=== PATIENT | male | born 1950 | race Caucasian/White ===

== ENCOUNTER → 2021-05-23 09:58 | Outpatient (BNVA) | payer MEDICARE, SELFPAY | PROVIDERS: PCP Internal Medicine; Visit Provider Hospitalist | DX: J98.4 Other disorders of lung (principal); J18.9 Pneumonia, unspecified organism; R06.00 Dyspnea, unspecified; R91.1 Solitary pulmonary nodule; K21.00 Gastro-esophageal reflux disease with esophagitis, without bleeding | CPT/HCPCS: 99202 ==

== ENCOUNTER 2021-05-23 10:59 | Outpatient (REF) | payer MEDICARE, SELFPAY ==
[2021-05-23 11:33] LABS: MANUAL DIFF FLAG NO
[2021-05-23 11:52] LABS: Basophils Percent Auto 0.6 % (0-2); Eosinophils Absolute Auto 0.4 X10*3/uL (0.0-0.4); Hematocrit 31.9 % (42-52); Hemoglobin 10.6 g/dl (14.0-18.0); Imm Gran Abs Auto 0.02 X10*3/uL (0.00-0.03); Imm Gran Pct Auto 0.3 % (0.0-0.4); Lymphocytes Percent Auto 29.4 % (20-40); Mean Corpuscular HGB Conc 33.2 g/dl (31.0-36.0); Mean Corpuscular Volume 87.4 fL (80-98); Mean Platelet Volume 9.9 fL (9.4-12.4); Monocytes Absolute Auto 0.5 X10*3/uL (0.1-1.2); Neutrophils Absolute Auto 3.9 X10*3/uL (2.0-8.3); Neutrophils Percent Auto 56.7 % (45-73); Platelet Count 284 X10*3/uL (160-400); Red Blood Count 3.65 X10*6/uL (4.60-5.80); Red Cell Distribution Width 12.7 % (11.0-16.0); White Blood Count 6.9 X10*3/uL (4.8-10.8)
[2021-05-23 13:08] LABS: Erythrocyte Sedimentation Rate 36 MM/HR (0-15)
[2021-05-26 13:12] LABS: Anti Nuclear Antibody Screen NEGATIVE (NEGATIVE)
[2021-05-28 23:52] LABS: Asperg fumigatus Precip Abs NEGATIVE (NEGATIVE); Micropoly faeni Abs NEGATIVE (NEGATIVE); Pigeon serum Abs NEGATIVE (NEGATIVE); Saccharo pora viridis Abs NEGATIVE (NEGATIVE); Thermo candidus Abs NEGATIVE (NEGATIVE); Thermoa vulgaris #1 NEGATIVE (NEGATIVE)
== END 2021-05-23 11:00 | disposition home or self-care (01) ==
LOC: HO.LAB 10:59
PROVIDERS: Visit Provider Hospitalist
DX: J18.9 Pneumonia, unspecified organism (principal); R91.8 Other nonspecific abnormal finding of lung field
CPT/HCPCS: 36415; 82785; 85025; 85652; 86003; 86038; 86039; 86331; 86606; 86609; 99202

== ENCOUNTER → 2021-06-26 09:52 | Outpatient (BNVA) | payer MEDICARE, SELFPAY | PROVIDERS: PCP Internal Medicine; Visit Provider Hospitalist | DX: R06.00 Dyspnea, unspecified (principal); J98.4 Other disorders of lung; J18.9 Pneumonia, unspecified organism; R91.1 Solitary pulmonary nodule; K21.00 Gastro-esophageal reflux disease with esophagitis, without bleeding | CPT/HCPCS: 99212 ==

== ENCOUNTER → 2021-12-06 09:42 | Outpatient (BNVA) | payer MEDICARE, SELFPAY | PROVIDERS: PCP Internal Medicine; Visit Provider Hospitalist | DX: R06.00 Dyspnea, unspecified (principal); J98.4 Other disorders of lung; J47.9 Bronchiectasis, uncomplicated; R91.1 Solitary pulmonary nodule; K21.00 Gastro-esophageal reflux disease with esophagitis, without bleeding; I50.9 Heart failure, unspecified | CPT/HCPCS: 99212 ==

== ENCOUNTER 2024-03-05 10:56 | Outpatient (AMB) | payer MEDICARE, SELFPAY ==
[2024-03-05 11:00] VITALS: PULSE 90; O2SAT 93; BMI 28.4
--- NOTE | 2024-03-05 11:00 | MHC.OFFVIS ---
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 His shortness of breath has gotten significant to the point of significant dyspnea with minimal activity. Moderate severity. He has had a extensive pulmonary evaluation ready. Back in 2018 he did undergo pulmonary function studies demonstrating a mild restrictive ventilatory defect. That was followed by a CT scan of the chest which demonstrated some degree of was a pattern primarily in the upper central areas of his lungs to some degree this could be representing air trapping versus some degree of pneumonitis. 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 He did have a subcentimeter pulmonary nodule in the right hemithorax that has not been followed. Subsequent to that the patient did have repeat pulmonary function studies this year demonstrating again a mild restrictive pattern. No real progression when compared to his PFTs from 3 years back. In the meantime he has tried inhalers including Advair and albuterol. Although he did not see any significant improvement with these medications therefore he stop the. 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 He worked closely with asbestos and other organic and inorganic dust. The beginning of his career he did not use masks or respirator so does it was the norm. As far as exposures in his home he does have parakeets which she has had about 4 years. His is the main take care of the birds. He denies any mold in the house. Has never had any exposure to farm animals or farm work. During the office visit we did go for brief walking oximetry. The patient was able to maintain a pulse ox 95-96% with activity his heart rate between 90 and 100. The patient was visibly dyspneic. 06/26/2021 the patient is here for a pulmonary follow-up visit. The patient continues to have significant productive cough. The cough is uncomfortable. Moderate severity. He was started on the Trelegy inhaler and did not see any significant improvement. He does have a rescue inhaler that he uses as needed. In meantime he did undergo blood work he did have evidence of significant eosinophilia suggesting a component of allergic type of reaction. His allergy testing was otherwise negative. his hypersensitivity panel also was negative. He has major complaint is of productive cough in a nagging cough. . We talked about considering the use of prednisone to decrease some of the inflammation of the airways. But, the patient is reluctant due to his history of diabetes. Therefore, we can start her on azithromycin she which she bronchitis and also component of bronchiectasis that he had noticed on previous CT scan. 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 In addition to that the patient did have subcentimeter pulmonary nodules. In view of the patient's persistent symptoms will request a CT scan of the chest to further address the restrictive lung disease in the history of pneumonitis and interstitial lung disease. 12/06/2021 the patient is here for pulmonary follow-up visit. He is complaining of increasing dyspnea on exertion. Moderate severity even with typical activities of daily living. He did try the azithromycin 3 times a week treating the evidence of bronchitis and bronchiectasis but without any significant improvement. Recently he did undergo an echocardiogram demonstrating a decrease in his ejection fraction. His brain atretic peptide was significantly elevated. Patient also has worsening lower extremity edema. Explained to the patient that is likely multifactorial. He definitely has a component of volume overload status and likely some congestive heart failure. 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 Will go ahead and start him on some diuretics to see if we can improve his respiratory status. In the meantime he also has bronchiectasis. Will provide him with nebulized therapy in addition to followed by chest physical therapy in order to improve his in bronchopulmonary hygiene. Will follow-up in 6-8 weeks. 03/05/2024 the patient is here for a pulmonary follow-up visit. Recently he was hospitalized at [facility]. He developed worsening shortness of breath. He was admitted to the hospital. There he was found to have elevated cardiac enzymes suggesting demand ischemia. He was evaluated by Cardiology and placed on cardioprotective medications. During hospitalization he did have a CTA. They ruled out PE. Although he did have some areas of mosaic pattern suggesting airways disease. Could also be component of pneumonitis. Can not rule out congestive heart failure. The patient did develop worsening renal failure while in the hospital after the dye. He does have chronic disease. Although he did have the elevated cardiac enzymes felt to be secondary to his pulmonary issue and therefore opted on not pursuing a cardiac catheterization in view of his worsening renal function. The patient seems to be doing better now. We will maximize his respiratory therapy. Also request additional blood work to reassess the possibility of pneumonitis. On previous imaging studies the patient did have a component of bronchiectasis. will request a flutter valve for CPT in order for him to clear his mucus better. Will also optimize his respiratory therapy at this time. Will have him return in couple months and will assess his response to therapy. If he has any worsening symptoms he will call the office prior to that. [facility] Medical History (Updated 03/07/24 @ 18:33 by Federico Ortiz MD) COPD (chronic obstructive pulmonary disease) History of non-Hodgkin's lymphoma History of TIA (transient ischemic attack) Diabetes mellitus type 2, insulin dependent Hyperlipidemia Hypertension CAD (coronary artery disease) Pulmonary nodule GERD (gastroesophageal reflux disease) Chronic restrictive lung disease Dyspnea Pneumonitis Surgical History (Updated 12/06/21 @ 11:16 by Laurel Gaytan PA-C) History of cardiac cath History of shoulder surgery History of total left knee replacement History of lumbar surgery History of cervical spinal surgery History of appendectomy Social History (Updated 12/06/21 @ 11:19 by Laurel Gaytan PA-C) Patient Tobacco Use Status: Former Tobacco user Review of Systems Const Denies night sweats ENT Denies change in voice, Denies lip swelling, Denies mouth pain, Reports nasal congestion, Reports nasal discharge and Denies tongue swelling Card Denies chest pain, Denies palpitations and Reports dyspnea on exertion Resp Denies chest congestion, Reports cough and Reports dyspnea on exertion GI Denies abdominal pain Musc Denies no additional complaints Neuro Denies Neuro-related abnormal movements Psych Denies no additional complaints Endo Denies palpitations Robert/Lymph Denies easy bleeding and Denies lymphadenopathy Aller/Immun Denies lip swelling and Denies tongue swelling Physical Exam Vital Signs: Last Vital Signs Pulse 90 03/05/24 11:00 Pulse Ox 93 03/05/24 11:00 Oxygen Delivery Method Room Air 03/05/24 11:00 BMI result Body Mass Index 28.4 Const General: alert Neck Neck: Yes normal visual inspection, Yes full ROM and Yes no lymphadenopathy Chest Chest palpation & inspection: normal inspection of the chest Resp Effort & Inspection: normal respiratory effort Auscultation: diminished lung sounds Cardio Rate: regular rate Rhythm: regular rhythm Heart sounds: S1 normal heart sound present and S2 normal heart sound present GI Palpation (GI): Soft to palpation and nontender Auscultation: normal bowel sounds Skin General skin exam: rashes and/or lesions noted Assessment & Plan Assessment & Plan (1) Dyspnea: Code(s): R06.00 - Dyspnea, unspecified Category: Medical Qualifiers: Dyspnea type: dyspnea on exertion Qualified Code(s): R06.09 - Other forms of dyspnea (2) Chronic restrictive lung disease: Code(s): J98.4 - Other disorders of lung Category: Medical (3) GERD (gastroesophageal reflux disease): Code(s): K21.9 - Gastro-esophageal reflux disease without esophagitis Category: Medical Qualifiers: Esophagitis bleeding: without hemorrhage Esophagitis presence: with esophagitis Qualified Code(s): K21.00 - Gastro-esophageal reflux disease with esophagitis, without bleeding (4) Pulmonary nodule: Comment: 0.3 cm Code(s): R91.1 - Solitary pulmonary nodule Category: Medical (5) Bronchiectasis: Code(s): J47.9 - Bronchiectasis, uncomplicated Category: Medical Qualifiers: Bronchiectasis type: uncomplicated Qualified Code(s): J47.9 - Bronchiectasis, uncomplicated (6) COPD (chronic obstructive pulmonary disease): Code(s): J44.9 - Chronic obstructive pulmonary disease, unspecified Category: Medical Qualifiers: COPD type: chronic bronchitis Chronic bronchitis type: mixed simple and mucopurulent Qualified Code(s): J41.8 - Mixed simple and mucopurulent chronic bronchitis (7) Pneumonitis: Code(s): J18.9 - Pneumonia, unspecified organism Category: Medical Plan Recommendations: start Trelegy KARINE as needed Bloodwork Nebulizer therapy, Duoneb BID CPT with acapella valve Continue Reflux diet prevnar 20 [place] [facility] [place] [facility] [place] F/U 6-8 weeks Orders: Orders Erythrocyte Sedimentation Rate 03/05/24 J18.9 - Pneumonia, unspecified organism Pneumococcal 20 Immunization 03/05/24 Z23 - Encounter for immunization PFT pulmonary function test 03/05/24 J44.9 - Chronic obstructive pulmonary disease, unspecified Pulmonary Rehab 03/05/24 J44.9 - Chronic obstructive pulmonary disease, unspecified Complete Blood Count Auto Diff 03/05/24 J18.9 - Pneumonia, unspecified organism Immunoglobulin E 03/05/24 J18.9 - Pneumonia, unspecified organism Immunoglobulins,IgG IgA IgM 03/05/24 J18.9 - Pneumonia, unspecified organism Medications: New albuterol sulfate 90 mcg/actuation 2 inhalations inhalation Q6H PRN 18 grams 12RF shortness of breath or wheezing 30 days J44.9 - Chronic obstructive pulmonary disease, unspecified Refilled [id number]-jqcbguhsk-xibpxump 200-62.5-25 mcg (Trelegy Ellipta) 1 inh inhalation DAILY 60 ea 12RF 30 days ipratropium-albuterol 0.5 mg-3 mg(2.5 mg base)/3 mL 3 mL inhalation BID 180 mL 11RF 30 days J44.9 - Chronic obstructive pulmonary disease, unspecified Coding Level of Care Code Est Pt Level 4 (12723) Complex EM visit Add On G2211 Diagnoses Dyspnea on exertion R06.09 Dyspnea type: dyspnea on exertion Chronic restrictive lung disease J98.4 Gastroesophageal reflux disease with esophagitis without hemorrhage K21.00 Esophagitis bleeding: without hemorrhage Esophagitis presence: with esophagitis Pulmonary nodule R91.1 Bronchiectasis without complication J47.9 Bronchiectasis type: uncomplicated Mixed simple and mucopurulent chronic bronchitis J41.8 COPD type: chronic bronchitis Chronic bronchitis type: mixed simple and mucopurulent Pneumonitis J18.9 Time Spent (min) 30
== END 2024-03-05 11:41 | disposition home or self-care (01) ==
PROVIDERS: PCP Internal Medicine; Visit Provider Hospitalist
DX: Z23 Encounter for immunization (principal)
CPT/HCPCS: 99214; G2211

== ENCOUNTER → 2024-03-05 10:56 | Outpatient (BNVA) | payer MEDICARE, SELFPAY | PROVIDERS: PCP Internal Medicine; Visit Provider Hospitalist | DX: J41.8 Mixed simple and mucopurulent chronic bronchitis (principal); J98.4 Other disorders of lung; R06.09 Other forms of dyspnea; J47.9 Bronchiectasis, uncomplicated; J18.9 Pneumonia, unspecified organism; K21.00 Gastro-esophageal reflux disease with esophagitis, without bleeding; Z23 Encounter for immunization | CPT/HCPCS: 90471; 90677; 99212 ==

== ENCOUNTER 2024-06-09 11:13 | Outpatient (AMB) | payer MEDICARE, SELFPAY ==
[2024-06-09 11:15] VITALS: BP 142/80; PULSE 83; O2SAT 95
--- NOTE | 2024-06-09 11:15 | A.OFFVIS_ITS ---
Vital Signs 06/09/24 11:15 Weight 213 lb 13.574 oz BP 142/80 H Blood Pressure Location Rt brachial Position Sitting Pulse 83 Pulse Source Pulse Oximeter Pulse Oximetry (%) 95 Oxygen Delivery Method Room Air Intake Visit Reasons: COPD follow-up Intake Note: [facility] ER last night dx with Pnuemonia Allergies atorvastatin Allergy (Severe, Verified 06/09/24 11:20) Muscle Aches magnesium Allergy (Severe, Verified 06/09/24 11:20) Rash pravastatin Allergy (Severe, Verified 06/09/24 11:20) Muscle Aches Medication List - Last Reconciled 06/09/24 by Marsha Beach LPN albuterol sulfate 90 mcg/actuation 2 inhalations inhalation Q6H PRN 30 days aspirin 81 mg PO DAILY clopidogrel 75 mg PO DAILY dulaglutide (Trulicity) 0.75 mg subcut QWEEK sqxwyjwrxpt-wylcsdvyj-nqkpeqnx 200-62.5-25 mcg (Trelegy Ellipta) 1 inh inhalation DAILY 30 days glipizide ER 10 mg PO BID insulin glargine (Basaglar KwikPen U-100 Insulin) units subcut ipratropium-albuterol 0.5 mg-3 mg(2.5 mg base)/3 mL 3 mL inhalation BID 30 days isosorbide mononitrate ER 30 mg PO DAILY metformin 1,000 mg PO BID metoprolol succinate ER 50 mg PO BID sertraline 50 mg PO DAILY HPI Comments Details: The patient is a 73-year-old gentleman who has been complaining of progressive dyspnea for the last few years. His shortness of breath has gotten significant to the point of significant dyspnea with minimal activity. Moderate severity. He has had a extensive pulmonary evaluation ready. Back in 2019 he did undergo pulmonary function studies demonstrating a mild restrictive ventilatory defect. That was followed by a CT scan of the chest which demonstrated some degree of was a pattern primarily in the upper central areas of his lungs to some degree this could be representing air trapping versus some degree of pneumonitis. 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 He did have a subcentimeter pulmonary nodule in the right hemithorax that has not been followed. Subsequent to that the patient did have repeat pulmonary function studies this year demonstrating again a mild restrictive pattern. No real progression when compared to his PFTs from 3 years back. In the meantime he has tried inhalers including Advair and albuterol. Although he did not see any significant improvement with these medications therefore he stop the. 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 He worked closely with asbestos and other organic and inorganic dust. The beginning of his career he did not use masks or respirator so does it was the norm. As far as exposures in his home he does have parakeets which she has had about 4 years. His is the main take care of the birds. He denies any mold in the house. Has never had any exposure to farm animals or farm work. During the office visit we did go for brief walking oximetry. The patient was able to maintain a pulse ox 95- 96% with activity his heart rate between 90 and 100. The patient was visibly dyspneic. 06/26/2021 the patient is here for a pulmonary follow-up visit. The patient continues to have significant productive cough. The cough is uncomfortable. Moderate severity. He was started on the Trelegy inhaler and did not see any significant improvement. He does have a rescue inhaler that he uses as needed. In meantime he did undergo blood work he did have evidence of significant eosinophilia suggesting a component of allergic type of reaction. His allergy testing was otherwise negative. his hypersensitivity panel also was negative. He has major complaint is of productive cough in a nagging cough. . We talked about considering the use of prednisone to decrease some of the inflammation of the airways. But, the patient is reluctant due to his history of diabetes. Therefore, we can start her on azithromycin she which she bronchitis and also component of bronchiectasis that he had noticed on previous CT scan. 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 In addition to that the patient did have subcentimeter pulmonary nodules. In view of the patient's persistent symptoms will request a CT scan of the chest to further address the restrictive lung disease in the history of pneumonitis and interstitial lung disease. 12/06/2021 the patient is here for pulmonary follow-up visit. He is complaining of increasing dyspnea on exertion. Moderate severity even with typical activities of daily living. He did try the azithromycin 3 times a week treating the evidence of bronchitis and bronchiectasis but without any significant improvement. Recently he did undergo an echocardiogram demonstrating a decrease in his ejection fraction. His brain atretic peptide was significantly elevated. Patient also has worsening lower extremity edema. Explained to the patient that is likely multifactorial. He definitely has a component of volume overload status and likely some congestive heart failure. 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 Will go ahead and start him on some diuretics to see if we can improve his respiratory status. In the meantime he also has bronchiectasis. Will provide him with nebulized therapy in addition to followed by chest physical therapy in order to improve his in bronchopulmonary hygiene. Will follow-up in 6-8 weeks. 03/05/2024 the patient is here for a pulmonary follow-up visit. Recently he was hospitalized at [facility]. He developed worsening shortness of breath. He was admitted to the hospital. There he was found to have elevated cardiac enzymes suggesting demand ischemia. He was evaluated by Cardiology and placed on cardioprotective medications. During hospitalization he did have a CT A. They ruled out PE. Although he did have some areas of mosaic pattern suggesting airways disease. Could also be component of pneumonitis. Can not rule out congestive heart failure. The patient did develop worsening renal failure while in the hospital after the dye. He does have chronic disease. Although he did have the elevated cardiac enzymes felt to be secondary to his pulmonary issue and therefore opted on not pursuing a cardiac catheterization in view of his worsening renal function. The patient seems to be doing better now. We will maximize his respiratory therapy. Also request additional blood work to reassess the possibility of pneumonitis. On previous imaging studies the patient did have a component of bronchiectasis. will request a flutter valve for CPT in order for him to clear his mucus better. Will also optimize his respiratory therapy at this time. Will have him return in couple months and will assess his response to therapy. If he has any worsening symptoms he will call the office prior to that. 06/09/2024 the patient is here for hospital follow-up visit. Since we last spoke the patient was seen by his primary care doctor was having. He had blood work including elevated brain atretic peptide. He was recommended to go to the ER. He had done an x-ray on June 07 which was fairly clear. I did personally review the images. It was a PA without any evidence of any airspace disease. Subsequently he went to [facility]. He had a repeat chest x-ray. It was an AP film and at that point demonstrated a slight hazy opacity in the left basilar area. He did also have some crackles in that area. The patient was given a course of antibiotics to treat for pneumonia. Clinically the patient is feeling better. During the visit we did taken for a walking oximetry the patient did desaturate down to 88% with activity. He was visibly dyspneic. In part this is likely multifactorial with his heart failure his COPD. The patient will benefit from oxygen supplementation. He does have issues with his walking therefore portable oxygen concentrator will be more effective as it is easier to carry and better portability outside of the home. I will request a POC from the local [employer] company. The patient should also use the oxygen at nighttime. Can also try to do an overnight oximetry to see if he benefits from the oxygen nocturnally. In the meantime he will continue with his respiratory medicine. Also continue with diuresis as tolerated. Will start him on low-dose prednisone taper to help decrease the airway inflammation and hopefully allow him to recover faster. She needs to make sure to follow his sugars closely. At some point when he returns will do a follow-up chest x-ray to make sure that his left lower lobe opacities clear. [facility] Medical History (Updated 03/07/24 @ 18:33 by Federico Ortiz MD) COPD (chronic obstructive pulmonary disease) History of non-Hodgkin's lymphoma History of TIA (transient ischemic attack) Diabetes mellitus type 2, insulin dependent Hyperlipidemia Hypertension CAD (coronary artery disease) Pulmonary nodule GERD (gastroesophageal reflux disease) Chronic restrictive lung disease Dyspnea Pneumonitis Surgical History (Updated 12/06/21 @ 11:16 by Laurel Gaytan PA-C) History of cardiac cath History of shoulder surgery History of total left knee replacement History of lumbar surgery History of cervical spinal surgery History of appendectomy Social History (Updated 12/06/21 @ 11:19 by Laurel Gaytan PA-C) Patient Tobacco Use Status: Former Tobacco user Review of Systems Const Denies night sweats ENT Denies change in voice, Denies lip swelling, Denies mouth pain, Reports nasal congestion, Reports nasal discharge and Denies tongue swelling Card Denies chest pain, Denies palpitations and Reports dyspnea on exertion Resp Denies chest congestion, Reports cough and Reports dyspnea on exertion GI Denies abdominal pain Musc Denies no additional complaints Neuro Denies Neuro-related abnormal movements Psych Denies no additional complaints Endo Denies palpitations Robert/Lymph Denies easy bleeding and Denies lymphadenopathy Aller/Immun Denies lip swelling and Denies tongue swelling Physical Exam Vital Signs: Last Vital Signs Pulse 83 06/09/24 11:15 BP 142/80 H 06/09/24 11:15 Pulse Ox 95 06/09/24 11:15 Oxygen Delivery Method Room Air 06/09/24 11:15 Const General: alert Neck Neck: Yes normal visual inspection, Yes full ROM and Yes no lymphadenopathy Chest Chest palpation & inspection: normal inspection of the chest Resp Effort & Inspection: normal respiratory effort Auscultation: rales on the left and diminished lung sounds Cardio Rate: regular rate Rhythm: regular rhythm Heart sounds: S1 normal heart sound present and S2 normal heart sound present GI Palpation (GI): Soft to palpation and nontender Auscultation: normal bowel sounds Skin General skin exam: rashes and/or lesions noted Office Procedures 6 Minute Walk Time:: 20:29 SPO2 % at rest: 92 Pulse at rest: 78 SPO2 % during excercise: 88 Pulse during excercise: 90 Distance in yards walked: 200 Mary Score: 8 Supplemental Oxygen: pt desaturated 88% RA with activity, placed on POC, had to increase to 3L/pulse to maintain pox 92% with acitivity [id number] - 6 Minute Walk Assessment & Plan Assessment & Plan (1) Dyspnea: Code(s): R06.00 - Dyspnea, unspecified Category: Medical Qualifiers: Dyspnea type: dyspnea on exertion Qualified Code(s): R06.09 - Other forms of dyspnea (2) Chronic restrictive lung disease: Code(s): J98.4 - Other disorders of lung Category: Medical (3) GERD (gastroesophageal reflux disease): Code(s): K21.9 - Gastro-esophageal reflux disease without esophagitis Category: Medical Qualifiers: Esophagitis bleeding: without hemorrhage Esophagitis presence: with esophagitis Qualified Code(s): K21.00 - Gastro-esophageal reflux disease with esophagitis, without bleeding (4) Pulmonary nodule: Comment: 0.3 cm Code(s): R91.1 - Solitary pulmonary nodule Category: Medical (5) Bronchiectasis: Code(s): J47.9 - Bronchiectasis, uncomplicated Category: Medical Qualifiers: Bronchiectasis type: uncomplicated Qualified Code(s): J47.9 - Bronchiectasis, uncomplicated (6) COPD (chronic obstructive pulmonary disease): Code(s): J44.9 - Chronic obstructive pulmonary disease, unspecified Category: Medical Qualifiers: COPD type: chronic bronchitis Chronic bronchitis type: mixed simple and mucopurulent Qualified Code(s): J41.8 - Mixed simple and mucopurulent chronic bronchitis (7) Pneumonitis: Code(s): J18.9 - Pneumonia, unspecified organism Category: Medical (8) CHF (congestive heart failure): Code(s): I50.9 - Heart failure, unspecified Category: Medical Qualifiers: Heart failure chronicity: unspecified Plan Recommendations: continue Trelegy KARINE as needed Nebulizer therapy, Duoneb BID CPT with acapella valve Continue Reflux diet prevnar 20 PFTs at [facility] start Pulmonary rehab at [facility] diuresis as tolerated start POC 3L/pulse with activity and 2L/min while sleeping start prednisone taper complete abx F/U 2-3 months Coding Level of Care Code Est Pt Level 4 (56277) Complex EM visit Add On G2211 Diagnoses Dyspnea on exertion R06.09 Dyspnea type: dyspnea on exertion Chronic restrictive lung disease J98.4 Gastroesophageal reflux disease with esophagitis without hemorrhage K21.00 Esophagitis bleeding: without hemorrhage Esophagitis presence: with esophagitis Pulmonary nodule R91.1 Bronchiectasis without complication J47.9 Bronchiectasis type: uncomplicated Mixed simple and mucopurulent chronic bronchitis J41.8 COPD type: chronic bronchitis Chronic bronchitis type: mixed simple and mucopurulent Pneumonitis J18.9 CHF (congestive heart failure) I50.9 Heart failure chronicity: unspecified CPT Codes Coding ([id number]) Time Spent (min) 20
[2024-06-09 20:27] VITALS: PULSE 78; O2SAT 92
== END 2024-06-09 11:56 | disposition home or self-care (01) ==
LOC: HO.HPS 11:13
PROVIDERS: PCP Internal Medicine; Visit Provider Hospitalist
DX: R06.09 Other forms of dyspnea (principal); J98.4 Other disorders of lung; K21.00 Gastro-esophageal reflux disease with esophagitis, without bleeding; R91.1 Solitary pulmonary nodule; J47.9 Bronchiectasis, uncomplicated; J41.8 Mixed simple and mucopurulent chronic bronchitis; J18.9 Pneumonia, unspecified organism; I50.9 Heart failure, unspecified
CPT/HCPCS: 94618; 99214; G2211

== ENCOUNTER → 2024-06-09 11:13 | Outpatient (BNVA) | payer MEDICARE, SELFPAY | PROVIDERS: PCP Internal Medicine; Visit Provider Hospitalist | DX: J41.8 Mixed simple and mucopurulent chronic bronchitis (principal); J18.9 Pneumonia, unspecified organism; J98.4 Other disorders of lung; J47.9 Bronchiectasis, uncomplicated; R91.1 Solitary pulmonary nodule; I50.9 Heart failure, unspecified; R06.09 Other forms of dyspnea | CPT/HCPCS: 94618; 99212 ==

== ENCOUNTER 2024-09-27 13:23 | Outpatient (AMB) | payer MEDICARE, SELFPAY ==
[2024-09-27 13:28] VITALS: BP 102/58; PULSE 71; O2SAT 98; BMI 26.2
--- NOTE | 2024-09-27 13:28 | MHC.OFFVIS ---
Vital Signs 09/27/24 13:28 Height 6 ft 2 in Weight 203 lb 14.841 oz BMI 26.2 BP 102/58 L Blood Pressure Location Lt brachial Position Sitting Pulse 71 Pulse Source Pulse Oximeter Pulse Oximetry (%) 98 Oxygen Delivery Method Room Air Intake Visit Reasons: COPD follow-up Allergies atorvastatin Allergy (Severe, Verified 09/27/24 13:34) Muscle Aches magnesium Allergy (Severe, Verified 09/27/24 13:34) Rash pravastatin Allergy (Severe, Verified 09/27/24 13:34) Muscle Aches HPI Comments Details: The patient is a 74-year-old gentleman who has been complaining of progressive dyspnea for the last few years. His shortness of breath has gotten significant to the point of significant dyspnea with minimal activity. Moderate severity. He has had a extensive pulmonary evaluation ready. Back in 2018 he did undergo pulmonary function studies demonstrating a mild restrictive ventilatory defect. That was followed by a CT scan of the chest which demonstrated some degree of was a pattern primarily in the upper central areas of his lungs to some degree this could be representing air trapping versus some degree of pneumonitis. 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 He did have a subcentimeter pulmonary nodule in the right hemithorax that has not been followed. Subsequent to that the patient did have repeat pulmonary function studies this year demonstrating again a mild restrictive pattern. No real progression when compared to his PFTs from 3 years back. In the meantime he has tried inhalers including Advair and albuterol. Although he did not see any significant improvement with these medications therefore he stop the. 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 He worked closely with asbestos and other organic and inorganic dust. The beginning of his career he did not use masks or respirator so does it was the norm. As far as exposures in his home he does have parakeets which she has had about 4 years. His is the main take care of the birds. He denies any mold in the house. Has never had any exposure to farm animals or farm work. During the office visit we did go for brief walking oximetry. The patient was able to maintain a pulse ox 95-96% with activity his heart rate between 90 and 100. The patient was visibly dyspneic. 06/26/2021 the patient is here for a pulmonary follow-up visit. The patient continues to have significant productive cough. The cough is uncomfortable. Moderate severity. He was started on the Trelegy inhaler and did not see any significant improvement. He does have a rescue inhaler that he uses as needed. In meantime he did undergo blood work he did have evidence of significant eosinophilia suggesting a component of allergic type of reaction. His allergy testing was otherwise negative. his hypersensitivity panel also was negative. He has major complaint is of productive cough in a nagging cough. . We talked about considering the use of prednisone to decrease some of the inflammation of the airways. But, the patient is reluctant due to his history of diabetes. Therefore, we can start her on azithromycin she which she bronchitis and also component of bronchiectasis that he had noticed on previous CT scan. 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 In addition to that the patient did have subcentimeter pulmonary nodules. In view of the patient's persistent symptoms will request a CT scan of the chest to further address the restrictive lung disease in the history of pneumonitis and interstitial lung disease. 12/06/2021 the patient is here for pulmonary follow-up visit. He is complaining of increasing dyspnea on exertion. Moderate severity even with typical activities of daily living. He did try the azithromycin 3 times a week treating the evidence of bronchitis and bronchiectasis but without any significant improvement. Recently he did undergo an echocardiogram demonstrating a decrease in his ejection fraction. His brain atretic peptide was significantly elevated. Patient also has worsening lower extremity edema. Explained to the patient that is likely multifactorial. He definitely has a component of volume overload status and likely some congestive heart failure. 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 Will go ahead and start him on some diuretics to see if we can improve his respiratory status. In the meantime he also has bronchiectasis. Will provide him with nebulized therapy in addition to followed by chest physical therapy in order to improve his in bronchopulmonary hygiene. Will follow-up in 6-8 weeks. 03/05/2024 the patient is here for a pulmonary follow-up visit. Recently he was hospitalized at [facility]. He developed worsening shortness of breath. He was admitted to the hospital. There he was found to have elevated cardiac enzymes suggesting demand ischemia. He was evaluated by Cardiology and placed on cardioprotective medications. During hospitalization he did have a CTA. They ruled out PE. Although he did have some areas of mosaic pattern suggesting airways disease. Could also be component of pneumonitis. Can not rule out congestive heart failure. The patient did develop worsening renal failure while in the hospital after the dye. He does have chronic disease. Although he did have the elevated cardiac enzymes felt to be secondary to his pulmonary issue and therefore opted on not pursuing a cardiac catheterization in view of his worsening renal function. The patient seems to be doing better now. We will maximize his respiratory therapy. Also request additional blood work to reassess the possibility of pneumonitis. On previous imaging studies the patient did have a component of bronchiectasis. will request a flutter valve for CPT in order for him to clear his mucus better. Will also optimize his respiratory therapy at this time. Will have him return in couple months and will assess his response to therapy. If he has any worsening symptoms he will call the office prior to that. 06/09/2024 the patient is here for hospital follow-up visit. Since we last spoke the patient was seen by his primary care doctor was having. He had blood work including elevated brain atretic peptide. He was recommended to go to the ER. He had done an x-ray on June 07 which was fairly clear. I did personally review the images. It was a PA without any evidence of any airspace disease. Subsequently he went to [facility]. He had a repeat chest x-ray. It was an AP film and at that point demonstrated a slight hazy opacity in the left basilar area. He did also have some crackles in that area. The patient was given a course of antibiotics to treat for pneumonia. Clinically the patient is feeling better. During the visit we did taken for a walking oximetry the patient did desaturate down to 88% with activity. He was visibly dyspneic. In part this is likely multifactorial with his heart failure his COPD. The patient will benefit from oxygen supplementation. He does have issues with his walking therefore portable oxygen concentrator will be more effective as it is easier to carry and better portability outside of the home. I will request a POC from the local [employer] company. The patient should also use the oxygen at nighttime. Can also try to do an overnight oximetry to see if he benefits from the oxygen nocturnally. In the meantime he will continue with his respiratory medicine. Also continue with diuresis as tolerated. Will start him on low-dose prednisone taper to help decrease the airway inflammation and hopefully allow him to recover faster. She needs to make sure to follow his sugars closely. At some point when he returns will do a follow-up chest x-ray to make sure that his left lower lobe opacities clear. 09/27/2024 the patient is here for sick visit. Apparently he developed RSV worsening respiratory symptoms. He has been coughing more. Some chest congestion. Difficult to expectorate. Moderate severity. He had a chest x-ray back in 08/28/2023 which I personally reviewed demonstrating no airspace disease. 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 There was a question of diminished breath sounds and pleural effusion. He was sent over to Pulmonary. Currently he is still complaining of the cough. Also has other complaints such as weakness and low blood pressure specially when standing up. He has been concerned about that. He has been upset about the cough. On exam he does not have any wheezing which is reassuring. He already completed a course of steroids. He also completed a course of doxycycline. He does have some rhonchi in the bases. We did give him a treatment with levo albuterol which did help and he did cough up some secretions but we were able to get a sputum cup for culture. I did give him another cup that he can take with him for the culture. Will go ahead and start him on Augmentin since he finished doxycycline and he is going to work on deep breathing exercises. I did request an Acapella valve for him and he will use the nebulizer twice a day. He will go for chest x-ray today to see if there is any evidence of any airspace disease or effusions. [facility] Medical History (Updated 09/27/24 @ 17:43 by Federico Ortiz MD) COPD (chronic obstructive pulmonary disease) History of non-Hodgkin's lymphoma History of TIA (transient ischemic attack) Diabetes mellitus type 2, insulin dependent Hyperlipidemia Hypertension CAD (coronary artery disease) Pulmonary nodule GERD (gastroesophageal reflux disease) Chronic restrictive lung disease Dyspnea Pneumonitis Surgical History (Updated 12/06/21 @ 11:16 by Laurel Gaytan PA-C) History of cardiac cath History of shoulder surgery History of total left knee replacement History of lumbar surgery History of cervical spinal surgery History of appendectomy Social History Patient Tobacco Use Status: Former Tobacco user Review of Systems Const Denies night sweats ENT Denies change in voice, Denies lip swelling, Denies mouth pain, Reports nasal congestion, Reports nasal discharge and Denies tongue swelling Card Denies chest pain, Denies palpitations and Reports dyspnea on exertion Resp Reports chest congestion, Reports cough and Reports dyspnea on exertion GI Denies abdominal pain Musc Denies no additional complaints Neuro Denies Neuro-related abnormal movements Psych Denies no additional complaints Endo Denies palpitations Robert/Lymph Denies easy bleeding and Denies lymphadenopathy Aller/Immun Denies lip swelling and Denies tongue swelling Physical Exam Vital Signs: Last Vital Signs Pulse 71 09/27/24 13:28 BP 102/58 L 09/27/24 13:28 Pulse Ox 98 09/27/24 13:28 Oxygen Delivery Method Room Air 09/27/24 13:28 BMI result Body Mass Index 26.2 Const General: alert Neck Neck: Yes normal visual inspection, Yes full ROM and Yes no lymphadenopathy Chest Chest palpation & inspection: normal inspection of the chest Resp Effort & Inspection: normal respiratory effort Auscultation: rales on the left and diminished lung sounds Cardio Rate: regular rate Rhythm: regular rhythm Heart sounds: S1 normal heart sound present and S2 normal heart sound present GI Palpation (GI): Soft to palpation and nontender Auscultation: normal bowel sounds Skin General skin exam: rashes and/or lesions noted Assessment & Plan Assessment & Plan (1) Dyspnea: Code(s): R06.00 - Dyspnea, unspecified Category: Medical Qualifiers: Dyspnea type: dyspnea on exertion Qualified Code(s): R06.09 - Other forms of dyspnea (2) Chronic restrictive lung disease: Code(s): J98.4 - Other disorders of lung Category: Medical (3) GERD (gastroesophageal reflux disease): Code(s): K21.9 - Gastro-esophageal reflux disease without esophagitis Category: Medical Qualifiers: Esophagitis bleeding: without hemorrhage Esophagitis presence: with esophagitis Qualified Code(s): K21.00 - Gastro-esophageal reflux disease with esophagitis, without bleeding (4) Pulmonary nodule: Comment: 0.3 cm Code(s): R91.1 - Solitary pulmonary nodule Category: Medical (5) Bronchiectasis: Code(s): J47.9 - Bronchiectasis, uncomplicated Category: Medical Qualifiers: Bronchiectasis type: uncomplicated Qualified Code(s): J47.9 - Bronchiectasis, uncomplicated (6) COPD (chronic obstructive pulmonary disease): Code(s): J44.9 - Chronic obstructive pulmonary disease, unspecified Category: Medical Qualifiers: COPD type: chronic bronchitis Chronic bronchitis type: mixed simple and mucopurulent Qualified Code(s): J41.8 - Mixed simple and mucopurulent chronic bronchitis (7) Pneumonitis: Code(s): J18.9 - Pneumonia, unspecified organism Category: Medical (8) CHF (congestive heart failure): Code(s): I50.9 - Heart failure, unspecified Category: Medical Qualifiers: Heart failure chronicity: unspecified Heart failure type: unspecified Qualified Code(s): I50.9 - Heart failure, unspecified Plan start Aumentin sputum cx if no better CXR continue Trelegy KARINE as needed Nebulizer therapy, Duoneb BID CPT with acapella valve Continue Reflux diet diuresis as tolerated POC 3L/pulse with activity and 2L/min while sleeping F/U 2-3 months Orders: Orders XR chest 2V Today J41.8 - Mixed simple and mucopurulent chronic bronchitis Sputum Cult + Gram stain Today R91.1 - Solitary pulmonary nodule Medications: New amoxicillin-pot clavulanate 500-125 mg (Augmentin) 1 tab PO BID 10 days 20 tabs 0RF Coding Level of Care Code Est Pt Level 4 (54070) Complex EM visit Add On G2211 Diagnoses Dyspnea on exertion R06.09 Dyspnea type: dyspnea on exertion Chronic restrictive lung disease J98.4 Gastroesophageal reflux disease with esophagitis without hemorrhage K21.00 Esophagitis bleeding: without hemorrhage Esophagitis presence: with esophagitis Pulmonary nodule R91.1 Bronchiectasis without complication J47.9 Bronchiectasis type: uncomplicated Mixed simple and mucopurulent chronic bronchitis J41.8 COPD type: chronic bronchitis Chronic bronchitis type: mixed simple and mucopurulent Pneumonitis J18.9 Congestive heart failure, unspecified HF chronicity, unspecified heart failure type I50.9 Heart failure chronicity: unspecified Heart failure type: unspecified Time Spent (min) 17
--- OUTSIDE RECORDS SUMMARY | 2024-09-27 15:20 | XMS_ITS | Encounter Summary ---
Author Organization [facility] Address [address] [address] Phone Care Team Providers Care Od Grinder Operator Name Role Phone Vandana Parker MD Primary Care Provider [phone]- [phone] Encounter Details Date Type Department Care Team (Late st Contact Info) Description 09/20/2024 10:00 AM EST Office Visit [facility] [address] [address] Santiago Quinn MD [address] [address] Stage 3a chronic kidney disease (HCC) (Primary Dx); Renal disorder due to type 2 diabetes mellitus <Other diabetic kidney complication> (HCC); Peripheral arterial occlusive disease (HCC); Non-Hodgkin's lymphoma (clinical) (HCC); Hypomagnesemia; Hyperkalemia; Hypercalcemia; Essential hypertension; Diabetes mellitus, not otherwise specified (HCC); Congestive heart failure, not otherwise specified (HCC) Social History Tobacco Use Types Packs/Day Years Used Date Smoking Tobacco: Former Cigarettes Q uit: 2002 Alcohol Use Standard Drinks/Week Comments No 0 (1 standard drink = 0.6 oz pur e alcohol) Sex and Gender Information Value Date Recorded Sex Assigned at Not on file Legal Sex Male 4:48 PM EST Gender Identity Not on file Sexual Orientation Not on file documented as of this encounter Last Filed Vital Signs Vital Sign Reading Time Taken Comments Blood Pressure 92/48 09/20/2024 10:18 AM EST Pulse - - Temperature - - Respiratory Rate - - Oxygen Saturation - - Inhaled Oxygen Concentration - - Weight 92.4 kg (203 lb 12.8 oz) 025 10:18 AM EST Height 188 cm (6' 2 ) 09/20/2024 10:18 AM EST Body Mass Index 26.17 09/20/2024 10:18 AM EST documented in this encounter Progress Notes * Santiago Quinn MD - 09/20/2024 10:00 AM EST [facility] Office Visit Patient Name: Jose L Goins, Male Date of : 1950, 74 y.o. Date: 09/20/2024 History of Present Illness Jose L Goins is a 74 y.o. male who is here for follow up of multiple medical problems including CKD, SHONNA, and hyperkalemia. Interim history since the last encounter was reviewed. No acute complaints were voiced. Denied chest pain, flank pain, hematuria, hemoptysis or fevers. All other systems were reviewed and negative. Available lab results were reviewed and discussed. Medication list was reviewed and discussed. Any available out of office blood pressure readings were reviewed and discussed. CV and Renal risk was assessed and discussed. The following portions of the patient's chart were reviewed in this encounter and updated as appropriate: Tobacco Allergies Meds Problems Med Hx Surg Hx Fam Hx Past Medical History Past Medical History: Diagnosis Date Chronic kidney disease stage 3 Chronic obstructive pulmonary disease (HCC) Dyspnea on exertion Emphysema (HCC) Heart disease coronary artery disease Hyperlipidemia Hypertension -Since late Non-Hodgkin's lymphoma (clinical) (HCC) Peripheral neuropathy Peripheral vascular disease (HCC) Sleep apnea TIA Type 2 diabetes mellitus (HCC) mid Past Surgical History Past Surgical History: Procedure Laterality Date BACK SURGERY cervical disc & lumbar disc FEMUR SURGERY KNEE ARTHROPLASTY Left OTHER SURGICAL HISTORY Cardiac Cath 2016 SHOULDER SURGERY Rotator cuff Family History Family History Problem Relation Age of Onset Diabetes Mother Diabetes Father Heart disease Father Social History Social History Tobacco Use Smoking status: Former Current packs/day: 0.00 Types: Cigarettes Quit date: 2001 Years since quittin.1 Smokeless tobacco: Not on file Substance Use Topics Alcohol use: No Medication List Current Outpatient Medications Medication Sig Dispense Refill aspirin (ST DORA) 81 MG EC tablet Take 1 tablet by mouth 1 (one) time each day Basaglar KwikPen 100 UNIT/ML injection clopidogrel (PLAVIX) 75 MG tablet Take 1 tablet by mouth 1 (one) time each day glipiZIDE (GLUCOTROL) 10 MG tablet Take 1 tablet by mouth 2 (two) times a day metoprolol succinate XL (TOPROL-XL) 50 MG 24 hr tablet Take 1 tablet by mouth 2 (two) times a day Multiple Vitamin (multivitamin) capsule Take by mouth 1 (one) time each day sertraline (ZOLOFT) 50 MG tablet Comments: Patient Notes: TAKE 1 TABLET BY MOUTH EVERY DAY Duration: 30 metFORMIN (GLUCOPHAGE) 500 MG tablet Take 2 tablets by mouth 2 (two) times a day (Patient not taking: Reported on 09/20/2024) Sodium Zirconium Cyclosilicate (Lokelma) 10 g pack Take 1 packet by mouth 2 (two) times a week (Patient not taking: Reported on 09/20/2024) Trulicity 0.75 MG/0.5ML solution pen-injector INJECT 0.75 MG ONCE A WEEK SUBCUTANEOUSLY (Patient not taking: Reported on 09/20/2024) No current facility-administered medications for this visit. Allergy List Allergies Allergen Reactions Atorvastatin Muscle aches Magnesium Oxide Pravastatin Muscle aches Physical Exam BP (!) 92/48 (BP Location: Left upper arm, Patient Position: Sitting) Ht 6' 2 (1.88 m) Wt 203 lb 12.8 oz (92.4 kg) BMI 26.17 kg/m?? Last 3 office BP readings: BP Readings from Last 3 Encounters: 09/20/24 (!) 92/48 03/22/24 158/81 09/01/23 146/74 General: Well developed well nourished in no acute distress Neuro: alert interactive without delirium Eyes: anicteric ENT: moist membranes, no stridor Cardiovascular: regular rate and rhythm, no rub Pulmonary: no distress or tachypnea Abdomen: soft and nondistended Genitourinary: no suprapubic tenderness or bladder distension to palpation Musculoskeletal: No bony tenderness or deviation Dermatologic: No visible rash on exposed skin Hematologic: no petechiae or ecchymoses on exposed skin Extremities: edema is trace due to paod l> r Labs Chemistry Lab Units 08/24/24 1421 08/10/24 0624 08/04/24 0626 07/14/24 0423 07/13/24 1103 06/11/24 0957 08/25/23 1252 01/06/23 1005 CREATININE mg/dL 1.65* 1.77* 1.75* 1.83* 1.81* 2.01* 1.7* 1.5* BUN mg/dL 36* 29* 35* 33* 37* 43* 39* 37* POTASSIUM mmol/L 5.3* 4.6 4.1 4.4 5.3 5.7* 5.3* 5.5* SODIUM mmol/L 136 138 139 138 139 137 138 138 CO2 mmol/L 20 26 27 26 26 24 22 26 CHLORIDE mmol/L 100 105 105 105 107 107 105 100 ALBUMIN g/dL 4.1 2.6* 2.7* -- 3.8 -- 4.6 3.6 4.7 EGFRNAFR ML/MIN/1.73 M2 -- -- -- -- -- -- 43 49 EGFR mL/min/1.73 43* 40* 40* 38* 39* 34* -- -- WBC AUTO x10E3/uL 8.2 -- -- -- -- -- 6.8 8.8 HEMATOCRIT % 33.9* -- -- -- -- -- 34.3* 35.8* HEMOGLOBIN g/dL 10.9* -- -- -- -- -- 11.0* 11.3* PLATELETS AUTO x10E3/uL 352 -- -- -- -- -- 284 316 Bone Mineral Lab Units 08/24/24 1421 08/10/24 0624 08/04/24 0626 07/14/24 0423 07/13/24 1103 06/11/24 0957 08/25/23 1252 01/06/23 1005 CALCIUM mg/dL 9.4 8.7 8.3* 9.4 9.9 10.4 9.9 10.8* PHOSPHORUS mg/dL 3.6 -- -- -- -- -- 3.6 3.4 ALK PHOS IU/L 142* 111 139* -- 63 -- 91 -- PTH pg/mL 36 -- -- -- -- -- 21 14* VITAMIN D NG/ML -- -- -- -- -- -- 35.3 40.8 VIT D 25 HYDROXY ng/mL 36.7 -- -- -- -- -- -- -- Urine Lab Units 08/24/24 1421 PROT/CREAT RATIO UR mg/g creat 542* No lab exists for component: IRON SATURATION No lab exists for component: CYCLOSPORITR Assessment & Plan 1. Stage 3a chronic kidney disease (HCC) 2. Renal disorder due to type 2 diabetes mellitus <Other diabetic kidney complication> (HCC) 3. Peripheral arterial occlusive disease (HCC) 4. Non-Hodgkin's lymphoma (clinical) (HCC) 5. Hypomagnesemia 6. Hyperkalemia 7. Hypercalcemia 8. Essential hypertension 9. Diabetes mellitus, not otherwise specified (HCC) 10. Congestive heart failure, not otherwise specified (HCC) IMPRESSION: CKD STAGE 3B - with EGFR of about 50 mL per minute and baseline creatinine slowly creeping from 1.3-1.5 mg/dl since 2015. 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 - stable even off lokelma - but runs 5.0-5.4 meq/l CHRONIC HYPERCALCEMIA WITH SUPRESSED PTH AND NORMAL VIT D3 LEVELS WITHOUT EXOGENOUS SOURCE AND WITHMULTIPLE NEGATIVE TESTING RESULTS (NEGATIVE SPEP, NEGATIVE CT SCAN CHEST, NORMAL VIT D1,25 AND NORMAL PTHRP LEVELS, ETC) - LIKELY RESIDUAL TUBULAR DEFECTS FROM SHONNA IN 2016 ABOVE - REMAINS STABLE -I DOUBT SARCOIDOSIS GIVEN THE NORMAL VIT D 1,25 LEVELS BUT GIVEN THE LUNG ISSUES IS COULD BE POSSIBLE - SPIKED AGAIN DUE TO IMMOBILITY 07/2024 BUT NOW NORMAL CHRONIC HYPOMAGNESEMIA - HE IS INTOLERANT TO ORAL SUPPLEMENTS AFTER RETRY AGAIN IN 2023 - 2024 LEVELS IS LOW NORMAL HYPERTENSION. SERGIO HYPOTENSIVE WITH DROPPING OXEGEN LEVEL WITH EXERTION POST CABG DIABETES MELLITUS - LONG STANDING - WITH COMPLICATIONS SOLOMON NONADHERENCE? NO SHOWS FOR MULTIPLE YEARS. SHOWS UP LATE. NO MED LISTS. OFTEN MISSES MEDS, NO LABS ETC CAD - S/P STENT X 3 AND STEMI 2016 AND MILD DEPRESSED EF - ECHO 2023 - 45% PAOD CAROTID STENOSIS AWAITING CEA REMOTE NONHODGKINS LYMPHOMA S/P CHOP 2004 DISCUSSION/PLAN: -chronically we will follow with you to try to slow down his progressive ckd -lokelma 1-2 times per week was controlling K levels to normal when he adheres but it was held in hospital. He may need this resumed again depending on appetite, weight loss etc -he should avoid excessive calcium and K supplements and have modest restrictions in diet -He could have Paget's. We could look into bone turnover issues like telopeptides but he has no sxsand calcium is stable and normal recently and rib xrays and dexa are unremarkable. -dexa read as osteopenia but only femor was lowish and other sites he had normal t scores. This should be repeated in 2-3 years -I suppose occult sarcoidosis is possible but with normal vit d1,25 and no tricuspic regurg or LAD on ct, this seems unlikely -low k diet reviewed and handouts given -avoid nsaids -I would avoid RAAS antogonism given the hyperkelamia and recurrent SHONNA -he is refusing any sort of mag supplement for gi intolerance. I gave high mag food handouts and suggested he try mylanta or m-o-m a few times per week and his last mag level is normalizing in early 2023, 2024 -will check urine mag levels periodically, suspect he is mag wasting chronically from prior tubulardamage. -he seems to be droipping his BP and oxygen levels with standing - This may be autonomic dysfunction post CABG and years of dm. He has cardiology and pulmnonary and cardiac rehab scheduled the comingweeks. Consider tapering down metoprolol and perhaps adding midodrine or florinef. -so long as bp and hemodynamics are improving/stablem, then rtc 6 mos with renal labs Orders Placed This Encounter Comprehensive Metabolic Panel Uric Acid Magnesium Phosphorus PTH, Intact Vitamin D 25 Hydroxy CBC and Differential Protein, Total, Random Urine w/Creatinine (Protein/Creat Ratio) Return in about 6 months (around 03/20/2025) for OV with labs 1-2 weeks prior to visit. Santiago Quinn MD documented in this encounter Plan of Treatment Upcoming Encounters Date Type Department Care Team (Late st Contact Info) Description 03/21/2025 10:40 AM EDT Office Visit [facility] [address] [facility] [address] [place] [address] Santiago Quinn MD [address] [address] Scheduled Orders Name Type Priority Associated Diagnoses Orde r Schedule Comprehensive Metabolic Panel Lab Routine Stage 3a chronic kidney disease (HCC) Renal disorder due to type 2 diabetes mellitus <Other diabetic kidney complication> (HCC) Peripheral arterial occlusive disease (HCC) Non-Hodgkin's lymphoma (clinical) (HCC) Hypomagnesemia Hyperkalemia Hypercalcemia Essential hypertension Diabetes mellitus, not otherwise specified (HCC) Congestive heart failure, not otherwise specified (HCC) Expected: 03/20/2025, Expires: 10/18/2025 Uric Acid Lab Routine Stage 3a chronic kidney disease (HCC) Renal disorder due to type 2 diabetes mellitus <Other diabetic kidney complication> (HCC) Peripheral arterial occlusive disease (HCC) Non-Hodgkin's lymphoma (clinical) (HCC) Hypomagnesemia Hyperkalemia Hypercalcemia Essential hypertension Diabetes mellitus, not otherwise specified (HCC) Congestive heart failure, not otherwise specified (HCC) Expected: 03/20/2025, Expires: 10/18/2025 Magnesium Lab Routine Stage 3a chronic kidney disease (HCC) Renal disorder due to type 2 diabetes mellitus <Other diabetic kidney complication> (HCC) Peripheral arterial occlusive disease (HCC) Non-Hodgkin's lymphoma (clinical) (HCC) Hypomagnesemia Hyperkalemia Hypercalcemia Essential hypertension Diabetes mellitus, not otherwise specified (HCC) Congestive heart failure, not otherwise specified (HCC) Expected: 03/20/2025, Expires: 10/18/2025 Phosphorus Lab Routine Stage 3a chronic kidney disease (HCC) Renal disorder due to type 2 diabetes mellitus <Other diabetic kidney complication> (HCC) Peripheral arterial occlusive disease (HCC) Non-Hodgkin's lymphoma (clinical) (HCC) Hypomagnesemia Hyperkalemia Hypercalcemia Essential hypertension Diabetes mellitus, not otherwise specified (HCC) Congestive heart failure, not otherwise specified (HCC) Expected: 03/20/2025, Expires: 10/18/2025 PTH, Intact Lab Routine Stage 3a chronic kidney disease (HCC) Renal disorder due to type 2 diabetes mellitus <Other diabetic kidney complication> (HCC) Peripheral arterial occlusive disease (HCC) Non-Hodgkin's lymphoma (clinical) (HCC) Hypomagnesemia Hyperkalemia Hypercalcemia Essential hypertension Diabetes mellitus, not otherwise specified (HCC) Congestive heart failure, not otherwise specified (HCC) Expected: 03/20/2025, Expires: 10/18/2025 Vitamin D 25 Hydroxy Lab Routine Stage 3a chronic kidney disease (HCC) Renal disorder due to type 2 diabetes mellitus <Other diabetic kidney complication> (HCC) Peripheral arterial occlusive disease (HCC) Non-Hodgkin's lymphoma (clinical) (HCC) Hypomagnesemia Hyperkalemia Hypercalcemia Essential hypertension Diabetes mellitus, not otherwise specified (HCC) Congestive heart failure, not otherwise specified (HCC) Expected: 03/20/2025, Expires: 10/18/2025 CBC and Differential Lab Routine Stage 3a chronic kidney disease (HCC) Renal disorder due to type 2 diabetes mellitus <Other diabetic kidney complication> (HCC) Peripheral arterial occlusive disease (HCC) Non-Hodgkin's lymphoma (clinical) (HCC) Hypomagnesemia Hyperkalemia Hypercalcemia Essential hypertension Diabetes mellitus, not otherwise specified (HCC) Congestive heart failure, not otherwise specified (HCC) Expected: 03/20/2025, Expires: 10/18/2025 Protein, Total, Random Urine w/Creatinine (Protein/Creat Ratio) Lab Routine Stage 3a chronic kidney disease (HCC) Renal disorder due to type 2 diabetes mellitus <Other diabetic kidney complication> (HCC) Peripheral arterial occlusive disease (HCC) Non-Hodgkin's lymphoma (clinical) (HCC) Hypomagnesemia Hyperkalemia Hypercalcemia Essential hypertension Diabetes mellitus, not otherwise specified (HCC) Congestive heart failure, not otherwise specified (HCC) Expected: 03/20/2025, Expires: 10/18/2025 documented as of this encounter Visit Diagnoses Diagnosis Stage 3a chronic kidney disease (HCC)- Primary Renal disorder due to type 2 diabetes mellitus <Other diabetic kidney complication> (HCC) Peripheral arterial occlusive disease (HCC) Non-Hodgkin's lymphoma (clinical) (HCC) Hypomagnesemia Hyperkalemia Hypercalcemia Essential hypertension Diabetes mellitus, not otherwise specified (HCC) Congestive heart failure, not otherwise specified (HCC) documented in this encounter Care Teams Od Grinder Operator Relationship Specialty Start Date End Date Vandana Parker MD [address] [place], [place] PCP - General 08/14/20 documented as of this encounter
--- OUTSIDE RECORDS SUMMARY | 2024-09-27 15:20 | XMS_ITS | Clinical Summary ---
Author Organization [facility] Address [address] [address] Phone Care Team Providers Care Cost Estimator Name Role Phone Vandana Parker MD Primary Care Provider [phone] Allergies Active Allergy Reactions Criticality Noted Date Comments Atorvastatin 05/29/2022 Muscle aches Magnesium Oxide 05/29/2022 Pravastatin 05/29/2022 Muscle aches Medications Multiple Vitamin (multivitamin) capsule Take by mouth 1 (one) time each day Active aspirin (ST DORA) 81 MG EC tablet Take 1 tablet by mouth 1 (one) time each day Active clopidogrel (PLAVIX) 75 MG tablet Take 1 tablet by mouth 1 (one) time each day Active glipiZIDE (GLUCOTROL) 10 MG tablet Take 1 tablet by mouth 2 (two) times a day Active metFORMIN (GLUCOPHAGE) 500 MG tablet Take 2 tablets by mouth 2 (two) times a day Active metoprolol succinate XL (TOPROL-XL) 50 MG 24 hr tablet Take 1 tablet by mouth 2 (two) times a day Active sertraline (ZOLOFT) 50 MG tablet Comments: Patient Notes: TAKE 1 TABLET BY MOUTH EVERY DAY Duration: 30 Active Basaglar KwikPen 100 UNIT/ML injection 11/08/19 21 Active Trulicity 0.75 MG/0.5ML solution pen-injector INJECT 0.75 MG ONCE A WEEK SUBCUTANEOUSLY 10/29/19 21 Active Sodium Zirconium Cyclosilicate (Lokelma) 10 g pack Take 1 packet by mouth 2 (two) times a week Active Active Problems Problem Noted Date Diagnosed Date Hypercalcemia 03/22/2024 Congestive heart failure 08/29/2022 Memory impairment 08/29/2022 Non-Hodgkin's lymphoma (clinical) 08/29/2022 Carotid artery stenosis 08/29/2022 Sleep apnea 08/29/2022 Transient cerebral ischemia 08/29/2022 Stage 3a chronic kidney disease 05/29/2022 Coronary arteriosclerosis 09/19/2020 Diabetes mellitus, not otherwise specified 09/19 Essential hypertension 09/19/2020 Hyperkalemia 09/19/2020 Hypomagnesemia 09/19/2020 Renal disorder due to type 2 diabetes mellitus 0 09/19/2020 Peripheral arterial occlusive disease 01/03/2015 Resolved Problems Problem Noted Date Diagnosed Date Resolved Date Disorder of peripheral nervous system 08/29/2022 09/01/2022 Dyspnea on exertion 08/29/2022 09/01/19 23 Uncontrolled type 2 diabetes mellitus 08/29/2022 09/01/2022 Overview (05/04/2024): Replacing diagnoses that were inactivated after the 05/04/24 Regulatory Import Carotid artery stenosis <Unspecified side> 05/29/2022 09/01/2022 Bilateral stenosis of carotid arteries 09/19/2020 05/29/2022 Overview (09/19/2020): 60% right cervical ICA stenosis, 50% left cervical ICA stenosis Chronic kidney disease 09/19/202005/29 Hypercholesterolemia 09/19/2020 022 Occlusion and stenosis of ri ght vertebral artery 09/19/2020 05/29/2022 Overview (09/19/2020): 34% right vertebral artery origin stenosis Arthritis of right knee 08/28/201805/05 Injury of right knee 08/28/2018 022 Pain in bilateral legs 07/16/201605/29 History of total knee arthroplasty 12/29/2012 05/29/2022 Encounters Date Type Department Care Team Description 09/22/2024 Orders Only [facility] [address] [place] [address] Santiago Quinn MD Stage 3a chronic kidney disease (HCC); Renal disorder due to type 2 diabetes mellitus <Other diabetic kidney complication> (HCC); Peripheral arterial occlusive disease (HCC); Non-Hodgkin's lymphoma (clinical) (HCC); Hypomagnesemia; Hyperkalemia; Essential hypertension; Diabetes mellitus, not otherwise specified (HCC) 09/20/2024 10:00 AM EST Office Visit [facility] [address] [address] Santiago Quinn MD Stage 3a chronic kidney disease (HCC) (Primary Dx); Renal disorder due to type 2 diabetes mellitus <Other diabetic kidney complication> (HCC); Peripheral arterial occlusive disease (HCC); Non-Hodgkin's lymphoma (clinical) (HCC); Hypomagnesemia; Hyperkalemia; Hypercalcemia; Essential hypertension; Diabetes mellitus, not otherwise specified (HCC); Congestive heart failure, not otherwise specified (HCC) from Last 3 Months Immunizations Name Administration Dates Next Due Pneumococcal Conjugate 02/01/2019 Pneumococcal Conjugate 13-Valent 11/17/2017 Pneumococcal Polysaccharide 04/28/2019 Td, Unspecified 11/17/2017 Family History Medical History Relation Comments Diabetes Father Heart disease Father Diabetes Mother Relation Status Comments Father Unknown Mother Unknown Social History Tobacco Use Types Packs/Day Years Used Date Smoking Tobacco: Former Cigarettes Q uit: 2002 Tobacco Cessation:Counseling Given: Not Answered Alcohol Use Standard Drinks/Week Comments No 0 (1 standard drink = 0.6 oz pur e alcohol) Sex and Gender Information Value Date Recorded Sex Assigned at Not on file Legal Sex Male 4:48 PM EST Gender Identity Not on file Sexual Orientation Not on file Last Filed Vital Signs Vital Sign Reading Time Taken Comments Blood Pressure 92/48 09/20/2024 10:18 AM EST Pulse 74 03/22/2024 8:43 AM EDT Temperature - - Respiratory Rate - - Oxygen Saturation 92% 03/22/2024 8:43 AM EDT Inhaled Oxygen Concentration - - Weight 92.4 kg (203 lb 12.8 oz) 025 10:18 AM EST Height 188 cm (6' 2 ) 09/20/2024 10:18 AM EST Body Mass Index 26.17 09/20/2024 10:18 AM EST Plan of Treatment Upcoming Encounters Date Type Department Care Team (Late st Contact Info) Description 03/21/2025 10:40 AM EDT Office Visit [facility] [address] [phone] Santiago Quinn MD [address] [address] Health Maintenance Due Date Last Done Comments Colorectal Cancer Screening: Annual FOBT 1998 Colorectal Cancer Screening: Colonoscopy 1998 Colorectal Cancer Screening: Sigmoidoscopy 1998 Diabetes: Hemoglobin A1C 09/03/2020 12/25/2018 Diabetes: Ophthalmology Exam 09/03/2020 Diabetes: Pedal Pulse Checked 09/03/2020 Diabetes: Sensory Foot Exam 09/03/2020 Diabetes: Visual Foot Exam 09/03/2020 Influenza Vaccine (#1) 2024 Pneumococcal Vaccine: 65+ Years Completed 04/28/2019, 02/01/2019, 11/17/2017 Hepatitis B Vaccine Aged Out No longe r eligible based on patient's age to complete this topic Procedures Procedure Name Priority Date/Time Associated Diagnosis Comments PTH, INTACT Routine 08/24/2024 2:21 PM EST MAGNESIUM Routine 08/24/2024 2:21 PM EST PHOSPHATE ( PHOSPHORUS) Routine 08/24/2024 2:21 PM EST URIC ACID Routine 08/24/2024 2:21 PM EST VITAMIN D 25 HYDROXY Routine 08/24/2024 2:21 PM EST VITAMIN D 1,25 DIHYDROXY Routine 08/24/2024 2:21 PM EST MAGNESIUM, URINE Routine 08/24/2024 2:21 PM EST CALCIUM, URINE, RANDOM Routine 2:21 PM EST ANGIOTENSIN CONVERTING ENZYME Routine 08/24/2024 2:21 PM EST PROTEIN / CREATININE RATIO, URINE Routine 08/24/2024 2:21 PM EST COMPREHENSIVE METABOLIC PANEL Routine 08/24/2024 2:21 PM EST CBC AND DIFFERENTIAL Routine 08/24/2024 2:21 PM EST BLOOD PANEL (HC) Routine 12/25/2018 12:0 0 AM EDT from Last 3 Months or Most Recently Relevant to Health Maintenance Results * (ABNORMAL) Protein, Total, Random Urine w/Creatinine (Protein/Creat Ratio) (08/24/2024 2:21 PM EST) Creatinine, Ur 194.7 Not Estab. mg/dL [facility] Protein, Ur 105.6 Not Estab. mg/dL [facility] Urine Protein/Creati nine Ratio 542(H) 0 - 200 mg/g creat [facility] 08/24/2024 2:21 PM EST 08/24/2024 Santiago Quinn MD LAB URINE ORDERABLES Final Re sult Performing Organization Address City/[facility]/ZIP Co de Phone Number [facility] [address] [place] [address] * (ABNORMAL) Vitamin D 1,25 dihydroxy (08/24/2024 2:21 PM EST) Vitamin D, 1,25-Dihydroxy 23.0(L) 24.8 - 81.5 pg/mL [facility] 08/24/2024 2:21 PM EST 08/24/2024 Santiago Quinn MD LAB BLOOD ORDERABLES Final Re sult Performing Organization Address City/[facility]/ZIP Co de Phone Number [facility] [address] [place] [address] * Vitamin D 25 Hydroxy (08/24/2024 2:21 PM EST) Vitamin D, 25-OH, Total 36.7 30.0 - 100.0 ng/mL [facility] Comment: Vitamin D deficiency has been defined by the [place] of [employer] and an Endocrine Society practice guideline as a level of serum 25-OH vitamin D less than 20 ng/mL (1,2). The Endocrine Society went on to further define vitamin D insufficiency as a level between 21 and 29 ng/mL (2). 1. IOM ([place] of [employer]). 2010. Dietary reference ?? intakes for calcium and D. [place]: The ?? National [employer]. 2. Vicenta MF, Roney PANIAGUA, [place]pc[place] TSE, et al. ?? Evaluation, treatment, and prevention of vitamin D ?? deficiency: an Endocrine Society clinical practice ?? guideline. JCEM. 2010; 96(7):1911-30. 08/24/2024 2:21 PM EST 08/24/2024 us Santiago Quinn MD LAB BLOOD ORDERABLES Final Re sult [facility] [place] [address] [place] [address] * (ABNORMAL) CBC and Differential (08/24/2024 2:21 PM EST) Pathologist [facility] WBC 8.2 3.4 - 10.8 x10E3/uL [facility] RBC 3.72(L) 4.14 - 5.80 x10E6/uL [facility] Hemoglobin 10.9(L) 13.0 - 17.7 g/dL [facility] Hematocrit 33.9(L) 37.5 - 51.0 % [facility] MCV 91 79 - 97 fL [facility] MCH 29.3 26.6 - 33.0 pg [facility] MCHC 32.2 31.5 - 35.7 g/dL [facility] RDW 14.1 11.6 - 15.4 % [facility] Platelets 352 150 - 450 x10E3/uL [facility] Neutrophils Relative 76 Not Estab. % [facility] Lymphocytes Relative 13 Not Estab. % [facility] Monocytes 5 Not Estab. % [facility] Eosinophils Relative 5 Not Estab. % [facility] Basophils Relative 0 Not Estab. % [facility] Neutrophils Absolute 6.3 1.4 - 7.0 x10E3/uL [facility] Lymphocytes Absolute 1.0 0.7 - 3.1 x10E3/uL [facility] Monocytes Absolute 0.4 0.1 - 0.9 x10E3/uL [facility] Eosinophils Absolute 0.4 0.0 - 0.4 x10E3/uL [facility] Basophils Absolute 0.0 0.0 - 0.2 x10E3/uL [facility] Immature Granulocytes 1 Not Estab. % [facility] Immature Grans (Absolute) 0.0 0.0 - 0.1 x10E3/uL [facility] 08/24/2024 2:21 PM EST 08/24/2024 us Santiago Quinn MD LAB BLOOD ORDERABLES Final Re sult [facility] [address] [place] [address] * Angiotensin Converting Enzyme (08/24/2024 2:21 PM EST) Angiotensin Converting Enzyme 54 14 - 82 U/L [facility] 08/24/2024 2:21 PM EST 08/24/2024 Santiago Quinn MD LAB BLOOD ORDERABLES Final Re sult Performing Organization Address [facility]/ZIP Co de Phone Number [facility] [address] [place] [address] * Uric Acid (08/24/2024 2:21 PM EST) Uric Acid 4.7 3.8 - 8.4 mg/dL [facility] Comment:Therapeutic target f or gout patients: <6.0 08/24/2024 2:21 PM EST 08/24/2024 Santiago Quinn MD LAB BLOOD ORDERABLES Final Re sult Performing Organization Address [facility]/ZIP Co de Phone Number [facility] [address] [place] [address] * Phosphorus (08/24/2024 2:21 PM EST) Phosphorus 3.6 2.8 - 4.1 mg/dL [facility] 08/24/2024 2:21 PM EST 08/24/2024 Santiago Quinn MD LAB BLOOD ORDERABLES Final Re sult Performing Organization Address City/[facility]/ZIP Co de Phone Number [facility] [address] [place] [address] * PTH, Intact (08/24/2024 2:21 PM EST) PTH 36 15 - 65 pg/mL [facility] 08/24/2024 2:21 PM EST 08/24/2024 Santiago Quinn MD LAB BLOOD ORDERABLES Final Re sult [facility] [address] [place] [address] * Magnesium (08/24/2024 2:21 PM EST) Magnesium 1.6 1.6 - 2.3 mg/dL [facility] 08/24/2024 2:21 PM EST 08/24/2024 Santiago Quinn MD LAB BLOOD ORDERABLES Final Re sult Performing Organization Address [facility] Co de Phone Number [facility] [address] [place] [address] * (ABNORMAL) Comprehensive Metabolic Panel (08/24/2024 2:21 PM EST) Glucose 235(H) 70 - 99 mg/dL [facility] BUN 36(H) 8 - 27 mg/dL [facility] Creatinine 1.65(H) 0.76 - 1.27 mg/dL [facility] eGFR CKD-EPI CR 2020 43(L) >59 mL/min/1.7 3 [facility] BUN/Creatinine Ratio 22 10 - 24 [facility] Sodium 136 134 - 144 mmol/L [facility] Potassium 5.3(H) 3.5 - 5.2 mmol/L [facility] Chloride 100 96 - 106 mmol/L [facility] Bicarbonate (CO2) 20 20 - 29 mmol/L [facility] Calcium 9.4 8.6 - 10.2 mg/dL [facility] Total Protein 7.1 6.0 - 8.5 g/dL [facility] Albumin 4.1 3.8 - 4.8 g/dL [facility] Globulin 3.0 1.5 - 4.5 g/dL [facility] Total Bilirubin 0.3 0.0 - 1.2 mg/dL [facility] Alkaline Phosphatase 142(H) 44 - 121 IU/L [facility] AST (SGOT) 35 0 - 40 IU/L [facility] ALT (SGPT) 34 0 - 44 IU/L [facility] 08/24/2024 2:21 PM EST 08/24/2024 Santiago Quinn MD LAB BLOOD ORDERABLES Final Re sult [facility] [address] [place] [address] * (ABNORMAL) Blood Panel (12/25/2018 12:00 AM EDT) Carbon Dioxide (CO2) 28 22 - 30 mmol/L [facility] eGFR >60 >60 ml/min [facility] LDL,Direct 174(H) <130 mg/dl [facility] Sodium 138 137 - 145 mmol/L [facility] Potassium 5.5(H) 3.5 - 5.1 mmol/L [facility] Creatinine 1.4(H) 0.70 - 1.30 mg/dl [facility] Calcium 10.5(H) 8.4 - 10.2 mg/dl [facility] eGFR Non- 54(L) >60 ml/min [facility] BUN 36(H) 9 - 20 mg/dl [facility] Hemoglobin A1C 9.7(H) <5 % [facility] 12/25/2018 us [facility] [id number] LICITED RESULTS Final Result [facility] from Last 3 Months or Most Recently Relevant to Health Maintenance Insurance [facility] MEDICARE MEDICARE [facility] Care Teams Cost Estimator Relationship Specialty Start Date End Date Vandana Parker MD [address] [place], [place] PCP - General 08/14/20
--- OUTSIDE RECORDS SUMMARY | 2024-09-27 15:20 | XMS_ITS | Clinical Summary ---
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 Active aspirin 81 mg EC tablet Take 1 Tablet by mouth daily. Active glipiZIDE (GLUCOTROL) 10 mg tablet Take 1 Tablet by mouth 2 times daily (before meals). Active insulin glargine (LANTUS SoloStar) 100 unit/mL (3 mL) injection pen Inject 35 Units into the skin daily. Active isosorbide mononitrate (IMDUR) 30 mg 24 hr tablet Take 1 Tablet by mouth daily for 180 days. 02/24/2024 Active metFORMIN XR (GLUCOPHAGE-XR) 500 mg 24 hr tablet Take 2 Tablets by mouth 2 times daily. Active metoprolol succinate (TOPROL-XL) 50 mg 24 hr tablet Take 1 Tablet by mouth 2 times daily. Active nitroglycerin (NITROSTAT) 0.[address] 1 Tablet under the tongue every 5 minutes as needed for Chest pain. 05/07/2022 Active sertraline (ZOLOFT) 50 mg tablet Take 1 Tablet by mouth daily. Active Oxygen Therapy (O2) gas Inhale by mouth continuously . via nasal canula Use when walking a long way Active amLODIPine (NORVASC) 5 mg tablet Take 1 tablet (5 mg total) by mouth 1 (one) time each day. 07/14/2024 01/11/20 25 Active rosuvastatin (CRESTOR) 5 mg tablet Take 1 tablet (5 mg total) by mouth 1 (one) time each day. 07/14/2024 01/11/20 Active Active Problems Problem Noted Date Diagnosed Date Acute chest pain 07/14/2024 Chest pain 07/13/2024 Hyperkalemia 06/18/2024 Overview (06/18/2024): [facility] neph[facility] ordered Heart failure with mid-range ejection fraction ( HFmEF) 06/11/2024 Assessment & Plan (07/14/2024 6:16 PM EST): The patient's most recent echocardiogram was completed in January 2024 revealing and EF of 40 to 45%. Given his worsening shortness of breath with exertion as discussed above, I do have concerns for worsening LV function. Fortunately, he does appear relatively euvolemic on exam today but he will be seen in the emergency room for further evaluation of his chest pain at which time the possibility of worsening heart failure can be assessed further. Assessment & Plan (06/11/2024 3:48 PM EST): As above; the patient's most recent echocardiogram completed 01/30/2024 while inpatient [facility] revealed an EF of 40 to 45%. At the time I am writing this note, his labs ordered during this visit have resulted showing a continued elevation in his BNP as well as a creatinine of 2.01. As such, I have discussed this further with Dr. Wade and the patient will be started on torsemide 40 mg once daily x 3 days at the conclusion of these 3 days we will evaluate for symptom improvement and need for continued diuresis; we will likely update labs at this time as well. He is aware to call the office sooner for any questions or concerns. Will continue to follow him closely. I've asked the patient to call if they develop worsening symptoms of heart failure such as increased shortness of breath, new or worsening cough, increased swelling in the legs or ankles, or weight gain of more than 2 pounds in one day or 4 pounds in one week. Orders: Basic metabolic panel; Future B-type natriuretic peptide; Future torsemide (DEMADEX) 20 mg tablet; Take 2 tablets (40 mg total) by mouth 1 (one) time each day for 3 days. Take first thing in the morning. Abnormal ECG 02/24/2024 Assessment & Plan (07/14/2024 6:16 PM EST): As above. Old PA (myocardial infarction) 02/17/2024 Unstable angina 02/17/2024 Assessment & Plan (07/14/2024 6:16 PM EST): Orders: ECG 12 lead Other chest pain 05/07/2022 Assessment & Plan (06/11/2024 3:48 PM EST): The patient's description of his recent chest pains is somewhat atypical; he states that these have been ongoing and unchanged for many months now. As above, we will continue to readdress this at short interval follow-up and repeat ischemic workup as indicated. 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 Most recent cardiac catheterization was in 02/2019 revealing a patent LAD stent as well as left circumflex and RCA stents and unchanged severe stenosis of the distal PDA. The patient presents today with very concerning symptoms of unstable angina; he denies any chest pain with exertion recently but has reported mild chest pain with exertion in the recent past. He has had several escalating episodes of chest pain at rest with pain radiating to the left upper extremity over the last several weeks, the worst of which was last night which he rated at 10/10 and lasted approximately 30 minutes before he simply fell asleep. When he woke about 2 hours later, it had resolved. He also reports ongoing shortness of breath with exertion which may be attributable to his recent respiratory infection but I have concern that this may represent a new ischemic event resulting in a further reduction in his left ventricular function. He also has changes on his ECG with ST elevations in anteroseptal leads; while these ST elevations appear to be somewhat present in the past, they are definitely more pronounced on today's ECG. Though he is without chest pain at this time, he was encouraged to present to the emergency room for further evaluation given the above findings. He is agreeable to this; we discussed transfer via ambulance to [facility] versus assisting the patient to [facility] ER; I did not feel it was safe for him to be driving out of concern for recurrence of chest pain that may result in injury to himself or someone else. He was agreeable to presenting to [facility] ER for further evaluation; report was called to Denisa and the patient was transferred by Floresita AMBROCIO, via wheelchair. Assessment & Plan (06/11/2024 3:48 PM EST): As above. We will not make any changes to his current cardioprotective medical therapies; continue metoprolol, isosorbide, and DAPT with aspirin and clopidogrel. The patient has a history of statin intolerance and unfortunately has not been able to afford PCSK9 inhibitors. Will discuss trial of Leqvio at short interval follow-up visit. The patient was advised to seek emergent medical attention by calling 911 if they were to develop severe dyspnea, chest pain that did not resolve with rest or nitroglycerin, or if they were to faint. Carotid stenosis 05/06/2022 Assessment & Plan (06/11/2024 3:48 PM EST): The patient continues to follow with vascular surgery as recommended. Claudication of both lower extremities 2 Dyspnea on exertion 05/06/2022 Assessment & Plan (07/14/2024 6:16 PM EST): As above; the patient does have chronic dyspnea on exertion with history of significant coronary artery disease as well as mild reduction in his EF on most recent echocardiogram. He also had a recent respiratory infection which may be contributory. We will continue to reevaluate this after he has been seen in the emergency room. Orders: ECG 12 lead Assessment & Plan (06/11/2024 3:48 PM EST): The patient's dyspnea on exertion is likely multifactorial in origin related to recent pneumonia diagnosis as well as underlying pulmonary disease and heart failure. He will continue with recommendations as provided by his italian lecturer including continuation of antibiotic treatment, prednisone taper, and supplemental oxygen as needed with exertion. He will continue to follow-up with pulmonology as recommended. However, The patient does have a history of coronary artery disease as well as heart failure with a mildly reduced ejection fraction. Though he does appear euvolemic on exam today, he has had a progressively elevated BNP level with crackles noted in his left lower lobe as well as dyspnea on exertion. I do suspect that there is a heart failure component present and responsible for some of his symptoms and that he may benefit from diuresis. As such, we will update a metabolic panel today as well as a BNP; if it appears as though his renal function will tolerate it we will add a short course of diuretic to his regimen. We have discussed this at length today; would likely use torsemide 20 to 40 mg once daily for 3 days and I have requested that he call us at the completion of these 3 days to let us know how his symptoms are doing. We did discuss that this may aggravate his lightheadedness and they should take great precaution to prevent falls and change positions slowly, remaining adequately hydrated despite the addition of the diuretic. Patient and his son both verbalized understanding of this. Lastly, we must consider that dyspnea on exertion may be related to underlying coronary artery disease. We will continue to reevaluate this at short interval follow-up; I will plan to see him at in 2 to 4 weeks at which point we will readdress this with possible repeat ischemic workup should symptoms be persistent despite the above treatment plan. Orders: Basic metabolic panel; Future B-type natriuretic peptide; Future torsemide (DEMADEX) 20 mg tablet; Take 2 tablets (40 mg total) by mouth 1 (one) time each day for 3 days. Take first thing in the morning. Hypercholesterolemia 05/06/2022 Assessment & Plan (07/14/2024 6:16 PM EST): Continue statin; readdress after ER visit. Assessment & Plan (06/11/2024 3:48 PM EST): As above, the patient has been intolerant of statins and PCSK9 inhibitors have been cost prohibitive. Will discuss possible trial of Leqvio at short interval follow-up visit. Hypertension 05/06/2022 Assessment & Plan (07/14/2024 6:16 PM EST): Elevated in office today; as above, patient being sent to the ER for further evaluation of possible ischemic event. Assessment & Plan (06/11/2024 3:48 PM EST): Blood pressure is well-controlled on current medical therapy; continue isosorbide and metoprolol in addition to short course of torsemide. Orders: Basic metabolic panel; Future Encounters Date Type Department Care Team Description 08/10/2024 Lab Requisition [facility] [address] [place] [phone] Teja Bello MD Encounter for other general examination 08/04/2024 Lab Requisition [facility] [address] [place] [phone] Teja Bello MD Encounter for other general examination 07/16/2024 Telephone [facility] - [facility] [address] [facility] [address] [place] [phone] Kenyetta Shi NP Procedure 07/13/2024 10:50 AM EST - 07/14/2024 8:35 PM EST Hospital Encounter [facility] [address] [place] [phone] David Lee MD Bukalo, Nermina, MD Alam, Aroosa, MD Acute chest pain (Primary Dx); Elevated troponin; Chest pain, unspecified type; Chest pain due to myocardial ischemia, unspecified ischemic chest pain type Discharge Disposition: Short Term Hospital 07/13/2024 9:40 AM EST Office Visit [facility] - [address] [facility] [address] [place] [phone] Kenyetta Shi NP Atherosclerosis of [place] coronary artery of [place] heart with angina pectoris ([facility]) (Primary Dx); Unstable angina ([facility]); Dyspnea on exertion; Heart failure with mid-range ejection fraction (HFmEF) ([facility]); Secondary hypertension; Hypercholesterolemia; Abnormal ECG from Last 3 Months Surgical History Surgery Date Site/Laterality Comments SPINE SURGERY cervical and lumbar ROTATOR CUFF REPAIR Left KNEE SURGERY Left CORONARY STENT PLACEMENT mid LAD in 2016 and 2 proximal circumflex and mid RCA in 2015 Medical History Medical History Date Comments Hypertension CHF (congestive heart failure) ([facility]) COPD (chronic obstructive pu lmonary disease) ([facility]) CAD (coronary artery disease) s/ p stenting to mid LAD 2016, proximal circumflex and mid RCA, 2015 PAD (peripheral artery disease) ([facility]) DM (diabetes mellitus) ([facility]) Lymphoma in remission CKD (chronic kidney disease) stage 3, GFR 30-59 ml/min ([facility]) Family History Medical History Relation Name Comments Heart disease Father Relation Name Status Comments Father Social History Tobacco Use Types Packs/Day Years Used Date Smoking Tobacco: Former Cigarettes Smokeless Tobacco: Never Tobacco Cessation:Counseling Given: Not Answered Alcohol Use Standard Drinks/Week Comments Never 0 (1 standard drink = 0.6 oz pur e alcohol) Interpersonal Safety Answer Date Record ed Physical Abuse 07/14/2024 Verbal Abuse 07/14/2024 Sex and Gender Information Value Date Recorded Sex Assigned at Male 06/15/2024 1:45 PM EST Legal Sex Male 8:57 PM EST Gender Identity Male 06/15/2024 1:45 PM EST Sexual Orientation Not on file Obstetrics History Last Filed Vital Signs Vital Sign Reading Time Taken Comments Blood Pressure 160/86 07/14/2024 8:29 PM EST Pulse 71 07/14/2024 8:29 PM EST Temperature 36.2 ??C (97.2 ??F) 07/14/2024 8:29 PM ES T Respiratory Rate 18 07/14/2024 8:29 PM EST Oxygen Saturation 97% 07/14/2024 8:29 PM EST Inhaled Oxygen Concentration - - Weight 99.8 kg (220 lb) 07/13/2024 5:38 PM EST Height 188 cm (6' 2 ) 07/13/2024 5:38 PM EST Body Mass Index 28.25 07/13/2024 5:38 PM EST Plan of Treatment Upcoming Encounters Date Type Department Care Team (Late st Contact Info) Description 11/01/2024 12:40 PM EDT Office Visit [facility] - [address] [place] [phone] Kenyetta Shi, DMITRY [address] [place] [address] Health Maintenance Due Date Last Done Comments COVID-19 Vaccine (#1) 1954 Diabetes: Annual Foot Exam 1959 Diabetes: Annual Retina Eye Exam 1959 Zoster Vaccines (1 of 2) 1968 Abdominal Aortic Aneurysm (AAA) Screen 07/06/2022 Cholesterol Screening (Lipid Panel) 07/06/2022 Depression Screening 07/06/2022 Hepatitis C Screening 07/06/2022 Medicare Annual Wellness Visit 07/06/2022 Social Influencers of Health Screening 07/06/2022 Influenza Vaccine (#1) 2024 RSV Immunization Patients 60+ Years Old (1 - 1-dose 75+ series) 2024 Diabetes: Annual Urine Albumin-Creatinine Ratio (uACR) 08/25/2024 Diabetes: Blood Sugar Control Test (HGBA1C) 08/25/2024 Falls Risk Assessment 07/14/2025 07/14/2024 Diabetes: Annual GFR (Glomerular Filtration Rate) 08/10/2025 08/10/2024, 08/04/2024, 07/14/2024, Additional history exists Hypertension/CHF/CAD Annual BMP Blood Test 08/10/2025 08/10/2024, 08/04/2024, 07/14/2024, Additional history exists Colorectal Cancer Screening: FIT-DNA (Cologuard) 09/17/2026 09/17/2023, 09/17/2023 DTaP,Tdap,and Td Vaccines (2 - Td or Tdap) 11/18/2027 11/17/2017 Pneumococcal Vaccine: 50+ Years Completed 03/05/2024, 12/12/2022, 04/28/2019, Additional history exists HIB Vaccines Aged Out No longer eligi ble based on patient's age to complete this topic HPV Vaccines Aged Out No longer eligi ble based on patient's age to complete this topic Hepatitis A Vaccines Aged Out No long er eligible based on patient's age to complete this topic Hepatitis B Vaccines Aged Out No long er eligible based on patient's age to complete this topic IPV Vaccines Aged Out No longer eligi ble based on patient's age to complete this topic MMR Vaccines Aged Out No longer eligi ble based on patient's age to complete this topic Meningococcal ACWY Vaccine Aged Out N o longer eligible based on patient's age to complete this topic Meningococcal B Vacine Aged Out No lo nger eligible based on patient's age to complete this topic RSV Immunization Patients Under 20 months Aged Out No longer eligible based on patient's age to complete this topic Varicella Vaccines Aged Out No longer eligible based on patient's age to complete this topic Procedures Procedure Name Priority Date/Time Associated Diagnosis Comments COMPLETE BLOOD COUNT Routine 08/10/2024 6:24 AM EST Encounter for other general examination COMPREHENSIVE METABOLIC PANEL Routine 08/10/2024 6:24 AM EST Encounter for other general examination CBC WITH AUTO DIFFERENTIAL Routine 08/04/2024 6:26 AM EST Encounter for other general examination MAGNESIUM Routine 08/04/2024 6:26 AM EST Encounter for other general examination CBC AND DIFFERENTIAL Routine 08/04/2024 6:26 AM EST Encounter for other general examination COMPREHENSIVE METABOLIC PANEL Routine 08/04/2024 6:26 AM EST Encounter for other general examination POCT GLUCOSE BLOOD Routine 07/14/2024 8: 30 PM EST POCT GLUCOSE BLOOD Routine 07/14/2024 5: 09 PM EST POCT GLUCOSE BLOOD Routine 07/14/2024 11 :54 AM EST TRANSTHORACIC ECHOCARDIOGRAM (TTE) COMPLETE W/ CONTRAST Routine 07/14/2024 11:24 AM EST Chest pain, unspecified type POCT GLUCOSE BLOOD Routine 07/14/2024 8: 27 AM EST TROPONIN I HIGH SENSITIVITY Routine 07/14/2024 4:23 AM EST MAGNESIUM Routine 07/14/2024 4:23 AM EST COMPLETE BLOOD COUNT Routine 07/14/2024 4:23 AM EST BASIC METABOLIC PANEL Routine 07/14/2024 4:23 AM EST ECG OUTSIDE 07/14/2024 ECG ANNOTATED 07/14/2024 POCT GLUCOSE BLOOD Routine 07/13/2024 8: 08 PM EST POCT GLUCOSE BLOOD Routine 07/13/2024 5: 50 PM EST TROPONIN I HIGH SENSITIVITY Timed 07/13/2024 5:43 PM EST XR CHEST 2 VIEWS STAT 07/13/2024 5:33 PM EST POCT GLUCOSE BLOOD Routine 07/13/2024 3: 42 PM EST ECG 12-LEAD STAT 07/13/2024 3:18 PM EST ECG 12-LEAD STAT 07/13/2024 12:14 PM EST TROPONIN I HIGH SENSITIVITY STAT 07/13/2024 12:11 PM EST PROTHROMBIN TIME WITH INR STAT 07/13/2024 11:11 AM EST CBC WITH AUTO DIFFERENTIAL STAT 07/13/2024 11:03 AM EST B-TYPE NATRIURETIC PEPTIDE STAT 07/13/2024 11:03 AM EST MAGNESIUM STAT 07/13/2024 11:03 AM EST LIPASE STAT 07/13/2024 11:03 AM EST COMPREHENSIVE METABOLIC PANEL STAT 07/13/2024 11:03 AM EST CBC AND DIFFERENTIAL STAT 07/13/2024 11:03 AM EST TROPONIN I HIGH SENSITIVITY STAT 07/13/2024 11:03 AM EST ECG 12-LEAD STAT 07/13/2024 10:44 AM EST NC CRITICAL CARE 30-74 MINUTES Routine 07/13/2024 10:35 AM EST Elevated troponin Chest pain due to myocardial ischemia, unspecified ischemic chest pain type ECG 12-LEAD Routine 07/13/2024 9:57 AM EST Unstable angina (CMS/HCC) Dyspnea on exertion from Last 3 Months Results * (ABNORMAL) Complete blood count (08/10/2024 6:24 AM EST) Only the most recent of2 resultswithin the time period is included. WBC 8.9 4.8 - 10.8 K/mcL LAB HEMETOLOGY METHOD 08/10/2024 11:19 AM EST [facility] RBC 2.90(L) 4.50 - 5.50 M/mcL LAB HEMETOLOGY METHOD 08/10/2024 11:19 AM EST [facility] Hemoglobin 8.7(L) 13.5 - 17.5 g/dL LAB HEMETOLOGY METHOD 08/10/2024 11:19 AM EST [facility] Hematocrit 27.5(L) 42.0 - 54.0 % LAB HEMETOLOGY METHOD 08/10/2024 11:19 AM EST [facility] MCV 93.9 79.0 - 98.0 FL LAB HEMETOLOGY METHOD 08/10/2024 11:19 AM [facility] MCH 29.7 27.0 - 32.0 pcg LAB HEMETOLOGY METHOD 08/10/2024 11:19 AM EST [facility] MCHC 31.6(L) 32.0 - 37.0 g/dL LAB HEMETOLOGY METHOD 08/10/2024 11:19 AM [facility] RDW 14.6 11.0 - 15.0 % LAB HEMETOLOGY METHOD 08/10/2024 11:19 AM [facility] Platelets 550(H) 130 - 400 K/mcL LAB HEMETOLOGY METHOD 08/10/2024 11:19 AM EST [facility] MPV 9.3 7.0 - 11.0 FL LAB HEMETOLOGY METHOD 08/10/2024 11:19 AM EST [facility] NRBC 0.0 <1.0 % LAB HEMETOLOGY METHOD 08/10/2024 11:19 AM [facility] NRBC Absolute 0.00 <0.10 K/mcL LAB HEMETOLOGY METHOD 08/10/2024 11:19 AM [facility] Blood Venous blood specimen / Unknown Venipuncture / Unknown 08/10/2024 6:24 AM EST 08/10/2024 10:00 AM EST us Teja Bello MD LAB BLOOD ORDERABLES Final Res ult [facility] [address] [place] [address], * (ABNORMAL) Comprehensive metabolic panel (08/10/2024 6:24 AM EST) Only the most recent of3 resultswithin the time period is included. Sodium 138 133 - 145 mmol/L LAB CHEMISTRY METHOD 08/10/2024 12:14 PM [facility] Potassium 4.6 3.5 - 5.5 mmol/L LAB CHEMISTRY METHOD 08/10/2024 12:14 PM [facility] Chloride 105 96 - 110 mmol/L LAB CHEMISTRY METHOD 08/10/2024 12:14 PM [facility] CO2 26 21 - 32 mmol/L LAB CHEMISTRY METHOD 08/10/2024 12:14 PM [facility] Anion Gap 7 3 - 11 LAB CHEMISTRY METHOD 08/10/2024 12:14 PM [facility] Glucose 128(H) 70 - 100 mg/dL LAB CHEMISTRY METHOD 08/10/2024 12:14 PM [facility] BUN 29(H) 5 - 25 mg/dL LAB CHEMISTRY METHOD 08/10/2024 12:14 PM [facility] Creatinine 1.77(H) 0.70 - 1.30 mg/dL LAB CHEMISTRY METHOD 08/10/2024 12:14 PM [facility] eGFR 40(L) >=60 mL/min/1. 73m2 LAB CHEMISTRY METHOD 08/10/2024 12:14 PM [facility] Comment:Calculation based on the??Chronic Kidney Disease Epidemiology Collaboration (CKD-EPI) equation refit??without adjustment for race. BUN/Creatinine Ratio 16.4 LAB CHEMISTRY METHOD 08/10/2024 12:14 PM [facility] Calcium 8.7 8.5 - 10.5 mg/dL LAB CHEMISTRY METHOD 08/10/2024 12:14 PM [facility] AST (SGOT) 36 10 - 42 unit/L LAB CHEMISTRY METHOD 08/10/2024 12:14 PM [facility] ALT (SGPT) 59 10 - 60 unit/L LAB CHEMISTRY METHOD 08/10/2024 12:14 PM [facility] Alkaline Phosphatase 111 42 - 121 unit/L LAB CHEMISTRY METHOD 08/10/2024 12:14 PM [facility] Total Protein 5.9(L) 6.0 - 8.0 g/dL LAB CHEMISTRY METHOD 08/10/2024 12:14 PM [facility] Albumin 2.6(L) 3.2 - 5.0 g/dL LAB CHEMISTRY METHOD 08/10/2024 12:14 PM [facility] Total Bilirubin 0.3 0.0 - 1.4 mg/dL LAB CHEMISTRY METHOD 08/10/2024 12:14 PM [facility] Blood Venous blood specimen / Unknown Venipuncture / Unknown 08/10/2024 6:24 AM EST 08/10/2024 10:00 AM EST us Teja Bello MD LAB BLOOD ORDERABLES Final Res ult [facility] [address] [place] [address], * (ABNORMAL) CBC auto differential (08/04/2024 6:26 AM EST) Only the most recent of2 resultswithin the time period is included. WBC 11.8(H) 4.8 - 10.8 K/mcL LAB HEMETOLOGY METHOD 08/04/2024 9:56 AM [facility] RBC 3.00(L) 4.50 - 5.50 M/mcL LAB HEMETOLOGY METHOD 08/04/2024 9:56 AM [facility] Hemoglobin 8.7(L) 13.5 - 17.5 g/dL LAB HEMETOLOGY METHOD 08/04/2024 9:56 AM [facility] Hematocrit 28.9(L) 42.0 - 54.0 % LAB HEMETOLOGY METHOD 08/04/2024 9:56 AM [facility] MCV 97.6 79.0 - 98.0 FL LAB HEMETOLOGY METHOD 08/04/2024 9:56 AM [facility] MCH 29.4 27.0 - 32.0 pcg LAB HEMETOLOGY METHOD 08/04/2024 9:56 AM [facility] MCHC 30.1(L) 32.0 - 37.0 g/dL LAB HEMETOLOGY METHOD 08/04/2024 9:56 AM [facility] RDW 15.1(H) 11.0 - 15.0 % LAB HEMETOLOGY METHOD 08/04/2024 9:56 AM [facility] Platelets 489(H) 130 - 400 K/mcL LAB HEMETOLOGY METHOD 08/04/2024 9:56 AM [facility] MPV 9.8 7.0 - 11.0 FL LAB HEMETOLOGY METHOD 08/04/2024 9:56 AM [facility] NRBC 0.0 <1.0 % LAB HEMETOLOGY METHOD 08/04/2024 9:56 AM [facility] NRBC Absolute 0.00 <0.10 K/mcL LAB HEMETOLOGY METHOD 08/04/2024 9:56 AM [facility] Neutrophils Relative 76.0 % LAB HEMETOLOGY METHOD 08/04/2024 9:56 AM [facility] Lymphocytes Relative 12.8 % LAB HEMETOLOGY METHOD 08/04/2024 9:56 AM [facility] Monocytes Relative 5.6 % LAB HEMETOLOGY METHOD 08/04/2024 9:56 AM [facility] Eosinophils Relative 4.1 % LAB HEMETOLOGY METHOD 08/04/2024 9:56 AM [facility] Basophils Relative 0.3 % LAB HEMETOLOGY METHOD 08/04/2024 9:56 AM EST [facility] Immature Granulocytes Relative 1.2 % LAB HEMETOLOGY METHOD 08/04/2024 9:56 AM EST [facility] Neutrophils Absolute 9.00(H) 1.50 - 7.00 K/mcL LAB HEMETOLOGY METHOD 08/04/2024 9:56 AM [facility] Lymphocytes Absolute 1.51 1.00 - 5.00 K/mcL LAB HEMETOLOGY METHOD 08/04/2024 9:56 AM EST [facility] Monocytes Absolute 0.66 0.20 - 1.00 K/mcL LAB HEMETOLOGY METHOD 08/04/2024 9:56 AM [facility] Eosinophils Absolute 0.48 0.00 - 0.50 K/mcL LAB HEMETOLOGY METHOD 08/04/2024 9:56 AM [facility] Basophils Absolute 0.04 0.00 - 0.20 K/mcL LAB HEMETOLOGY METHOD 08/04/2024 9:56 AM [facility] Immature Granulocytes Absolute 0.14(H) 0.00 - 0.03 K/mcL LAB HEMETOLOGY METHOD 08/04/2024 9:56 AM [facility] Blood Venous blood specimen / Unknown Venipuncture / Unknown 08/04/2024 6:26 AM EST 08/04/2024 8:35 AM EST us Teja Bello MD LAB BLOOD ORDERABLES Final Res ult [facility] [address] [place] [address], * (ABNORMAL) Magnesium (08/04/2024 6:26 AM EST) Only the most recent of3 resultswithin the time period is included. Magnesium 1.8(L) 1.9 - 2.6 mg/dL LAB CHEMISTRY METHOD 08/04/2024 10:55 AM EST [facility] Blood Venous blood specimen / Unknown Venipuncture / Unknown 08/04/2024 6:26 AM EST 08/04/2024 8:35 AM EST us Teja Bello MD LAB BLOOD ORDERABLES Final Res ult Performing Organization Address [facility]/ZIP Co de Phone Number [facility] [address] [place] [address], [place] [phone] * (ABNORMAL) POCT Glucose, blood (07/14/2024 8:30 PM EST) Only the most recent of7 resultswithin the time period is included. [facility] Glucose POCT 153(H) 70 - 100 mg/dL 07/14/2024 8:30 PM EST [facility] Blood Capillary blood specimen / Unknown 07/14/2024 8:30 PM EST 07/14/2024 8:31 PM EST us Katherine Johnson MD LAB POINT OF CARE TE ST DOCKED DEVICE UNSOLICITED RESULTS Final Result Performing Organization Address [facility] de Phone Number [facility] [address] [place] [address], [place] [phone] * (ABNORMAL) TRANSTHORACIC ECHOCARDIOGRAM (TTE) COMPLETE W/ CONTRAST (07/14/2024 11:24 AM EST) [facility] LV EDV (A2C) 141 mL CV PACS LV EDV (A4C) 132 mL CV PACS LV Diastolic Volume (BP) 137 62 - 150 mL CV PACS LV ESV (A2C) 67 mL CV PACS LV ESV (A4C) 78 mL CV PACS LV Systolic Volume (BP) 74(A) 21 - 61 mL CV PACS IVSD 1.3(A) 0.6 - 1.0 cm CV PACS LVIDD 4.0(A) 4.2 - 5.8 cm CV PACS LVIDS 3.2 2.5 - 4.0 cm CV PACS LVOT Diameter 2.0 cm CV PACS LVOT Mean Marvel 0.6 m/s CV PACS LVOT Mean Grad 2 mmHg CV PACS LVOT Peak VTI 20.1 cm CV PACS LVOT Peak Marvel 0.9 m/s CV PACS LVOT Peak Gradient 3 mmHg CV PACS LVPWD 1.3(A) 0.6 - 1.0 cm CV PACS MV E' Tissue Velocity Lateral 8 cm/s CV PACS MV E' Tissue Velocity Septal 4 cm/s CV PACS Ejection Fraction (A2C) 53 % CV PACS Ejection Fraction (A4C) 40 % CV PACS Ejection Fraction (BP) 46 % CV PACS LVOT Area 3.1 cm2 CV PACS LVOT Stroke Volume 63 mL CV PACS Left Atrium Minor [place] 6.3 cm CV PACS Left Atrium Major [place] 7.0 cm CV PACS LA Area Sys (A2C) 22 cm2 CV PACS LA Area Sys (A4C) 24 cm2 CV PACS LA Volume (BP) 66 mL CV PACS RA Area 17.2 cm2 CV PACS RA 2D Volume 43 mL CV PACS AV Mean Gradient 4 mmHg CV PACS Ao VTI 28.5 cm CV PACS AV Peak Marvel 1.4 m/s CV PACS AV Peak Gradient 8 mmHg CV PACS AV Area Continuity Equation 2.2 cm2 CV PACS AV Area Peak Velocity 2.1 cm2 CV PACS Aortic Sinus Valsalva 3.7 cm CV PACS Ascending Aorta 3.0 cm CV PACS IVC Proximal 1.2 cm CV PACS MV Deceleration Gilliam 6.3 m/s2 CV PACS E Wave Deceleration Time 204 119 - 242 ms CV PACS MV PHT 60 ms CV PACS MV Peak A Marvel 1.36 m/s CV PACS MV Peak E Marvel 1.29 m/s CV PACS MV Area PHT 3.7 cm2 CV PACS PV Acceleration Time 85 ms CV PACS RV Diastolic Basal Dimension 3.3 2.5 - 4.1 cm CV PACS RV S' 11 cm/s CV PACS TAPSE 21 mm CV PACS LV ESV Index (A4C) 35 mL/m2 CV PACS LV EDV Index (A4C) 58 mL/m2 CV PACS E/E' Ratio Septal 32 CV PACS E/E' Ratio Averaged 24 CV PACS LVOT Stroke Index 28 mL/m2 CV PACS Relative Wall Thickness ratio 0.65 CV PACS LVOT:AV VTI Index 0.71 CV PACS FS 20 % CV PACS LV Mass 2D 187 g CV PACS Ascending Aorta Index 1.33 cm/m2 CV PACS LVOT flow 188 mL/s CV PACS RA 2D Volume Index 19 mL/m2 CV PACS CORWIN Index (VTI) 0.98 cm2/m2 CV PACS CORWIN Index (Pk Marvel) 0.93 cm2/m2 CV PACS LVIDD Index 1.77 cm/m2 CV PACS LVIDS Index 1.42 cm/m2 CV PACS AV Velocity Ratio 0.64 CV PACS E/A Ratio 0.9 CV PACS E/E' Ratio Lateral 16 CV PACS LV Systolic Volume Index (BP) 33 mL/m2 CV PACS LV Diastolic Volume Index (BP) 61 mL/m2 CV PACS LA Volume Index (BP) 29 mL/m2 CV PACS LV Mass Index 2D 83 g/m2 CV PACS LV EDV Index (A2C) 62 mL/m2 CV PACS LV ESV Index (A2C) 30 mL/m2 CV PACS BSA 2.28 m2 CV PACS Est. RA Pressure 3 mmHg CV PACS Anatomical Region Laterality Modality Ultrasound Narrative 07/14/2024 12:29 PM EST ?Left ventricle cavity size is normal. There is mild concentric hypertrophy. The quantitative EF by 2D Garcia biplane is mildly reduced at 46%. Abnormal septal bounce. E-A reversal consistent with mild diastolic relaxation abnormality. ?Right ventricle cavity appears normal. Systolic function is normal. ?Normal size of the left and right atrium. ?Trace mitral regurgitation. ??Trace aortic valve regurgitation. ?No previous echocardiogram available for comparison. Left Ventricle Left ventricle cavity size is normal. There is mild concentric hypertrophy. The quantitative EF by 2D Garcia biplane is mildly reduced at 46%. Abnormal septal bounce. E-A reversal consistent with mild diastolic relaxation abnormality. Right Ventricle Right ventricle cavity appears normal. Systolic function is normal. Left Atrium Left atrium cavity size is normal. Right Atrium Right atrium cavity is normal. IVC/SVC RA pressures is estimated to be 3 mmHg (IVC diameter <21 mm and decreases >50% during inspiration). Mitral Valve The leaflets are thickened. There is annular calcification. There is trace regurgitation. There is no evidence of mitral valve stenosis. Tricuspid Valve Tricuspid valve structure is normal. Tricuspid regurgitation is inadequate for estimation of right ventricular systolic pressure. Unable to assess tricuspid valve stenosis due to poor Doppler exam. Cannot assess RVSP. Aortic Valve The aortic valve is trileaflet. There is trace regurgitation. There is no evidence of aortic valve stenosis. Pulmonic Valve No significant pulmonic valve regurgitation. Ascending Aorta The aorta appears normal in size. Transverse aorta not well visualized. Pericardium There is no pericardial effusion. Study Details Overall the study quality was technically difficult. Definity contrast was given to enhance imaging. us Yeni BALLESTEROS CV ECHO PROCEDURES Final Result * (ABNORMAL) Troponin I high sensitivity (07/14/2024 4:23 AM EST) Only the most recent of4 resultswithin the time period is included. Pathologist [facility] High Sensitivity Troponin I 253(HH) <=79 ng/L LAB CHEMISTRY METHOD 07/14/2024 5:24 AM EST [facility] Blood Venous blood specimen / Unknown Venipuncture / Unknown 07/14/2024 4:23 AM EST 07/14/2024 4:42 AM EST Narrative [facility] - 07/14/2024 5:24 AM EST High levels of biotin in samples may falsely decrease hsTroponin values. ??Use caution when interpreting hsTroponin results in patients taking biotin who exhibit renal impairment (eGFR <60) or in patients taking more than 20 mg/day of biotin. us Lizet BALLESTEROS LAB BLOOD ORDERABLES Final Re sult [facility] [address] [place] [address], [place] [phone] * (ABNORMAL) Basic metabolic panel (07/14/2024 4:23 AM EST) [facility] Sodium 138 133 - 145 mmol/L LAB CHEMISTRY METHOD 07/14/2024 5:10 AM [facility] Potassium 4.4 3.5 - 5.5 mmol/L LAB CHEMISTRY METHOD 07/14/2024 5:10 AM [facility] Chloride 105 96 - 110 mmol/L LAB CHEMISTRY METHOD 07/14/2024 5:10 AM [facility] CO2 26 21 - 32 mmol/L LAB CHEMISTRY METHOD 07/14/2024 5:10 AM [facility] Anion Gap 7 3 - 11 LAB CHEMISTRY METHOD 07/14/2024 5:10 AM [facility] Glucose 212(H) 70 - 100 mg/dL LAB CHEMISTRY METHOD 07/14/2024 5:10 AM [facility] BUN 33(H) 5 - 25 mg/dL LAB CHEMISTRY METHOD 07/14/2024 5:10 AM [facility] Creatinine 1.83(H) 0.70 - 1.30 mg/dL LAB CHEMISTRY METHOD 07/14/2024 5:10 AM [facility] eGFR 38(L) >=60 mL/min/1. 73m2 LAB CHEMISTRY METHOD 07/14/2024 5:10 AM [facility] Comment:Calculation based on the??Chronic Kidney Disease Epidemiology Collaboration (CKD-EPI) equation refit??without adjustment for race. BUN/Creatinine Ratio 18.0 LAB CHEMISTRY METHOD 07/14/2024 5:10 AM [facility] Calcium 9.4 8.5 - 10.5 mg/dL LAB CHEMISTRY METHOD 07/14/2024 5:10 AM [facility] Blood Venous blood specimen / Unknown Venipuncture / Unknown 07/14/2024 4:23 AM EST 07/14/2024 4:46 AM EST us Yeni BALLESTEROS LAB BLOOD ORDERABLES Final Resul t [facility] [address] [place] [address], * ECG-Outside (07/14/2024) us Provider Onbase MD ECG ORDERABLES Final Result * ECG-Annotated (07/14/2024) us Provider Onbase MD ECG ORDERABLES Final Result * XR Chest 2 Views (07/13/2024 5:33 PM EST) Anatomical Region Laterality Modality Body Radiographic Tonie ging 07/14/2024 8:21 AM EST Impressions 07/14/2024 8:21 AM EST FINDINGS/IMPRESSION: Low lung volumes. ??No pneumonia or pulmonary edema. ??No pleural effusion or pneumothorax. ??Cardiac silhouette is normal in size. ??Degenerative changes seen throughout the bones. ??Left rotator cuff repair bone anchors are present at the humeral head. -------- FINAL REPORT -------- Dictated By: AGUSTO ROUSE Dictated Date: 07/14/2024 08:21 ET Assigned Physician: AGUSTO ROUSE Reviewed and Electronically Signed By: AGUSTO ROUSE Signed Date: 07/14/2024 08:21 ET Workstation ID: [id number] Transcribed By: Self Edit Transcribed Date: 07/14/2024 08:21 ET Narrative 07/14/2024 8:21 AM EST XR CHEST 2 VIEWS INDICATION: ??Chest pain TECHNIQUE: XR CHEST 2 VIEWS COMPARISON: 02/28/2016 Procedure Note Agusto Rouse MD - 07/14/2024 XR CHEST 2 VIEWS INDICATION: Chest pain TECHNIQUE: XR CHEST 2 VIEWS COMPARISON: 02/28/2016 IMPRESSION: FINDINGS/IMPRESSION: Low lung volumes. No pneumonia or pulmonary edema.No pleural effusion or pneumothorax. Cardiac silhouette is normal insize. Degenerative changes seen throughout the bones. Left rotator cuffrepair bone anchors are present at the humeral head. -------- FINAL REPORT -------- Dictated By: AGUSTO ROUSE Dictated Date: 07/14/2024 08:21 ET Assigned Physician: AGUSTO ROUSE Reviewed and Electronically Signed By: AGUSTO ROUSE Signed Date: 07/14/2024 08:21 ET Workstation ID: [id number] Transcribed By: Self Edit Transcribed Date: 07/14/2024 08:21 ET Yeni BALLESTEROS IMG XR PROCEDURES Final Result * ECG 12 lead (07/13/2024 3:18 PM EST) Only the most recent of4 resultswithin the time period is included. Ventricular Rate ECG 69 BPM GEMUSE Atrial Rate 69 BPM GEMUSE P-R Interval 232 ms GEMUSE QRS Duration 104 ms GEMUSE Q-T Interval 394 ms GEMUSE QTc 422 ms GEMUSE P Wave [place] 23 degrees GEMUSE R [place] -31 degrees GEMUSE T [place] 4 degrees GEMUSE ECG Interpretation Sinus rhythm with 1st degree A-V block Left axis deviation Inferior infarct (cited on or before 01-MAR-2005) Anteroseptal infarct (cited on or before 29-FEB-2016) Abnormal ECG When compared with ECG of 13-JUL-2024 12:14, (unconfirmed) No significant change was found Confirmed by Celine COLLINS JAMES ([id number]) on 07/13/2024 8:14:08 PM GEMUSE 07/13/2024 3:18 PM EST 07/13/2024 8:14 PM EST Yeni BALLESTEROS ECG ORDERABLES Final Result GEMUSE * (ABNORMAL) Prothrombin time with INR (07/13/2024 11:11 AM EST) Protime 10.5(L) 10.6 - 13.9 sec LAB COAGULATION METHOD 07/13/2024 11:33 AM EST [facility] INR 0.8 LAB COAGULATION METHOD 07/13/2024 11:33 AM EST [facility] Blood Venous blood specimen / Unknown Venipuncture / Unknown 07/13/2024 11:11 AM EST 07/13/2024 11:14 AM EST us David Lee MD LAB BLOOD ORDERABLES Brissa l Result Performing Organization Address [facility] Co de Phone Number [facility] [address] [place] [address], [place] [phone] * (ABNORMAL) B-type natriuretic peptide (07/13/2024 11:03 AM EST) BNP 594(H) <=100 pcg/mL LAB CHEMISTRY METHOD 07/13/2024 11:56 AM EST [facility] Blood Venous blood specimen / Unknown Venipuncture / Unknown 07/13/2024 11:03 AM EST 07/13/2024 11:14 AM EST David Lee MD LAB BLOOD ORDERABLES Brissa l Result Performing Organization Address [facility] Co de Phone Number [facility] [address] [place] [address], [place] [phone] * Lipase (07/13/2024 11:03 AM EST) [facility] Lipase 64 13 - 75 unit/L LAB CHEMISTRY METHOD 07/13/2024 11:40 AM EST [facility] Blood Venous blood specimen / Unknown Venipuncture / Unknown 07/13/2024 11:03 AM EST 07/13/2024 11:14 AM EST us David Lee MD LAB BLOOD ORDERABLES Brissa l Result Performing Organization Address [facility]/ZIP Co de Phone Number [facility] [address] [place] [address], [place] [phone] * NC CRITICAL CARE 30-74 MINUTES (07/13/2024 10:35 AM EST) Narrative David Lee MD - 07/13/2024 10:35 AM EST David Lee MD ? 07/15/2024 ??8:00 AM Critical Care Performed by: David Lee MD Authorized by: David Lee MD ?? Critical care provider statement: ??Critical care time (minutes): ??45 ??Critical care time was exclusive of: ??Separately billable procedures and treating other patients ??Critical care was necessary to treat or prevent imminent or life-threatening deterioration of the following conditions: ??Acute mi and cardiac failure ??Critical care was time spent personally by me on the following activities: ??Development of treatment plan with patient or surrogate, discussions with consultants, examination of patient, interpretation of cardiac output measurements and ordering and review of laboratory studies ??I assumed direction of critical care for this patient from another provider in my specialty: no ?Care discussed with: admitting provider ?? us David Lee MD IN CLINIC/BEDSIDE ORDERAB LES Final Result from Last 3 Months Insurance [facility]ICARE [facility] Advance Directives * Full Code - Default (Latest Code Status on File) Date Activated Date Inactivated Comments 07/13/2024 3:44 PM 07/14/2024 11:12 PM This is o rder is used when code status has not been discussed with the patient, or code status is otherwise unknown/unconfirmed To update the patient's code status, place a code status order. Do not modify or discontinue any currently active code status orders. Healthcare Agents on File Name Relationship Healthcare Agent Relationshi p Communication Heath Goins Son Health Care Agent Nellie Goins Spouse First Alternate Health Care Agent [email or web address] Care Teams Garden Implement Mechanic Relationship Specialty Start Date End Date Vandana Parker MD [address] [place] [id number] PCP - General Internal Medicine 08/05/17
--- OUTSIDE RECORDS SUMMARY | 2024-09-27 15:20 | XMS_ITS | Encounter Summary ---
Author Organization [facility] Address [address] [place] [address] Phone Care Team Providers Care Manager Scheduling Name Role Phone Vandana Parker MD Primary Care Provider [phone] Encounter Details Date Type Department Care Team (Late st Contact Info) Description 09/22/2024 Orders Only [facility] [address] [facility] [address] [place] [address] Santiago Quinn MD [phone] [address] Stage 3a chronic kidney disease (HCC); Renal disorder due to type 2 diabetes mellitus <Other diabetic kidney complication> (HCC); Peripheral arterial occlusive disease (HCC); Non-Hodgkin's lymphoma (clinical) (HCC); Hypomagnesemia; Hyperkalemia; Essential hypertension; Diabetes mellitus, not otherwise specified (HCC) Social History Tobacco [...] on file documented as of this encounter Plan of Treatment Upcoming Encounters Date Type Department Care Team (Late st Contact Info) Description 03/21/2025 10:40 AM EDT Office Visit [facility] [address] [facility] [address] [place] [address] Santiago Quinn MD [address] [facility] [address] [place] [address] Pending Results Name Type Priority Associated Diagnoses Date /Time Calcium, urine, random Lab Routine 2:21 PM EST Magnesium, urine Lab Routine 08/24/19 2:21 PM EST documented as of this encounter Procedures Procedure Name Priority Date/Time Associated Diagnosis Comments PROTEIN / CREATININE RATIO, URINE Routine 08/24/2024 2:21 PM EST MAGNESIUM, URINE Routine 08/24/2024 2:21 PM EST CALCIUM, URINE, RANDOM Routine 2:21 PM EST VITAMIN D 1,25 DIHYDROXY Routine 08/24/2024 2:21 PM EST VITAMIN D 25 HYDROXY Routine 08/24/2024 2:21 PM EST CBC AND DIFFERENTIAL Routine 08/24/2024 2:21 PM EST ANGIOTENSIN CONVERTING ENZYME Routine 08/24/2024 2:21 PM EST URIC ACID Routine 08/24/2024 2:21 PM EST PHOSPHATE ( PHOSPHORUS) Routine 08/24/2024 2:21 PM EST PTH, INTACT Routine 08/24/2024 2:21 PM EST MAGNESIUM Routine 08/24/2024 2:21 PM EST COMPREHENSIVE METABOLIC PANEL Routine 08/24/2024 2:21 PM EST documented in this encounter Results * PTH, Intact (08/24/2024 2:21 PM EST) PTH 36 15 - 65 pg/mL Kerri Chadwick 08/24/2024 2:21 PM EST 08/24/2024 us Santiago Quinn MD LAB BLOOD ORDERABLES Final Re sult [facility] [address] [place] [address] * Magnesium (08/24/2024 2:21 PM EST) Magnesium 1.6 1.6 - 2.3 mg/dL [facility] 08/24/2024 2:21 PM EST 08/24/2024 Santiago Quinn MD LAB BLOOD ORDERABLES Final Re sult [facility] [address] [place] [address] * Phosphorus (08/24/2024 2:21 PM EST) Phosphorus 3.6 2.8 - 4.1 mg/dL [facility] 08/24/2024 2:21 PM EST 08/24/2024 Santiago Quinn MD LAB BLOOD ORDERABLES Final Re sult Performing Organization Address [facility]/ZIP Co de Phone Number [facility] [address] [place] [address] * Uric Acid (08/24/2024 2:21 PM EST) Uric Acid 4.7 3.8 - 8.4 mg/dL [facility] Comment:Therapeutic target f or gout patients: <6.0 08/24/2024 2:21 PM EST 08/24/2024 us Santiago Quinn MD LAB BLOOD ORDERABLES Final Re sult [facility] [address] [place] [address] * Vitamin D 25 Hydroxy (08/24/2024 2:21 PM EST) Vitamin D, 25-OH, Total 36.7 30.0 - 100.0 ng/mL [facility] Comment: Vitamin D deficiency has been defined by the [employer]rells of Medicine and an Endocrine Society practice guideline as a level of serum 25-OH vitamin D less than 20 ng/mL (1,2). The Endocrine Society went on to further define vitamin D insufficiency as a level between 21 and 29 ng/mL (2). 1. IOM ([employer] of Medicine). 2010. Dietary reference ?? intakes for calcium and D. [place]: The ?? National [employer]. 2. Vicenta MF, Roney PANIAGUA, Concepción TSE, et al. ?? Evaluation, treatment, and prevention of vitamin D ?? deficiency: an Endocrine Society clinical practice ?? guideline. JCEM. 2010; 96(7):1911-30. 08/24/2024 2:21 PM EST 08/24/2024 Santiago Quinn MD LAB BLOOD ORDERABLES Final Re sult [facility] [address] [place] [address] * (ABNORMAL) Vitamin D 1,25 dihydroxy (08/24/2024 2:21 PM EST) Vitamin D, 1,25-Dihydroxy 23.0(L) 24.8 - 81.5 pg/mL [facility] 08/24/2024 2:21 PM EST 08/24/2024 Santiago Quinn MD LAB BLOOD ORDERABLES Final Re sult [facility] [address] [place] [address] * Angiotensin Converting Enzyme (08/24/2024 2:21 PM EST) Angiotensin Converting Enzyme 54 14 - 82 U/L [facility] 08/24/2024 2:21 PM EST 08/24/2024 Santiago Quinn MD LAB BLOOD ORDERABLES Final Re sult [facility] [address] [place] [address] * (ABNORMAL) Protein, Total, Random Urine w/Creatinine (Protein/Creat Ratio) (08/24/2024 2:21 PM EST) Pathologist [facility] Creatinine, Ur 194.7 Not Estab. mg/dL [facility] Protein, Ur 105.6 Not Estab. mg/dL [facility] Urine Protein/Creati nine Ratio 542(H) 0 - 200 mg/g creat [facility] 08/24/2024 2:21 PM EST 08/24/2024 Santiago Quinn MD LAB URINE ORDERABLES Final Re sult [facility] [address] [place] [address] * (ABNORMAL) Comprehensive Metabolic Panel (08/24/2024 2:21 PM EST) Pathologist [facility] Glucose 235(H) 70 - 99 mg/dL [facility] BUN 36(H) 8 - 27 mg/dL [facility] Creatinine 1.65(H) 0.76 - 1.27 mg/dL [facility] eGFR CKD-EPI CR 2020 43(L) >59 mL/min/1.7 3 [facility] BUN/Creatinine Ratio 22 10 - 24 [facility] Sodium 136 134 - 144 mmol/L [facility] Potassium 5.3(H) 3.5 - 5.2 mmol/L [facility] Chloride 100 96 - 106 mmol/L [facility] Bicarbonate (CO2) 20 20 - 29 mmol/L [facility] Calcium 9.4 8.6 - 10.2 mg/dL [facility] Total Protein 7.1 6.0 - 8.5 g/dL [facility] Albumin 4.1 3.8 - 4.8 g/dL [facility] Globulin 3.0 1.5 - 4.5 g/dL [facility] Total Bilirubin 0.3 0.0 - 1.2 mg/dL [facility] Alkaline Phosphatase 142(H) 44 - 121 IU/L [facility] AST (SGOT) 35 0 - 40 IU/L [facility] ALT (SGPT) 34 0 - 44 IU/L [facility] 08/24/2024 2:21 PM EST 08/24/2024 us Santiago Quinn MD LAB BLOOD ORDERABLES Final Re sult [facility] [address] [place] [address] * (ABNORMAL) CBC and Differential (08/24/2024 2:21 PM EST) WBC 8.2 3.4 - 10.8 x10E3/uL [facility] RBC 3.72(L) 4.14 - 5.80 x10E6/uL [facility] Hemoglobin 10.9(L) 13.0 - 17.7 g/dL [facility] Hematocrit 33.9(L) 37.5 - 51.0 % [facility] MCV 91 79 - 97 fL [facility] MCH 29.3 26.6 - 33.0 pg [facility] MCHC 32.2 31.5 - 35.7 g/dL [facility] RDW 14.1 11.6 - 15.4 % [facility] Platelets 352 150 - 450 x10E3/uL [facility] Neutrophils Relative 76 Not Estab. % [facility] Lymphocytes Relative 13 Not Estab. % [facility] Monocytes 5 Not Estab. % [facility] Eosinophils Relative 5 Not Estab. % [facility] Basophils Relative 0 Not Estab. % [facility] Neutrophils Absolute 6.3 1.4 - 7.0 x10E3/uL [facility] Lymphocytes Absolute 1.0 0.7 - 3.1 x10E3/uL [facility] Monocytes Absolute 0.4 0.1 - 0.9 x10E3/uL [facility] Eosinophils Absolute 0.4 0.0 - 0.4 x10E3/uL [facility] Basophils Absolute 0.0 0.0 - 0.2 x10E3/uL [facility] Immature Granulocytes 1 Not Estab. % [facility] Immature Grans (Absolute) 0.0 0.0 - 0.1 x10E3/uL [facility] 08/24/2024 2:21 PM EST 08/24/2024 us Santiago Quinn MD LAB BLOOD ORDERABLES Final Re sult [facility] [address] [place] [address] documented in this encounter Visit Diagnoses Diagnosis Stage 3a chronic kidney disease (HCC) Renal disorder due to type 2 diabetes mellitus <Other diabetic kidney complication> (HCC) Peripheral arterial occlusive disease (HCC) Non-Hodgkin's lymphoma (clinical) (HCC) Hypomagnesemia Hyperkalemia Essential hypertension Diabetes mellitus, not otherwise specified (HCC) documented in this encounter Care Teams Manager Scheduling Relationship Specialty Start Date End Date Vandana Parker MD [address] [place], [place] PCP - General 08/14/20 documented as of this encounter
--- OUTSIDE RECORDS SUMMARY | 2024-09-27 15:20 | XMS_ITS | Clinical Summary ---
Author Organization [address] Address [address] [place] [phone] Phone Care Team Providers Care Inspector Filters Name Role Phone Vandana Parker MD Primary Care Provider +1- [phone] Allergies Active Allergy Reactions Criticality Noted Date Comments Atorvastatin Other (See Comments) Medium 05/06/2022 Muscle aches Magnesium Unknown Medium 05/21/2017 Magnesium Oxide Vomiting 05/06/2022 vomitting/diarrhea Pravastatin Other (See Comments) Medium 05/06/2022 Muscle aches Fmmgrlb-Ulk-Yrb Reductase Inhibitors Other (See Comments) Medium 04/26/2019 myalgias Medications aspirin 81 MG chewable tablet Take 1 tablet (81 mg total) by mouth. 3 Active clopidogrel (PLAVIX) 75 mg tablet TAKE 1 TABLET BY MOUTH DAILY 5 Active ONETOUCH ULTRA BLUE TEST STRIP test strips USE TO TEST BLOOD SUGAR TWICE A DAY 3 9 Active metFORMIN (GLUCOPHAGE) 1000 MG tablet Take 1 tablet (1,000 mg total) by mouth. 3 Active metoprolol succinate (TOPROL-XL) 50 MG XL 24 hr extended release tablet TAKE 1 TABLET BY MOUTH TWICE A DAY 7 Active fluticasone propion-salmete rol (ADVAIR DISKUS) 250-50 mcg/dose blister powder for inhalation Sig not provided 5 Active glipiZIDE (GLUCOTROL XL) 10 MG XL 24 hr extended release tablet TAKE 1 TABLET BY MOUTH TWICE A DAY 7 Active ONETOUCH DELICA PLUS LANCET 33 gauge Misc USE TO TEST BLOOD SUGAR TWICE A DAY 3 9 Active BD ULTRA-FINE MILLA PEN NEEDLE 32 gauge x 5/32 TO INJECT INUSLIN 4 TIMES DAILY 3 9 Active sertraline (ZOLOFT) 50 MG tablet TAKE 1 TABLET BY MOUTH EVERY DAY 3 9 Active insulin glargine (LANTUS/BASAGLA R) 100 unit/mL (3 mL) pen Basaglar KwikPen U-100 Insulin 100 unit/mL (3 mL) subcutaneous Active isosorbide mononitrate (IMDUR) 30 mg 24 hr extended release tablet isosorbide mononitrate ER 30 mg tablet,extended release 24 hr Active dulaglutide (TRULICITY) 0.75 mg/0.5 mL Pen Injector Trulicity 0.75 mg/0.5 mL subcutaneous pen injector Active Active Problems Problem Noted Date Diagnosed Date Arthritis of knee, right 08/28/2018 Right knee injury 08/28/2018 Pain in both lower extremities 07/16/2016 Carotid artery disease 01/03/2015 History of total knee replacement 12/29/2012 Carotid stenosis, asymptomatic, bilateral Overview (04/29/2019): 60% right cervical ICA stenosis, 50% left cervical ICA stenosis Vertebral artery stenosis, asymptomatic, right Overview (04/29/2019): 34% right vertebral artery origin stenosis Family History Medical History Relation Name Comments Coronary Artery Disease Other Relation Name Status Comments Other Social History Tobacco Use Types Packs/Day Years Used Date Smoking Tobacco: Former Smokeless Tobacco: Former Tobacco Cessation:Counseling Given: Not Answered Comments:21 years ago Alcohol Use Standard Drinks/Week Comments Not Currently 0 (1 standard drink = 0.6 oz pur e alcohol) Sex and Gender Information Value Date Recorded Sex Assigned at Not on file Legal Sex Male 9:20 AM EDT Gender Identity Not on file Sexual Orientation Not on file Last Filed Vital Signs Vital Sign Reading Time Taken Comments Blood Pressure 138/72 04/26/2019 11:00 AM EDT Pulse - - Temperature - - Respiratory Rate - - Oxygen Saturation - - Inhaled Oxygen Concentration - - Weight 101.2 kg (223 lb) 07/17/2020 9:54 AM EST Height 188 cm (6' 2 ) 07/17/2020 9:54 AM EST Body Mass Index 28.63 07/17/2020 9:54 AM EST Plan of Treatment Health Maintenance Due Date Last Done Comments HIV screening 1962 Hepatitis C screening 1967 Lipid disorder screening 1989 Colon cancer screening, Colonoscopy 1994 Diabetes screening 1994 Shingles vaccine (Shingrix) (1 of 2 - Shingrix (RZV) 2 Dose Standard Series) 1999 Aortic Aneurysm screening 2014 Influenza vaccine 03/04/2024 Covid-19 vaccine series ( season) 2024 RSV Discussion (1 - 1-dose 7 5+ series) 2024 Tetanus adult (Td q 10,TDAP once) 11/18/2027 11/17/2017 Pneumococcal Vaccine (50+ years) Completed 12/12/2022, 04/28/2019, 11/17/2017 Meningococcal Vaccine Aged Out No kylah binta eligible based on patient's age to complete this topic Insurance MEDICARE [facility] [employer]IC[employer] [facility] [employer] [facility] Care Teams Inspector Filters Relationship Specialty Start Date End Date Vandana Parker MD [address] [place] [phone] PCP - General Internal Medicine 03/29/19
--- OUTSIDE RECORDS SUMMARY | 2024-09-27 15:20 | XMS_ITS | Encounter Summary ---
Author Organization [facility] and [facility] Address [address] [place] [phone] Care Team Providers Care Lithograph Press Operator Tinware Name Role Phone Vandana Parker MD Primary Care Provider +1- [phone] Encounter Details Date Type Department Care Team (Late st Contact Info) Description 05/26/2020 Scanned Document [facility] [address] [address] Jimi Glynn MD [address] [place] [phone] Social History Tobacco Use Types Packs/Day Years Used Date Smoking Tobacco: Former Smokeless Tobacco: Former Comments:21 years ago Alcohol Use Standard Drinks/Week Comments Not Currently 0 (1 standard drink = 0.6 oz pur e alcohol) Sex and Gender Information Value Date Recorded Sex Assigned at Not on file Legal Sex Male 9:20 AM EDT Gender Identity Not on file Sexual Orientation Not on file documented as of this encounter Plan of Treatment Not on file documented as of this encounter Visit Diagnoses Not on filedocumented in this encounter Care Teams Lithograph Press Operator Tinware Relationship Specialty Start Date End Date Vandana Parker MD [address] [phone] PCP - General Internal Medicine 03/29/19 documented as of this encounter
--- OUTSIDE RECORDS SUMMARY | 2024-09-27 15:20 | XMS_ITS | Encounter Summary ---
Author Organization [facility] and [facility] Address [address] [place] [phone] Care Team Providers Care Salesperson Wigs Name Role Phone Vandana Parker MD Primary Care Provider +1- [phone] Reason for Referral * Imaging (Routine) - New Request Specialty Diagnoses / Procedures Referred By Jaycee t Referred To Contact Diagnostic Radiology Procedures US Duplex Carotid Bilateral Complete Jimi Glynn MD [address] [place] [phone] Phone: tel: fax: Referral ID Status Reason Start Date Expiration Date V isits Requested Visits Authorized [id number] New Request 05/06/2024 05/06/2025 1 1 Encounter Details Date Type Department Care Team (Late st Contact Info) Description 05/06/2024 Scanned Document [facility] [address] [place] [address] Jimi Glynn MD [address] [place] [phone] Social History Tobacco Use Types Packs/Day Years [...] on file documented as of this encounter Procedures Procedure Name Priority Date/Time Associated Diagnosis Comments US DUPLEX CAROTID BILATERAL COMPLETE Routine 05/06/2024 4:51 PM EDT documented in this encounter Results * US Duplex Carotid Bilateral Complete (05/06/2024 4:51 PM EDT) Anatomical Region Laterality Modality Vascular, Neck Ultrasound us Jimi Glynn MD IMG US ORDERABLES Final Res ult documented in this encounter Visit Diagnoses Not on filedocumented in this encounter Care Teams Salesperson Wigs Relationship Specialty Start Date End Date Vandana Parker MD [address] [phone] PCP - General Internal Medicine 03/29/19 documented as of this encounter
--- OUTSIDE RECORDS SUMMARY | 2024-09-27 15:20 | XMS_ITS | Clinical Summary ---
Author Organization [facility] Address [address] [place] [address] Care Team Providers Care Database Designer Name Role Phone Vandana Parker MD Primary Care Provider +1- [phone] Allergies Active Allergy Reactions Criticality Noted Date Comments Magnesium Unknown/Patient and Family Unable to Define Medium 05/21/2017 Medications Medication Sig Dispensed Refills Start Date End Date Status metFORMIN (GLUCOPHAGE) 1000 MG tablet Take 1,000 mg by mouth 2 (two) times a day with meals. Active insulin glargine (LANtus) 100 units/mL injection Inject 16 Units under the skin nightly. Active metoPROLOL TARTRATE (LOPRESSOR) 50 MG tablet Take 50 mg by mouth 2 (two) times a day. Active glipiZIDE (GLUCOTROL) 10 MG tablet Take 10 mg by mouth every morning before breakfast. Active pravastatin (PRAVACHOL) 80 MG tablet Take 80 mg by mouth nightly. Active clopidogrel (PLAVIX) 75 MG tablet Take 75 mg by mouth daily. Active aspirin enteric coated (ECOTRIN LOW STRENGTH) 81 MG EC tablet Take 81 mg by mouth daily. Active Social History Tobacco Use Types Packs/Day Years Used Date Smoking Tobacco: Never Assessed Sex and Gender Information Value Date Recorded Sex Assigned at Not on file Gender Identity Not on file Sexual Orientation Not on file Last Filed Vital Signs Vital Sign Reading Time Taken Comments Blood Pressure 160/84 05/21/2017 12:16 PM EDT Pulse 63 05/21/2017 12:16 PM EDT Temperature 36 ??C (96.8 ??F) 05/21/2017 7:56 AM EDT Respiratory Rate 18 05/21/2017 12:16 PM EDT Oxygen Saturation 96% 05/21/2017 12:16 PM EDT Inhaled Oxygen Concentration - - Weight - - Height - - Body Mass Index - - Plan of Treatment Health Maintenance Due Date Last Done Comments Hepatitis C Virus Screening 1949 DTaP/Tdap/Td Vaccines (1 - Tdap) 1968 Colonoscopy 1994 Pneumococcal Vaccines 50+ (1 of 1 - PCV) 1999 Zoster (Shingles) Vaccine (1 of 2) 1999 Influenza Vaccine 03/04/2024 COVID-19 Vaccine (1 - 2023-2 5 season) 2024 RSV Vaccine 60 years and old er and Patients (1 - 1-dose 75+ series) 2024 Hepatitis B Vaccines Aged Out No long er eligible based on patient's age to complete this topic Care Teams Database Designer Relationship Specialty Start Date End Date Vandana Parker MD [address] [place] [address] PCP - General Internal Medicine 05/21/17
--- OUTSIDE RECORDS SUMMARY | 2024-09-27 15:20 | XMS_ITS | Encounter Summary ---
Author Organization [facility] and [facility] Address [address] [place] [phone] Care Team Providers Care Counter Intelligence Technician Name Role Phone Vandana Parker MD Primary Care Provider +1- [phone] Reason for Visit * Reason Onset Date Comments Ultrasound 04/20/2024 Encounter Details Date Type Department Care Team ([facility] st Contact Info) Description 04/20/2024 Telephone [facility] [address] [place] [address] Jimi Glynn MD [address] [place] [phone] Ultrasound Social History Tobacco Use Types Packs/Day Years [...] on file documented as of this encounter Miscellaneous Notes * Telephone Encounter - Ashley Zhang - 04/20/2024 10:15 AM EDT Called [facility] and spoke to radiology scheduling. They stated that they have not received's CUS order as of yet. They asked if it can be re-faxed to [phone]. Please advise documented in this encounter Plan of Treatment Not on file documented as of this encounter Visit Diagnoses Not on filedocumented in this encounter Care Teams Counter Intelligence Technician Relationship Specialty Start Date End Date Vandana Parker MD [address] [phone] PCP - General Internal Medicine 03/29/19 documented as of this encounter
--- OUTSIDE RECORDS SUMMARY | 2024-09-27 15:20 | XMS_ITS | Encounter Summary ---
Author Organization [facility] and [facility] Address [address] [place] [phone] Care Team Providers Care Bilingual Customer Service Name Role Phone Vandana Parker MD Primary Care Provider +1- [phone] Encounter Details Date Type Department Care Team (Late st Contact Info) Description 05/26/2020 Scanned Document [facility] [address] [address] Jimi Glynn MD [address] [place] [phone] Social History Tobacco Use Types Packs/Day Years [...] on filedocumented in this encounter Care Teams Bilingual Customer Service Relationship Specialty Start Date End Date Vandana Parker MD [address] [phone] PCP - General Internal Medicine 03/29/19 documented as of this encounter
--- OUTSIDE RECORDS SUMMARY | 2024-09-27 15:20 | XMS_ITS ---
Author Name [facility] Organization Unknown History of Medication Use Medication Directions Dispensed Refills Start Date End Date Stat lidocaine (PF) 100 mg/5 mL (2 %) injection syringe Take 4 mL by injection route. 04/26/2024 active triamcinolone acetonide 40 mg/mL suspension for injection Take 40 mg by injection route. 04/26/2024 active
--- OUTSIDE RECORDS SUMMARY | 2024-09-27 15:20 | XMS_ITS | Encounter Summary ---
Author Organization [facility] and [facility] Address [address] [place] [phone] Care Team Providers Care Vessel Scrapper Name Role Phone Vandana Parker MD Primary Care Provider +1- [phone] Encounter Details Date Type Department Care Team (Late st Contact Info) Description 06/22/2019 Scanned Document [facility] [address] [place], [place] [id number] Jimi Glynn MD [address] [place] [phone] Social History Tobacco Use Types Packs/Day Years [...] on filedocumented in this encounter Care Teams Vessel Scrapper Relationship Specialty Start Date End Date Vandana Parker MD [address] [phone] PCP - General Internal Medicine 03/29/19 documented as of this encounter
--- OUTSIDE RECORDS SUMMARY | 2024-09-27 15:21 | XMS_ITS | Encounter Summary ---
Author Organization [facility] Address [address] [place] [address] Care Team Providers Care Sanitary Engineering Teacher Name Role Phone Vandana Parker MD Primary Care Provider +1- [phone] Encounter Details Date Type Department Care Team (Late st Contact Info) Description 08/04/2024 Lab Requisition [facility] - Main Lab [address] [facility] [place] [address] Teja Bello MD [address] [place] [phone] Encounter for other general examination Social History Tobacco Use Types Packs/Day Years Used Date Smoking Tobacco: Former Cigarettes Smokeless Tobacco: Never Alcohol Use Standard Drinks/Week Comments Never 0 (1 standard drink = 0.6 oz pur e alcohol) Interpersonal Safety Answer Date Record ed Physical Abuse 07/14/2024 Verbal Abuse 07/14/2024 Sex and Gender Information Value Date Recorded Sex Assigned at Male 06/15/2024 1:45 PM EST Legal Sex Male 8:57 PM EST Gender Identity Male 06/15/2024 1:45 PM EST Sexual Orientation Not on file documented as of this encounter Functional Status * Are you deaf or do you have serious difficulty hearing? Answer Date of Assessment Author No 07/13/2024 7:52 PM Jerome Mondragon RN * Are you blind or do you have serious difficulty seeing, even when wearing glasses? Answer Date of Assessment Author No 07/13/2024 7:52 PM Jerome Mondragon RN * Do you have serious difficulty walking or climbing stairs? Answer Date of Assessment Author Yes 07/13/2024 7:52 PM Jerome Mondragon RN * Do you have serious difficulty dressing or bathing? Answer Date of Assessment Author No 07/13/2024 7:52 PM Jerome Mondragon RN * Because of a physical, mental, or emotional condition, do you have serious difficulty doing errandsalone such as visiting the doctor? Answer Date of Assessment Author No 07/13/2024 7:52 PM Jerome Mondragon RN documented as of this encounter Mental Status * Because of a physical, mental, or emotional condition, do you have serious difficulty concentrating, remembering, or making decisions? (5 years old or older) Answer Entry Date Author No 07/13/2024 7:52 PM Jerome Mondragon RN documented in this encounter Plan of Treatment Upcoming Encounters Date Type Department Care Team (Late st Contact Info) Description 11/01/2024 12:40 PM EDT Office Visit [facility] [address] [facility] [address] [place] [address] Kenyetta Shi, STATION SUPERINTENDENT [address] [facility] [address] [place] [address] documented as of this encounter Procedures Procedure Name Priority Date/Time Associated Diagnosis Comments CBC WITH AUTO DIFFERENTIAL Routine 08/04/2024 6:26 AM EST Encounter for other general examination CBC AND DIFFERENTIAL Routine 08/04/2024 6:26 AM EST Encounter for other general examination MAGNESIUM Routine 08/04/2024 6:26 AM EST Encounter for other general examination COMPREHENSIVE METABOLIC PANEL Routine 08/04/2024 6:26 AM EST Encounter for other general examination documented in this encounter Results * (ABNORMAL) CBC auto differential (08/04/2024 6:26 AM EST) WBC 11.8(H) 4.8 - 10.8 K/mcL LAB HEMETOLOGY METHOD 08/04/2024 9:56 AM [facility] RBC 3.00(L) 4.50 - 5.50 M/mcL LAB HEMETOLOGY METHOD 08/04/2024 9:56 AM [facility] Hemoglobin 8.7(L) 13.5 - 17.5 g/dL LAB HEMETOLOGY METHOD 08/04/2024 9:56 AM [facility] Hematocrit 28.9(L) 42.0 - 54.0 % LAB HEMETOLOGY METHOD 08/04/2024 9:56 AM [facility] MCV 97.6 79.0 - 98.0 FL LAB HEMETOLOGY METHOD 08/04/2024 9:56 AM [facility] MCH 29.4 27.0 - 32.0 pcg LAB HEMETOLOGY METHOD 08/04/2024 9:56 AM [facility] MCHC 30.1(L) 32.0 - 37.0 g/dL LAB HEMETOLOGY METHOD 08/04/2024 9:56 AM [facility] RDW 15.1(H) 11.0 - 15.0 % LAB HEMETOLOGY METHOD 08/04/2024 9:56 AM [facility] Platelets 489(H) 130 - 400 K/mcL LAB HEMETOLOGY METHOD 08/04/2024 9:56 AM [facility] MPV 9.8 7.0 - 11.0 FL LAB HEMETOLOGY METHOD 08/04/2024 9:56 AM [facility] NRBC 0.0 <1.0 % LAB HEMETOLOGY METHOD 08/04/2024 9:56 AM [facility] NRBC Absolute 0.00 <0.10 K/mcL LAB HEMETOLOGY METHOD 08/04/2024 9:56 AM [facility] Neutrophils Relative 76.0 % LAB HEMETOLOGY METHOD 08/04/2024 9:56 AM [facility] Lymphocytes Relative 12.8 % LAB HEMETOLOGY METHOD 08/04/2024 9:56 AM [facility] Monocytes Relative 5.6 % LAB HEMETOLOGY METHOD 08/04/2024 9:56 AM [facility] Eosinophils Relative 4.1 % LAB HEMETOLOGY METHOD 08/04/2024 9:56 AM [facility] Basophils Relative 0.3 % LAB HEMETOLOGY METHOD 08/04/2024 9:56 AM [facility] Immature Granulocytes Relative 1.2 % LAB HEMETOLOGY METHOD 08/04/2024 9:56 AM [facility] Neutrophils Absolute 9.00(H) 1.50 - 7.00 K/mcL LAB HEMETOLOGY METHOD 08/04/2024 9:56 AM [facility] Lymphocytes Absolute 1.51 1.00 - 5.00 K/mcL LAB HEMETOLOGY METHOD 08/04/2024 9:56 AM [facility] Monocytes Absolute 0.66 0.20 - 1.00 K/mcL LAB HEMETOLOGY METHOD 08/04/2024 9:56 AM [facility] Eosinophils Absolute 0.48 0.00 - 0.50 K/mcL LAB HEMETOLOGY METHOD 08/04/2024 9:56 AM [facility] Basophils Absolute 0.04 0.00 - 0.20 K/mcL LAB HEMETOLOGY METHOD 08/04/2024 9:56 AM [facility] Immature Granulocytes Absolute 0.14(H) 0.00 - 0.03 K/mcL LAB HEMETOLOGY METHOD 08/04/2024 9:56 AM EST [facility] Blood Venous blood specimen / Unknown Venipuncture / Unknown 08/04/2024 6:26 AM EST 08/04/2024 8:35 AM EST us Teja Bello MD LAB BLOOD ORDERABLES Final Res ult Performing Organization Address [facility]/ZIP Co de Phone Number [facility] [address] [place] [address], [place] [phone] * (ABNORMAL) Magnesium (08/04/2024 6:26 AM EST) Pathologist [facility] Magnesium 1.8(L) 1.9 - 2.6 mg/dL LAB CHEMISTRY METHOD 08/04/2024 10:55 AM EST [facility] Blood Venous blood specimen / Unknown Venipuncture / Unknown 08/04/2024 6:26 AM EST 08/04/2024 8:35 AM EST us Teja Bello MD LAB BLOOD ORDERABLES Final Res ult Performing Organization Address [facility]/ZIP Co de Phone Number [facility] [address] [place] [address], [place] [phone] * (ABNORMAL) Comprehensive metabolic panel (08/04/2024 6:26 AM EST) Sodium 139 133 - 145 mmol/L LAB CHEMISTRY METHOD 08/04/2024 10:06 AM [facility] Potassium 4.1 3.5 - 5.5 mmol/L LAB CHEMISTRY METHOD 08/04/2024 10:06 AM [facility] Chloride 105 96 - 110 mmol/L LAB CHEMISTRY METHOD 08/04/2024 10:06 AM EST [facility] CO2 27 21 - 32 mmol/L LAB CHEMISTRY METHOD 08/04/2024 10:06 AM [facility] Anion Gap 7 3 - 11 LAB CHEMISTRY METHOD 08/04/2024 10:06 AM [facility] Glucose 225(H) 70 - 100 mg/dL LAB CHEMISTRY METHOD 08/04/2024 10:06 AM [facility] BUN 35(H) 5 - 25 mg/dL LAB CHEMISTRY METHOD 08/04/2024 10:06 AM [facility] Creatinine 1.75(H) 0.70 - 1.30 mg/dL LAB CHEMISTRY METHOD 08/04/2024 10:06 AM [facility] eGFR 40(L) >=60 mL/min/1. 73m2 LAB CHEMISTRY METHOD 08/04/2024 10:06 AM [facility] Comment:Calculation based on the??Chronic Kidney Disease Epidemiology Collaboration (CKD-EPI) equation refit??without adjustment for race. BUN/Creatinine Ratio 20.0 LAB CHEMISTRY METHOD 08/04/2024 10:06 AM [facility] Calcium 8.3(L) 8.5 - 10.5 mg/dL LAB CHEMISTRY METHOD 08/04/2024 10:06 AM [facility] AST (SGOT) 47(H) 10 - 42 unit/L LAB CHEMISTRY METHOD 08/04/2024 10:06 AM [facility] ALT (SGPT) 79(H) 10 - 60 unit/L LAB CHEMISTRY METHOD 08/04/2024 10:06 AM [facility] Alkaline Phosphatase 139(H) 42 - 121 unit/L LAB CHEMISTRY METHOD 08/04/2024 10:06 AM [facility] Comment:Results verified by repeat testing Total Protein 6.2 6.0 - 8.0 g/dL LAB CHEMISTRY METHOD 08/04/2024 10:06 AM [facility] Albumin 2.7(L) 3.2 - 5.0 g/dL LAB CHEMISTRY METHOD 08/04/2024 10:06 AM EST [facility] Total Bilirubin 0.5 0.0 - 1.4 mg/dL LAB CHEMISTRY METHOD 08/04/2024 10:06 AM EST [facility] Blood Venous blood specimen / Unknown Venipuncture / Unknown 08/04/2024 6:26 AM EST 08/04/2024 8:35 AM EST us Teja Bello MD LAB BLOOD ORDERABLES Final Res ult [facility] [address] [place] [address], [place] [phone] documented in this encounter Visit Diagnoses Diagnosis Encounter for other general examination documented in this encounter Care Teams Sanitary Engineering Teacher Relationship Specialty Start Date End Date Vandana Parker MD [address] [place] [address] PCP - General Internal Medicine 08/05/17 documented as of this encounter
--- OUTSIDE RECORDS SUMMARY | 2024-09-27 15:21 | XMS_ITS | Encounter Summary ---
Author Organization [facility] Address [address] [place] [address] Care Team Providers Care Rattling Machine Tender Name Role Phone Vandana Parker MD Primary Care Provider +1- [phone] Encounter Details Date Type Department Care Team (Late st Contact Info) Description 08/10/2024 Lab Requisition [facility] - Main Lab [address] [facility] [place] [address] Teja Bello MD [address] [place] [address] Encounter for other general examination Social History [...] Description 11/01/2024 12:40 PM EDT Office Visit [facility] [address] [facility] [address] [place] [address] Kenyetta Shi, DMITRY 300 [facility] [address] [place] [address] documented as of this encounter Procedures Procedure Name Priority Date/Time Associated Diagnosis Comments COMPLETE BLOOD COUNT Routine 08/10/2024 6:24 AM EST Encounter for other general examination COMPREHENSIVE METABOLIC PANEL Routine 08/10/2024 6:24 AM EST Encounter for other general examination documented in this encounter Results * (ABNORMAL) Complete blood count (08/10/2024 6:24 AM EST) [facility] WBC 8.9 4.8 - 10.8 K/mcL LAB HEMETOLOGY METHOD 08/10/2024 11:19 AM [facility] RBC 2.90(L) 4.50 - 5.50 M/mcL LAB HEMETOLOGY METHOD 08/10/2024 11:19 AM [facility] Hemoglobin 8.7(L) 13.5 - 17.5 g/dL LAB HEMETOLOGY METHOD 08/10/2024 11:19 AM [facility] Hematocrit 27.5(L) 42.0 - 54.0 % LAB HEMETOLOGY METHOD 08/10/2024 11:19 AM [facility] MCV 93.9 79.0 - 98.0 FL LAB HEMETOLOGY METHOD 08/10/2024 11:19 AM [facility] MCH 29.7 27.0 - 32.0 pcg LAB HEMETOLOGY METHOD 08/10/2024 11:19 AM [facility] MCHC 31.6(L) 32.0 - 37.0 g/dL LAB HEMETOLOGY METHOD 08/10/2024 11:19 AM [facility] RDW 14.6 11.0 - 15.0 % LAB HEMETOLOGY METHOD 08/10/2024 11:19 AM [facility] Platelets 550(H) 130 - 400 K/mcL LAB HEMETOLOGY METHOD 08/10/2024 11:19 AM [facility] MPV 9.3 7.0 - 11.0 FL LAB HEMETOLOGY METHOD 08/10/2024 11:19 AM [facility] NRBC 0.0 <1.0 % LAB HEMETOLOGY METHOD 08/10/2024 11:19 AM [facility] NRBC Absolute 0.00 <0.10 K/mcL LAB HEMETOLOGY METHOD 08/10/2024 11:19 AM [facility] Blood Venous blood specimen / Unknown Venipuncture / Unknown 08/10/2024 6:24 AM EST 08/10/2024 10:00 AM EST us Teja Bello MD LAB BLOOD ORDERABLES Final Res ult [facility] [address] [place] [address], [place] [phone] * (ABNORMAL) Comprehensive metabolic panel (08/10/2024 6:24 AM EST) Pathologist [facility] Sodium 138 133 - 145 mmol/L LAB CHEMISTRY METHOD 08/10/2024 12:14 PM [facility] Potassium 4.6 3.5 - 5.5 mmol/L LAB CHEMISTRY METHOD 08/10/2024 12:14 PM [facility] Chloride 105 96 - 110 mmol/L LAB CHEMISTRY METHOD 08/10/2024 12:14 PM [facility] CO2 26 21 - 32 mmol/L LAB CHEMISTRY METHOD 08/10/2024 12:14 PM [facility] Anion Gap 7 3 - 11 LAB CHEMISTRY METHOD 08/10/2024 12:14 PM [facility] Glucose 128(H) 70 - 100 mg/dL LAB CHEMISTRY METHOD 08/10/2024 12:14 PM [facility] BUN 29(H) 5 - 25 mg/dL LAB CHEMISTRY METHOD 08/10/2024 12:14 PM [facility] Creatinine 1.77(H) 0.70 - 1.30 mg/dL LAB CHEMISTRY METHOD 08/10/2024 12:14 PM [facility] eGFR 40(L) >=60 mL/min/1. 73m2 LAB CHEMISTRY METHOD 08/10/2024 12:14 PM [facility] Comment:Calculation based on the??Chronic Kidney Disease Epidemiology Collaboration (CKD-EPI) equation refit??without adjustment for race. BUN/Creatinine Ratio 16.4 LAB CHEMISTRY METHOD 08/10/2024 12:14 PM [facility] Calcium 8.7 8.5 - 10.5 mg/dL LAB CHEMISTRY METHOD 08/10/2024 12:14 PM [facility] AST (SGOT) 36 10 - 42 unit/L LAB CHEMISTRY METHOD 08/10/2024 12:14 PM [facility] ALT (SGPT) 59 10 - 60 unit/L LAB CHEMISTRY METHOD 08/10/2024 12:14 PM [facility] Alkaline Phosphatase 111 42 - 121 unit/L LAB CHEMISTRY METHOD 08/10/2024 12:14 PM [facility] Total Protein 5.9(L) 6.0 - 8.0 g/dL LAB CHEMISTRY METHOD 08/10/2024 12:14 PM [facility] Albumin 2.6(L) 3.2 - 5.0 g/dL LAB CHEMISTRY METHOD 08/10/2024 12:14 PM [facility] Total Bilirubin 0.3 0.0 - 1.4 mg/dL LAB CHEMISTRY METHOD 08/10/2024 12:14 PM [facility] Blood Venous blood specimen / Unknown Venipuncture / Unknown 08/10/2024 6:24 AM EST 08/10/2024 10:00 AM EST us Teja Bello MD LAB BLOOD ORDERABLES Final Res ult [facility] [address] [place] [address], [place] [phone] documented in this encounter Visit Diagnoses Diagnosis Encounter for other general examination documented in this encounter Care Teams Rattling Machine Tender Relationship Specialty Start Date End Date Vandana Parker MD [address] [place] [address] PCP - General Internal Medicine 08/05/17 documented as of this encounter
--- OUTSIDE RECORDS SUMMARY | 2024-09-27 15:21 | XMS_ITS | Data Portability ---
Author Organization [place] [facility] Address [address] [place] [address] Care Team Providers Care Weight Analyst Name Role Phone PETRA GILBERT Primary Care Provider Unavaila ble PETRA GILBERT Referring Provider Unavailable Assessment Encounter Date Assessment Date Assessment LastModified by Organization Details LastModified Time 04/26/2024 04/26/2024 Symptoms and exam are consistent with Right Knee Osteoarthritis. X-rays were reviewed together on the computer together. We reviewed the natural history of osteoarthritis. Diagrams and a model were used to demonstrate the areas of arthritic change. The patient understands that symptoms may progress over time requiring further intervention. We discussed in detail available treatment options. We discussed activity modification, especially avoiding impact type activities. Low or no impact activities such as walking, swimming, elliptical and biking were suggested. We discussed the need for an ongoing maintenance flexibility and strengthening program. This should involve the core musculature, the hip, as well as the quadriceps and hamstrings. Intermittent icing 20 minutes off in 3 to 4 times a day may be helpful for control of swelling. A course of Physical Therapy may be helpful with acute symptoms and progress to a targeted home exercise program. Eoky-rex-sgsrulj anti-inflammator y medications with appropriate GI precautions or Tylenol may be helpful in controlling intermittent symptoms of pain. An assistive device such as a cane may be helpful in unloading the joint. The role of bracing was discussed including off loading brace. Advantages, disadvantages, and limitations of braces were discussed. Advantages of weight loss and maintaining ideal weight was discussed. Injections options, including corticosteroids, gel (Hyaluronic Acid), and platelet rich plasma (PRP) injections were reviewed. After discussion, the patient was eager for an injection. Patient tolerated the injection well. Postinjection instructions given. Frequency of injection was reviewed. Patient will follow-up in 3 to 4 weeks if symptoms have not improved, sooner for any complications. All questions answered to their satisfaction. Avoid, he is not a good surgical candidate. If the injection does not offer relief, hyaluronic acid injection and bracing could be considered. Patient was seen and evaluated by Arnel Rico PA-C in indirect conjunction with Dr. Avina. The provider agrees with the history, physical examination, recommended tests/diagnostic imaging, and treatment plan. [email or web address] Not available 04/26/2024 15:27:56 Plan of Treatment Reminders Order Date Submit Date Provider Last Modified By Organization Details Last Modified Time Details Appointments None recorded. Lab None recorded. Referral None recorded. Procedures None recorded. Surgeries None recorded. Imaging XR, knee, 4 or more view [address] [place] [address] [facility], [address], [address], [place], [address], 4 20:00:45 Medication Orders lidocaine (PF) 100 mg/5 mL (2 %) injection syringe [id number], [address] [place], [address], 4 20:00:45 triamcinolo ne acetonide 40 mg/mL suspension for injection [address] [id number], [address] [place], [address], 4 20:00:45 Patient TargetsNo targets recorded. Patient Instructions Encounter Date Encounter Id Patient Instructions Last Modified By Organization Details Last Modified Time 04/26/2024 [id number] Radiographs: 4 views of {{the Left the Right* Both}} knee(s) were obtained in the {{[place]* [place]} } office on {{ 04/26/2024#}} including AP, Andersen, lateral (weightbearing), and sunrise. X-rays demonstrated {{normal mildly decreased*}} bony mineralization. Joint spaces {{well-maintained decrease medially decreased Laterally decrease d patellafemoral space decreased medial and lateral decreased medial and patellafemoral dec reased lateral and patellafemoral dec reased all compartments decre ased all compartments with auiy-ks-vfxp articulation#}} {{. subchondral sclerosis, tibial spiking and osteophytosis.*}} No evidence of acute injury or fracture. Findings: {{Normal Osteoarth ritis Mild Osteoarthritis Mod erate Osteoarthritis Sev ere Endstage Osteoarthritis*}} {{Right Knee* Left Knee Both Knees}}. X-ray interpretation by: Arnel Rico PA-C [email or web address] Not available 04/26/2024 15:26:46 Reason for Referral None Reported. Procedures Surgical History Date Name Laterality Status Provider Name and Address Organization Details Recorded Time 04/26/20 24 VIANNEY Knee Injection completed ARNEL RICO PA-C [address] [facility],[address], [place], [address], [place] [facility] 04/26/2024 15:25:50 [facility] 04/26/2024 13:59:[address] [facility] [place] [facility] 04/26/2024 13:59:37 [facility] 04/26/2024 13:59:52 discectomy of spine completed [facility] - [facility] 04/26/2024 14:00:13 Imaging Results None recorded. Procedure Notes None recorded. Medical Equipment None Reported. Allergies No known drug allergies Medications Name Sig Start Date Stop Date Status Note LastModified by Organization Details LastModified Time triamcinolone acetonide 40 mg/mL suspension for injection Take 40 mg by injection route. 2023 active Not Available Not Available Not Avai lable lidocaine (PF) 100 mg/5 mL (2 %) injection syringe Take 4 mL by injection route. 2023 active Not Available Not Available Not Avai lable Vitals Date Recorded Body weight Body mass index (BMI) Body height Provider Name and Address Organization Details Last Updated DateTime 04/26/2024 955189.91 g 28.4 kg/m2 187.[address] [place] [facility] 04/26/2024 13:57:22 Social History Question Answer Notes LastModified by Organizat ion Details LastModified Time Tobacco Smoking Status Former Smoker Renetta Miguel null, [place] - [facility] 04/26/2024 13:57:48 What Is Your Level Of Alcohol Consumption? None Information not available 04/26/2024 How Much Tobacco Do You Smoke? 1 PPD Information not available 04/26/2024 Do You Use Any Illicit Or Recreational Drugs? No Information not available 04/26/2024 Sex: Unknown Functional Status None recorded. Mental Status None recorded. Family History Nothing Reported. Medical History Condition Response COPD Y Vascular Disease Y Gastrointestinal Disease Y Cancer Y Stroke Y Kidney Disease Y Diabetes Y Hypertension Y Past Encounters Encounter ID Performer Location Encounter Start Date Encounter Closed Date Diagnosis/Indication Diagnosis SNOMED-CT Code Diagnosis ICD10 Code Diagnosis Note [id number] Cole Avina MD [facility] [address] [place] [address] 04/26/2024 13:00:53 04/26/2024 15:36:50 Pain of right knee region 6274016504 82881 M25.561 Osteoarthr itis of right knee joint 5697114071 90339 M17.11 Health Concerns Section Related Observation LastModified by Organization Detai ls LastModified Time None Recorded Concern Status LastModified by Organization Details LastModified Time None Recorded Advance Directives Directive None Recorded Payers Encounter Date Sequence Insurance Name Policy Number Policy Elizondo Covered Member ID Elizondo Member ID Guarantor Name 04/26/2024 1 [place]ICARE [place]: NGS Jose L Goins [id number] Jose L Goins 04/26/2024 2 [place] [id number] Jose L Goins [id number] Jose L Goins Notes Date Note Type Note Provider Name and Address Organization Details Recorded Time 04/26/2024 text/html Patient is a pleasant 73-year-old male who presents today with right knee pain. He has a past medical history significant for previous left knee replacement and revision. Unfortunate has had pain in his knee for many years. Unfortunate symptoms are getting worse. He has had no treatment for his knee in the past. Reports he has a complicated medical history and has been treated for non-Hodgkin's lymphoma and has cardiac and vascular issues. He is looking for options. His has been a patient of ours and has received injections with good relief. ARNEL RICO PA-C [address], [place], [address], [place] [facility] 04/26/2024 15:36:10
== END 2024-09-27 14:11 | disposition home or self-care (01) ==
PROVIDERS: PCP Internal Medicine; Visit Provider Hospitalist
DX: R06.09 Other forms of dyspnea (principal); J98.4 Other disorders of lung; K21.00 Gastro-esophageal reflux disease with esophagitis, without bleeding; R91.1 Solitary pulmonary nodule; J47.9 Bronchiectasis, uncomplicated; J41.8 Mixed simple and mucopurulent chronic bronchitis; J18.9 Pneumonia, unspecified organism; I50.9 Heart failure, unspecified
CPT/HCPCS: 99214; G2211

== ENCOUNTER 2024-09-27 13:23 | Outpatient (REF) | payer MEDICARE, SELFPAY ==
--- NOTE | ~2024-09-27 | XR_ITS ---
EXAMINATION: XR CHEST CLINICAL INFORMATION: J41.8 - Mixed simple and mucopurulent chronic bronchitis COMPARISON: None available. TECHNIQUE: 2 views of the chest were obtained. FINDINGS: The cardiac, hilar, and mediastinal contours are normal. Cardiac stents noted. Aortic mural calcifications. Prior sternotomy and probable CABG. Lungs demonstrate mild peribronchial thickening and mild interstitial prominence bilaterally. There is a more discrete airspace opacity in the lingular segment. There is no pneumothorax or pleural effusion. There is no focal osseous or soft tissue abnormality. XR/XR chest 2V IMPRESSION: 1. Airspace opacity lingular segment suspicious for pneumonia. 2. Mild peribronchial thickening and mild interstitial prominence bilaterally, in keeping with chronic bronchitis. 3. Cardiac stents and prior CABG. Electronically signed by: Stevie Terry MD 09/27/2024 03:10 PM [facility]
--- OUTSIDE RECORDS SUMMARY | 2024-09-27 16:30 | XMS_ITS | Encounter Summary ---
Author Organization [facility] Address [address] [address] Phone Care Team Providers Care Data Integrity Specialist Name Role Phone Vandana Parker MD Primary Care Provider +1- [phone] Encounter Details Date Type Department Care Team (Late st Contact Info) Description 09/20/2024 10:00 AM EST Office Visit [facility] [address] [address] Santiago Quinn MD [address] [address] Stage 3a chronic kidney disease [...] AM EST [facility] Office Visit Patient Name: Jose L Goins, [...] - around the time of an acute NH - renal function never recovered and he [...] Office Visit [facility] [address] [facility] [address] [place] [address] Santiago Quinn MD [address] [address] Scheduled Orders Name Type Priority [...] (HCC) documented in this encounter Care Teams Data Integrity Specialist Relationship Specialty Start Date End Date Vandana Parker MD [address] [place], [place] PCP - General 08/14/20 documented as of this encounter
--- OUTSIDE RECORDS SUMMARY | 2024-09-27 16:30 | XMS_ITS | Encounter Summary ---
Author Organization [facility] Address [address] [facility] [address] [place] [address] Phone Care Team Providers Care Jar Capper Name Role Phone Vandana Parker MD Primary Care Provider +1- [phone] Encounter Details Date Type Department Care Team (Late st Contact Info) Description 09/22/2024 Orders Only [facility] [address] [place] [address] Santiago Quinn MD [address] [address] Stage 3a chronic kidney disease [...] Visit [facility] [address] [facility] [address] [place] [address] Santiago Quinn MD [address] [facility] [address] [place] [address] Pending Results Name Type Priority [...] ORDERABLES Final Re sult [facility] [address] [place] [address] * Magnesium (08/24/2024 2:21 PM EST) Magnesium 1.6 1.6 - 2.3 mg/dL [facility] 08/24/2024 2:21 PM EST 08/24/2024 Santiago Quinn MD LAB BLOOD ORDERABLES Final Re sult [facility] [address] [place] [address] * Phosphorus (08/24/2024 2:21 PM EST) Phosphorus 3.6 2.8 - 4.1 mg/dL [facility] 08/24/2024 2:21 PM EST 08/24/2024 Santiago Quinn MD LAB BLOOD ORDERABLES Final Re sult Performing Organization Address [facility]/ZIP Co de Phone Number [facility] [address] [place] [address] * Uric Acid (08/24/2024 2:21 PM EST) Uric Acid 4.7 3.8 - 8.4 mg/dL [facility] Comment:Therapeutic target f or gout patients: <6.0 08/24/2024 2:21 PM EST 08/24/2024 us Santiago Quinn MD LAB BLOOD ORDERABLES Final Re sult [facility] [address] [place] [address] * Vitamin D 25 Hydroxy (08/24/2024 2:21 PM EST) Vitamin D, 25-OH, Total 36.7 30.0 - 100.0 ng/mL [facility] Comment: Vitamin D deficiency has been defined by the [place] of Medicine and an Endocrine Society practice guideline as a level of serum 25-OH vitamin D less than 20 ng/mL (1,2). The Endocrine Society went on to further define vitamin D insufficiency as a level between 21 and 29 ng/mL (2). 1. IOM ([place] of Medicine). 2010. Dietary reference ?? intakes for calcium and D. [place]: The ?? National Luminal Press. 2. Vicenta MF, Roney PANIAGUA, Concepción TSE, et al. ?? Evaluation, treatment, and prevention of vitamin D ?? deficiency: an Endocrine Society clinical practice ?? guideline. JCEM. 2010; 96(7):1911-30. 08/24/2024 2:21 PM EST 08/24/2024 Santiago Quinn MD LAB BLOOD ORDERABLES Final Re sult [facility] [address] [place] [address] * (ABNORMAL) Vitamin D 1,25 dihydroxy (08/24/2024 2:21 PM EST) Vitamin D, 1,25-Dihydroxy 23.0(L) 24.8 - 81.5 pg/mL [facility] 08/24/2024 2:21 PM EST 08/24/2024 Santiago Quinn MD LAB BLOOD ORDERABLES Final Re sult [facility] [address] [place] [address] * Angiotensin Converting Enzyme (08/24/2024 2:21 PM EST) Angiotensin Converting Enzyme 54 14 - 82 U/L [facility] 08/24/2024 2:21 PM EST 08/24/2024 Santiago Quinn MD LAB BLOOD ORDERABLES Final [facility]ult [facility] [address] [place] [address] * (ABNORMAL) Protein, Total, Random Urine w/Creatinine (Protein/Creat Ratio) (08/24/2024 2:21 PM EST) Pathologist [facility] Creatinine, Ur 194.7 Not Estab. mg/dL [facility] Protein, Ur 105.6 Not Estab. mg/dL [facility] Urine Protein/Creati nine Ratio 542(H) 0 - 200 mg/g creat [facility] 08/24/2024 2:21 PM EST 08/24/2024 Santiago Quinn MD LAB URINE ORDERABLES Final [facility] [address] [place] [address] * (ABNORMAL) Comprehensive Metabolic Panel (08/24/2024 2:21 PM EST) Pathologist [facility] Glucose 235(H) 70 - 99 mg/dL [facility] BUN 36(H) 8 - 27 mg/dL [facility] Creatinine 1.65(H) 0.76 - 1.27 mg/dL [facility] eGFR CKD-EPI CR 2020 43(L) >59 mL/min/1.7 3 [facility] BUN/Creatinine Ratio 22 10 - 24 [facility] Sodium 136 134 - 144 mmol/L [facility] Potassium 5.3(H) 3.5 - 5.2 mmol/L [facility] Chloride 100 96 - 106 mmol/L [facility] Bicarbonate (CO2) 20 20 - 29 mmol/L [facility] Calcium 9.4 8.6 - 10.2 mg/dL [facility] Total Protein 7.1 6.0 - 8.5 g/dL [facility] Albumin 4.1 3.8 - 4.8 g/dL [facility] Globulin 3.0 1.5 - 4.5 g/dL [facility] Total Bilirubin 0.3 0.0 - 1.2 mg/dL [facility] Alkaline Phosphatase 142(H) 44 - 121 IU/L [facility] AST (SGOT) 35 0 - 40 IU/L [facility] ALT (SGPT) 34 0 - 44 IU/L [facility] 08/24/2024 2:21 PM EST 08/24/2024 us Santiago Quinn MD LAB BLOOD ORDERABLES Final Re sult [facility] [address] [place] [address] * (ABNORMAL) CBC and Differential (08/24/2024 2:21 PM EST) WBC 8.2 3.4 - 10.8 x10E3/uL [facility] RBC 3.72(L) 4.14 - 5.80 x10E6/uL [facility] Hemoglobin 10.9(L) 13.0 - 17.7 g/dL [facility] Hematocrit 33.9(L) 37.5 - 51.0 % [facility] MCV 91 79 - 97 fL [facility] MCH 29.3 26.6 - 33.0 pg [facility] MCHC 32.2 31.5 - 35.7 g/dL [facility] RDW 14.1 11.6 - 15.4 % [facility] Platelets 352 150 - 450 x10E3/uL [facility] Neutrophils Relative 76 Not Estab. % [facility] Lymphocytes Relative 13 Not Estab. % [facility] Monocytes 5 Not Estab. % [facility] Eosinophils Relative 5 Not Estab. % [facility] Basophils Relative 0 Not Estab. % [facility] Neutrophils Absolute 6.3 1.4 - 7.0 x10E3/uL [facility] Lymphocytes Absolute 1.0 0.7 - 3.1 x10E3/uL [facility] Monocytes Absolute 0.4 0.1 - 0.9 x10E3/uL [facility] Eosinophils Absolute 0.4 0.0 - 0.4 x10E3/uL [facility] Basophils Absolute 0.0 0.0 - 0.2 x10E3/uL [facility] Immature Granulocytes 1 Not Estab. % [facility] Immature Grans (Absolute) 0.0 0.0 - 0.1 x10E3/uL [facility] 08/24/2024 2:21 PM EST 08/24/2024 us Santiago Quinn MD LAB BLOOD ORDERABLES Final Re sult [facility] [address] [place] [address] documented in this encounter Visit Diagnoses Diagnosis Stage 3a chronic kidney disease (HCC) Renal disorder due to type 2 diabetes mellitus <Other diabetic kidney complication> (HCC) Peripheral arterial occlusive disease (HCC) Non-Hodgkin's lymphoma (clinical) (HCC) Hypomagnesemia Hyperkalemia Essential hypertension Diabetes mellitus, not otherwise specified (HCC) documented in this encounter Care Teams Jar Capper Relationship Specialty Start Date End Date Vandana Parker MD [address] [place], [place] PCP - General 08/14/20 documented as of this encounter
--- OUTSIDE RECORDS SUMMARY | 2024-09-27 16:30 | XMS_ITS | Encounter Summary ---
Author Organization [facility] Address [address] [place] [address] Care Team Providers Care Bulk Filler Name Role Phone Vandana Parker MD Primary Care Provider +1- [phone] Encounter Details Date Type Department Care Team (Late st Contact Info) Description 05/26/2020 Scanned Document [facility] [address] [address] Jimi Glynn MD [address] [place] [phone] Social History Tobacco Use Types Packs/Day Years [...] on filedocumented in this encounter Care Teams Bulk Filler Relationship Specialty Start Date End Date Vandana Parker MD [address] [address] PCP - General Internal Medicine 03/29/19 documented as of this encounter
--- OUTSIDE RECORDS SUMMARY | 2024-09-27 16:30 | XMS_ITS | Encounter Summary ---
Author Organization [facility] Address [address] [place] [address] Care Team Providers Care Sales And Marketing Manager Name Role Phone Vandana Parker MD Primary Care Provider +1- [phone] Encounter Details Date Type Department Care Team (Late st Contact Info) Description 06/22/2019 Scanned Document [facility] [address] [place], [place] [id number] Jimi Glynn MD [address] [place] [phone] Social History Tobacco Use Types Packs/Day Years [...] on filedocumented in this encounter Care Teams Sales And Marketing Manager Relationship Specialty Start Date End Date Vandana Parker MD [address] [phone] PCP - General Internal Medicine 03/29/19 documented as of this encounter
--- OUTSIDE RECORDS SUMMARY | 2024-09-27 16:30 | XMS_ITS | Clinical Summary ---
Author Organization [address] [place] [address] [place] [phone] Phone Care Team Providers Care Resolution Rep Name Role Phone Vandana Parker MD Primary Care Provider +1- [phone] Allergies Active Allergy Reactions Criticality Noted Date Comments Atorvastatin High 05/06/2022 Muscle aches Magnesium Oxide 05/06/2022 Pravastatin High 05/06/2022 Muscle aches Gjjwlqq-Bew-Ldq Reductase Inhibitors 07/13/2024 Medications albuterol HFA (PROAIR [...] 06/18/2024 Overview (06/18/2024): [facility] Heart failure with mid-range ejection fraction [...] most recent echocardiogram completed 01/30/2024 while inpatient [facility] revealed an EF of 40 to [...] (07/14/2024 6:16 PM EST): As above. Old NH (myocardial infarction) 02/17/2024 Unstable angina 02/17/2024 Assessment [...] as indicated. 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 He was agreeable to presenting to [facility] ER for further evaluation; report was called [...] continue with recommendations as provided by his knife setter including continuation of antibiotic treatment, prednisone taper, [...] Department Care Team Description 08/10/2024 Lab Requisition [facility] Lab [address] [place] [phone] Teja Bello MD Encounter for other general examination 08/04/2024 Lab Requisition [facility] Lab [address] [place] [phone] Teja Bello MD Encounter for other general examination 07/16/2024 Telephone [facility] - [facility] [address] [facility] [address] [place] [phone] Kenyetta Shi NP Procedure 07/13/2024 10:50 AM EST - 07/14/2024 8:35 PM EST Hospital Encounter [facility] Intermediate Care Unit [address] [place] [phone] Davdi Lee MD Bukalo, Nermina, MD Alam, Aroosa, MD Acute chest pain (Primary Dx); Elevated troponin; Chest pain, unspecified type; Chest pain due to myocardial ischemia, unspecified ischemic chest pain type Discharge Disposition: Short Term Hospital 07/13/2024 9:40 AM EST Office Visit [facility] - [address] [facility] [address] [place] [address] Kenyetta Shi NP Atherosclerosis of [place] coronary artery of [place] heart with angina pectoris ([facility]/HCC) (Primary Dx); Unstable angina ([facility]/H[facility]); Dyspnea on exertion; Heart failure with mid-range ejection fraction (HFmEF) ([facility]); Secondary hypertension; Hypercholesterolemia; Abnormal ECG from Last 3 Months Surgical History Surgery Date Site/Laterality Comments SPINE SURGERY cervical and lumbar ROTATOR CUFF REPAIR Left KNEE SURGERY Left CORONARY STENT PLACEMENT mid LAD in 2016 and 2 proximal circumflex and mid RCA in 2015 Medical History Medical History Date Comments Hypertension CHF (congestive heart failure) ([facility]) COPD (chronic obstructive pu lmonary disease) ([facility]) CAD (coronary artery disease) s/ p stenting to mid LAD 2016, proximal circumflex and mid RCA, 2015 PAD (peripheral artery disease) ([facility]) DM (diabetes mellitus) ([facility]) Lymphoma in remission CKD (chronic kidney disease) stage 3, GFR 30-59 ml/min ([facility]) Family History Medical History Relation Name Comments [...] Description 11/01/2024 12:40 PM EDT Office Visit [facility] - [address] [place] [phone] Kenyetta Shi, DMITRY [address] [place] [address] Health Maintenance Due Date Last Done Comments [...] ECG 12-LEAD STAT 07/13/2024 10:44 AM EST [facility] 30-74 MINUTES Routine 07/13/2024 10:35 [...] LAB HEMETOLOGY METHOD 08/10/2024 11:19 AM EST [facility] RBC 2.90(L) 4.50 - 5.50 M/mcL LAB HEMETOLOGY METHOD 08/10/2024 11:19 AM EST [facility] LAB Hemoglobin 8.7(L) 13.5 - 17.5 g/dL LAB HEMETOLOGY METHOD 08/10/2024 11:19 AM EST [facility] LAB Hematocrit 27.5(L) 42.0 - 54.0 % LAB HEMETOLOGY METHOD 08/10/2024 11:19 AM EST [facility] LAB MCV 93.9 79.0 - 98.0 FL LAB HEMETOLOGY METHOD 08/10/2024 11:19 AM [facility] LAB MCH 29.7 27.0 - 32.0 pcg LAB HEMETOLOGY METHOD 08/10/2024 11:19 AM EST [facility] LAB MCHC 31.6(L) 32.0 - 37.0 g/dL LAB HEMETOLOGY METHOD 08/10/2024 11:19 AM [facility] LAB RDW 14.6 11.0 - 15.0 % LAB HEMETOLOGY METHOD 08/10/2024 11:19 AM [facility] LAB Platelets 550(H) 130 - 400 K/mcL LAB HEMETOLOGY METHOD 08/10/2024 11:19 AM EST [facility] LAB MPV 9.3 7.0 - 11.0 FL LAB HEMETOLOGY METHOD 08/10/2024 11:19 AM EST [facility] LAB NRBC 0.0 <1.0 % LAB HEMETOLOGY METHOD 08/10/2024 11:19 AM [facility] LAB NRBC Absolute 0.00 <0.10 K/mcL LAB HEMETOLOGY METHOD 08/10/2024 11:19 AM [facility] LAB Blood Venous blood specimen / Unknown Venipuncture / Unknown 08/10/2024 6:24 AM EST 08/10/2024 10:00 AM EST us Teja Bello MD LAB BLOOD ORDERABLES Final Res ult [facility] [address] [place] [address], * (ABNORMAL) Comprehensive metabolic panel (08/10/2024 6:24 [...] MD LAB BLOOD ORDERABLES Final Res ult [facility] [address] [place] [address], * (ABNORMAL) CBC auto differential (08/04/2024 6:26 AM EST) Only the most recent of2 resultswithin the time period is included. WBC 11.8(H) 4.8 - 10.8 K/mcL LAB HEMETOLOGY METHOD 08/04/2024 9:56 AM [facility] LAB RBC 3.00(L) 4.50 - 5.50 M/mcL LAB HEMETOLOGY METHOD 08/04/2024 9:56 AM [facility] LAB Hemoglobin 8.7(L) 13.5 - 17.5 g/dL LAB HEMETOLOGY METHOD 08/04/2024 9:56 AM [facility] LAB Hematocrit 28.9(L) 42.0 - 54.0 % LAB HEMETOLOGY METHOD 08/04/2024 9:56 AM [facility] LAB MCV 97.6 79.0 - 98.0 FL LAB HEMETOLOGY METHOD 08/04/2024 9:56 AM [facility] LAB MCH 29.4 27.0 - 32.0 pcg LAB HEMETOLOGY METHOD 08/04/2024 9:56 AM [facility] LAB MCHC 30.1(L) 32.0 - 37.0 g/dL LAB HEMETOLOGY METHOD 08/04/2024 9:56 AM [facility] LAB RDW 15.1(H) 11.0 - 15.0 % LAB HEMETOLOGY METHOD 08/04/2024 9:56 AM [facility] LAB Platelets 489(H) 130 - 400 K/mcL LAB HEMETOLOGY METHOD 08/04/2024 9:56 AM [facility] LAB MPV 9.8 7.0 - 11.0 FL LAB HEMETOLOGY METHOD 08/04/2024 9:56 AM [facility] LAB NRBC 0.0 <1.0 % LAB HEMETOLOGY METHOD 08/04/2024 9:56 AM [facility] LAB NRBC Absolute 0.00 <0.10 K/mcL LAB HEMETOLOGY METHOD 08/04/2024 9:56 AM [facility] LAB Neutrophils Relative 76.0 % LAB HEMETOLOGY METHOD 08/04/2024 9:56 AM [facility] Lymphocytes Relative 12.8 % LAB HEMETOLOGY METHOD 08/04/2024 9:56 AM [facility] Monocytes Relative 5.6 % LAB HEMETOLOGY METHOD 08/04/2024 9:56 AM [facility] Eosinophils Relative 4.1 % LAB HEMETOLOGY METHOD 08/04/2024 9:56 AM [facility] Basophils Relative 0.3 % LAB HEMETOLOGY METHOD 08/04/2024 9:56 AM EST [facility] Immature Granulocytes Relative 1.2 % LAB HEMETOLOGY METHOD 08/04/2024 9:56 AM EST [facility] Neutrophils Absolute 9.00(H) 1.50 - 7.00 K/mcL LAB HEMETOLOGY METHOD 08/04/2024 9:56 AM [facility] Lymphocytes Absolute 1.51 1.00 - 5.00 K/mcL LAB HEMETOLOGY METHOD 08/04/2024 9:56 AM EST [facility] Monocytes Absolute 0.66 0.20 - 1.00 K/mcL LAB HEMETOLOGY METHOD 08/04/2024 9:56 AM [facility] LAB Eosinophils Absolute 0.48 0.00 - 0.50 K/mcL LAB HEMETOLOGY METHOD 08/04/2024 9:56 AM [facility] Basophils Absolute 0.04 0.00 - 0.20 K/mcL LAB HEMETOLOGY METHOD 08/04/2024 9:56 AM [facility] LAB Immature Granulocytes Absolute 0.14(H) 0.00 - 0.03 K/mcL LAB HEMETOLOGY METHOD 08/04/2024 9:56 AM [facility] Blood Venous blood specimen / Unknown Venipuncture / Unknown 08/04/2024 6:26 AM EST 08/04/2024 8:35 AM EST us Teja Bello MD LAB BLOOD ORDERABLES Final Res ult [facility] [address] [place] [address], * (ABNORMAL) Magnesium (08/04/2024 6:26 AM EST) Only the most recent of3 resultswithin the time period is included. Magnesium 1.8(L) 1.9 - 2.6 mg/dL LAB CHEMISTRY METHOD 08/04/2024 10:55 AM EST [facility] Blood Venous blood specimen / Unknown Venipuncture / Unknown 08/04/2024 6:26 AM EST 08/04/2024 8:35 AM EST us Teja Bello MD LAB BLOOD ORDERABLES Final Res ult Performing Organization Address [facility]/ZIP Co de Phone Number [facility] [address] [place] [address], [place] [phone] * (ABNORMAL) POCT Glucose, blood (07/14/2024 8:30 PM EST) Only the most recent of7 resultswithin the time period is included. [facility] Glucose POCT 153(H) 70 - 100 mg/dL 07/14/2024 8:30 PM EST [facility] Blood Capillary blood specimen / Unknown 07/14/2024 8:30 PM EST 07/14/2024 8:31 PM EST us Katherine Johnson MD LAB POINT OF CARE TE ST DOCKED DEVICE UNSOLICITED RESULTS Final Result Performing Organization Address [facility] de Phone Number [facility] [address] [place] [address], [place] [phone] * (ABNORMAL) TRANSTHORACIC ECHOCARDIOGRAM (TTE) COMPLETE W/ CONTRAST (07/14/2024 11:24 AM EST) [facility] LV EDV (A2C) 141 mL CV PACS [...] 63 mL CV PACS Left Atrium Minor [place] 6.3 cm CV PACS Left Atrium Major [place] 7.0 cm CV PACS LA Area Sys [...] Proximal 1.2 cm CV PACS MV Deceleration [place] 6.3 m/s2 CV PACS E Wave Deceleration [...] resultswithin the time period is included. Pathologist [facility] High Sensitivity Troponin I 253(HH) <=79 ng/L LAB CHEMISTRY METHOD 07/14/2024 5:24 AM EST [facility] Blood Venous blood specimen / Unknown Venipuncture / Unknown 07/14/2024 4:23 AM EST 07/14/2024 4:42 AM EST Narrative [facility] - 07/14/2024 5:24 AM EST High levels of biotin in samples may falsely decrease hsTroponin values. ??Use caution when interpreting hsTroponin results in patients taking biotin who exhibit renal impairment (eGFR <60) or in patients taking more than 20 mg/day of biotin. us Lizet BALLESTEROS LAB BLOOD ORDERABLES Final Re sult [facility] [address] [place] [address], [place] [phone] * (ABNORMAL) Basic metabolic panel (07/14/2024 4:23 AM EST) [facility] Sodium 138 133 - 145 mmol/L LAB CHEMISTRY METHOD 07/14/2024 5:10 AM [facility] Potassium 4.4 3.5 - 5.5 mmol/L LAB CHEMISTRY METHOD 07/14/2024 5:10 AM [facility] Chloride 105 96 - 110 mmol/L LAB CHEMISTRY METHOD 07/14/2024 5:10 AM [facility] CO2 26 21 - 32 mmol/L LAB CHEMISTRY METHOD 07/14/2024 5:10 AM [facility] Anion Gap 7 3 - 11 LAB CHEMISTRY METHOD 07/14/2024 5:10 AM [facility] Glucose 212(H) 70 - 100 mg/dL LAB CHEMISTRY METHOD 07/14/2024 5:10 AM [facility] BUN 33(H) 5 - 25 mg/dL LAB CHEMISTRY METHOD 07/14/2024 5:10 AM [facility] Creatinine 1.83(H) 0.70 - 1.30 mg/dL LAB CHEMISTRY METHOD 07/14/2024 5:10 AM [facility] LAB eGFR 38(L) >=60 mL/min/1. 73m2 LAB CHEMISTRY METHOD 07/14/2024 5:10 AM [facility] Comment:Calculation based on the??Chronic Kidney Disease Epidemiology Collaboration (CKD-EPI) equation refit??without adjustment for race. BUN/Creatinine Ratio 18.0 LAB CHEMISTRY METHOD 07/14/2024 5:10 AM [facility] Calcium 9.4 8.5 - 10.5 mg/dL LAB CHEMISTRY METHOD 07/14/2024 5:10 AM [facility] Blood Venous blood specimen / Unknown Venipuncture / Unknown 07/14/2024 4:23 AM EST 07/14/2024 4:46 AM EST us Yeni BALLESTEROS LAB BLOOD ORDERABLES Final Resul t [facility] [address] [place] [address], * ECG-Outside (07/14/2024) us Provider Onbase MD [...] Signed Date: 07/14/2024 08:21 ET Workstation ID: [id number] Transcribed By: Self Edit Transcribed Date: 07/14/2024 [...] Signed Date: 07/14/2024 08:21 ET Workstation ID: [id number] Transcribed By: Self Edit Transcribed Date: 07/14/2024 [...] GEMUSE QTc 422 ms GEMUSE P Wave [place] 23 degrees GEMUSE R [place] -31 degrees GEMUSE T [place] 4 degrees GEMUSE ECG Interpretation Sinus rhythm [...] LAB COAGULATION METHOD 07/13/2024 11:33 AM EST [facility] INR 0.8 LAB COAGULATION METHOD 07/13/2024 11:33 AM EST [facility] Blood Venous blood specimen / Unknown Venipuncture / Unknown 07/13/2024 11:11 AM EST 07/13/2024 11:14 AM EST us David Lee MD LAB BLOOD ORDERABLES Brissa l Result Performing Organization Address [facility] Co de Phone Number [facility] [address] [place] [address], [place] [phone] * (ABNORMAL) B-type natriuretic peptide (07/13/2024 11:03 AM EST) BNP 594(H) <=100 pcg/mL LAB CHEMISTRY METHOD 07/13/2024 11:56 AM EST [facility] Blood Venous blood specimen / Unknown Venipuncture / Unknown 07/13/2024 11:03 AM EST 07/13/2024 11:14 AM EST David Lee MD LAB BLOOD ORDERABLES Brissa l Result Performing Organization Address [facility] Co de Phone Number [facility] [address] [place] [address], [place] [phone] * Lipase (07/13/2024 11:03 AM EST) [facility] Lipase 64 13 - 75 unit/L LAB CHEMISTRY METHOD 07/13/2024 11:40 AM EST [facility] Blood Venous blood specimen / Unknown Venipuncture / Unknown 07/13/2024 11:03 AM EST 07/13/2024 11:14 AM EST us David Lee MD LAB BLOOD ORDERABLES Brissa l Result Performing Organization Address [facility]/ZIP Co de Phone Number [facility] [address] [place] [address], [place] [phone] * [facility] 30-74 MINUTES (07/13/2024 10:35 AM [...] Result from Last 3 Months Insurance MEDICARE [facility] Advance Directives * Full Code - [...] Goins Spouse First Alternate Health Care Agent [email or web address] Care Teams Resolution Rep Relationship Specialty Start Date End Date Vandana Parker MD [address] [place] [id number] PCP - General Internal Medicine 08/05/17
--- OUTSIDE RECORDS SUMMARY | 2024-09-27 16:30 | XMS_ITS | Encounter Summary ---
Author Organization [facility] Address [address] [place] [phone] Care Team Providers Care Sequencing Machine Operator Name Role Phone Vandana Parker MD Primary Care Provider +1- [phone] Encounter Details Date Type Department Care Team (Late st Contact Info) Description 05/26/2020 Scanned Document [facility] [address] [address] Jimi Glynn MD [address] [place] [phone] Social History Tobacco Use Types Packs/Day Years [...] on filedocumented in this encounter Care Teams Sequencing Machine Operator Relationship Specialty Start Date End Date Vandana Parker MD [address] [phone] PCP - General Internal Medicine 03/29/19 documented as of this encounter
--- OUTSIDE RECORDS SUMMARY | 2024-09-27 16:30 | XMS_ITS | Clinical Summary ---
Author Organization [facility] Address [address] [address] Phone Care Team Providers Care Linotype Machinist Apprentice Name Role Phone Vandana Parker MD Primary Care Provider +1- [phone] Allergies Active Allergy Reactions Criticality Noted Date [...] Of [address] [place] [address] Santiago Quinn MD Stage 3a chronic kidney disease (HCC); Renal disorder due to type 2 diabetes mellitus <Other diabetic kidney complication> (HCC); Peripheral arterial occlusive disease (HCC); Non-Hodgkin's lymphoma (clinical) (HCC); Hypomagnesemia; Hyperkalemia; Essential hypertension; Diabetes mellitus, not otherwise specified (HCC) 09/20/2024 10:00 AM EST Office Visit [facility] [address] [address] Santiago Quinn MD Stage 3a chronic kidney [...] Office Visit [facility] [address] [phone] Santiago Quinn MD [address] [address] Health Maintenance Due Date Last [...] Creatinine, Ur 194.7 Not Estab. mg/dL [facility] Protein, Ur 105.6 Not Estab. mg/dL [facility] Urine Protein/Creati nine Ratio 542(H) 0 - 200 mg/g creat [facility] 08/24/2024 2:21 PM EST 08/24/2024 Santiago Quinn MD LAB URINE ORDERABLES Final Re sult Performing Organization Address City/[facility]/ZIP Co de Phone Number [facility] [address] [place] [address] * (ABNORMAL) Vitamin D 1,25 dihydroxy (08/24/2024 2:21 PM EST) Vitamin D, 1,25-Dihydroxy 23.0(L) 24.8 - 81.5 pg/mL [facility] 08/24/2024 2:21 PM EST 08/24/2024 Santiago Quinn MD LAB BLOOD ORDERABLES Final Re sult Performing Organization Address City/[facility]/ZIP Co de Phone Number [facility] [address] [place] [address] * Vitamin D 25 Hydroxy (08/24/2024 2:21 PM EST) Vitamin D, 25-OH, Total 36.7 30.0 - 100.0 ng/mL [facility] Comment: Vitamin D deficiency has been defined by the [place] of Medicine and an Endocrine Society practice guideline as a level of serum 25-OH vitamin D less than 20 ng/mL (1,2). The Endocrine Society went on to further define vitamin D insufficiency as a level between 21 and 29 ng/mL (2). 1. IOM ([place] of Medicine). 2010. Dietary reference ?? intakes for calcium and D. [place]: The ?? [employer]. 2. Vicenta MF, Roney PANIAGUA, Concepción TSE, et al. ?? Evaluation, treatment, and prevention of vitamin D ?? deficiency: an Endocrine Society clinical practice ?? guideline. JCEM. 2010; 96(7):1911-30. 08/24/2024 2:21 PM EST 08/24/2024 us Santiago Quinn MD LAB BLOOD ORDERABLES Final Re sult [facility] [address] [place] [address] * (ABNORMAL) CBC and Differential (08/24/2024 2:21 PM EST) Pathologist [facility] WBC 8.2 3.4 - 10.8 x10E3/uL [facility] RBC 3.72(L) 4.14 - 5.80 x10E6/uL [facility] Hemoglobin 10.9(L) 13.0 - 17.7 g/dL [facility] Hematocrit 33.9(L) 37.5 - 51.0 % [facility] MCV 91 79 - 97 fL [facility] MCH 29.3 26.6 - 33.0 pg [facility] MCHC 32.2 31.5 - 35.7 g/dL [facility] RDW 14.1 11.6 - 15.4 % [facility] Platelets 352 150 - 450 x10E3/uL [facility] Neutrophils Relative 76 Not Estab. % [facility] Lymphocytes Relative 13 Not Estab. % [facility] Monocytes 5 Not Estab. % [facility] Eosinophils Relative 5 Not Estab. % [facility] Basophils Relative 0 Not Estab. % [facility] Neutrophils Absolute 6.3 1.4 - 7.0 x10E3/uL [facility] Lymphocytes Absolute 1.0 0.7 - 3.1 x10E3/uL [facility] Monocytes Absolute 0.4 0.1 - 0.9 x10E3/uL [facility] Eosinophils Absolute 0.4 0.0 - 0.4 x10E3/uL [facility] Basophils Absolute 0.0 0.0 - 0.2 x10E3/uL [facility] Immature Granulocytes 1 Not Estab. % [facility] Immature Grans (Absolute) 0.0 0.0 - 0.1 x10E3/uL [facility] 08/24/2024 2:21 PM EST 08/24/2024 us Santaigo Quinn MD LAB BLOOD ORDERABLES Final Re sult [facility] [address] [place] [address] * Angiotensin Converting Enzyme (08/24/2024 2:21 PM EST) Angiotensin Converting Enzyme 54 14 - 82 U/L [facility] 08/24/2024 2:21 PM EST 08/24/2024 Santiago Quinn MD LAB BLOOD ORDERABLES Final Re sult Performing Organization Address [facility]/ZIP Co de Phone Number [facility] [address] [place] [address] * Uric Acid (08/24/2024 2:21 PM EST) Uric Acid 4.7 3.8 - 8.4 mg/dL [facility] Comment:Therapeutic target f or gout patients: <6.0 08/24/2024 2:21 PM EST 08/24/2024 Santiago Quinn MD LAB BLOOD ORDERABLES Final Re sult Performing Organization Address [facility]/ZIP Co de Phone Number [facility] [address] [place] [address] * Phosphorus (08/24/2024 2:21 PM EST) Phosphorus 3.6 2.8 - 4.1 mg/dL [facility] 08/24/2024 2:21 PM EST 08/24/2024 Santiago Quinn MD LAB BLOOD ORDERABLES Final Re sult Performing Organization Address City/[facility]/ZIP Co de Phone Number [facility] [address] [place] [address] * PTH, Intact (08/24/2024 2:21 PM EST) PTH 36 15 - 65 pg/mL [facility] 08/24/2024 2:21 PM EST 08/24/2024 Santiago Quinn MD LAB BLOOD ORDERABLES Final Re sult [facility] [address] [place] [address] * Magnesium (08/24/2024 2:21 PM EST) Magnesium 1.6 1.6 - 2.3 mg/dL [facility] 08/24/2024 2:21 PM EST 08/24/2024 Santiago Quinn MD LAB BLOOD ORDERABLES Final Re sult Performing Organization Address [facility] Co de Phone Number [facility] [address] [place] [address] * (ABNORMAL) Comprehensive Metabolic Panel (08/24/2024 2:21 PM EST) Glucose 235(H) 70 - 99 mg/dL [facility] BUN 36(H) 8 - 27 mg/dL [facility] Creatinine 1.65(H) 0.76 - 1.27 mg/dL [facility] eGFR CKD-EPI CR 2020 43(L) >59 mL/min/1.7 3 [facility] BUN/Creatinine Ratio 22 10 - 24 [facility] Sodium 136 134 - 144 mmol/L [facility] Potassium 5.3(H) 3.5 - 5.2 mmol/L [facility] Chloride 100 96 - 106 mmol/L [facility] Bicarbonate (CO2) 20 20 - 29 mmol/L [facility] Calcium 9.4 8.6 - 10.2 mg/dL [facility] Total Protein 7.1 6.0 - 8.5 g/dL [facility] Albumin 4.1 3.8 - 4.8 g/dL [facility] Globulin 3.0 1.5 - 4.5 g/dL [facility] Total Bilirubin 0.3 0.0 - 1.2 mg/dL [facility] Alkaline Phosphatase 142(H) 44 - 121 IU/L [facility] AST (SGOT) 35 0 - 40 IU/L [facility] ALT (SGPT) 34 0 - 44 IU/L [facility] 08/24/2024 2:21 PM EST 08/24/2024 Santiago Quinn MD LAB BLOOD ORDERABLES Final Re sult [facility] [address] [place] [address] * (ABNORMAL) Blood Panel (12/25/2018 12:00 AM [...] % RTAMA 12/25/2018 us [facility] Conversion LAB [id number] LICITED RESULTS Final Result RTAMA from Last 3 Months or Most Recently Relevant to Health Maintenance Insurance [facility] MEDICARE MEDICARE [facility] Care Teams Linotype Machinist Apprentice Relationship Specialty Start Date End Date Vandana Parker MD [address] [place], [place] PCP - General 08/14/20
--- OUTSIDE RECORDS SUMMARY | 2024-09-27 16:30 | XMS_ITS | Encounter Summary ---
Author Organization [facility] Address [address] [place] [phone] Care Team Providers Care Ballet Master/Mistress Name Role Phone Vandana Parker MD Primary Care Provider +1- [phone] Reason for Referral * Imaging (Routine) - New Request Specialty Diagnoses / Procedures Referred By Jaycee t Referred To Contact Diagnostic Radiology Procedures US Duplex Carotid Bilateral Complete Jimi Glynn MD [address] [place] [phone] Phone: tel: fax: Referral ID Status Reason Start Date Expiration Date V isits Requested Visits Authorized [id number] New Request 05/06/2024 05/06/2025 1 1 Encounter Details Date Type Department Care Team (Late st Contact Info) Description 05/06/2024 Scanned Document [facility] [address] [place] [address] Jimi Glynn MD [address] [place] [phone] Social History Tobacco Use Types Packs/Day Years [...] on filedocumented in this encounter Care Teams Ballet Master/Mistress Relationship Specialty Start Date End Date Vandana Parker MD [address] [phone] PCP - General Internal Medicine 03/29/19 documented as of this encounter
--- OUTSIDE RECORDS SUMMARY | 2024-09-27 16:31 | XMS_ITS | Clinical Summary ---
Author Organization [facility] Address [address] [place] [address] Care Team Providers Care Flat Breakdown Processor Name Role Phone Vandana Parker MD Primary Care Provider +1- [phone] Allergies Active Allergy Reactions Criticality Noted Date [...] age to complete this topic Care Teams Flat Breakdown Processor Relationship Specialty Start Date End Date Vandana Parker MD [address] [place] [address] PCP - General Internal Medicine 05/21/17
--- OUTSIDE RECORDS SUMMARY | 2024-09-27 16:31 | XMS_ITS | Encounter Summary ---
Author Organization [facility] Address [address] [place] [phone] Care Team Providers Care Wooden Barrel Mechanic Name Role Phone Vandana Parker MD Primary Care Provider +1- [phone] Reason for Visit * Reason Onset Date Comments Ultrasound 04/20/2024 Encounter Details Date Type Department Care Team ([facility] st Contact Info) Description 04/20/2024 Telephone [facility] [address] [place] [address] Jimi Glynn MD [address] [place] [phone] Ultrasound Social History Tobacco Use Types Packs/Day [...] Zhang - 04/20/2024 10:15 AM EDT Called [facility] and spoke to radiology scheduling. They stated that they have not received's CUS order as of yet. They asked if it can be re-faxed to [phone]. Please advise documented in this encounter Plan of Treatment Not on file documented as of this encounter Visit Diagnoses Not on filedocumented in this encounter Care Teams Wooden Barrel Mechanic Relationship Specialty Start Date End Date Vandana Parker MD [address] [phone] PCP - General Internal Medicine 03/29/19 documented as of this encounter
--- OUTSIDE RECORDS SUMMARY | 2024-09-27 16:31 | XMS_ITS | Encounter Summary ---
Author Organization [facility] Address [address] [place] [address] Care Team Providers Care Conveyor Worker Name Role Phone Vandana Parker MD Primary Care Provider +1- [phone] Encounter Details Date Type Department Care Team (Late st Contact Info) Description 08/10/2024 Lab Requisition [facility] Main Lab [address] [facility] [place] [address] Teja Bello MD [address] [place] [phone] Encounter for other general examination Social History [...] Description 11/01/2024 12:40 PM EDT Office Visit [facility] [address] [facility] [address] [place] [address] Kenyetta Shi, DMITRY 300 [facility] [address] [place] [address] documented as of this encounter Procedures Procedure Name Priority Date/Time Associated Diagnosis Comments COMPLETE BLOOD COUNT Routine 08/10/2024 6:24 AM EST Encounter for other general examination COMPREHENSIVE METABOLIC PANEL Routine 08/10/2024 6:24 AM EST Encounter for other general examination documented in this encounter Results * (ABNORMAL) Complete blood count (08/10/2024 6:24 AM EST) [facility] WBC 8.9 4.8 - 10.8 K/mcL LAB [...] MD LAB BLOOD ORDERABLES Final Res ult [facility] [address] [place] [address], [place] [phone] * (ABNORMAL) Comprehensive metabolic panel (08/10/2024 6:24 AM EST) Pathologist [facility] Sodium 138 133 - 145 mmol/L LAB [...] MD LAB BLOOD ORDERABLES Final Res ult [facility] [address] [place] [address], [place] [phone] documented in this encounter Visit Diagnoses Diagnosis Encounter for other general examination documented in this encounter Care Teams Conveyor Worker Relationship Specialty Start Date End Date Vandana Parker MD [address] [place] [address] PCP - General Internal Medicine 08/05/17 documented as of this encounter
--- OUTSIDE RECORDS SUMMARY | 2024-09-27 16:32 | XMS_ITS | Encounter Summary ---
Author Organization [facility] Address [address] [place] [address] Care Team Providers Care Test Skein Winder Name Role Phone Vandana Parker MD Primary Care Provider +1- [phone] Encounter Details Date Type Department Care Team (Late st Contact Info) Description 08/04/[address] [facility] Main Lab [address] [facility] [place] [address] Teja Bello MD [address] [place] [address] Encounter for other general examination Social History [...] Description 11/01/2024 12:40 PM EDT Office Visit [facility] [address] [facility] [address] [place] [address] Kenyetta Shi, CARDIOPULMONARY TECHNICIAN AND EEG TECH [address] [facility] [address] [place] [address] documented as of this encounter Procedures Procedure [...] 9:56 AM [facility] Immature Granulocytes Relative 1.2 % LAB HEMETOLOGY METHOD 08/04/2024 9:56 AM [facility] Neutrophils Absolute 9.00(H) 1.50 - 7.00 K/mcL LAB HEMETOLOGY METHOD 08/04/2024 9:56 AM [facility] Lymphocytes Absolute 1.51 1.00 - 5.00 K/mcL LAB HEMETOLOGY METHOD 08/04/2024 9:56 AM [facility] Monocytes Absolute 0.66 0.20 - [...] LAB HEMETOLOGY METHOD 08/04/2024 9:56 AM EST [facility] Blood Venous blood specimen / Unknown Venipuncture / Unknown 08/04/2024 6:26 AM EST 08/04/2024 8:35 AM EST us Teja Bello MD LAB BLOOD ORDERABLES Final Res ult Performing Organization Address [facility]/ZIP Co de Phone Number [facility] [address] [place] [address], [place] [phone] * (ABNORMAL) Magnesium (08/04/2024 6:26 AM EST) Pathologist [facility] Magnesium 1.8(L) 1.9 - 2.6 mg/dL LAB CHEMISTRY METHOD 08/04/2024 10:55 AM EST [facility] Blood Venous blood specimen / Unknown Venipuncture / Unknown 08/04/2024 6:26 AM EST 08/04/2024 8:35 AM EST us Teja Bello MD LAB BLOOD ORDERABLES Final Res ult Performing Organization Address [facility]/ZIP Co de Phone Number [facility] [address] [place] [address], [place] [phone] * (ABNORMAL) Comprehensive metabolic panel (08/04/2024 6:26 AM EST) Sodium 139 133 - 145 mmol/L LAB CHEMISTRY METHOD 08/04/2024 10:06 AM [facility] Potassium 4.1 3.5 - 5.5 mmol/L LAB CHEMISTRY METHOD 08/04/2024 10:06 AM [facility] Chloride 105 96 - 110 mmol/L LAB CHEMISTRY METHOD 08/04/2024 10:06 AM EST [facility] CO2 27 21 - 32 mmol/L LAB CHEMISTRY METHOD 08/04/2024 10:06 AM [facility] Anion Gap 7 3 - 11 LAB CHEMISTRY METHOD 08/04/2024 10:06 AM [facility] Glucose 225(H) 70 - 100 mg/dL LAB CHEMISTRY METHOD 08/04/2024 10:06 AM [facility] BUN 35(H) 5 - 25 mg/dL LAB CHEMISTRY METHOD 08/04/2024 10:06 AM [facility] Creatinine 1.75(H) 0.70 - 1.30 mg/dL LAB CHEMISTRY METHOD 08/04/2024 10:06 AM [facility] eGFR 40(L) >=60 mL/min/1. 73m2 LAB CHEMISTRY METHOD 08/04/2024 10:06 AM [facility] Comment:Calculation based on the??Chronic Kidney Disease Epidemiology Collaboration (CKD-EPI) equation refit??without adjustment for race. BUN/Creatinine Ratio 20.0 LAB CHEMISTRY METHOD 08/04/2024 10:06 AM [facility] Calcium 8.3(L) 8.5 - 10.5 mg/dL LAB CHEMISTRY METHOD 08/04/2024 10:06 AM [facility] AST (SGOT) 47(H) 10 - 42 unit/L LAB CHEMISTRY METHOD 08/04/2024 10:06 AM [facility] ALT (SGPT) 79(H) 10 - 60 unit/L LAB CHEMISTRY METHOD 08/04/2024 10:06 AM [facility] Alkaline Phosphatase 139(H) 42 - 121 unit/L LAB CHEMISTRY METHOD 08/04/2024 10:06 AM [facility] Comment:Results verified by repeat testing Total Protein 6.2 6.0 - 8.0 g/dL LAB CHEMISTRY METHOD 08/04/2024 10:06 AM [facility] Albumin 2.7(L) 3.2 - 5.0 g/dL LAB CHEMISTRY METHOD 08/04/2024 10:06 AM EST [facility] Total Bilirubin 0.5 0.0 - 1.4 mg/dL LAB CHEMISTRY METHOD 08/04/2024 10:06 AM EST [facility] Blood Venous blood specimen / Unknown Venipuncture / Unknown 08/04/2024 6:26 AM EST 08/04/2024 8:35 AM EST us Teja Bello MD LAB BLOOD ORDERABLES Final Res ult [facility] [address] [place] [address], [place] [phone] documented in this encounter Visit Diagnoses Diagnosis Encounter for other general examination documented in this encounter Care Teams Test Skein Winder Relationship Specialty Start Date End Date Vandana Parker MD [address] [place] [address] PCP - General Internal Medicine 08/05/17 documented as of this encounter
== END 2024-09-27 13:24 | disposition home or self-care (01) ==
LOC: HO.XRAY 13:23
PROVIDERS: PCP Internal Medicine; Visit Provider Hospitalist
DX: J41.8 Mixed simple and mucopurulent chronic bronchitis (principal); J18.9 Pneumonia, unspecified organism; J47.9 Bronchiectasis, uncomplicated; I50.9 Heart failure, unspecified; J98.4 Other disorders of lung; K21.00 Gastro-esophageal reflux disease with esophagitis, without bleeding; R91.1 Solitary pulmonary nodule; Z79.899 Other long term (current) drug therapy
CPT/HCPCS: 71046; 99212

== ENCOUNTER → 2024-09-27 14:22 | Outpatient (BNV) | payer MEDICARE, SELFPAY | PROVIDERS: PCP Internal Medicine; Visit Provider Radiology Diagnostic Radiology | DX: J41.8 Mixed simple and mucopurulent chronic bronchitis (principal) | CPT/HCPCS: 71046 ==

== ENCOUNTER 2025-01-03 10:51 | Outpatient (AMB) | payer MEDICARE, SELFPAY ==
[2025-01-03 10:56] VITALS: BP 114/50; PULSE 76; O2SAT 97; BMI 26.7
--- NOTE | 2025-01-03 10:56 | A.OFFVIS_ITS ---
Vital Signs 01/03/25 10:56 Height 6 ft 2 in Weight 208 lb 5.389 oz BMI 26.7 BP 114/50 L Blood Pressure Location Rt brachial Position Sitting Pulse 76 Pulse Source Pulse Oximeter Pulse Oximetry (%) 97 Oxygen Delivery Method Room Air Intake Visit Reasons: COPD follow-up Lending Activities Supervisor Required: No Accompanied by: Spouse Allergies atorvastatin Allergy (Severe, Verified 01/03/25 10:59) Muscle Aches magnesium Allergy (Severe, Verified 01/03/25 10:59) Rash pravastatin Allergy (Severe, Verified 01/03/25 10:59) Muscle Aches HPI Comments Details: The patient is a 74-year-old gentleman who has been complaining of progressive dyspnea for the last few years. His shortness of breath has gotten significant to the point of significant dyspnea with minimal activity. Moderate severity. He has had a extensive pulmonary evaluation ready. Back in 2018 he did undergo pulmonary function studies demonstrating a mild restrictive ventilatory defect. That was followed by a CT scan of the chest which demonstrated some degree of was a pattern primarily in the upper central areas of his lungs to some degree this could be representing air trapping versus some degree of pneumonitis. 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 He did have a subcentimeter pulmonary nodule in the right hemithorax that has not been followed. Subsequent to that the patient did have repeat pulmonary function studies this year demonstrating again a mild restrictive pattern. No real progression when compared to his PFTs from 3 years back. In the meantime he has tried inhalers including Advair and albuterol. Although he did not see any significant improvement with these medications therefore he stop the. 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 He worked closely with asbestos and other organic and inorganic dust. The beginning of his career he did not use masks or respirator so does it was the norm. As far as exposures in his home he does have parakeets which she has had about 4 years. His is the main take care of the birds. He denies any mold in the house. Has never had any exposure to farm animals or farm work. During the office visit we did go for brief walking oximetry. The patient was able to maintain a pulse ox 95- 96% with activity his heart rate between 90 and 100. The patient was visibly dyspneic. 06/26/2021 the patient is here for a pulmonary follow-up visit. The patient continues to have significant productive cough. The cough is uncomfortable. Moderate severity. He was started on the Trelegy inhaler and did not see any s ignificant improvement. He does have a rescue inhaler that he uses as needed. In meantime he did undergo blood work he did have evidence of significant eosinophilia suggesting a component of allergic type of reaction. His allergy testing was otherwise negative. his hypersensitivity panel also was negative. He has major complaint is of productive cough in a nagging cough. . We talked about considering the use of prednisone to decrease some of the inflammation of the airways. But, the patient is reluctant due to his history of diabetes. Therefore, we can start her on azithromycin she which she bronchitis and also component of bronchiectasis that he had noticed on previous CT scan. 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 In addition to that the patient did have subcentimeter pulmonary nodules. In view of the patient's persistent symptoms will request a CT scan of the chest to further address the restrictive lung disease in the history of pneumonitis and interstitial lung disease. 12/06/2021 the patient is here for pulmonary follow-up visit. He is complaining of increasing dyspnea on exertion. Moderate severity even with typical activities of daily living. He did try the azithromycin 3 times a week treating the evidence of bronchitis and bronchiectasis but without any significant improvement. Recently he did undergo an echocardiogram demonstrating a decrease in his ejection fraction. His brain atretic peptide was significantly elevated. Patient also has worsening lower extremity edema. Explained to the patient that is likely multifactorial. He definitely has a component of volume overload status and likely some congestive heart failure. 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 Will go ahead and start him on some diuretics to see if we can improve his respiratory status. In the meantime he also has bronchiectasis. Will provide him with nebulized therapy in addition to followed by chest physical therapy in order to improve his in bronchopulmonary hygiene. Will follow-up in 6-8 weeks. 03/05/2024 the patient is here for a pulmonary follow-up visit. Recently he was hospitalized at [facility]. He developed worsening shortness of breath. He was admitted to the hospital. There he was found to have elevated cardiac enzymes suggesting demand ischemia. He was evaluated by Cardiology and placed on cardioprotective medications. During hospitalization he did have a CTA. They ruled out PE. Although he did have some areas of mosaic pattern suggesting airways disease. Could also be component of pneumonitis. Can not rule out congestive heart failure. The patient did develop worsening renal failure while in the hospital after the dye. He does have chronic disease. Although he did have the elevated cardiac enzymes felt to be secondary to his pulmonary issue and therefore opted on not pursuing a cardiac catheterization in view of his worsening renal function. The patient seems to be doing better now. We will maximize his respiratory therapy. Also request additional blood work to reassess the possibility of pneumonitis. On previous imaging studies the patient did have a component of bronchiectasis. will request a flutter valve for CPT in order for him to clear his mucus better. Will also optimize his respiratory therapy at this time. Will have him return in couple months and will assess his response to therapy. If he has any worsening symptoms he will call the office prior to that. 06/09/2024 the patient is here for hospital follow-up visit. Since we last spoke the patient was seen by his primary care doctor was having. He had blood work including elevated brain atretic peptide. He was recommended to go to the ER. He had done an x-ray on June 07 which was fairly clear. I did personally review the images. It was a PA without any evidence of any airspace disease. Subsequently he went to [facility]. He had a repeat chest x-ray. It was an AP film and at that point demonstrated a slight hazy opacity in the left basilar area. He did also have some crackles in that area. The patient was given a course of antibiotics to treat for pneumonia. Clinically the patient is feeling better. During the visit we did taken for a walking oximetry the patient did desaturate down to 88% with activity. He was visibly dyspneic. In part this is likely multifactorial with his heart failure his COPD. The patient will benefit from oxygen supplementation. He does have issues with his walking therefore portable oxygen concentrator will be more effective as it is easier to carry and better portability outside of the home. I will request a POC from the local [employer] company. The patient should also use the oxygen at nighttime. Can also try to do an overnight oximetry to see if he benefits from the oxygen nocturnally. In the meantime he will continue with his respiratory medicine. Also continue with diuresis as tolerated. Will start him on low-dose prednisone taper to help decrease the airway inflammation and hopefully allow him to recover faster. She needs to make sure to follow his sugars closely. At some point when he returns will do a follow-up chest x-ray to make sure that his left lower lobe opacities clear. 09/27/2024 the patient is here for sick visit. Apparently he developed RSV worsening respiratory symptoms. He has been coughing more. Some chest congestion. Difficult to expectorate. Moderate severity. He had a chest x-ray back in 08/28/2023 which I personally reviewed demonstrating no airspace disease. He did follow-up with his communications professor. There was a question of diminished breath sounds and pleural effusion. He was sent over to Pulmonary. Currently he is still complaining of the cough. Also has other complaints such as weakness and low blood pressure specially when standing up. He has been concerned about that. He has been upset about the cough. On exam he does not have any wheezing which is reassuring. He already completed a course of steroids. He also completed a course of doxycycline. He does have some rhonchi in the bases. We did give him a treatment with levo albuterol which did help and he did cough up some secretions but we were able to get a sputum cup for culture. I did give him another cup that he can take with him for the culture. Will go ahead and start him on Augmentin since he finished doxycycline and he is going to work on deep breathing exercises. I did request an Acapella valve for him and he will use the nebulizer twice a day. He will go for chest x-ray today to see if there is any evidence of any airspace disease or effusions. 01/03/2025 the patient is here for a pulmonary follow-up visit. Overall he is feeling better. He is no longer using the oxygen. He does check his oxygen levels. He has not been able to use the Trelegy since he has not been covered. He does get shortness of breath with activity [id number] severity. And also has a cough at times. I do believe that he should be on a maintenance inhalers specially he is going to need surgery soon. Will go ahead and place him on Anoro in order to provide him with bronchodilation but minimize the risk of infection. The patient did have a CT scan of the chest which I personally reviewed with him. No evidence of any active disease. Although he does have some debris in the esophagus. On further questioning the patient has been having some difficulty swallowing. Therefore will request a barium swallow at this time. I did give him some ideas as far as swallowing techniques. [facility] Medical History (Updated 09/27/24 @ 17:43 by Federico Ortiz MD) COPD (chronic obstructive pulmonary disease) History of non-Hodgkin's lymphoma History of TIA (transient ischemic attack) Diabetes mellitus type 2, insulin dependent Hyperlipidemia Hypertension CAD (coronary artery disease) Pulmonary nodule GERD (gastroesophageal reflux disease) Chronic restrictive lung disease Dyspnea Pneumonitis Surgical History (Updated 12/06/21 @ 11:16 by Laurel Gaytan PA-C) History of cardiac cath History of shoulder surgery History of total left knee replacement History of lumbar surgery History of cervical spinal surgery History of appendectomy Social History Patient Tobacco Use Status: Former Tobacco user Review of Systems Const Denies night sweats ENT Denies change in voice, Denies lip swelling, Denies mouth pain, Reports nasal congestion, Reports nasal discharge and Denies tongue swelling Card Denies chest pain, Denies palpitations and Reports dyspnea on exertion Resp Reports chest congestion, Reports cough and Reports dyspnea on exertion GI Denies abdominal pain Musc Denies no additional complaints Neuro Denies Neuro-related abnormal movements Psych Denies no additional complaints Endo Denies palpitations Robert/Lymph Denies easy bleeding and Denies lymphadenopathy Aller/Immun Denies lip swelling and Denies tongue swelling Physical Exam Vital Signs: Last Vital Signs Pulse 76 01/03/25 10:56 BP 114/50 L 01/03/25 10:56 Pulse Ox 97 01/03/25 10:56 Oxygen Delivery Method Room Air 01/03/25 10:56 BMI result Body Mass Index 26.7 Const General: alert Neck Neck: Yes normal visual inspection, Yes full ROM and Yes no lymphadenopathy Chest Chest palpation & inspection: normal inspection of the chest Resp Effort & Inspection: normal respiratory effort Auscultation: diminished lung sounds Cardio Rate: regular rate Rhythm: regular rhythm Heart sounds: S1 normal heart sound present and S2 normal heart sound present GI Palpation (GI): Soft to palpation and nontender Auscultation: normal bowel sounds Skin General skin exam: rashes and/or lesions noted Assessment & Plan Assessment & Plan (1) Dyspnea: Code(s): R06.00 - Dyspnea, unspecified Category: Medical Qualifiers: Dyspnea type: dyspnea on exertion Qualified Code(s): R06.09 - Other forms of dyspnea (2) Chronic restrictive lung disease: Code(s): J98.4 - Other disorders of lung Category: Medical (3) GERD (gastroesophageal reflux disease): Code(s): K21.9 - Gastro-esophageal reflux disease without esophagitis Category: Medical Qualifiers: Esophagitis bleeding: without hemorrhage Esophagitis presence: with esophagitis Qualified Code(s): K21.00 - Gastro-esophageal reflux disease with esophagitis, without bleeding (4) Pulmonary nodule: Comment: 0.3 cm Code(s): R91.1 - Solitary pulmonary nodule Category: Medical (5) Bronchiectasis: Code(s): J47.9 - Bronchiectasis, uncomplicated Category: Medical Qualifiers: Bronchiectasis type: uncomplicated Qualified Code(s): J47.9 - Bronchiectasis, uncomplicated (6) COPD (chronic obstructive pulmonary disease): Code(s): J44.9 - Chronic obstructive pulmonary disease, unspecified Category: Medical Qualifiers: COPD type: chronic bronchitis Chronic bronchitis type: mixed simple and mucopurulent Qualified Code(s): J41.8 - Mixed simple and mucopurulent chronic bronchitis (7) Pneumonitis: Code(s): J18.9 - Pneumonia, unspecified organism Category: Medical (8) CHF (congestive heart failure): Code(s): I50.9 - Heart failure, unspecified Category: Medical Qualifiers: Heart failure chronicity: unspecified Heart failure type: unspecified Qualified Code(s): I50.9 - Heart failure, unspecified Plan start Anoro CXR stop Trelegy KARINE as needed Nebulizer therapy, Duoneb BID as needed CPT with acapella valve Continue Reflux diet diuresis as tolerated Barium swallow off POC for now. We will reassess after his surgery F/U 4-6 months Orders: Orders [place] barium swallow Today K21.9 - Gastro-esophageal reflux disease without esophagitis Medications: New umeclidinium-vilanterol 62.5-25 mcg/actuation (Anoro Ellipta) 1 inh inhalation DAILY 60 ea 11RF J44.89 - Other specified chronic obstructive pulmonary disease Coding Level of Care Code Est Pt Level 4 (03520) Complex EM visit Add On G2211 Diagnoses Dyspnea on exertion R06.09 Dyspnea type: dyspnea on exertion Chronic restrictive lung disease J98.4 Gastroesophageal reflux disease with esophagitis without hemorrhage K21.00 Esophagitis bleeding: without hemorrhage Esophagitis presence: with esophagitis Pulmonary nodule R91.1 Bronchiectasis without complication J47.9 Bronchiectasis type: uncomplicated Mixed simple and mucopurulent chronic bronchitis J41.8 COPD type: chronic bronchitis Chronic bronchitis type: mixed simple and mucopurulent Pneumonitis J18.9 Congestive heart failure, unspecified HF chronicity, unspecified heart failure type I50.9 Heart failure chronicity: unspecified Heart failure type: unspecified Time Spent (min) 17
--- OUTSIDE RECORDS SUMMARY | 2025-01-03 12:05 | XMS_ITS | Clinical Summary ---
Author Organization [facility] Address [address] [address] Phone Care Team Providers Care Quality Measurement Specialist Name Role Phone Vandana Parker MD Primary Care Provider [phone] Allergies Active Allergy Reactions Criticality Noted Date [...] History of total knee arthroplasty 12/29/2012 05/29/2022 Immunizations Immunization Administration Dates Next Due Pneumococcal Conjugate 02/01/2019 Pneumococcal Conjugate 13-Valent 11/17/2017 Pneumococcal Polysaccharide 04/28/2019 Td, Unspecified 11/17/2017 Family History Medical History Relation Comments Diabetes Father Heart disease Father Diabetes Mother Relation Status Comments Father Unknown Mother Unknown Social History Tobacco Use Types Packs/Day Years Used Date Smoking Tobacco: Former Cigarettes Q uit: 2001 Tobacco Cessation:Counseling Given: Not Answered Alcohol Use [...] Care Team (Late st Contact Info) Description 03/28/2025 10:40 AM EDT Office Visit [facility] [address] [id number] Santiago Quinn MD [address] [phone] Health Maintenance Due Date Last Done Comments Colorectal Cancer Screening: Annual FOBT 1998 Colorectal Cancer Screening: Colonoscopy 1998 Colorectal Cancer Screening: Sigmoidoscopy 1998 Diabetes: Hemoglobin A1C 09/03/2020 12/25/2018 Diabetes: Ophthalmology Exam 09/03/2020 Diabetes: Pedal Pulse Checked 09/03/2020 Diabetes: Sensory Foot Exam 09/03/2020 Diabetes: Visual Foot Exam 09/03/2020 Influenza Vaccine (Season Ended) 2025 Pneumococcal Vaccine: 50+ Years Completed 04/28/2019, 02/01/2019, 11/17/2017 Pneumococcal Vaccine: Peds ( 0 to 5 Years) and At-Risk Patients (6 to 49 Years) Discontinued 04/28/2019, 02/01/2019, 11/17/2017 Hepatitis B Vaccine Aged Out No longe r eligible based on patient's age to complete this topic Procedures Procedure Name Priority Date/Time Associated Diagnosis Comments BLOOD PANEL (HC) Routine 12/25/2018 12:0 0 AM EDT from Last 3 Months or Most Recently Relevant to Health Maintenance Results * (ABNORMAL) Blood Panel (12/25/2018 12:00 AM [...] % RTAMA 12/25/2018 us [facility] Conversion LAB [id number] LICITED RESULTS Final Result RTAMA from Last 3 Months or Most Recently Relevant to Health Maintenance Insurance [facility] Medicare Medicare [facility] Care Teams Quality Measurement Specialist Relationship Specialty Start Date End Date Vandana Parker MD [address] [place], [place] PCP - General 08/14/20
== END 2025-01-03 11:19 | disposition home or self-care (01) ==
LOC: HO.HPS 10:54
PROVIDERS: PCP Internal Medicine; Visit Provider Hospitalist
DX: R06.09 Other forms of dyspnea (principal); J98.4 Other disorders of lung; K21.00 Gastro-esophageal reflux disease with esophagitis, without bleeding; R91.1 Solitary pulmonary nodule; J47.9 Bronchiectasis, uncomplicated; J41.8 Mixed simple and mucopurulent chronic bronchitis; J18.9 Pneumonia, unspecified organism; I50.9 Heart failure, unspecified
CPT/HCPCS: 99214; G2211

== ENCOUNTER → 2025-01-03 10:51 | Outpatient (BNVA) | payer MEDICARE, SELFPAY | PROVIDERS: PCP Internal Medicine; Visit Provider Hospitalist | DX: J41.8 Mixed simple and mucopurulent chronic bronchitis (principal); J98.4 Other disorders of lung; J47.9 Bronchiectasis, uncomplicated; J18.9 Pneumonia, unspecified organism; R06.09 Other forms of dyspnea; K21.00 Gastro-esophageal reflux disease with esophagitis, without bleeding; R91.1 Solitary pulmonary nodule; I11.0 Hypertensive heart disease with heart failure; I50.9 Heart failure, unspecified | CPT/HCPCS: 99212 ==

== ENCOUNTER 2025-04-25 09:43 | Outpatient (REF) | payer MEDICARE, SELFPAY ==
--- OUTSIDE RECORDS SUMMARY | 2025-04-25 11:32 | XMS_ITS | Clinical Summary ---
Author Organization [facility] Address [address] [address] Phone Care Team Providers Care Manager Sterile Processing Name Role Phone Vandana Parker MD Primary Care Provider +1- [phone] Allergies Active Allergy Reactions Criticality Noted Date [...] 30 Active Basaglar KwikPen 100 UNIT/ML injection 021 Active metFORMIN (GLUCOPHAGE) 500 MG tablet Take 2 tablets by mouth 2 (two) times a day 2024 Discontinued Trulicity 0.75 MG/0.5ML solution pen-injector INJECT 0.75 MG ONCE A WEEK SUBCUTANEOUSLY 021 2024 Discontinued Sodium Zirconium Cyclosilicate (Lokelma) 10 g pack Take 1 packet by mouth 2 (two) times a week 2024 Discontinued Active Problems Problem Noted Date Diagnosed Date Chronic respiratory failure 03/27/2025 History of coronary artery bypass grafting 10/19 Atrial fibrillation 08/31/2024 Emphysema 08/31/2024 Hypercalcemia 03/22/2024 Congestive heart failure 08/29/2022 Memory [...] Encounters Date Type Department Care Team Description 03/28/2025 10:40 AM EDT Office Visit [facility] [address] [phone] Santiago Quinn MD Stage 3a chronic kidney disease (HCC) (Primary Dx); Peripheral arterial occlusive disease (HCC); Non-Hodgkin's lymphoma (clinical) (HCC); Hyperkalemia; Hypercalcemia; Essential hypertension; Diabetes mellitus, not otherwise specified (HCC); Congestive heart failure, not otherwise specified (HCC); Carotid artery stenosis <Unspecified side> 03/28/2025 Documentation Only [facility] [address] [phone] Santiago Quinn MD 03/20/2025 Orders Only [facility] [address] [phone] Santiago Quinn MD Stage 3a chronic kidney disease (HCC); Renal disorder due to type 2 diabetes mellitus <Other diabetic kidney complication> (HCC); Peripheral arterial occlusive disease (HCC); Non-Hodgkin's lymphoma (clinical) (HCC); Hypomagnesemia; Hyperkalemia; Hypercalcemia; Essential hypertension; Diabetes mellitus, not otherwise specified (HCC); Congestive heart failure, not otherwise specified (HCC) from Last 3 Months Immunizations Immunization Administration Dates Next Due Pneumococcal [...] Sign Reading Time Taken Comments Blood Pressure 130/70 03/28/2025 11:15 AM EDT Pulse 74 03/28/2025 11:15 AM EDT Temperature - - Respiratory Rate - - Oxygen Saturation 94% 03/28/2025 11:15 AM EDT Inhaled Oxygen Concentration - - Weight 96.2 kg (212 lb) 03/28/2025 11:15 AM EDT Height 188 cm (6' 2 ) 09/20/2024 10:18 AM EST Body Mass Index 27.22 09/20/2024 10:18 AM EST Plan of Treatment Upcoming Encounters Date Type Department Care Team (Late st Contact Info) Description 09/28/2025 10:20 AM EST Office Visit [facility] [address] [phone] Santiago Quinn MD [address] [facility] [address] [place] [phone] Health Maintenance Due Date Last Done Comments Colorectal Cancer Screening: Annual FOBT 1998 Colorectal Cancer Screening: Colonoscopy 1998 Colorectal Cancer Screening: Sigmoidoscopy 1998 Diabetes: Hemoglobin A1C 09/03/2020 12/25/2018 Diabetes: Ophthalmology Exam 09/03/2020 Diabetes: Pedal Pulse Checked 09/03/2020 Diabetes: Sensory Foot Exam 09/03/2020 Diabetes: Visual Foot Exam 09/03/2020 Influenza Vaccine (#1) 2025 Pneumococcal Vaccine: 50+ Years Completed 04/28/2019, 02/01/2019, 11/17/2017 Pneumococcal Vaccine: Peds ( 0 to 5 Years) and At-Risk Patients (6 to 49 Years) Discontinued 04/28/2019, 02/01/2019, 11/17/2017 Hepatitis B Vaccine Aged Out No longe r eligible based on patient's age to complete this topic Procedures Procedure Name Priority Date/Time Associated Diagnosis Comments PTH, INTACT Routine 03/14/2025 1:54 PM EDT MAGNESIUM Routine 03/14/2025 1:54 PM EDT PHOSPHATE ( PHOSPHORUS) Routine 03/14/2025 1:54 PM EDT URIC ACID Routine 03/14/2025 1:54 PM EDT VITAMIN D 25 HYDROXY Routine 03/14/2025 1:54 PM EDT PROTEIN / CREATININE RATIO, URINE Routine 03/14/2025 1:54 PM EDT COMPREHENSIVE METABOLIC PANEL Routine 03/14/2025 1:54 PM EDT CBC AND DIFFERENTIAL Routine 03/14/2025 1:54 PM EDT BLOOD PANEL (HC) Routine 12/25/2018 12:0 0 AM EDT from Last 3 Months or Most Recently Relevant to Health Maintenance Results * (ABNORMAL) Protein, Total, Random Urine w/Creatinine (Protein/Creat Ratio) (03/14/2025 1:54 PM EDT) Creatinine, Ur 148.9 Not Estab. mg/dL [facility] Protein, Ur 35.2 Not Estab. mg/dL [facility] Urine Protein/Creati nine Ratio 236(H) 0 - 200 mg/g creat [facility] 03/14/2025 1:54 PM EDT 03/14/2025 us Santiago Quinn MD LAB URINE ORDERABLES Final Re sult [facility] [address] [place] [address] * Vitamin D 25 Hydroxy (03/14/2025 1:54 PM EDT) Vitamin D, 25-OH, Total 31.1 30.0 - 100.0 ng/mL [facility] Comment: Vitamin D deficiency has been defined by the [place] of [employer] and an Endocrine Society practice guideline as a level of serum 25-OH vitamin D less than 20 ng/mL (1,2). The Endocrine Society went on to further define vitamin D insufficiency as a level between 21 and 29 ng/mL (2). 1. IOM ([place] [employer]). 2010. Dietary reference intakes for calcium and D. [place]: The National Academies Press. 2. Vicenta MF, Roney NC, Concepción TSE, et al. Evaluation, treatment, and prevention of vitamin D deficiency: an Endocrine Society clinical practice guideline. JCEM. 2010; 96(7):1911-30. 03/14/2025 1:54 PM EDT 03/14/2025 us Santiago Quinn MD LAB BLOOD ORDERABLES Final Re sult [facility] [address] [place] [address] * (ABNORMAL) CBC and Differential (03/14/2025 1:54 PM EDT) WBC 9.0 3.4 - 10.8 x10E3/uL [facility] RBC 3.58(L) 4.14 - 5.80 x10E6/uL [facility] Hemoglobin 11.0(L) 13.0 - 17.7 g/dL [facility] Hematocrit 34.0(L) 37.5 - 51.0 % [facility] MCV 95 79 - 97 fL [facility] MCH 30.7 26.6 - 33.0 pg [facility] MCHC 32.4 31.5 - 35.7 g/dL [facility] RDW 13.9 11.6 - 15.4 % [facility] Platelets 221 150 - 450 x10E3/uL [facility] Neutrophils Relative 67 Not Estab. % [facility] Lymphocytes Relative 23 Not Estab. % [facility] Monocytes 6 Not Estab. % [facility] Eosinophils Relative 3 Not Estab. % [facility] Basophils Relative 1 Not Estab. % [facility] Neutrophils Absolute 6.1 1.4 - 7.0 x10E3/uL [facility] Lymphocytes Absolute 2.1 0.7 - 3.1 x10E3/uL [facility] Monocytes Absolute 0.5 0.1 - 0.9 x10E3/uL [facility] Eosinophils Absolute 0.2 0.0 - 0.4 x10E3/uL [facility] Basophils Absolute 0.1 0.0 - 0.2 x10E3/uL [facility] Immature Granulocytes 0 Not Estab. % [facility] Immature Grans (Absolute) 0.0 0.0 - 0.1 x10E3/uL [facility] 03/14/2025 1:54 PM EDT 03/14/2025 Santiago Quinn MD LAB BLOOD ORDERABLES Final Re sult [facility] [address] [place] [address] * Uric Acid (03/14/2025 1:54 PM EDT) Uric Acid 4.5 3.8 - 8.4 mg/dL [facility] Comment:Therapeutic target f or gout patients: <6.0 03/14/2025 1:54 PM EDT 03/14/2025 Santiago Quinn MD LAB BLOOD ORDERABLES Final Re sult [facility] [address] [place] [address] * Phosphorus (03/14/2025 1:54 PM EDT) Phosphorus 3.3 2.8 - 4.1 mg/dL [facility] 03/14/2025 1:54 PM EDT 03/14/2025 us Santiago Quinn MD LAB BLOOD ORDERABLES Final Re sult Performing Organization Address City/[facility]/ZIP Co de Phone Number [facility] [address] [place] [address] * PTH, Intact (03/14/2025 1:54 PM EDT) Pathologist [facility] PTH 19 15 - 65 pg/mL [facility] 03/14/2025 1:54 PM EDT 03/14/2025 us Santiago Quinn MD LAB BLOOD ORDERABLES Final Re sult Performing Organization Address [facility]/ZIP Co de Phone Number [facility] [address] [place] [address] * (ABNORMAL) Magnesium (03/14/2025 1:54 PM EDT) Pathologist [facility] Magnesium 1.4(L) 1.6 - 2.3 mg/dL [facility] 03/14/2025 1:54 PM EDT 03/14/2025 us Santiago Quinn MD LAB BLOOD ORDERABLES Final Re sult Performing Organization Address [facility] Co de Phone Number [facility] [address] [place] [address] * (ABNORMAL) Comprehensive Metabolic Panel (03/14/2025 1:54 PM EDT) Pathologist [facility] Glucose 303(H) 70 - 99 mg/dL [facility] BUN 42(H) 8 - 27 mg/dL [facility] Creatinine 1.74(H) 0.76 - 1.27 mg/dL [facility] eGFR CKD-EPI CR 2020 40(L) >59 mL/min/1.7 3 [facility] BUN/Creatinine Ratio 24 10 - 24 [facility] Sodium 141 134 - 144 mmol/L [facility] Potassium 5.2 3.5 - 5.2 mmol/L [facility] Chloride 103 96 - 106 mmol/L [facility] Bicarbonate (CO2) 18(L) 20 - 29 mmol/L [facility] Calcium 9.5 8.6 - 10.2 mg/dL [facility] Total Protein 6.6 6.0 - 8.5 g/dL [facility] Albumin 4.1 3.8 - 4.8 g/dL [facility] Globulin 2.5 1.5 - 4.5 g/dL [facility] Total Bilirubin 0.3 0.0 - 1.2 mg/dL [facility] Alkaline Phosphatase 57 44 - 121 IU/L [facility] AST (SGOT) 32 0 - 40 IU/L [facility] ALT (SGPT) 28 0 - 44 IU/L [facility] 03/14/2025 1:54 PM EDT 03/14/2025 us Santiago Quinn MD LAB BLOOD ORDERABLES Final Re sult [facility] [address] [place] [address] * (ABNORMAL) Blood Panel (12/25/2018 12:00 AM [...] % RTAMA 12/25/2018 us [facility] [id number] LICITED RESULTS Final Result RTAMA from Last 3 Months or Most Recently Relevant to Health Maintenance Insurance [facility] Medicare Medicare [facility] Care Teams Manager Sterile Processing Relationship Specialty Start Date End Date Vandana Parker MD [facility] [place], [place] PCP - General 08/14/20
--- OUTSIDE RECORDS SUMMARY | 2025-04-25 11:33 | XMS_ITS | Encounter Summary ---
Author Organization [facility] Address [address] [place] [address] Care Team Providers Care Supervisor Type Bar And Segment Name Role Phone Vandana Parker MD Primary Care Provider +1- [phone] Encounter Details Date Type Department Care Team (Late st Contact Info) Description 08/10/2024 Lab Requisition [facility] - Main Lab [address] [place] [address] Teja Bello MD [address] [place] [address] Encounter for other general examination Social History [...] Care Team (Late st Contact Info) Description 10/14/2025 8:00 AM EDT Ancillary Procedure [facility] Cardiology [facility] [address] [facility] [address] [place] [address] documented as of this encounter Procedures Procedure Name Priority Date/Time Associated Diagnosis Comments COMPLETE BLOOD COUNT Routine 08/10/2024 6:24 AM EST Encounter for other general examination COMPREHENSIVE METABOLIC PANEL Routine 08/10/2024 6:24 AM EST Encounter for other general examination documented in this encounter Results * (ABNORMAL) Complete blood count (08/10/2024 6:24 AM EST) [facility] WBC 8.9 4.8 - 10.8 K/[facility] LAB HEMETOLOGY METHOD 08/10/2024 11:19 AM EST [facility] RBC 2.90(L) 4.50 - 5.50 [...] Res ult [facility] [address] [place] [address], [place] [phone] * (ABNORMAL) Comprehensive metabolic panel (08/10/2024 6:24 AM EST) Sodium 138 133 - 145 mmol/L LAB [...] PM [facility] Comment:Calculation based on the Chronic Kidney Disease Epidemiology Collaboration (CKD-EPI) equation refit without adjustment for race. BUN/Creatinine Ratio 16.4 LAB [...] Res ult [facility] [address] [place] [address], documented in this encounter Visit Diagnoses Diagnosis Encounter for other general examination documented in this encounter Care Teams Supervisor Type Bar And Segment Relationship Specialty Start Date End Date Vandana Parker MD [address] [place] [address] PCP - General Internal Medicine 08/05/17 documented as of this encounter
--- OUTSIDE RECORDS SUMMARY | 2025-04-25 11:33 | XMS_ITS | Encounter Summary ---
Author Organization [facility] Address [address] [place] [phone] Care Team Providers Care Renal Dialysis Technician Name Role Phone Vandana Parker MD Primary Care Provider +1- [phone] Encounter Details Date Type Department Care Team (Late st Contact Info) Description 05/26/2020 Scanned Document [facility] [address] [place] [address] [place] [address] Jimi Glynn MD [address] [place] [phone] Social History Tobacco Use Types Packs/Day Years [...] on filedocumented in this encounter Care Teams Renal Dialysis Technician Relationship Specialty Start Date End Date Vandana Parker MD [address] [phone] PCP - General Internal Medicine 03/29/19 documented as of this encounter
--- OUTSIDE RECORDS SUMMARY | 2025-04-25 11:33 | XMS_ITS ---
Author Name [facility] Organization Unknown History of Medication Use Medication Directions Dispensed Refills Start Date End Date Stat lidocaine (PF) 10 mg/mL (1 %) injection solution Take 4 mL by injection route. 02/25/2025 active Marcaine (PF) 0.5 % (5 mg/mL) injection solution Take 4 mL by injection route. 02/25/2025 active clopidogreL (PLAVIX) 75 mg tablet Take 1 tablet (75 mg total) by mouth 1 (one) time each day. 11/15/2024 active rosuvastatin (CRESTOR) 5 mg tablet Take 1 tablet (5 mg total) by mouth 1 (one) time each day. 07/14/2024 active lidocaine (PF) 100 mg/5 mL (2 %) injection syringe Take 4 mL by injection route. 04/26/2024 active triamcinolone acetonide 40 mg/mL suspension for injection Take 40 mg by injection route. 04/26/2024 active nitroglycerin (NITROSTAT) 0.[address] 1 Tablet under the tongue every 5 minutes as needed for Chest pain. 05/07/2022 active lidocaine (PF) 10 mg/mL (1 %) injection solution active triamcinolone acetonide 40 mg/mL suspension for injection active Marcaine (PF) 0.5 % (5 mg/mL) injection solution active Admelog SoloStar U-100 Insulin lispro 100 unit/mL subcutaneous pen INJECT 10 UNITS SUBCUTANEOUSLY 3 TIMES DAILY (MEALS) active albuterol sulfate HFA 90 mcg/actuation aerosol inhaler INHALE 2 PUFFS EVERY 6 HOURS NEEDED FOR WHEEZING active amiodarone 200 mg tablet TAKE 1 TABLET BY MOUTH TWICE A DAY active amoxicillin 875 mg-potassium clavulanate 125 mg tablet TAKE 1 TABLET BY MOUTH 2 TIMES A DAY,X7 DAYS,INSTR:TAKE WITH FOOD active azithromycin 250 mg tablet TAKE 2 TABLETS BY MOUTH TODAY, THEN TAKE 1 TABLET DAILY FOR 4 DAYS DIRECTED active Maverick Allen U-100 Insulin 100 unit/mL (3 mL) subcutaneous INJECT 35 UNITS INTO SKIN EVERY DAY active BD Ultra-Fine Short Pen Needle 31 gauge x /16 USE 3 TIMES DAILY. USE TO ADMINISTER INSULIN WITH ADMELOG PEN *E11.9* active benzonatate 200 mg capsule TAKE 1 CAPSULE BY MOUTH 3 TIMES A DAY, NEEDED FOR COUGH active carvedilol 6.25 mg tablet TAKE 1 TABLET BY MOUTH TWO TIMES A DAY active clopidogrel 75 mg tablet TAKE 1 TABLET BY MOUTH 1 TIME EACH DAY. active codeine 10 mg-guaifenesin 100 mg/5 mL oral liquid TAKE 5 ML BY MOUTH EVERY 6 HOURS NEEDED FOR COUGH *NOT COVERED* active doxycycline hyclate 100 mg capsule TAKE 1 CAPSULE BY MOUTH EVERY DAY FOR 7 DAYS active doxycycline monohydrate 100 mg tablet TAKE 1 TABLET BY MOUTH 2 TIMES A DAY,X7 DAYS, TAKE WITH FOOD active ferrous gluconate 324 mg (38 mg iron) tablet TAKE 1 TABLET BY MOUTH EVERY DAY active furosemide 20 mg tablet TAKE 1 TABLET BY MOUTH EVERY DAY active glipizide 10 mg tablet TAKE 1 TABLET BY MOUTH TWICE A DAY active ipratropium 0.5 mg-albuterol 3 mg (2.5 mg base)/3 mL nebulization soln INHALE 1 VIAL VIA NEBULIZER TWICE DAILY active isosorbide mononitrate ER 30 mg tablet,extended release 24 hr TAKE 1 TABLET BY MOUTH EVERY DAY active levothyroxine 50 mcg tablet 1 TABLET BY MOUTH DAILY,INSTR:GET REPEAT LABS IN 8 WEEKS active metformin 500 mg tablet TAKE 2 TABLETS BY MOUTH TWICE A DAY active metoprolol succinate ER 50 mg tablet,extended release 24 hr TAKE 1 TABLET BY MOUTH TWICE A DAY active metoprolol tartrate 25 mg tablet TAKE 1/2 TABLET BY MOUTH TWICE A DAY active prednisone 10 mg tablet TAKE 3 TABLETS BY MOUTH FOR 3 DAYS, 2 TABLETS FOR 3 DAYS, THEN 1 TABLET FOR 3 DAYS active rosuvastatin 10 mg tablet TAKE 1 TABLET BY MOUTH EVERYDAY AT BEDTIME active rosuvastatin 5 mg tablet TAKE 1 TABLET BY MOUTH EVERYDAY AT BEDTIME active sertraline 50 mg tablet TAKE 1 TABLET BY MOUTH EVERY DAY active torsemide 20 mg tablet TAKE 2 TABLETS BY MOUTH ONCE DAILY FOR 3 DAYS, TAKE FIRST THING IN THE MORNING active Wixela Inhub 100 mcg-50 mcg/dose powder for inhalation INHALE 1 PUFF TWO TIMES A DAY active albuterol HFA (PROAIR HFA ; PROVENTIL HFA ; VENTOLIN HFA) 90 mcg/actuation inhaler Inhale 2 Puffs into the lungs every 6 hours as needed. active aspirin 81 mg EC tablet Take 1 Tablet by mouth daily. active insulin glargine (LANTUS SoloStar) 100 unit/mL (3 mL) injection pen 45 units active metoprolol tartrate (LOPRESSOR) 25 mg tablet Take 1 tablet (25 mg total) by mouth 1 (one) time each day. active Oxygen Therapy (O2) gas Inhale by mouth continuously. via nasal canula Use when walking a long way active sertraline (ZOLOFT) 50 mg tablet Take 1 Tablet by mouth daily. active Allergies Allergen Reaction Severity Comment Documented Date Source Statu s [id number] REDUCTASE INHIBITORS 07/13/2024 [facility] acti ve PRAVASTATIN Muscle aches 05/06/2022 [facility] a ctive ATORVASTATIN Muscle aches [facility] MAGNESIUM OXIDE [facility] Problems Problem Status Onset Date Problem Type Date of Resolution Source Osteoarthritis of right knee joint active 6 ProblemAct [facility]ON[facility] T 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 active 6 ProblemAct [facility]ON[facility] T Osteoarthritis of right glenohumeral joint active 2025-02-02 4 ProblemAct [facility] T Arthritis of knee active 6 ProblemAct [facility] T Arthritis of right wrist active 2025-03 6 ProblemAct E[facility]_AON[facility] T Dizziness active 2024-10-02 8 ProblemAct [facility] N Hyperkalemia active 2024-06-04 5 ProblemAct [facility] N Unstable angina (CMS/HCC V24, CMS/HCC V28) active 2024-02-02 6 ProblemAct [facility] N Acute chest pain active 2024-07-04 1 ProblemAct [facility] N Claudication of both lower extremities (CMS/HCC V24) active 3 ProblemAct [facility] N Carotid stenosis active 3 ProblemAct [facility] N Unilateral primary osteoarthritis, right knee active EncounterDiagnosisAct CT_THS FRA N History of non-ST elevation myocardial infarction (NSTEMI) active 2024-02-02 6 ProblemAct [facility] N Paroxysmal atrial [place] [place], [facility] V28) active 2024-10-02 8 ProblemAct [facility] N Status post coronary artery bypass graft active 2024-10-02 8 ProblemAct [facility] N Other chest pain active 4 ProblemAct [facility] N Abnormal ECG active 2024-02-03 3 ProblemAct [facility] N 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 active 3 ProblemAct [facility] N Heart failure with mid-range ejection fraction (HFmEF) ([facility] [place]24, [facility] V28) active 8 ProblemAct [facility] N Hypercholesterolemia active 3 ProblemAct [facility] N Hypertension active 3 ProblemAct [facility] N Palpitations active 2024-10-02 8 ProblemAct [facility] N MOE (dyspnea on exertion) active 3 ProblemAct [facility] N Encounters Encounter Type Encounter Reason Primary Diagnosis Location Date Ambulatory [facility] 03/07/2025 Ambulatory [facility] 03/02/2025 Ambulatory [facility] 03/02/2025 Ambulatory [facility] 02/25/2025 Ambulatory [facility] 02/24/2025 Ambulatory [facility] 02/23/2025 Ambulatory [facility] 12/08/2024 Ambulatory [facility] 04/27/2024 Ambulatory [facility] 04/27/2024 Ambulatory [facility] 04/26/2024 Ambulatory [facility] 04/26/2024 Ambulatory [facility] 04/26/2024 Ambulatory [facility] 04/26/2024 Ambulatory [facility] 03/24/2023
--- OUTSIDE RECORDS SUMMARY | 2025-04-25 11:33 | XMS_ITS | Encounter Summary ---
Author Organization [facility] Address [address] [place] [phone] Care Team Providers Care Business Office Representative Name Role Phone Vandana Parker MD Primary Care Provider +1- [phone] Reason for Visit * Reason Onset Date Comments Ultrasound 04/20/2024 Encounter Details Date Type Department Care Team ([facility] st Contact Info) Description 04/20/2024 Telephone [facility] [address] [facility] [address] [facility] [place] [address] Jimi Glynn MD [address] [place] [address] Ultrasound Social History Tobacco Use Types Packs/Day [...] Zhang - 04/20/2024 10:15 AM EDT Called [facility] and spoke to radiology scheduling. They stated that they have not received's CUS order as of yet. They asked if it can be re-faxed to [phone]. Please advise documented in this encounter Plan of Treatment Not on file documented as of this encounter Visit Diagnoses Not on filedocumented in this encounter Care Teams Business Office Representative Relationship Specialty Start Date End Date Vandana Parker MD [address] [phone] PCP - General Internal Medicine 03/29/19 documented as of this encounter
--- OUTSIDE RECORDS SUMMARY | 2025-04-25 11:33 | XMS_ITS | Encounter Summary ---
Author Organization [facility] Address [address] [place] [phone] Care Team Providers Care Top Knitter Name Role Phone Vandana Parker MD Primary Care Provider +1- [phone] Reason for Referral * Imaging (Routine) - New Request Specialty Diagnoses / Procedures Referred By Contac t Referred To Contact Diagnostic Radiology Procedures US Duplex Carotid Bilateral Complete Jimi Glynn MD [address] [place] [address] [place] [address] Phone: tel: fax: Referral ID Status Reason Start Date Expiration Date V isits Requested Visits Authorized [id number] New Request 05/06/2024 05/06/2025 1 1 Encounter Details Date Type Department Care Team (Late st Contact Info) Description 05/06/2024 Scanned Document [facility] [address] [facility] [address] [facility] [place] [address] Jimi Glynn MD [address] [place] [address] Social History Tobacco Use Types Packs/Day Years [...] on filedocumented in this encounter Care Teams Top Knitter Relationship Specialty Start Date End Date Vandana Parker MD [address] [phone] PCP - General Internal Medicine 03/29/19 documented as of this encounter
--- OUTSIDE RECORDS SUMMARY | 2025-04-25 11:33 | XMS_ITS | Encounter Summary ---
Author Organization [facility] Address [address] [place] [address] Care Team Providers Care Teasel Setter Name Role Phone Vandana Parker MD Primary Care Provider +1- [phone] Encounter Details Date Type Department Care Team (Late st Contact Info) Description 08/04/2024 Lab Requisition [facility] - Main Lab [address] [place] [address] Teja Bello MD [address] [place] [phone] Encounter for other general examination Social History [...] Description 10/14/2025 8:00 AM EDT Ancillary Procedure [facility] [address] [facility] [address] [place] [address] documented as of this encounter Procedures Procedure [...] CBC auto differential (08/04/2024 6:26 AM EST) [facility] WBC 11.8(H) 4.8 - 10.8 K/mcL LAB HEMETOLOGY METHOD 08/04/2024 9:56 AM [facility] RBC 3.00(L) 4.50 - 5.50 M/mcL LAB HEMETOLOGY METHOD 08/04/2024 9:56 AM [facility] Hemoglobin 8.7(L) 13.5 - 17.5 g/dL LAB HEMETOLOGY METHOD 08/04/2024 9:56 AM [facility] Hematocrit 28.9(L) 42.0 - 54.0 % LAB HEMETOLOGY METHOD 08/04/2024 9:56 AM [facility] MCV 97.6 79.0 - 98.0 FL LAB HEMETOLOGY METHOD 08/04/2024 9:56 AM [facility] MCH 29.4 27.0 - 32.0 pcg LAB HEMETOLOGY METHOD 08/04/2024 9:56 AM [facility] MCHC 30.1(L) 32.0 - 37.0 g/dL LAB HEMETOLOGY METHOD 08/04/2024 9:56 AM [facility] RDW 15.1(H) 11.0 - 15.0 % LAB HEMETOLOGY METHOD 08/04/2024 9:56 AM [facility] Platelets 489(H) 130 - 400 K/mcL LAB HEMETOLOGY METHOD 08/04/2024 9:56 AM [facility] MPV 9.8 7.0 - 11.0 FL LAB HEMETOLOGY METHOD 08/04/2024 9:56 AM [facility] NRBC 0.0 <1.0 % LAB HEMETOLOGY METHOD 08/04/2024 9:56 AM [facility] NRBC Absolute 0.00 <0.10 K/mcL LAB HEMETOLOGY METHOD 08/04/2024 9:56 AM [facility] Neutrophils Relative 76.0 % LAB HEMETOLOGY METHOD 08/04/2024 9:56 AM [facility] Lymphocytes Relative 12.8 % LAB HEMETOLOGY METHOD 08/04/2024 9:56 AM [facility] Monocytes Relative 5.6 % LAB HEMETOLOGY METHOD 08/04/2024 9:56 AM [facility] Eosinophils Relative 4.1 % LAB HEMETOLOGY METHOD 08/04/2024 9:56 AM [facility] Basophils Relative 0.3 % LAB HEMETOLOGY METHOD 08/04/2024 9:56 AM [facility] Immature Granulocytes Relative 1.2 % LAB HEMETOLOGY METHOD 08/04/2024 9:56 AM [facility] Neutrophils Absolute 9.00(H) 1.50 - 7.00 K/mcL LAB HEMETOLOGY METHOD 08/04/2024 9:56 AM [facility] Lymphocytes Absolute 1.51 1.00 - 5.00 K/mcL LAB HEMETOLOGY METHOD 08/04/2024 9:56 AM [facility] Monocytes Absolute 0.66 0.20 - 1.00 K/mcL LAB HEMETOLOGY METHOD 08/04/2024 9:56 AM [facility] Eosinophils Absolute 0.48 0.00 - 0.50 K/mcL LAB HEMETOLOGY METHOD 08/04/2024 9:56 AM [facility] Basophils Absolute 0.04 0.00 - 0.20 K/mcL LAB HEMETOLOGY METHOD 08/04/2024 9:56 AM [facility] Immature Granulocytes Absolute 0.14(H) 0.00 - 0.03 K/mcL LAB HEMETOLOGY METHOD 08/04/2024 9:56 AM [facility] Blood Venous blood specimen / Unknown Venipuncture / Unknown 08/04/2024 6:26 AM EST 08/04/2024 8:35 AM EST Teja Bello MD LAB BLOOD ORDERABLES Final Res ult Performing Organization Address [facility]/ZIP Co de Phone Number [facility] [address] [place] [address], [place] [phone] * (ABNORMAL) Magnesium (08/04/2024 6:26 AM EST) Magnesium 1.8(L) 1.9 - 2.6 mg/dL LAB CHEMISTRY METHOD 08/04/2024 10:55 AM [facility] Blood Venous blood specimen / Unknown Venipuncture / Unknown 08/04/2024 6:26 AM EST 08/04/2024 8:35 AM EST Teja Bello MD LAB BLOOD ORDERABLES Final Res ult Performing Organization Address [facility]/ZIP Co de Phone Number [facility] [address] [place] [address], [place] [phone] * (ABNORMAL) Comprehensive metabolic panel (08/04/2024 6:26 AM EST) Sodium 139 133 - 145 mmol/L LAB CHEMISTRY METHOD 08/04/2024 10:06 AM [facility] Potassium 4.1 3.5 - 5.5 mmol/L LAB CHEMISTRY METHOD 08/04/2024 10:06 AM [facility] Chloride 105 96 - 110 mmol/L LAB CHEMISTRY METHOD 08/04/2024 10:06 AM [facility] CO2 27 21 - 32 mmol/L LAB CHEMISTRY METHOD 08/04/2024 10:06 AM [facility] Anion Gap 7 3 - 11 LAB CHEMISTRY METHOD 08/04/2024 10:06 AM [facility] Glucose 225(H) 70 - 100 mg/dL LAB CHEMISTRY METHOD 08/04/2024 10:06 AM [facility] BUN 35(H) 5 - 25 mg/dL LAB CHEMISTRY METHOD 08/04/2024 10:06 AM [facility] Creatinine 1.75(H) 0.70 - 1.30 mg/dL LAB CHEMISTRY METHOD 08/04/2024 10:06 AM [facility] eGFR 40(L) >=60 mL/min/1. 73m2 LAB CHEMISTRY METHOD 08/04/2024 10:06 AM [facility] Comment:Calculation based on the Chronic Kidney Disease Epidemiology Collaboration (CKD-EPI) equation refit without adjustment for race. BUN/Creatinine Ratio 20.0 LAB CHEMISTRY METHOD 08/04/2024 10:06 AM [facility] Calcium 8.3(L) 8.5 - 10.5 mg/dL LAB CHEMISTRY METHOD 08/04/2024 10:06 AM [facility] AST (SGOT) 47(H) 10 - 42 unit/L LAB CHEMISTRY METHOD 08/04/2024 10:06 AM [facility] ALT (SGPT) 79(H) 10 - 60 unit/L LAB CHEMISTRY METHOD 08/04/2024 10:06 AM [facility] Alkaline Phosphatase 139(H) 42 - 121 unit/L LAB CHEMISTRY METHOD 08/04/2024 10:06 AM [facility] Comment:Results verified by repeat testing Total Protein 6.2 6.0 - 8.0 g/dL LAB CHEMISTRY METHOD 08/04/2024 10:06 AM [facility] Albumin 2.7(L) 3.2 - 5.0 g/dL LAB CHEMISTRY METHOD 08/04/2024 10:06 AM [facility] Total Bilirubin 0.5 0.0 - 1.4 mg/dL LAB CHEMISTRY METHOD 08/04/2024 10:06 AM [facility] Blood Venous blood specimen / Unknown Venipuncture / Unknown 08/04/2024 6:26 AM EST 08/04/2024 8:35 AM EST us Teja Bello MD LAB BLOOD ORDERABLES Final Res ult [facility] [address] [place] [address], documented in this encounter Visit Diagnoses Diagnosis Encounter for other general examination documented in this encounter Care Teams Teasel Setter Relationship Specialty Start Date End Date Vandana Parker MD [address] [place] [address] PCP - General Internal Medicine 08/05/17 documented as of this encounter
--- OUTSIDE RECORDS SUMMARY | 2025-04-25 11:33 | XMS_ITS | Clinical Summary ---
Author Organization [facility] Address [address] [facility] [address] [place] [phone] Phone Care Team Providers Care Wage Analyst Name Role Phone Vandana Parker MD Primary Care Provider + Allergies Active Allergy Reactions Criticality Noted Date Comments Atorvastatin Other (See Comments) High 05/06/2022 Muscle aches Magnesium Unknown Medium 05/21/2017 Magnesium Oxide Vomiting 05/06/2022 vomitting/diarrhea Morphine Unknown 11/08/2014 Ufctsxs-Bwg-Gzi Reductase Inhibitors Other (See Comments) High 04/26/2019 Muscle aches myalgias Medications amLODIPine (NORVASC) 5 MG tablet Take 5 mg by mouth. 07/14/20 24 Active amoxicillin-clavu lanate (AUGMENTIN) 875-125 mg per tablet TAKE 1 TABLET BY MOUTH 2 TIMES A DAY,X7 DAYS,INSTR:TAKE WITH FOOD 08/24/19 25 Active aspirin 81 MG EC tablet Take 1 tablet by mouth daily. Active clopidogrel (PLAVIX) 75 mg tablet Take 75 mg by mouth daily. Active ferrous gluconate 324 mg (38 mg elemental) tablet Take 1 tablet by mouth every morning. 08/25/19 25 Active BASAGLAR KWIKPEN U-100 INSULIN 100 unit/mL (3 mL) InPn injection pen INJECT 40 UNITS SUBCUTANEOUSLY EVERY DAY AT BEDTIME. Active metoprolol tartrate (LOPRESSOR) 25 MG tablet Take 1 tablet by mouth 2 (two) times a day. 08/14/19 25 Active pravastatin (PRAVACHOL) 80 MG tablet Take 80 mg by mouth. Active rosuvastatin (CRESTOR) 5 MG tablet Take 5 mg by mouth. 07/14/20 24 Active sertraline (ZOLOFT) 50 MG tablet Take 1 tablet by mouth daily. Active sodium zirconium cyclosilicate (LOKELMA) 10 gram Take 1 packet by mouth. Active Social History Tobacco Use Types Packs/Day Years Used Date Smoking Tobacco: Never Assessed Education Answer Date Recorded Are you interested in more education? Not on denzel e 08/30/2024 Are you concerned about learning? Not on file 08/30/2024 No 08/30/2024 No 08/30/2024 Digital Access Answer Date Recorded No 08/30/2024 No 08/30/2024 Reliable internet access at home? Not on file 08/30/2024 Device with a working camera? Not on file Sex and Gender Information Value Date Recorded Sex Assigned at Not on file Legal Sex Male 2:55 PM EST Gender Identity Not on file Sexual Orientation Not on file Last Filed Vital Signs Vital Sign Reading Time Taken Comments Blood Pressure 113/68 08/30/2024 5:28 PM EST Pulse 79 08/30/2024 5:28 PM EST Temperature 36.8 C (98.3 F) 08/30/2024 5:28 PM EST Respiratory Rate 20 08/30/2024 5:28 PM EST Oxygen Saturation 98% 08/30/2024 5:2 8 PM EST without Oxygen Inhaled Oxygen Concentration - - Weight - - Height - - Body Mass Index - - Plan of Treatment Health Maintenance Due Date Last Done Comments Adult Td,Tdap Booster 1950 LIPID PANEL 1949 DEPRESSION SCREENING 1961 SMOKING Hx and SMOKELESS TOBACCO SCREENING 1962 HEPATITIS C SCREENING 1967 COLONOSCOPY 1994 FIT TEST 1994 FOBT 1994 SIGMOIDOSCOPY 1994 VIRTUAL COLONOSCOPY 1994 ZOSTER VACCINES (1 of 2) 1999 RSV VACCINE (1 - 1-dose 75+ series) 2024 INFLUENZA VACCINE (#1) 2025 COVID-19 VACCINE ( - 2023-2 5 season) 2025 COLOGUARD 09/17/2026 09/17/2023 COLORECTAL CANCER SCREENING 09/17/2026 PNEUMOCOCCAL VACCINES (50+ years) Completed 03/05/2024, 12/12/2022 HEPATITIS A VACCINES Aged Out No long er eligible based on patient's age to complete this topic HIB VACCINES Aged Out No longer eligi ble based on patient's age to complete this topic MENINGOCOCCAL VACCINES (ACWY) Aged Out No longer eligible based on patient's age to complete this topic MENINGOCOCCAL VACCINES (B) Aged Out N o longer eligible based on patient's age to complete this topic Medical Devices Not on file Insurance [employer] MEDEX SUPPLEMENT MEDICARE PART A & B [employer] MEDEX SUPPLEMENT MEDICARE PART A & B [employer] MEDEX SUPPLEMENT MEDICARE PART A & B MEDICARE PART A & B [employer] MEDEX SUPPLEMENT MEDICARE PART A & B [employer] MEDEX SUPPLEMENT MEDICARE PART A & B Care Teams Wage Analyst Relationship Specialty Start Date End Date Vandana Parker MD [address] [place] [address] PCP - General Internal Medicine 08/30/24 Additional Source Comments The information contained in this document represents components of the legal health record. It is not the complete legal health record.[facility]
--- OUTSIDE RECORDS SUMMARY | 2025-04-25 11:33 | XMS_ITS | Clinical Summary ---
Author Organization [facility] Address [address] [place] [address] Care Team Providers Care Printing Machine Mechanic Name Role Phone Vandana Parker MD Primary Care Provider +1- [phone] Allergies No known active allergies Medications Medication Sig Dispensed Refills Start Date End Date Status clopidogrel (PLAVIX) 75 MG tablet TAKE 1 TABLET BY MOUTH DAILY 3 06/11/2017 Active glipiZIDE (GLUCOTROL XL) ER 24 hr tablet 10 mg TAKE 1 TABLET BY MOUTH TWICE A DAY 3 05/31/2017 Active metFORMIN (GLUCOPHAGE) tablet 500 mg TAKE 2 TABLETS BY MOUTH TWICE A DAY 3 06/11/2017 Active metoprolol succinate (TOPROL-XL) 24 hr tablet 50 mg TAKE 1 TABLET BY MOUTH TWICE A DAY 2 06/23/2017 Active pravastatin (PRAVACHOL) tablet 80 mg TAKE 1 TABLET BY MOUTH EVERY DAY 3 06/11/2017 Active sertraline (ZOLOFT) 50 MG tablet Take 50 mg by mouth daily. 2 05/13/2017 Active aspirin EC 81 MG tablet Take 81 mg by mouth. 0 Active insulin glargine (LANTUS) injection 100 units/mL Inject 16 Units under the skin. 0 Active Active Problems Problem Noted Date Diagnosed Date Arthritis of knee, right 08/28/2018 Right knee injury 08/28/2018 Social History Tobacco Use Types Packs/Day Years Used Date Smoking Tobacco: Never Assessed Sex and Gender Information Value Date Recorded Sex Assigned at Not on file Gender Identity Not on file Sexual Orientation Not on file Last Filed Vital Signs Vital Sign Reading Time Taken Comments Blood Pressure - - Pulse - - Temperature - - Respiratory Rate - - Oxygen Saturation - - Inhaled Oxygen Concentration - - Weight 102.5 kg (226 lb) 10/07/2018 10:09 AM EST Height 188 cm (6' 2 ) 10/07/2018 10:09 AM EST Body Mass Index 29.02 10/07/2018 10:09 AM EST Plan of Treatment Health Maintenance Due Date Last Done Comments Hepatitis C Screening 1950 COVID-19 Vaccine (#1) 01[birth year]16/1950 Depression Screening 1961 Preventative Health Evaluation 1967 DTap / Tdap / Td (1 - Tdap) 1968 Colon Cancer Screening (Colonoscopy) 1994 Shingrix-Zoster Vaccine (1 of 2) 1999 Fall Risk Assessment 2014 Pneumococcal Vaccine (1 of 1 - PCV) 2014 RSV Adult > 60+ Yrs or Pregn ant (1 - 1-dose 75+ series) 2024 Influenza Vaccine (#1) 2025 Hepatitis B Vaccines Aged Out No long er eligible based on patient's age to complete this topic RSV Ped < 20 months Aged Out No longe r eligible based on patient's age to complete this topic Advance Directives For more information, please contact: [phone] Documents on File Type Date Recorded Patient [employer] Expl anation Advance Directive and Living Will 11/15/2016 9:42 AM Care Teams Printing Machine Mechanic Relationship Specialty Start Date End Date Vandana Parker MD [address] [place] [address] PCP - General Internal Medicine 08/05/17
--- OUTSIDE RECORDS SUMMARY | 2025-04-25 11:33 | XMS_ITS | Encounter Summary ---
Author Organization [facility] Address [address] [place] [phone] Care Team Providers Care Parachute Folder Name Role Phone Vandana Parker MD Primary Care Provider +1- [phone] Encounter Details Date Type Department Care Team (Late st Contact Info) Description 05/26/2020 Scanned Document [facility] [address] [place] [address] [place] [address] Jimi Glynn MD [address] [place] [place] [phone] Social History Tobacco Use Types Packs/Day Years [...] on filedocumented in this encounter Care Teams Parachute Folder Relationship Specialty Start Date End Date Vandana Parker MD [address] [address] PCP - General Internal Medicine 03/29/19 documented as of this encounter
--- OUTSIDE RECORDS SUMMARY | 2025-04-25 11:33 | XMS_ITS | Encounter Summary ---
Author Organization [facility] Address [address] [place] [phone] Care Team Providers Care Glass Smoother Name Role Phone Vandana Parker MD Primary Care Provider +1- [phone] Encounter Details Date Type Department Care Team (Late st Contact Info) Description 06/22/2019 Scanned Document [facility] [place] [address] [facility] [address] [place], [place] [id number] Jimi Glynn MD [address] [place] [phone] Social History Tobacco Use Types Packs/Day Years [...] on filedocumented in this encounter Care Teams Glass Smoother Relationship Specialty Start Date End Date Vandana Parker MD [address] [address] PCP - General Internal Medicine 03/29/19 documented as of this encounter
--- OUTSIDE RECORDS SUMMARY | 2025-04-25 11:33 | XMS_ITS | Clinical Summary ---
Author Organization [address] [place] [address] Address [address] [place] [address] Phone Care Team Providers Care Hob Mill Operator Name Role Phone Vandana Parker MD Primary Care Provider [phone] Allergies Active Allergy Reactions Criticality Noted Date Comments Atorvastatin High 05/06/2022 Muscle aches Magnesium Oxide 05/06/2022 Pravastatin High 05/06/2022 Muscle aches Armqydr-Zsc-Rri Reductase Inhibitors 07/13/2024 Medications albuterol HFA (PROAIR HFA ; PROVENTIL HFA ; VENTOLIN HFA) 90 mcg/actuation inhaler Inhale 2 Puffs into the lungs every 6 hours as needed. Active aspirin 81 mg EC tablet Take 1 Tablet by mouth daily. Active insulin glargine (LANTUS SoloStar) 100 unit/mL (3 mL) injection pen 45 units Active nitroglycerin (NITROSTAT) 0.[address] 1 Tablet under the tongue every 5 minutes as needed for Chest pain. Active sertraline (ZOLOFT) 50 mg tablet Take 1 Tablet by mouth daily. Active Oxygen Therapy (O2) gas Inhale by mouth continuously . via nasal canula Use when walking a long way Active metoprolol tartrate (LOPRESSOR) 25 mg tablet Take 0.5 tablets (12.5 mg total) by mouth 1 (one) time each day. Active clopidogreL (PLAVIX) 75 mg tabletIndication s:Coronary artery disease involving [place] coronary artery of [place] heart, unspecified whether angina present,History of non-ST elevation myocardial infarction (NSTEMI) Take 1 tablet (75 mg total) by mouth 1 (one) time each day. 90 tablet 2 5 Active ferrous gluconate (FERGON) 324 mg (38 mg iron) tablet Take 1 tablet (324 mg total) by mouth daily. 5 Active glipiZIDE (GLUCOTROL) 10 mg tablet Take 1 tablet (10 mg total) by mouth 2 (two) times a day. 5 Active insulin lispro (Admelog SoloStar U-100 Insulin) 100 unit/mL injection pen Inject under the skin 3 (three) times a day before meals. 4 Active levothyroxine (SYNTHROID, LEVOTHROID) 50 mcg tablet Take 1 tablet (50 mcg total) by mouth 1 (one) time each day before breakfast. Active rosuvastatin (CRESTOR) 10 mg tablet Take 1 tablet (10 mg total) by mouth 1 (one) time each day. 5 Active rosuvastatin (CRESTOR) 5 mg tablet Take 1 tablet (5 mg total) by mouth 1 (one) time each day. 90 each 2 5 04/15/20 25 Discontinu ed(Reorder ) Active Problems Problem Noted Date Diagnosed Date Status post coronary artery bypass graft 025 Assessment & Plan (10/19/2024 6:26 PM EDT): Orders: D-Dimer; Future XR Chest 2 Views; Future Paroxysmal atrial fibrillation ([facility]/HCC V24, CMS /HCC V28) 10/19/2024 Overview (04/17/2025): Postop CABG Not on anticoagulation Assessment & Plan (04/17/2025 12:52 PM EDT): Clinically, the patient has not had any recurrence of his atrial fibrillation. Continue symptomatic monitoring. Should he have recurrence, would institute full anticoagulation given his elevated [id number] score Assessment & Plan (10/19/2024 10:26 PM EDT): The patient did experience postoperative paroxysmal atrial fibrillation, having converted to normal sinus rhythm 48 hours prior to discharge; he was discharged on a short course of amiodarone which was completed on 08/26/2024. He was not discharged on anticoagulation. Given his recent palpitations, we will update 24-hour Holter as outlined above and continue to readdress this as indicated; based on the results, longer term ambulatory monitoring may be warranted. Orders: Cardiac holter monitor (<= 48 hours); Future Dizziness 10/19/2024 Assessment & Plan (04/17/2025 12:48 PM EDT): Is unclear the etiology of the patient's dizziness. Today, it is not described as postural. It can possibly be related to his carotid circulation. It also could be related to his widely fluctuating blood sugars. He has not had any falls as a result of his dizziness. He will continue to gather data and notify us of any changes in his condition. His Holter monitor from October for the same symptom was unrevealing. If this symptom persists, would recommend monitoring for longer duration Assessment & Plan (10/19/2024 10:26 PM EDT): There does appear to be an orthostatic component to his dizziness; blood pressure was rechecked upon standing and was noted to drop into the range of 90s over 50s. His metoprolol has already been switched from succinate to tartrate which should have less effect on his blood pressure and dosage has been decreased to current 12.5 mg twice daily. Could consider stopping beta-blockade altogether and potentially adding midodrine or fludrocortisone; however, I would like to discuss this further with the covering channel marketing manager as Dr. Wade is on vacation this week. As such, we will not make any changes at the present time but will continue to readdress this. Orders: Cardiac holter monitor (<= 48 hours); Future Basic metabolic panel; Future CBC and differential; Future Thyroid stimulating hormone with reflex free T4; Future Magnesium; Future D-Dimer; Future XR Chest 2 Views; Future Palpitations 10/19/2024 Assessment & Plan (10/19/2024 10:26 PM EDT): As above, update labs and 24-hour Holter; we will continue to readdress this as indicated by results. Orders: Cardiac holter monitor (<= 48 hours); Future Basic metabolic panel; Future CBC and differential; Future Thyroid stimulating hormone with reflex free T4; Future Magnesium; Future D-Dimer; Future Acute chest pain 07/14/2024 Chest pain 07/13/2024 Assessment & Plan (10/19/2024 10:26 PM EDT): The patient presents today with several concerning symptoms which have been ongoing since his CABG in 07/2024 including chest pain, shortness of breath with exertion, dizziness, and palpitations. He also reports having stopped his clopidogrel at the direction of cardiac surgery; however, according to his most recent cardiac surgery follow-up note, he was to continue DAPT with Plavix and daily aspirin for at least 1 year given his history of NSTEMI. I reached out to their office today to discuss this further; I spoke with Leslye who agrees that this appears to be the current recommendation but will discuss this further with the surgical team and notify our office once she has a firm answer. The differential for his symptoms is broad and may be multifactorial including failure of his grafts, possible pulmonary embolism, autonomic dysfunction as a result of his bypass surgery, ongoing significant hyperglycemia, and/or significant deconditioning. He has not had blood work completed since the end of August; we will update labs today looking for any significant anemia or electrolyte disturbances that may be contributory. We will check TSH to rule out thyroid dysregulation. Given shortness of breath and reported oxygen desaturations, we will check a chest xray for possible pleural effusions or clues to other possible underlying pulmonary issues; however, he appears euvolemic on exam today and lungs are quite clear with air movement noted to the bases. Chest x- ray completed on 08/24/2024 while he was having similar symptoms showed no acute abnormality. We will check D-dimer given concern for possible PE, but these symptoms have been ongoing for months now without change and given recent CABG, this may be elevated and cause undue concern. Given his palpitations and history of postoperative paroxysmal atrial fibrillation, he will complete a 24 hour Holter for further evaluation. We will continue to readdress this once these results are reviewed. In the interim, he was STRONGLY encouraged to seek urgent medical attention by calling 911 if he were to develop severe dyspnea or significant oxygen desaturations, chest pain that did not resolve with rest or nitroglycerin, or if he were to faint. He declined the need for this at the time of his visit; however, I did attempt to reach out to him after his visit was complete to reinforce the need for this but was unable to reach him. On an alternate phone number, I was able to discuss this with his who agrees to pursue this further with him should the symptoms recur. Hyperkalemia 06/18/2024 Overview (06/18/2024): Followed by nephrology and has [facility] ordered Heart failure with mid-range ejection fraction (HFmEF) (CMS/HCC V24, CMS/HCC V28) 06/11/2024 Overview (04/17/2025): - LVEF 40-45% range - Echocardiogram at the time of his DE 07/2024 showed normal LV size with mild concentric LVH, LVEF 46%, mild diastolic dysfunction, normal RV size and function, normal biatrial, trace MR and AI. Assessment & Plan (04/17/2025 12:51 PM EDT): The patient's LVEF has been in the moderately [place] range for a while. He currently appears euvolemic. 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 Update echocardiogram prior to his next visit. If his LVEF remains depressed, could discuss with the renal team consideration for ERIN/ARB/ARNI based on his potassium trends. Also could consider hydralazine and nitrates as afterload reduction. Though this likely would be complex given the patient's widely variable blood sugars, could discuss with endocrine and nephrology SGLT2 inhibitor. Await his echocardiogram Assessment & Plan (10/19/2024 10:26 PM EDT): His most recent echocardiogram completed on 07/14/2024 prior to his CABG x 3 showed a mildly reduced EF at 46% by biplane; previous echocardiogram from October 2021 showed an EF of 40 to 45%. Fortunately, despite his various symptoms the patient appears well compensated and euvolemic on exam today. I've asked the patient to call if they develop worsening symptoms of heart failure such as increased shortness of breath, new or worsening cough, increased swelling in the legs or ankles, or weight gain of more than 2 pounds in one day or 4 pounds in one week. Orders: XR Chest 2 Views; Future Assessment & Plan (07/14/2024 6:16 PM EST): [...] most recent echocardiogram completed 01/30/2024 while inpatient [facility] revealed an EF of 40 to 45%. [...] Plan (07/14/2024 6:16 PM EST): As above. History of non-ST elevation myocardial infarctio n (NSTEMI) 02/17/2024 Assessment & Plan (10/19/2024 10:26 PM EDT): Orders: clopidogreL (PLAVIX) 75 mg tablet; Take 300 mg (4 tablets) by mouth once as a loading dose, and take 1 tablet (75 mg) by mouth daily thereafter. Unstable angina (CMS/HCC V24, CMS/HCC V28) 02/16 Assessment & Plan (07/14/2024 6:16 PM EST): [...] follow-up and repeat ischemic workup as indicated. Coronary artery disease invo lving hyd[place] coronary artery of [place] heart without angina pectoris 05/06/2022 Overview (04/17/2025): - s/p CABG 07/2024 -Prior stenting including proximal circumflex and mid RCA in 2015, SATURNINO mid LAD 2016 and patent stents on 02/2019 -NSTEMI 07/2024, transferred to [facility] where cath showed significant multivessel CAD undergoing 3V CABG with Dr. Santamaria receiving (LAWLER to LAD, SVG to PLV, RA to OM -Brief postoperative atrial fibrillation, discharged on amiodarone prophylaxis, was not started on anticoagulation -Echocardiogram at the time of his DE showed normal LV size with mild concentric LVH, LVEF 46%, mild diastolic dysfunction, normal RV size and function, normal biatrial, trace MR and AI. Assessment & Plan (04/17/2025 12:43 PM EDT): The patient has now very sporadic the patient now has very sporadic and much improved atypical chest discomfort occurring only a couple times per month lasting anywhere from 10 seconds to 5 minutes and never occurring with exertion. Therefore, his chest discomfort is not likely related to coronary insufficiency especially so soon after his bypass. He will continue his aspirin and Plavix 1 year following his CABG on the recommendation of the cardiothoracic surgeons. He will continue his low-dose metoprolol and we will increase his statin as below. Assessment & Plan (10/19/2024 10:26 PM EDT): Now status post CABG x 3 in July 2024. Unfortunately, it appears as though the patient may have mistakenly stopped his Plavix 1 month ago. I reached out to the cardiac surgeon's office and it appears as though the recommendation is to continue DAPT with Plavix and aspirin for at least 1 year postprocedure. I did discuss this with the patient and his son and they are willing to restart Plavix we will reload with 300 mg by mouth once and 75 mg daily thereafter; new prescription has been sent to the pharmacy. He is aware to continue with aspirin in addition to restarting Plavix. He will continue with other cardioprotective medical therapies including current dose of beta-blockade as well as rosuvastatin without change. As discussed above, I will review his case with the covering channel marketing manager out of concern for possible graft failure and proceed accordingly. The patient was advised to seek emergent medical attention by calling 911 if they were to develop severe dyspnea, chest pain that did not resolve with rest or nitroglycerin, or if they were to faint. Orders: ECG 12 lead Lipid panel; Future clopidogreL (PLAVIX) 75 mg tablet; Take 300 mg (4 tablets) by mouth once as a loading dose, and take 1 tablet (75 mg) by mouth daily thereafter. Assessment & Plan (07/14/2024 6:16 PM EST): [...] this; we discussed transfer via ambulance to [facility] versus assisting the patient to [facility] ER; I did not feel it was safe for him to be driving out of concern for recurrence of chest pain that may result in injury to himself or someone else. He was agreeable to presenting to [facility] ER for further evaluation; report was [...] they were to faint. Carotid stenosis 05/06/2022 Overview (04/17/2025): - prior TIAs followed by [facility] vascular surgery, managed medically - He had a left carotid stent 01/2025 -Right ICA velocity in the 70% range Assessment & Plan (04/17/2025 12:45 PM EDT): The patient's carotid stenosis is closely followed by the vascular team at [facility]. Continue risk factor modification with DAPT and statin. Assessment & Plan (06/11/2024 3:48 PM EST): The patient continues to follow with vascular surgery as recommended. 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 Hypercholesterolemia 05/06/2022 Overview (04/17/2025): - Statin intolerance - PCSK9 inhibitors cost prohibitive Assessment & Plan (04/17/2025 12:54 PM EDT): Goal LDL should be at least less than 70 though ideally 55 or lower based on new evidence. His LDL is elevated. Historically, he has had some intolerance to statins and PCSK9 inhibitors have been cost prohibitive. However, he states that he is currently feeling well on his low-dose Crestor. He does not think that he has ever tried a higher dose of Crestor. He agrees to give 10 mg daily of Crestor to try and follow his symptoms. He will update a lipid profile in about 4 weeks time. He will call me sooner if he has any problems with the higher dose. If he does not tolerate higher dose statin, consideration could be given for Zetia Assessment & Plan (10/19/2024 10:26 PM EDT): No recent lipid panel on file; we will update this today. LDL goal for this patient was a history of coronary artery disease as well as diabetes is less than 55. We will continue to readdress this as indicated; in the interim continue rosuvastatin 5 mg daily. Orders: Lipid panel; Future Assessment & Plan (07/14/2024 6:16 PM EST): Continue statin; readdress after ER visit. Assessment & Plan (06/11/2024 3:48 PM EST): As above, the patient has been intolerant of statins and PCSK9 inhibitors have been cost prohibitive. Will discuss possible trial of Leqvio at short interval follow-up visit. Hypertension 05/06/2022 Assessment & Plan (04/17/2025 12:49 PM EDT): Patient's blood pressure is somewhat robust in office today, but reportedly has had orthostasis in the past. For now, continue metoprolol at current dose. He does not appear to be on an ERIN or an ARB, likely due to his hyperkalemia, and he is is followed closely by renal. If his blood pressure remains robust, could consider calcium channel fernanda unless his LVEF has dropped further. However, based on his pre-CABG and historical LVEF though, calcium channel fernanda would not be prohibited as only mildly reduced. Hydralazine could also be considered. Assessment & Plan (10/19/2024 10:26 PM EDT): As above, the patient is now experiencing issues with hypotension. We will continue with metoprolol alone but may need to consider discontinuing this and/or the addition of midodrine or fludrocortisone in the future. Will continue to readdress this. We will obtain metabolic panel as outlined above. Orders: Basic metabolic panel; Future Assessment & Plan (07/14/2024 6:16 PM EST): [...] Encounters Date Type Department Care Team Description 04/25/2025 Telephone [facility] Cardiology [facility] [address] [place] [address] Radu Wade MD 04/15/2025 10:40 AM EDT Office Visit [facility] Cardiology [facility] [address] [place] [id number] Nathalie Tian NP Hypercholesterolemia (Primary Dx); Coronary artery disease involving [place] coronary artery of [place] heart without angina pectoris; Heart failure with mid-range ejection fraction (HFmEF) ([facility] V24, [facility] V28); Primary hypertension; Bilateral carotid artery stenosis; Dizziness; Paroxysmal atrial fibrillation ([facility] V24, [facility] V28) 03/03/2025 Telephone [facility] [address] [place] [address] Radu Wade MD from Last 3 Months Surgical History Surgery Date Site/Laterality Comments SPINE SURGERY cervical and lumbar ROTATOR CUFF REPAIR Left KNEE SURGERY Left CORONARY STENT PLACEMENT mid LAD in 2017 and 2 proximal circumflex and mid RCA in 2015 Medical History Medical History Date Comments Hypertension CHF (congestive heart failur e) ([facility] V24, [facility] V28) COPD (chronic obstructive pu lmonary disease) ([facility] V24, [facility] V28) CAD (coronary artery disease) s/ p stenting to mid LAD 2017, proximal circumflex and mid RCA, 2015 PAD (peripheral artery disea se) ([facility] V24) DM (diabetes mellitus) ([facility] V24, [facility] V28) Lymphoma in remission ([facility] V28) CKD (chronic kidney disease) stage 3, GFR 30-59 ml/min ([facility] V24, [facility] V28) Family History Medical History Relation Name Comments [...] Sign Reading Time Taken Comments Blood Pressure 115/52 10/19/2024 3:30 PM EDT Pulse 79 04/15/2025 10:36 AM EDT Temperature 36.2 C (97.2 F) 07/14/2024 8:29 PM EST Respiratory Rate 18 07/14/2024 8:29 PM EST Oxygen Saturation 95% 04/15/2025 10:36 AM EDT Inhaled Oxygen Concentration - - Weight 96.6 kg (213 lb) 04/15/2025 10:36 AM EDT Height 188 cm (6' 2 ) 04/15/2025 10:36 AM EDT Body Mass Index 27.35 04/15/2025 10:36 AM EDT Plan of Treatment Upcoming Encounters Date Type Department Care Team (Late st Contact Info) Description 10/14/2025 8:00 AM EDT Ancillary Procedure [facility] [address] [facility] [address] [place] [address] Health Maintenance Due Date Last Done Comments COVID-19 Vaccine (#1) 1954 Diabetes: Annual Foot Exam 1959 Diabetes: Annual Retina Eye Exam 1959 Zoster Vaccines (1 of 2) 1968 Abdominal Aortic Aneurysm (AAA) Screen 07/06/2022 Hepatitis C Screening 07/06/2022 Medicare Annual Wellness Visit 07/06/2022 Social Influencers of Health Screening 07/06/2022 RSV Immunization Adult Patients (1 - 1-dose 75+ series) 2024 Depression Screening 08/04/2024 Diabetes: Annual Urine Albumin-Creatinine Ratio (uACR) 08/25/2024 Diabetes: Blood Sugar Control Test (HGBA1C) 08/25/2024 Influenza Vaccine (#1) 2025 Falls Risk Assessment 07/14/2025 07/14/2024 Diabetes: Annual GFR (Glomerular Filtration Rate) 03/14/2026 03/14/2025, 03/14/2025, 10/20/2024, Additional history exists Hypertension/CHF/CAD Annual BMP Blood Test 03/14/2026 03/14/2025, 03/14/2025, 10/20/2024, Additional history exists DTaP,Tdap,and Td Vaccines (2 - Td or Tdap) 11/18/2027 11/17/2017 Cholesterol Screening (Lipid Panel) 10/20/2029 10/20/2024 Colorectal Cancer Screening: Colonoscopy 11/03/2034 11/03/2024 Colorectal Cancer Screening: FIT-DNA (Cologuard) Discontinued 09/17/2023, 09/17/2023 Pneumococcal Vaccine: 50+ Years Completed 03/05/2024, 12/12/2022, [...] age to complete this topic Meningococcal B Vaccine Aged Out No l onger eligible based on patient's age to complete this topic RSV Immunization Patients Under 20 months Aged Out No longer eligible based on patient's age to complete this topic Varicella Vaccines Aged Out No longer eligible based on patient's age to complete this topic Procedures Procedure Name Priority Date/Time Associated Diagnosis Comments COLONOSCOPY Routine 11/03/2024 9:55 AM EDT BASIC METABOLIC PANEL Routine 10/20/2024 11:30 AM EDT Primary hypertension Palpitations Dizziness LIPID PANEL Routine 10/20/2024 11:30 AM EDT Coronary artery disease involving [place] coronary artery of [place] heart, unspecified whether angina present Hypercholesterolemia from Last 3 Months or Most Recently Relevant to Health Maintenance Results * COLONOSCOPY (11/03/2024 9:55 AM EDT) Anatomical Region Laterality Modality Endoscopy Historical Provider GI~PROCEDURE ORDERABLES F inal Result * (ABNORMAL) Lipid panel (10/20/2024 11:30 AM EDT) Cholesterol Total 197 100 - 199 mg/dL [facility] Triglycerides 173(H) 0 - 149 mg/dL [facility] HDL Cholesterol 68 >39 mg/dL [facility] VLDL Cholesterol Calculated 29 5 - 40 mg/dL [facility] 1 LDL Chol Calc (NIH) 100(H) 0 - 99 mg/dL [facility] 1 Blood Venous blood specimen / Unknown 10/20/2024 11:30 AM EDT 10/20/2024 Narrative [facility] 1 - 10/21/2024 4:06 AM EDT Performed at: 01 - [facility] [address] [id number] Straight Knife Machine Cutter: Amanda Maxwell MD, Phone: [phone] Kenyetta Shi NP LAB BLOOD ORDERABLES Final Result [facility] 1 from Last 3 Months or Most Recently Relevant to Health Maintenance Insurance MEDICARE [facility] Advance Directives * Full Code [...] Agents on File Name Relationship Healthcare Agent [facility] Communication Heath Bai Son Health Care Agent Nellie Bai Spouse First Alternate Health Care Agent [email or web address] Care Teams Hob Mill Operator Relationship Specialty Start Date End Date Vandana Parker MD [address] [place] [address] PCP - General Internal Medicine 08/05/17
--- OUTSIDE RECORDS SUMMARY | 2025-04-25 11:33 | XMS_ITS | Clinical Summary ---
Author Organization [facility] Address [address] [place] [address] Care Team Providers Care Senior Portfolio Analyst Name Role Phone Vandana Parker MD Primary Care Provider +1- [phone] Allergies Active Allergy Reactions Criticality Noted Date Comments Magnesium Unknown/Patient and Family Unable to Define Medium 05/21/2017 Medications metFORMIN (GLUCOPHAGE) 1000 MG tablet Take 1,000 [...] at Not on file Legal Sex Male 7:51 AM EDT Gender Identity Not on file Sexual Orientation Not on file Last Filed Vital Signs Vital Sign Reading Time Taken Comments Blood Pressure 160/84 05/21/2017 12:16 PM EDT Pulse 63 05/21/2017 12:16 PM EDT Temperature 36 C (96.8 F) 05/21/2017 7:56 AM EDT Respiratory Rate 18 05/21/2017 12:16 PM EDT Oxygen Saturation 96% 05/21/2017 12:16 PM EDT Inhaled Oxygen Concentration - - Weight - - Height - - Body Mass Index - - Plan of Treatment Health Maintenance Due Date Last Done Comments Advance Care Planning 1950 Hepatitis C Virus Screening 1950 DTaP/Tdap/Td Vaccines (1 - Tdap) 1968 Colonoscopy 1994 Pneumococcal Vaccines 50+ (1 of 1 - PCV) 1999 Zoster (Shingles) Vaccine (1 of 2) 1999 RSV Vaccine 60 years and old er and Patients (1 - 1-dose 75+ series) 2024 Influenza Vaccine 03/04/2025 COVID-19 Vaccine ( - 2023-2 5 season) 2025 Hepatitis B Vaccines Aged Out No long er eligible based on patient's age to complete this topic Insurance MEDICARE PART A & B [facility] Care Teams Senior Portfolio Analyst Relationship Specialty Start Date End Date Vandana Parker MD [address] [place] [address] PCP - General Internal Medicine 05/21/17
--- OUTSIDE RECORDS SUMMARY | 2025-04-25 11:33 | XMS_ITS | Encounter Summary ---
Author Organization [facility] Address [address] [place] [address] Care Team Providers Care Slasher Operator Name Role Phone Vandana Parker MD Primary Care Provider +1- [phone] Reason for Visit * Reason Onset Date Comments Medication Problem 04/25/2025 Encounter Details Date Type Department Care Team (Late st Contact Info) Description 04/25/2025 Telephone [facility] - [facility] [address] [facility] [address] [place] [address] Radu Wade MD [address] [place] [address] [place] [address] Social History Tobacco Use Types Packs/Day Years [...] Jerome Mondragon RN documented in this encounter Progress Notes * Alvaro Joshi - 04/25/2025 11:21 AM EDT Patients spouse chiara is calling stating patient went to get an xray and banged his arm on equipment, had a skin tear and bled a lot. Patients spouse states senior maintenance technician advised her to call cardiology and is wanting to know if clopidogrel 75mg can be reduced, as its making him bleed a lot. Please callspouse. documented in this encounter Plan of Treatment Upcoming Encounters Date Type Department Care Team (Late st Contact Info) Description 10/14/2025 8:00 AM EDT Ancillary Procedure [facility] - [address] [place] [address] documented as of this encounter Visit Diagnoses Not on filedocumented in this encounter Care Teams Slasher Operator Relationship Specialty Start Date End Date Vandana Parker MD [address] [place] [address] PCP - General Internal Medicine 08/05/17 documented as of this encounter
--- OUTSIDE RECORDS SUMMARY | 2025-04-25 11:33 | XMS_ITS | Clinical Summary ---
Author Organization [address] Address [address] [place] [id number] Phone Care Team Providers Care Submarine Cable Equipment Technician Name Role Phone Vandana Parker MD Primary Care Provider +1- [phone] Allergies Active Allergy Reactions Criticality Noted Date Comments Atorvastatin Other (See Comments) Medium 05/06/2022 Muscle aches Magnesium Unknown Medium 05/21/2017 Magnesium Oxide Vomiting 05/06/2022 vomitting/diarrhea Pravastatin Other (See Comments) Medium 05/06/2022 Muscle aches Chfwuxi-Aag-Mzq Reductase Inhibitors Other (See Comments) Medium 04/26/2019 [...] Standard Series) 1999 Aortic Aneurysm screening 2014 RSV Immunization (1 - 1-dose 75+ series) 2024 Influenza vaccine 03/04/2025 Covid-19 vaccine series ( - 2023- season) 2025 Tetanus adult (Td q 10,TDAP once) 11/18/2027 11/17/2017 Pneumococcal Vaccine (50+ years) Completed 12/12/2022, 04/28/2019, 11/17/2017 Meningococcal B Vaccine Aged Out No l onger eligible based on patient's age to complete this topic Meningococcal Vaccine Aged Out No kylah binta eligible based on patient's age to complete this topic Insurance MEDICARE [facility] MEDICARE [facility] MEDICARE [facility] Member Subscriber Plan / Payer (Ef fective 2014-Present) Name:Jose L Goins Relation to Subscriber:Self Name:Jose L Goins Payer ID:[id number] (NAIC) Type:Not on file Address: [address] [place] [id number] Care Teams Submarine Cable Equipment Technician Relationship Specialty Start Date End Date Vandana Parker MD [address] [address] PCP - General Internal Medicine 03/29/19
== END 2025-04-25 09:44 | disposition home or self-care (01) ==
LOC: HO.XRAY 09:43
PROVIDERS: PCP Internal Medicine; Visit Provider Hospitalist
DX: K21.9 Gastro-esophageal reflux disease without esophagitis (principal)
CPT/HCPCS: 74220

== ENCOUNTER → 2025-04-25 09:44 | Outpatient (BNV) | payer MEDICARE, SELFPAY | PROVIDERS: PCP Internal Medicine; Visit Provider Radiology Diagnostic Radiology | DX: K44.9 Diaphragmatic hernia without obstruction or gangrene (principal) | CPT/HCPCS: 74221 ==

== ENCOUNTER 2025-06-06 10:43 | Outpatient (AMB) | payer MEDICARE, SELFPAY ==
--- NOTE | 2025-06-06 09:29 | A.OFFPC_ITS ---
Vital Signs 06/06/25 10:45 Height 5 ft 11.75 in Weight 219 lb 2 oz BMI 29.9 BP 110/50 L Blood Pressure Location Lt brachial Position Sitting Respiration 16 Pulse 78 Pulse Source Pulse Oximeter Temp 97.1 F Temp Source Temporal Artery Scan Pulse Oximetry (%) 94 Oxygen Delivery Method Room Air Intake Visit Reasons: Routine, follow up HTN, DM, recent ER visit Structural Engineering Project Manager Required: No Accompanied by: Spouse Allergies atorvastatin Allergy (Severe, Verified 06/06/25 09:29) Muscle Aches magnesium Allergy (Severe, Verified 06/06/25 09:29) Rash pravastatin Allergy (Severe, Verified 06/06/25 09:29) Muscle Aches Medication List - Last Reconciled 06/06/25 by Vandana Parker MD acetaminophen (Tylenol) 650 mg PO .QHS PRN albuterol sulfate 90 mcg/actuation 2 inhalations inhalation Q6H PRN 30 days Anoro Ellipta 62.5-25 mcg/actuation (umeclidinium-vilanterol) 1 inh inhalation DAILY NS aspirin 81 mg PO DAILY blood sugar diagnostic ([employer] Ultra Test strips) As directed blood-glucose sensor (EnStorageStyle Honey 2 Plus Sensor device) As directed clopidogrel 75 mg PO DAILY flash glucose scanning reader (FreeStyle Honey 2 Evans) As directed glipizide ER 10 mg PO BID insulin glargine (Basaglar KwikPen U-100 Insulin) 24 units subcut QPM insulin lispro (Humalog KwikPen (U-100) Insulin) 1 sliding scale dose subcut USEASDIRECTD ipratropium-albuterol 0.5 mg-3 mg(2.5 mg base)/3 mL 3 mL inhalation BID 30 days lancets ([employer] UltraSoft 2 Lancet) As directed levothyroxine 50 mcg PO DAILY lovastatin 10 mg PO DAILY metoprolol tartrate 12.5 mg PO BID multivitamin 1 tab PO DAILY pen needle, diabetic (Ultra-Fine Pen Needle) As directed sertraline 50 mg PO DAILY Tobacco use date assessed: 06/06/25 Fall risk assessment: 2 + Falls in past year Last assessed Fall Risk: 06/06/25 Dental Screening Dental Screen Date: 06/06/25 Did you have a dental visit in the last 12 months?: Yes Did you have a dental problem in the last 6 months where you did not have access to dental care?: No Was dental information given to patient?: Patient has dentist HPI HPI Comments History of Present Illness Details The patient is a 74-year-old male presenting to [facility]at[facility] health care. Recent ER visits at [facility] for syncope, recurrent falls. Syncope: The patient reports transient loss of consciousness leading to falls. Hospital evaluation identified hypotension, though syncope etiology is uncertain. Head trauma and Concussion: There have been significant falls with head impacts, leading to confusion Dizziness: Episodes of dizziness include vertigo sensations and visual disruptions affecting balance and orientation. Carotid artery stenosis: History of left carotid intervention with ongoing clopidogrel therapy. Established with Dr. Albarran at [facility]. Chronic right shoulder pain: Chronic shoulder pain, possibly arthritic, saw orthopedics at [facility] in [place]. No pain relief with tylenol Type 2 Diabetes Mellitus: Blood glucose fluctuations noted with a sliding scale insulin regimen. Recent high readings have been problematic. Established with [facility] endocrinology Hypertension: Reports of low blood pressure readings occasionally. CKD stage III and hypomagnesemia- established with Dr. Quinn CHF-stable Anemia- due for repeat cbc Risk of falls: Multiple recent falls occurring under different circumstances, indicating an increased risk. Memory disturbance: Confusion and memory lapses noted, potentially linked with head trauma or syncope episodes. Hypothyroidism- on levothyroxine CAD s/p CABG-stable Care Team Police Captain- Dr. Wade Oracle Reports Developer- Dr. Quinn Vascular surgery- Dr. Albarran Orthopedics- [facility] Ophthalmology- Dr. Alex Surgical History: - Left carotid artery endarterectomy - Cataract surgery - CABG Social History: - Previously working on job sites but ph ysical limitations noted - Reports limited fluid intake due to co nvenience during the day - Functional limitations due to chronic pain and risk of falls Diagnostic Results: - Labs: Elevated glucose levels, variabl e blood pressure recordings ranging from 150s to 350s. - Diagnostics: Previous CT scan for head trauma; will obtain reports from [facility] Review of Systems - Cardiovascular: Reports episodes of hy potension, elevated troponin during hospitalization. - Musculoskeletal: Reports right shoulde r pain and limited range of motion. - Endocrine: Reports fluctuating glucose levels. - Neurological: Reports dizziness, memor y difficulty, confusion, and passing out episodes. - Visual: Reports visual disturbances in cluding seeing black dots and colors. - Hematology: Reports easy bruising and concern for bleeding. Physical Exam - Respiratory- Lungs clear to auscultation. -Cardiovascular- Heart sounds normal, no murmurs. Carotid arteries without bruits. - Abd: SNTD, +BS - Musculoskeletal- Right shoulder with r mary of motion limitations, tenderness noted. - Extremities: no edema bilaterally - Neurological- No specific deficits obs erved, but signs of confusion and memory challenges noted. Assessment and Plan 1. Syncope - Conduct neurological workup. - Will evaluate potential hypotensive ep isodes evaluation through 24-hour monitoring. 2. Head trauma and Concussion - Schedule MRI for detailed brain imagin g. - EEG test consideration for seizures. 3. Dizziness - Fall risk strategies emphasized. 4. Carotid artery stenosis - Continue clopidogrel regimen until Dec ember follow up with vascular - Vascular will monitor Right carotid al so 5. Chronic shoulder pain - Start lidocaine patch for pain. - Heating pad prn 6. Type 2 Diabetes Mellitus - Review and adjust insulin sliding scal e per endocrinology recommendations - check a1c 7. Hypertension - Investigate BP trends, including a 24- hour monitor if needed. 8. Risk of falls - Uses walker at home 9. Memory disturbance - Track memory change. 10. CKD stage III- continue to monitor 11. Hypomagnesemia-continue to monitor Follow up in 4 weeks Discussion Notes During the visit, I discussed concerns about the patient's recurrent syncope, falls, and memory disturbances. We reviewed his recent hospital evaluations where several transient loss of consciousness events. I emphasized the need for further diagnostics, including a brain MRI and EEG, to assess any possible neurological contributions to his symptoms. We discussed managing his shoulder arthritis pain given his medication interactions and planned to initiate a lidocaine patch treatment. Patient Instructions - Follow up with planned MRI and EEG makenna ts. - Use the lidocaine patch as prescribed for shoulder pain. - Continue insulin regimen, monitoring y our blood sugar closely. - Be cautious when standing up or walkin g due to risk of falls. - Drink 48 oz of water - Schedule any recommended follow-up umair ointments. - Monitor your symptoms, especially dizz iness or memory changes, and report if worsened. [facility] Medical History (Updated 06/06/25 @ 16:08 by Vandana Parker MD) Primary hypertension Syncope Hypomagnesemia Hypothyroidism (acquired) Type 2 diabetes mellitus with hyperglycemia Iron deficiency anemia COPD (chronic obstructive pulmonary disease) History of non-Hodgkin's lymphoma History of TIA (transient ischemic attack) Diabetes mellitus type 2, insulin dependent Hyperlipidemia Hypertension CAD (coronary artery disease) Pulmonary nodule GERD (gastroesophageal reflux disease) Chronic restrictive lung disease Dyspnea Pneumonitis Surgical History (Updated 12/06/21 @ 11:16 by Laurel Gaytan PA-C) History of cardiac cath History of shoulder surgery History of total left knee replacement History of lumbar surgery History of cervical spinal surgery History of appendectomy Social History Housing: House Patient Tobacco Use Status: Former Tobacco user Years Smoked: 30 years e-Cigarette/Vaping Use: Never Used service: No Current occupational status: retired Questionnaire AUDIT C Alcohol Use Questionnaire (AUDIT-C) 1. How often do you have a drink containing alcohol?: Never 3. How often do you have six or more drinks on one occasion?: Never Total Score: 0 Physical exam (Primary Care) Vital Signs: Last Vital Signs Temp 97.1 F 06/06/25 10:45 Pulse 78 06/06/25 10:45 Resp 16 06/06/25 10:45 BP 110/50 L 06/06/25 10:45 Pulse Ox 94 06/06/25 10:45 Oxygen Delivery Method Room Air 06/06/25 10:45 BMI result Body Mass Index 29.9 Tobacco/Smoking Status: Tobacco use Status Tobacco use date assessed 06/06/25 06/06/25 09:29 Patient Tobacco Use Status Former Tobacco user 06/06/25 09:29 e-Cigarette/Vaping Use Never Used 06/06/25 11:00 Coding Level of Care Code Est Pt Level 4 (20061) Complex EM visit Add On G2211 Diagnoses Syncope, unspecified syncope type R55 Syncope type: unspecified Type 2 diabetes mellitus with hyperglycemia, with long-term current use of insulin E11.65; Z79.4 Diabetes mellitus manager long term care insulin use: with snf use Hypothyroidism (acquired) E03.9 Congestive heart failure, unspecified HF chronicity, unspecified heart failure type I50.9 Heart failure chronicity: unspecified Heart failure type: unspecified Iron deficiency anemia, unspecified iron deficiency anemia type D50.9 Iron deficiency anemia type: unspecified iron deficiency Hypomagnesemia E83.42 Assessment & Plan Assessment & Plan (1) Syncope: Code(s): R55 - Syncope and collapse Category: Medical Qualifiers: Syncope type: unspecified Qualified Code(s): R55 - Syncope and collapse (2) Type 2 diabetes mellitus with hyperglycemia: Code(s): E11.65 - Type 2 diabetes mellitus with hyperglycemia Category: Medical Qualifiers: Diabetes mellitus manager long term care insulin use: with snf use Qualified Code(s): E11.65 - Type 2 diabetes mellitus with hyperglycemia; Z79.4 - custodial (current) use of insulin (3) Hypothyroidism (acquired): Code(s): E03.9 - Hypothyroidism, unspecified Category: Medical (4) CHF (congestive heart failure): Code(s): I50.9 - Heart failure, unspecified Category: Medical Qualifiers: Heart failure chronicity: unspecified Heart failure type: unspecified Qualified Code(s): I50.9 - Heart failure, unspecified (5) Iron deficiency anemia: Code(s): D50.9 - Iron deficiency anemia, unspecified Category: Medical Qualifiers: Iron deficiency anemia type: unspecified iron deficiency Qualified Code(s): D50.9 - Iron deficiency anemia, unspecified (6) Hypomagnesemia: Code(s): E83.42 - Hypomagnesemia Category: Medical Plan - MRI and EEG for syncope, head trauma, and memory issues. - Lidocaine patch for shoulder pain. - follow up with endocrinology - 24-hour BP monitoring. Orders: Orders Hemoglobin A1c Today D50.9 - Iron deficiency anemia, unspecified, E11.65 - Type 2 diabetes mellitus with hyperglycemia, I50.9 - Heart failure, unspecified Comprehensive Met. Panel Today E11.65 - Type 2 diabetes mellitus with hyperglycemia, I50.9 - Heart failure, unspecified Magnesium Today E83.42 - Hypomagnesemia MR head/brain wo con Today R55 - Syncope and collapse EEG Routine Today R55 - Syncope and collapse Complete Blood Count Auto Diff Today D50.9 - Iron deficiency anemia, unspecified, E11.65 - Type 2 diabetes mellitus with hyperglycemia, I50.9 - Heart failure, unspecified Ferritin Today D50.9 - Iron deficiency anemia, unspecified, E11.65 - Type 2 diabetes mellitus with hyperglycemia, I50.9 - Heart failure, unspecified IRON PROFILE Today D50.9 - Iron deficiency anemia, unspecified, E11.65 - Type 2 diabetes mellitus with hyperglycemia, I50.9 - Heart failure, unspecified TSH reflex Free T4 Today D50.9 - Iron deficiency anemia, unspecified, E03.9 - Hypothyroidism, unspecified, E11.65 - Type 2 diabetes mellitus with hyperglycemia, I50.9 - Heart failure, unspecified Referrals Nephrology Referral I10 - Essential (primary) hypertension, R55 - Syncope and collapse Medications: New lidocaine 5% 1 appl topical QID PRN 50 grams 5RF pain diclofenac sodium 1% apply to single elbow, wrist or hand; for hand includes palm/fingers/back of hand 2 grams topical QID 100 grams 6RF shoulder pain
[2025-06-06 10:45] VITALS: BP 110/50; PULSE 78; RESP 16; TEMP 36.2; O2SAT 94; BMI 29.9
--- OUTSIDE RECORDS SUMMARY | 2025-06-06 13:06 | XMS_ITS | Clinical Summary ---
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
--- OUTSIDE RECORDS SUMMARY | 2025-06-06 13:06 | XMS_ITS | Data Portability ---
Author Organization [place] [facility] [place] Address [address] [place] [address] Care Team Providers Care Sales And Operations Trainee Name Role Phone PETRA GILBERT Primary Care Provider Unavaila ble PETRA GILBERT Referring Provider Unavailable Assessment Encounter Date Assessment Date Assessment LastModified by Organization Details LastModified Time 02/10/2025 02/10/2025 Nondisplaced right distal radius fracture. He was placed into a long-arm removable Velcro brace that he can remove for hygiene. He will follow-up with Dr. Gonzalez in 3 weeks for repeat assessment. Degenerative changes of the right shoulder. No acute fracture appreciated. He can follow-up with Dr. Mejia in 2 to 3 weeks. Concern for question of the lateral tibial plateau nondisplaced fracture. Will obtain a CT scan as he is pending a right knee arthroplasty. I will contact him with the results but he will follow-up with Dr. Johnson in 2 weeks. Contusion of the right foot and ankle. Follow-up with me in 3 weeks. Patient was prescribed a wrist brace for the above diagnosis. The patient has weakness and/or instability of their Right wrist which requires stabilization from this semi-rigid/rigid orthosis to improve their function. Patient was seen and evaluated by Laureano Badillo PA-C in indirect conjunction with Documenting Provider: Jo Ann Preciado MD He/She agrees with history, physical examination, tests/diagnostic imaging, and treatment plan [email or web address] Not available 02/10/2025 17:10:48 02/24/2025 02/24/2025 HPI: 74-year-old [id number] t man presenting with right shoulder pain for 10 years. He rates his pain at best 5 out of 10 at worst and a 10. SANE score 60%. He had other medical issues appropriately related to instability balance he had multiple spine surgeries as well as knee surgeries. 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 He had a prior rotator cuff repair by Dr. Lane in 2005 ROS as per HPI. PHYSICAL EXAM: Constitutional: Well-developed, well-nourished, healthy appearing. Skin: Warm, dry, and without rashes. Pulmonary: Non-labored respirations on room air without audible wheezes. Musculoskeletal: Patient ambulates with a slow, symmetric, and steady gait. Active range of motion of the RIGHT shoulder is 150,40, L3 and LEFT shoulder is 155,40, T12 On the symptomatic RIGHT shoulder, Neer & Hakwins signs are Positive, Kennedy sign is Negative and resisted ER strength is preserved 5/5 On the contralateral LEFT shoulder, Neer & Hakwins signs are Negative, Kennedy sign is Positive and resisted ER strength is weakened 4/5 No AC, SC, biceps signs, cross body adduction, scars, atrophy, deformity, belly press, lift off, external rotation lag sign, internal rotation lag sign, Hornblower's bilaterally. Fingers well perfused and normal. Capillary refill less than 2 seconds. Neurovascular exam, cervical spine exam, trunk and skin are normal. IMPRESSION: with RIGHT shoulder glenohumeral arthritis PLAN: I discussed the treatment options with the Patient includin. Living with the symptoms. 2. Continued non-operative management. 3. Surgical intervention. Nonoperative management be in the form of activity modification, relative rest, judicious use of anti-inflammatory medications as well as cryotherapy and corticosteroid injections. Operative intervention would be in the form of reverse shoulder replacement. We reviewed the risks and benefits of surgery including but not limited to the following: Risk of anesthesia, including ; infection; nerve/tendon/vess el injury; deep venous thrombosis (DVT), pulmonary embolism (PE); shoulder stiffness, allograft-related complications including but not limited to failure, disease transmission; hardware-related problems; failure of the graft to heal; failure of the partial rotator cuff repair to heal if performed; hardware-related problems, potential of the procedure to not alleviate the condition, pain, stiffness, scarring, arthritis, reaction, unexpected findings, alesia biceps muscle appearance, and the potential need for further surgery in the future. A discussion regarding the risks and benefits of a glenohumeral corticosteroid injection was had with the patient. Risks include but not limited to pain, swelling, bleeding, infection, allergic reaction, elevated blood sugars, incomplete pain relief, tendon injury, bone loss, nerve damage, permanent skin depigmentation, fat atrophy and steroid flare. After reviewing the risks and benefits, patient verbalized understanding of the informed consent and elected to proceed with a corticosteroid injection. Patient tolerated the injection well. Patient may follow-up in 3 months for repeat clinical evaluation continue discussion regarding treatment options. Patient verbalized understanding of this and was agreed with the plan. All questions were answered to the patient's satisfaction. [email or web address] Not available 02/24/2025 17:18:24 03/03/2025 03/03/2025 I think his symptoms are most consistent with neuropathy. His symptoms of heaviness in his legs and decreased sensation that extends to his ankles are consistent with neuropathy and his decreased stability. He denies any pain radiating down from his legs and this does not improve with rest so I don't think this is consistent with spinal stenosis. Unfortunately, I don't have any good options for his symptoms. Neuropathy is essentially an untreatable condition, particularly as his neuropathy is not painful. Medications such as lyrica and gabapentin do not typically improve symptoms of non painful neuropathy. He may follow up as needed. [email or web address] Not available 03/06/2025 12:56:16 03/09/2025 03/09/2025 The above findings were discussed in detail today with the patient. He is evidence of right thumb CMC and wrist arthritis, exacerbated after a fall about 3 weeks ago. I do not appreciate an acute fracture on his x-rays today. We discussed pathology and expected prognosis today. I did let him know that an arthritic joint can take a number of weeks to improve after an injury. We discussed treatment options which include activity modification, bracing, anti-inflammatori es, sometimes a cortisone injection. He has been having skin tears with the brace, he can wear this as needed. He cannot take NSAIDs, he can use Tylenol. I will send a prescription for diclofenac cream which she can try. He can try ice or heat. We discussed cortisone injection however he declined. He can return to see me if his symptoms do not improve and he can consider cortisone junction at that time. All of his questions were answered, he is in agreement the plan. [email or web address] Not available 03/09/2025 14:48:57 05/17/2025 05/17/2025 HPI : Trudy chapa is here for follow-up for his right knee pain. He is previously scheduled for total knee replacement. This had to be canceled due to need for vascular intervention. He had this vascular intervention which was carotid stent in January. Vascular surgeon said he should be cleared for surgery by end of this year. This patient is experiencing right knee pain for a period lasting greater than the last three months, which is severe (VAS score greater than or equal to 6 on a 0-10 scale) in intensity and the restriction of function (appropriate for a patient of this age) are intolerable. The pain substantially limits activities of daily living. In particular, walking tolerance and ability to stair climb is reduced. Conservative management such as non-steroidal anti-inflammatory medications available by prescription, physician directed therapy, ice and/or heat and activity modification have been minimally effective or deemed insufficient by the patient for a period lasting greater than 3-6 months in duration. Assistive devices and external support were not deemed by the patient to be helpful in improving their function. The patient is unable to tolerate further conservative measures, including physical therapy, due to the severity of arthritis and level of pain. Review of systems is negative for rapidly progressive neurological disorder, chest pain, shortness of breath, fevers, chills, or any signs of active or persistent local or systemic infection. Physical Exam : Patient is well nourished, well-developed, in no acute distress, with appropriate mood and affect. The patient is oriented to time, place, and person. Respirations are even and unlabored. Gait evaluation does reveal a limp. There is no inguinal adenopathy. Examination of the contralateral knee shows normal range of motion, strength, no tenderness, and well-healed skin incision. The affected limb is well-perfused, without skin lesions, shows a grossly normal motor and sensory examination. Right knee motion is significantly reduced and does cause significant pain. The knee moves from 10-110 degrees. The knee is stable within that [id number] to AP and ML stress. The alignment of the knee is varus. Muscle strength is normal. Pedal pulses are palpable. Hip examination, including flexion and internal rotation, was negative in that groin pain was not produced. Radiographs of the right knee from February 2025 demonstrate degenerative joint disease with joint space narrowing, osteophyte formation, and subchondral sclerosis. There is ywbk-ea-budn articulation. Assessment/Plan : The patient is an appropriate candidate for consideration of right total knee replacement. An extensive discussion was conducted of the natural history of the disease and the variety of surgical and non-surgical treatment options available to the patient. A risk/benefit analysis was discussed with the patient reviewing the advantages and disadvantages of surgical intervention at this time. A full explanation was given of the nature and the purpose of the procedure and anesthesia, its benefits, possible alternative methods of diagnosis of treatment, the risks involved, the possibility of complications, the foreseeable consequences of the procedure and the possible results of the non-treatment. No guarantee or assurance was made as to the results that may be obtained. Specifically, the risks were identified to include, but are not limited, to the following: Infection, phlebitis, pulmonary embolism, , paralysis, dislocation, pain, stiffness, instability, limp, weakness, breakage, leg-length inequality, uncontrolled bleeding, nerve injury, blood vessel injury, pressure sores, anesthetic risks, delayed healing of wound and bone, and wear and loosening. Additional risks of robotic knee replacement were discussed (if used) including but not limited to pin site infection, draining, longer incision, longer OR time, and fracture near the pin sites. Further discussion was undertaken with the patient about the details of surgical preparation, treatment and postoperative rehabilitation including medical clearance, autotransfusion, the hospital course and the postoperative rehabilitation involved. As a part of routine preoperative counseling, if the patient is a smoker, the patient recognizes the increased risk of complications in patients who utilize tobacco products. The patient has also been counseled regarding the elevated risk of surgical complications in patients with an elevated BMI. The patient demonstrates understanding of the increased risk in such patients. The patient was encouraged to participate in physical activity and diet modification under the direction of their primary care physician. We will plan on proceeding with right total knee arthroplasty using the [place] total knee replacement system. However, it is possible during the preoperative planning process or due to intraoperative findings that a different implant system may be utilized in order to optimize the patient's outcome. We had a discussion regarding implant and bearing options. We had a detailed discussion of the advantages and limitations of the specific implant designs, materials and bearing surfaces. All questions were answered to the patient's satisfaction, and the patient was asked to call the office with any further concerns. All in all, I feel that this patient is a good candidate for surgical reconstruction. An in-depth discussion of the risks and benefits of surgery as noted above were had with patient, including any reasonable alternatives and the risks and benefits of the alternatives. The patient was given time to understand and ask questions, and the surgical consent was signed and dated today. The patient is also aware that questions can be asked at any time before the surgical date to me or my team. Plan for right total knee replacement, robotic assisted, at [facility]. We will wait for confirmation by the vascular team for surgical clearance. Patient is aware of his elevated risk because of his vascular disease PCM Services Statement: Principal Care Management (PCM) services were recommended to this patient with a diagnosis of osteoarthritis who has failed conservative management and is indicated for, as well as undergone shared decision-making to undergo a total joint arthroplasty procedure. PCM services provided to the patient include but not limited to structured recording of patient health information within our electronic medical record system, 24/02 access and continuity of care to qualified practitioners and/or clinical staff, comprehensive care management and planning to optimize pre-surgical needs, choice of an appropriate surgical facility, preoperative patient education, and coordination of patient-specific nneka-operative needs. This will be actively managed by the clinical staff with physician supervision throughout enrollment in the program. The clinical staff will help manage care transitions as well as coordinate home and community-based care as it pertains to the patient's needs. The patient expresses understanding and awareness of PCM services, including but not limited to potential cost- sharing responsibilities; only one practitioner can furnish and bill for PCM services during a calendar month, and the patient can stop these services at any time. The patient understands and has verbally consented to accept PCM services and has been provided a copy of a written explanation of this service today. Not available 05/17/2025 16:08:34 Plan of Treatment Reminders Order Date Submit Date Provider Last Modified By Organization Details Last Modified Time Details Appointments POST-OP 2025 02:45P Reji CARTER PA-C Not available Not available Not available Lab None recorde d. Referral None recorde d. Procedures None recorde d. Surgeries total knee arthrop lasty (SURG) 2024 Not available 05/17/2025 16:06:19 Imaging XR, wrist, 3 or more view 2024 [email or web address] [facility], [address], [place], [address], 03/09/2025 16:15:50 XR, ankle, 3 or more view 2024 025 [email or web address] [facility], [address], [place], [address], 03/03/2025 19:18:42 XR, ankle, 3 or more view 2024 025 [email or web address] [facility], [address], [place], [address], 02/10/2025 16:45:09 XR, foot, 2 view 2024 025 [email or web address] [facility], [address], [place], [address], 02/10/2025 16:45:09 XR, knee, 3 view 2024 025 [email or web address] [facility], [address], [place], [address], 02/10/2025 16:45:09 CT, knee, w/o contras t - Rule out lateral tibial plateau nondisp laced fractur e status post 2024 025 [email or web address] Not available 02/15/2025 08:07:06 XR, shoulde r, 2 or more view 2024 025 [email or web address] [facility], [address], [place], [address], 02/10/2025 16:45:09 XR, wrist, 3 or more view 2024 025 [email or web address] [facility], [address], [place], [address], 02/10/2025 16:45:09 Medication Orders lidocai ne (PF) 10 mg/mL (1 %) injecti on solutio n 2024 025 [email or web address] Not available 02/25/2025 14:56:00 Marcain e (PF) 0.5 % (5 mg/mL) injecti on solutio n 2024 025 [email or web address] Not available 02/25/2025 14:56:00 triamci nolone acetoni de 40 mg/mL suspens ion for injecti on 2024 025 Not available 02/25/2025 14:56:00 Patient TargetsNo targets recorded. Patient Instructions Encounter Date Encounter Id Patient Instructions Last Modified By Organization Details Last Modified Time 02/10/2025 [id number] X-rays of the ri ght shoulder were obtained on 02/10 Which demonstrates no acute fracture. Decreased acromiohumeral distance. Degenerative changes at the AC joint and Glenohumeral joint. Osteophyte at the greater tuberosity. No acute dislocation X-rays of the right knee were also obtained Demonstrates question of lucency consistent with nondisplaced lateral tibial plateau fracture. Advanced tricompartmental degenerative changes. X-rays of the right foot and ankle were obtained Nonweightbearing demonstrate no acute fracture. Arthritis of the first MTP joint. Mortise is anatomic. X-rays of the right wrist were obtained Demonstrate a lucency at the distal radius possibly indicating a nondisplaced distal radius fracture. [email or web address] Not available 02/10/2025 17:10:45 02/24/2025 [id number] Imaging: X-ray RIGHT shoulder, independent interpretation of AP and Axillary views by me show: located glenohumeral joint with severe glenohumeral arthritis, bone on bone, osteophytes, sclerosis, and cysts. The glenoid has Walch A2 wear pattern without significant posterior subluxation. [email or web address] Not available 02/24/2025 17:18:38 03/03/2025 [id number] views of the r ight ankle obtained weightbearing on 03/03/25 demonstrate no acute osseous abnormalites. There is increased talar declination and collapse in Meary's line thorugh the NC joints. There is slight valgus tilt of the talus. [email or web address] Not available 03/06/2025 12:47:20 03/09/2025 [id number] views of the r ight wrist were ordered and reviewed today, demonstrates diffuse arthritic changes, there is thumb CMC arthritis with osteophyte formation and joint space narrowing and subchondral sclerosis. There is mild degenerative changes at the radiocarpal joint. There is capitolunate arthritis with joint space narrowing and subchondral sclerosis. There is chondrocalcinosis at the ulnocarpal joint and degenerative changes localized at the ulnar styloid. There is mild degenerative changes at the DRUJ. Diffuse demineralization of the bones. No evidence of acute or subacute fracture. [email or web address] Not available 03/09/2025 14:47:34 Reason for Referral None Reported. Results Created Date Observation Date Name Description Value Unit Range Abnormal Flag Note LastModifiedBy Organization Detail LastModifiedTime 02/15/2002/14/2025 CT, knee, w/o contr ast No observ ation record ed. [email or web address] [facility] [address] [facility] [address], [place], [address], 02/15/2025 08:41:17 02/15/2002/14/2025 CT, knee, w/o contr ast No observ ation record ed. [email or web address] [facility] [address], [place], [address], 02/15/2025 08:41:18 Result Notes None recorded. Problems Name Problem SNOMED Code Status Onset Date Resolution Date Notes Provider Name and Address Organization Details Recorded Time Injury of right knee 00842196986 575825 Active 2018 Right knee injury Not Available [facility] 23:22:34 Arthritis of right knee joint 49793134252 28295 Active 01/25/ 2019 Arthritis of knee, right Not Available [facility] 23:22:35 Osteoarth ritis of right knee joint 53907894466 9100 Active 2024 Fracisco Johnson MD [address], [place], [address] , [place] [facility] 15:49:35 Arthritis of knee 394435793 Active 2024 Fracisco Johnson MD [address], [place], [address] , [place] [facility], [facility] 5 16:04:25 Osteoarth ritis of right glenohume ral joint 90049844054 85889 Active 2024 Juan Ramon Mejia MD [address], [place], [address] , [place] [facility] 17:18:48 Arthritis of right wrist 24202786997 13039 Active [address], [place], [address] , [place] [facility] 14:47:38 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 Procedures Surgical History Date Name Laterality Status Provider Name and Address Organization Details Recorded Time 02/25/20 25 AJR Shoulder GH Inj completed MD [address], [place], [address], [place] [facility] 02/24/2025 17:19:02 04/26/20 24 VIANNEY Knee Injection completed [address], [place], [address], [place] [facility] 04/26/2024 15:25:50 arthroplasty of knee completed Renetta Miguel [place] - [facility] 04/26/2024 13:59:[address] [facility] [place] [facility] 04/26/2024 13:59:37 procedure on heart completed [facility] 04/26/2024 13:59:52 discectomy of spine completed [facility] 04/26/2024 14:00:13 Imaging Results None recorded. Procedure Notes None recorded. Medical Equipment None Reported. Allergies No known drug allergies Medications Name Sig Start Date Stop Date Status Note LastModified by Organization Details LastModified Time metformin 500 mg tablet TAKE 2 TABLETS BY MOUTH TWICE A DAY active Not Available Not Available No t Available carvedilol 6.25 mg tablet TAKE 1 TABLET BY MOUTH TWO TIMES A DAY active Not Available Not Available No t Available prednisone 10 mg tablet TAKE 4 TABS X 3 DAYS, 3 TABS X 3 DAYS, 2 TABS X 3 DAYS, 1 TAB X 3 DAYS active Not Available Not Available No t Available doxycycline hyclate 100 mg capsule TAKE 1 CAPSULE BY MOUTH EVERY DAY FOR 7 DAYS active Not Available Not Available No t Available ipratropium 0.5 mg-albutero l 3 mg (2.5 mg base)/3 mL nebulizatio n soln INHALE 1 VIAL VIA NEBULIZER TWICE DAILY active Not Available Not Available No t Available insulin glargine (U-100) 100 unit/mL subcutaneou s solution Inject 16 Units under the skin. active Not Available Not Available No t Available torsemide 20 mg tablet TAKE 2 TABLETS BY MOUTH ONCE DAILY FOR 3 DAYS, TAKE FIRST THING IN THE MORNING active Not Available Not Available No t Available azithromyci n 250 mg tablet TAKE 2 TABLETS BY MOUTH TODAY, THEN TAKE 1 TABLET DAILY FOR 4 DAYS DIRECTED 02/21 completed Not Available Not Available Not Available amiodarone 200 mg tablet TAKE 1 TABLET BY MOUTH TWICE A DAY active Not Available Not Available No t Available benzonatate 200 mg capsule TAKE 1 CAPSULE BY MOUTH 3 TIMES A DAY, NEEDED FOR COUGH active Not Available Not Available No t Available metoprolol succinate ER 50 mg tablet,exte nded release 24 hr TAKE 1 TABLET BY MOUTH TWICE A DAY active Not Available Not Available No t Available glipizide ER 10 mg tablet, extended release 24 hr TAKE 1 TABLET BY MOUTH TWICE A DAY 2016 active Not Available Not Available Not Avai lable glipizide 10 mg tablet TAKE 1 TABLET BY MOUTH TWICE A DAY active Not Available Not Available No t Available isosorbide mononitrate ER 30 mg tablet,exte nded release 24 hr TAKE 1 TABLET BY MOUTH EVERY DAY active Not Available Not Available No t Available clopidogrel 75 mg tablet TAKE 1 TABLET BY MOUTH 1 TIME EACH DAY. active Not Available Not Available No t Available aspirin 81 mg tablet,amanda yed release Take 81 mg by mouth. active Not Available Not Available No t Available doxycycline monohydrate 100 mg tablet TAKE 1 TABLET BY MOUTH 2 TIMES A DAY,X7 DAYS, TAKE WITH FOOD active Not Available Not Available No t Available pravastatin 80 mg tablet TAKE 1 TABLET BY MOUTH EVERY DAY 2016 active Not Available Not Available Not Avai lable OneTouch Ultra Test strips USE THREE TIMES A DAY DIRECTED DIAGNOSIS : INSULIN DEPENDENT DIABETES MELLITUS DX: E11.9 active Not Available Not Available No t Available triamcinolo ne acetonide 40 mg/mL suspension for injection Take 80 mg by injection route. 2024 active Not Available Not Available Not Avai lable levothyroxi ne 50 mcg tablet 1 TABLET BY MOUTH DAILY,INS TR:GET REPEAT LABS IN 8 WEEKS active Not Available Not Available No t Available methylpredn isolone acetate 40 mg/mL suspension for injection 09/04 completed Not Available Not Available Not Available codeine 10 mg-guaifene sin 100 mg/5 mL oral liquid TAKE 5 ML BY MOUTH EVERY 6 HOURS NEEDED FOR COUGH *NOT COVERED* active Not Available Not Available No t Available furosemide 20 mg tablet TAKE 1 TABLET BY MOUTH EVERY DAY active Not Available Not Available No t Available albuterol sulfate HFA 90 mcg/actuati on aerosol inhaler INHALE 2 PUFFS EVERY 6 HOURS NEEDED FOR WHEEZING active Not Available Not Available No t Available sertraline 50 mg tablet TAKE 1 TABLET BY MOUTH EVERY DAY active Not Available Not Available No t Available amoxicillin 875 mg-potassiu m clavulanate 125 mg tablet TAKE 1 TABLET BY MOUTH 2 TIMES A DAY,X7 DAYS,INST R:TAKE WITH FOOD active Not Available Not Available No t Available rosuvastati n 5 mg tablet TAKE 1 TABLET BY MOUTH 1 TIME EACH DAY. active Not Available Not Available No t Available rosuvastati n 10 mg tablet TAKE 1 TABLET BY MOUTH EVERYDAY AT BEDTIME active Not Available Not Available No t Available Marcaine (PF) 0.5 % (5 mg/mL) injection solution Take 4 mL by injection route. 2024 active Not Available Not Available Not Avai lable metoprolol tartrate 25 mg tablet TAKE 1/2 TABLET BY MOUTH TWICE A DAY active Not Available Not Available No t Available lidocaine (PF) 10 mg/mL (1 %) injection solution Take 4 mL by injection route. 2024 active Not Available Not Available Not Avai lable BD Ultra-Fine Short Pen Needle 31 gauge x 5/16 USE 3 TIMES DAILY. USE TO ADMINISTE R INSULIN WITH ADMELOG PEN *E11.9* active Not Available Not Available No t Available ferrous gluconate 324 mg (38 mg iron) tablet TAKE 1 TABLET BY MOUTH EVERY DAY active Not Available Not Available No t Available lidocaine (PF) 100 mg/5 mL (2 %) injection syringe Take 4 mL by injection route. 2023 active Not Available Not Available Not Avai lable Basaglar KwikPen U-100 Insulin 100 unit/mL (3 mL) subcutaneou s INJECT 35 UNITS SUBCUTANE OUSLY ONCE DAILY. ROTATE INJECTION SITES active Not Available Not Available No t Available Admelog SoloStar U-100 Insulin lispro 100 unit/mL subcutaneou s pen INJECT 7-17 UNITS BEFORE MEALS PER SLIDING SCALE. E11.9 90-DAY SUPPLY. MAX DAILY DOSE: 50 UNITS. active Not Available Not Available No t Available Wixela Inhub 100 mcg-50 mcg/dose powder for inhalation INHALE 1 PUFF TWO TIMES A DAY active Not Available Not Available No t Available BD Carol 2nd Gen Pen Needle 32 gauge x 5/32 USE 3 TIMES DAILY FOR INJECTION S active Not Available Not Available No t Available FreeStyle Honey 2 Sensor kit DX/: E11.9 ON INSULIN USE 4 TIMES PER DAY active Not Available Not Available No t Available FreeStyle Honey 2 Cleves DX: E11.9 USE FOUR TIMES PER DAY active Not Available Not Available No t Available OneTouch UltraSoft 2 Lancet 30 gauge DX: E11.9 USE THREE TIMES PER DAILY active Not Available Not Available No t Available FreeStyle Honey 2 Plus Sensor device USE DIRECTED, CHANGE EVERY 15 DAYS active Not Available Not Available No t Available Ultra-Fine Pen Needle 31 gauge x 3/16 USE FOUR TIMES PER DAY active Not Available Not Available No t Available Vitals Date Recorded Body height Body mass index (BMI) Body weight Provider Name and Address Organization Details Last Updated DateTime 02/10/2025 187.96 cm 27 kg/m2 07390.4 g Garry Ness [place] - [facility] [place] 02/10/2025 16:22:15 Date Recorded Body height Provider Name an d Address Organization Details Last Updated DateTime 03/09/2025 187.[address] [place] - [facility] [place] 03/09/2025 14:31:04 Date Recorded Body height Body mass index (BMI) Body weight Provider Name and Address Organization Details Last Updated DateTime 05/17/2025 187.96 cm 27 kg/m2 64462.4 g Ekta Parker [facility] 05/17/2025 15:43:45 Social History Question Answer Notes LastModified by [employer] ion Details LastModified Time Tobacco Smoking Status Former Smoker Renetta Miguel null, [place] - [facility] [place] 04/26/2024 13:57:48 How Much Tobacco Do You Smoke? 1 PPD Information not available 04/26/2024 Sex: Unknown Functional Status Question Answer Note LastModified by [employer] ion Details LastModified Time Do you use any illicit or recreational drugs? No Information not available 04/26/2024 What is your level of alcohol consumption? None Information not available 04/26/2024 Mental Status None recorded. Family History Nothing Reported. Medical History Condition Response Coronary Artery Disease Y Gout N Hyperthyroidism N MRSA N Blood Transfusion Y Emphysema N Hypothyroidism Y Depression N COPD Y Pacemaker N Vascular Disease Y Gastrointestinal Disease Y Anxiety Disorder N Autoimmune disease N Arthritis Y Cancer Y Stroke Y High Cholesterol Y Neurologic Disorder N Liver Disease N Organ Transplant N Rheumatoid Arthritis N Arrhythmia Y Fibromyalgia N Kidney Disease Y Allergies/Hayfever Y Adverse Reaction to Anesthesia N Thyroid Problems N Anemia Y Brain Injury N Heart Attack ([place]) Y Osteopenia N Diabetes Y Bleeding Disorder N Seizures/Epilepsy N AIDS/HIV N Congestive Heart Failure (CHF) Y Asthma N Amputation N Reflux/GERD Y Sleep Apnea Y Hepatitis N Aneurysm N Heart Disease N Pulmonary Embolism N Hypertension Y Osteoporosis N Past Encounters Encounter ID Performer Location Encounter Start Date Encounter Closed Date Diagnosis/Indication Diagnosis SNOMED-CT Code Diagnosis ICD10 Code Diagnosis IMO Codes Diagnosis Note [id number] DORA DEE PA-C Pending sale to [facility] [address] [place] [address] 04/26/2024 13:00:53 04/26/2024 15:36:50 Pain of right knee region 7147513393 22132 M25.561 64578986 Osteoarthr itis of right knee joint 1623801113 11902 M17.11 [id number] Fracisco Johnson MD [address] [address] 12/07/2024 14:49:08 12/07/2024 16:00:49 Pain of right knee region 5271606035 78862 M25.561 13700075 Osteoarthr itis of right knee joint 3549301165 95940 M17.11 5154974 Arthritis of knee 288009 002 M13.869 [id number] LAUREANO BADILLO PA-C Pending sale to [facility] [address] [place] [phone] 02/10/2025 15:22:27 02/10/2025 16:45:09 Pain of right shoulder region 5620548456 M25.511 77791631 Pain of ri ght knee region 6283390313 44532 M25.561 70229327 Ankle pain 475168873 M25 .571 85950883 Pain of right wrist 3169 216639 67836 M25.531 [id number] MD ANGELIQUE Treviño [address] [address] 02/24/2025 14:53:11 02/24/2025 16:24:12 Osteoarthritis of right glenohumeral joint 8792611779 347303 M19.011 [id number] Jo Ann Preciado MD [address] [address] 03/03/2025 14:42:03 03/03/2025 15:40:40 Ankle pain 824261807 M25.571 [id number] [facility] [address] [facility] [address] [place] [address] 03/09/2025 14:24:07 03/09/2025 14:45:11 Pain of right wrist 7672468581 25232 M25.531 193430 Arthritis of right wrist 6487911956 201296 M19.031 294066 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 3557844048 530082 M18.11 [id number] MD ANGELIQUE Lov[place] [address] [facility] [address] [place] [address] 05/17/2025 15:31:03 05/17/2025 16:06:41 Osteoarthritis of right knee joint 7298687668 64696 M17.11 9849829 Arthritis of knee 818166 002 M13.869 Health Concerns Section Related Observation LastModified by Organization Detai ls LastModified Time None Recorded Concern Status LastModified by Organization Details LastModified Time None Recorded Advance Directives Directive None Recorded Payers Insurance Date Sequence Insurance Name Policy Number Policy Elizondo Covered Member ID Elizondo Member ID Guarantor Name 05/17/2025 NORIDIAN - SPECIALITY CLAIMS (MEDICARE DME REGION A) Jose L Goins [id number] Jose L Goins 05/14/2025 1 MEDICARE B-[place]: NGS Jose L Goins [id number] Jose L Goins 05/23/2025 2 [place] [id number] Jose L Goins [id number] Jose L Goins Notes Date Note Type Note Provider Name and Address Organization Details Recorded Time 02/10/2025 text/html Date of injury: 02/06/2025 Jose L Goins is a 74-year-old male who tripped and fell on the above date onto concrete injuring the right shoulder, right knee, right ankle, right foot and right wrist. He also had a fall a few days prior to the reported 1.The exact mechanism is a bit unclear. He was scheduled for right knee arthroplasty with Dr. Johnson on 01/10 however this was canceled due to requiring a carotid stent. 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 He has peripheral neuropathy in the bilateral feet. He is retired. LAUREANO BADILLO PA-C [address], [place], [address], [place] - [facility] [place] 02/10/2025 17:11:03 03/03/2025 text/html Date of injury: 02/06/2025 Jose L Goins is a 74-year-old male who presents today for followup evaluation regarding his right ankle. His pain is a 5-8/10. He reports that his legs feel heavy and it's worse at night. He uses a cane/walker for stability and notes that he feels like he gets weak in his legs. He has pain and numbness and tingling. He notes that he has neuropathy that extends to his ankles bilaterally. From 02/10/25 (TK): tripped and fell on the above date onto concrete injuring the right shoulder, right knee, right ankle, right foot and right wrist. He also had a fall a few days prior to the reported 1.The exact mechanism is a bit unclear. He was scheduled for right knee arthroplasty with Dr. Johnson on 01/10 however this was canceled due to requiring a carotid stent. 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 He has peripheral neuropathy in the bilateral feet. He is retired. Jo Ann Preciado MD [address], [place], [address], [place] - [facility] [place] 03/06/2025 12:56:39 03/09/2025 text/html ROS as noted in the HPI This is a 74-year-old [id number] male who presents with right wrist pain after a fall about 3 weeks ago. He said he landed onto his wrist and had pain and swelling after. He had number of other joint issues and was seen in urgent care for this on 02/10/2025 and x-rays taken there is concern for a nondisplaced distal radius fracture and he was placed in a brace. He is in minimally compliant with the brace. He notes that it was tearing up his skin. He is on a blood thinner, he takes Plavix. Staci Gonzalez MD [address], [place], [address], [place] - [facility] [place] 03/09/2025 14:49:22
--- OUTSIDE RECORDS SUMMARY | 2025-06-06 13:06 | XMS_ITS | Encounter Summary ---
Author Organization [facility] and [facility] Address [address] [place] [address] Care Team Providers Care Manager Radio Name Role Phone Vandana Parker MD Primary Care Provider +1- [phone] Encounter Details Date Type Department Care Team (Late st Contact Info) Description 05/26/2020 Scanned Document [facility] [address] [place] [address] [place] [address] Jimi Glynn MD [address] [place] [phone] Social History Tobacco Use Types Packs/Day Years [...] on filedocumented in this encounter Care Teams Manager Radio Relationship Specialty Start Date End Date Vandana Parker MD [address] [address] PCP - General Internal Medicine 03/29/19 documented as of this encounter
--- OUTSIDE RECORDS SUMMARY | 2025-06-06 13:06 | XMS_ITS | Clinical Summary ---
Author Organization [facility] Address [address] [facility] [address] [place] [address] Phone Care Team Providers Care Aircraft Engine Assembler Name Role Phone Vandana Parker MD Primary Care Provider + Allergies Active Allergy Reactions Criticality Noted Date Comments Atorvastatin Other (See Comments) High 05/06/2022 Muscle aches Magnesium Unknown Medium 05/21/2017 Magnesium Oxide Vomiting 05/06/2022 vomitting/diarrhea Morphine Unknown 11/08/2014 Mhqdjhk-Kti-Tui Reductase Inhibitors Other (See Comments) High 04/26/2019 [...] VACCINE (#1) 2025 COVID-19 VACCINE ( - 2024-2 6 season) 2025 COLOGUARD 09/17/2026 09/17/2023 COLORECTAL CANCER [...] topic Medical Devices Not on file Insurance [employer]EX SUPPLEMENT MEDICARE PART A & B [employer] SUPPLEMENT MEDICARE PART A & B [employer] MEDEX SUPPLEMENT MEDICARE PART A & B MEDICARE PART A & B [place] [employer] MEDEX SUPPLEMENT MEDICARE PART A & B [employer] MEDEX SUPPLEMENT MEDICARE PART A & B Care Teams Aircraft Engine Assembler Relationship Specialty Start Date End Date Vandana Parker MD [address] [place] [address] PCP - General Internal Medicine 08/30/24 Additional Source Comments The information contained in this document represents components of the legal health record. It is not the complete legal health record.[facility]
--- OUTSIDE RECORDS SUMMARY | 2025-06-06 13:06 | XMS_ITS | Encounter Summary ---
Author Organization [facility] and [facility] Address [address] [place] [address] Care Team Providers Care Care Program Resident Name Role Phone Vandana Parker MD Primary Care Provider +1- [phone] Encounter Details Date Type Department Care Team (Late st Contact Info) Description 05/26/2020 Scanned Document [facility] [address] [place] [address] [place] [address] Jimi Glynn MD [address] [place] [phone] Social History Tobacco Use Types Packs/Day Years [...] on filedocumented in this encounter Care Teams Care Program Resident Relationship Specialty Start Date End Date Vandana Parker MD [address] [address] PCP - General Internal Medicine 03/29/19 documented as of this encounter
--- OUTSIDE RECORDS SUMMARY | 2025-06-06 13:06 | XMS_ITS | Encounter Summary ---
Author Organization [facility] and [facility] Address [address] [place] [address] Care Team Providers Care Lie Detector Operator Name Role Phone Vandana Parker MD Primary Care Provider +1- [phone] Reason for Visit * Reason Onset Date Comments Ultrasound 04/20/2024 Encounter Details Date Type Department Care Team ([facility] st Contact Info) Description 04/20/2024 Telephone [facility] [address] [facility] [address] [facility] [place] [address] Jimi Glynn MD [address] [place] [address] Ultrasound Social History Tobacco Use [...] Zhang - 04/20/2024 10:15 AM EDT Called [facility] and spoke to radiology scheduling. They stated that they have not received's CUS order as of yet. They asked if it can be re-faxed to [phone]. Please advise documented in this encounter Plan of Treatment Not on file documented as of this encounter Visit Diagnoses Not on filedocumented in this encounter Care Teams Lie Detector Operator Relationship Specialty Start Date End Date Vandana Parker MD [address] [address] PCP - General Internal Medicine 03/29/19 documented as of this encounter
--- OUTSIDE RECORDS SUMMARY | 2025-06-06 13:06 | XMS_ITS | Clinical Summary ---
Author Organization [facility] Address [address] [address] Phone Care Team Providers Care Radio Repairman Name Role Phone Vandana Parker MD Primary Care Provider +1- [phone] Allergies Active Allergy Reactions Criticality Noted Date [...] 30 Active Basaglar KwikPen 100 UNIT/ML injection 11/07/2020 Active Active Problems Problem Noted Date Diagnosed [...] Office Visit [facility] [address] [address] Santiago Quinn MD Stage 3a chronic kidney disease (HCC) (Primary Dx); Peripheral arterial occlusive disease (HCC); Non-Hodgkin's lymphoma (clinical) (HCC); Hyperkalemia; Hypercalcemia; Essential hypertension; Diabetes mellitus, not otherwise specified (HCC); Congestive heart failure, not otherwise specified (HCC); Carotid artery stenosis <Unspecified side> 03/28/2025 Documentation Only [facility] [address] [place] [address] [address] [place] [phone] Santiago Quinn MD 03/20/2025 Orders Only [facility] [address] [place] [address] [address] [place] [phone] Santiago Quinn MD Stage 3a chronic kidney [...] Office Visit [facility] [address] [phone] Santiago Quinn MD [address] [address] Health Maintenance Due Date Last [...] Creatinine, Ur 148.9 Not Estab. mg/dL [facility] Protein, Ur 35.2 Not Estab. mg/dL [facility] Urine Protein/Creati nine Ratio 236(H) 0 - 200 mg/g creat [facility] 03/14/2025 1:54 PM EDT 03/14/2025 us Santiago Quinn MD LAB URINE ORDERABLES Final Re sult [facility] [address] [place] [address] * Vitamin D 25 Hydroxy (03/14/2025 1:54 PM EDT) Vitamin D, 25-OH, Total 31.1 30.0 - 100.0 ng/mL [facility] Comment: Vitamin D deficiency has been defined by the [place] of Medicine and an Endocrine Society practice guideline as a level of serum 25-OH vitamin D less than 20 ng/mL (1,2). The Endocrine Society went on to further define vitamin D insufficiency as a level between 21 and 29 ng/mL (2). 1. IOM ([place] of Medicine). 2010. Dietary reference intakes for calcium and D. [place]: The National Academies Press. 2. Vicenta MF, Roney PANIAGAU, Concepción TSE, et al. Evaluation, treatment, and prevention of vitamin D deficiency: an Endocrine Society clinical practice guideline. JCEM. 2010; 96(7):1911-30. 03/14/2025 1:54 PM EDT 03/14/2025 us Santiago Quinn MD LAB BLOOD ORDERABLES Final Re sult [facility] [address] [place] [address] * (ABNORMAL) CBC and Differential (03/14/2025 1:54 PM EDT) WBC 9.0 3.4 - 10.8 x10E3/uL [facility] RBC 3.58(L) 4.14 - 5.80 x10E6/uL [facility] Hemoglobin 11.0(L) 13.0 - 17.7 g/dL [facility] Hematocrit 34.0(L) 37.5 - 51.0 % [facility] MCV 95 79 - 97 fL [facility] MCH 30.7 26.6 - 33.0 pg [facility] MCHC 32.4 31.5 - 35.7 g/dL [facility] RDW 13.9 11.6 - 15.4 % [facility] Platelets 221 150 - 450 x10E3/uL [facility] Neutrophils Relative 67 Not Estab. % [facility] Lymphocytes Relative 23 Not Estab. % [facility] Monocytes 6 Not Estab. % [facility] Eosinophils Relative 3 Not Estab. % [facility] Basophils Relative 1 Not Estab. % [facility] Neutrophils Absolute 6.1 1.4 - 7.0 x10E3/uL [facility] Lymphocytes Absolute 2.1 0.7 - 3.1 x10E3/uL [facility] Monocytes Absolute 0.5 0.1 - 0.9 x10E3/uL [facility] Eosinophils Absolute 0.2 0.0 - 0.4 x10E3/uL [facility] Basophils Absolute 0.1 0.0 - 0.2 x10E3/uL [facility] Immature Granulocytes 0 Not Estab. % [facility] Immature Grans (Absolute) 0.0 0.0 - 0.1 x10E3/uL [facility] 03/14/2025 1:54 PM EDT 03/14/2025 Santiago Quinn MD LAB BLOOD ORDERABLES Final Re sult [facility] [address] [place] [address] * Uric Acid (03/14/2025 1:54 PM EDT) Uric Acid 4.5 3.8 - 8.4 mg/dL [facility] Comment:Therapeutic target f or gout patients: <6.0 03/14/2025 1:54 PM EDT 03/14/2025 Santiago Quinn MD LAB BLOOD ORDERABLES Final [facility] [address] [place] [address] * Phosphorus (03/14/2025 1:54 PM EDT) Phosphorus 3.3 2.8 - 4.1 mg/dL [facility] 03/14/2025 1:54 PM EDT 03/14/2025 us Santiago Qunin MD LAB BLOOD ORDERABLES Final Re sult Performing Organization Address [facility]/ZIP Co de Phone Number [facility] [employer] [place] [address] [place] [address] * PTH, Intact (03/14/2025 1:54 PM EDT) PTH 19 15 - 65 pg/mL [facility] 03/14/2025 1:54 PM EDT 03/14/2025 Santiago Quinn MD LAB BLOOD ORDERABLES Final Re sult Performing Organization Address [facility] Co de Phone Number [facility] [employer] [facility] [place] [address] [place] [address] * (ABNORMAL) Magnesium (03/14/2025 1:54 PM EDT) Pathologist [facility] Magnesium 1.4(L) 1.6 - 2.3 mg/dL [facility] 03/14/2025 1:54 PM EDT 03/14/2025 Santiago Quinn MD LAB BLOOD ORDERABLES Final Re sult Performing Organization Address [facility] Co de Phone Number [facility] [employer] [place] [address] [place] [address] * (ABNORMAL) Comprehensive Metabolic Panel (03/14/2025 1:54 PM EDT) Glucose 303(H) 70 - 99 mg/dL [facility] BUN 42(H) 8 - 27 mg/dL [facility] Creatinine 1.74(H) 0.76 - 1.27 mg/dL [facility] eGFR CKD-EPI CR 2020 40(L) >59 mL/min/1.7 3 [facility] BUN/Creatinine Ratio 24 10 - 24 [facility] Sodium 141 134 - 144 mmol/L [facility] Potassium 5.2 3.5 - 5.2 mmol/L [facility] Chloride 103 96 - 106 mmol/L [facility] Bicarbonate (CO2) 18(L) 20 - 29 mmol/L [facility] Calcium 9.5 8.6 - 10.2 mg/dL [facility] Total Protein 6.6 6.0 - 8.5 g/dL [facility] Albumin 4.1 3.8 - 4.8 g/dL [facility] Globulin 2.5 1.5 - 4.5 g/dL [facility] Total Bilirubin 0.3 0.0 - 1.2 mg/dL [facility] Alkaline Phosphatase 57 44 - 121 IU/L [facility] AST (SGOT) 32 0 - 40 IU/L [facility] ALT (SGPT) 28 0 - 44 IU/L [facility] 03/14/2025 1:54 PM EDT 03/14/2025 us Santiago Quinn MD LAB BLOOD ORDERABLES Final Re sult [facility] [address] [place] [address] * (ABNORMAL) Blood Panel (12/25/2018 12:00 AM [...] % [facility] 12/25/2018 us [facility] [id number] LICITED RESULTS Final Result RTAMA from Last 3 Months or Most Recently Relevant to Health Maintenance Insurance [facility] Medicare Medicare [facility] Care Teams Radio Repairman Relationship Specialty Start Date End Date Vandana Parker MD [address] [place], [place] PCP - General 08/14/20
--- OUTSIDE RECORDS SUMMARY | 2025-06-06 13:06 | XMS_ITS | Clinical Summary ---
Author Organization [address] Address [address] [place] [phone] Phone Care Team Providers Care Cleaning Laborer Name Role Phone Vandana Parker MD Primary Care Provider +1- [phone] Allergies Active Allergy Reactions Criticality Noted Date Comments Atorvastatin Other (See Comments) Medium 05/06/2022 Muscle aches Magnesium Unknown Medium 05/21/2017 Magnesium Oxide Vomiting 05/06/2022 vomitting/diarrhea Pravastatin Other (See Comments) Medium 05/06/2022 Muscle aches Owrvckc-Xor-Kiu Reductase Inhibitors Other (See Comments) Medium 04/26/2019 [...] vaccine 03/04/2025 Covid-19 vaccine series ( - 2024- season) 2025 Tetanus adult (Td q 10,TDAP once) 11/18/2027 11/17/2017 Pneumococcal Vaccine (50+ years) Completed 12/12/2022, 04/28/2019, 11/17/2017 Meningococcal B Vaccine Aged Out No l onger eligible based on patient's age to complete this topic Meningococcal Vaccine Aged Out No kylah binta eligible based on patient's age to complete this topic Insurance MEDICARE [facility] MEDICARE [facility] MEDICARE [facility] Member Subscriber Plan / Payer (Ef fective 2014-Present) Name:Jose L Goins Relation to Subscriber:Self Name:Jose L Goins Payer ID:[id number] (NAIC) Type:Not on file Address: [address] [place] [id number] Care Teams Cleaning Laborer Relationship Specialty Start Date End Date Vandana Parker MD [address] [phone] PCP - General Internal Medicine 03/29/19
--- OUTSIDE RECORDS SUMMARY | 2025-06-06 13:06 | XMS_ITS | Encounter Summary ---
Author Organization [facility] Address [address] [place] [phone] Care Team Providers Care Banana Room Cutter Name Role Phone Vandana Parker MD Primary Care Provider +1- [phone] Reason for Referral * Imaging (Routine) - Closed Specialty Diagnoses / Procedures Referred By Contac t Referred To Contact Diagnostic Radiology Procedures US Duplex Carotid Bilateral Complete Jimi Glynn MD [address] [place] [address] [place] [address] Phone: tel: fax: Referral ID Status Reason Start Date Expiration Date Visits Re quested Visits Authorized [id number] Closed 05/06/2024 05/06/2025 1 1 Encounter Details Date Type Department Care Team (Late st Contact Info) Description 05/06/2024 Scanned Document [facility] [address] [place] [address] Jimi Glynn MD [facility] [place] [address] Social History Tobacco Use Types [...] on filedocumented in this encounter Care Teams Banana Room Cutter Relationship Specialty Start Date End Date Vandana Parker MD [address] [address] PCP - General Internal Medicine 03/29/19 documented as of this encounter
--- OUTSIDE RECORDS SUMMARY | 2025-06-06 13:06 | XMS_ITS | Encounter Summary ---
Author Organization [facility] Address [address] [place] [phone] Care Team Providers Care Foam Tank Laminator Name Role Phone Vandana Parker MD Primary Care Provider +1- [phone] Encounter Details Date Type Department Care Team (Late st Contact Info) Description 06/22/2019 Scanned Document [facility] [place] [address] [facility] [address] [place], [place] [id number] Jimi Glynn MD [address] [place] [phone] Social History Tobacco Use Types Packs/Day Years [...] on filedocumented in this encounter Care Teams Foam Tank Laminator Relationship Specialty Start Date End Date Vandana Parker MD [address] [phone] PCP - General Internal Medicine 03/29/19 documented as of this encounter
--- OUTSIDE RECORDS SUMMARY | 2025-06-06 13:06 | XMS_ITS | Clinical Summary ---
Author Organization [facility] Address [address] [place] [address] Care Team Providers Care Sales Coach Name Role Phone Vandana Parker MD Primary Care Provider +1- [phone] Allergies Active Allergy Reactions Criticality Noted Date [...] Vaccine (1 of 2) 1999 RSV Vaccine 50 years and old er and Patients (1 - 1-dose 75+ series) 2024 Influenza Vaccine 03/04/2025 COVID-19 Vaccine ( - 2023-2 5 season) 2025 Hepatitis B Vaccines Aged Out No long er eligible based on patient's age to complete this topic Insurance MEDICARE PART A & [facility] Care Teams Sales Coach Relationship Specialty Start Date End Date Vandana Parker MD [address] [place] [address] PCP - General Internal Medicine 05/21/17
== END 2025-06-06 11:58 | disposition home or self-care (01) ==
LOC: HO.HMCHD 10:43
PROVIDERS: PCP Internal Medicine; Visit Provider Internal Medicine
DX: R55 Syncope and collapse (principal); E11.65 Type 2 diabetes mellitus with hyperglycemia; Z79.4 Long term (current) use of insulin; E03.9 Hypothyroidism, unspecified; I50.9 Heart failure, unspecified; D50.9 Iron deficiency anemia, unspecified; E83.42 Hypomagnesemia

== ENCOUNTER 2025-06-06 12:01 | Outpatient (REF) | payer MEDICARE, SELFPAY ==
[2025-06-06 13:13] LABS: MANUAL DIFF FLAG NO
[2025-06-06 13:33] LABS: Hematocrit 36.0 % (42.0-52.0); Hemoglobin 11.7 g/dl (14.0-18.0); Imm Gran Abs Auto 0.03 X10*3/uL (0.00-0.03); Imm Gran Pct Auto 0.3 % (0.0-0.4); Lymphocytes Absolute Auto 2.4 X10*3/uL (1.2-4.9); Mean Corpuscular HGB Conc 32.5 g/dl (31.0-36.0); Mean Corpuscular Hemoglobin 29.4 pg (27.0-33.0); Mean Corpuscular Volume 90.5 fL (80.0-98.0); NRBC Abs Auto 0.000 X10*3/uL (0.0-0.012); NRBC Pct Auto 0.0 /100WBC (0.0-0.2); Platelet Count 284 X10*3/uL (160-400); Red Blood Count 3.98 X10*6/uL (4.60-5.80); White Blood Count 9.6 X10*3/uL (4.8-10.8)
[2025-06-06 14:13] LABS: Alanine Aminotransferase 32 U/L (0-40); Albumin Level 4.6 g/dL (3.5-5.0); Alkaline Phosphatase 60 U/L (39-117); Anion Gap 10 (12-20); Aspartate Amino Transferase 38 U/L (5-37); Blood Urea Nitrogen 41 mg/dL (9-16); Calcium 11.6 mg/dL (8.4-10.2); Carbon Dioxide 28 mmol/L (22-29); Chloride 108 mmol/L (96-108); Estimated Glomerular Filt Rate 37; Iron 88 mcg/dL (45-160); Magnesium 1.5 mg/dL (1.6-2.6); Percent Iron Saturation 22 % (15-50); Potassium 5.2 mmol/L (3.3-5.1); Sodium 141 mmol/L (135-145); Total Iron Binding Capacity 396 mcg/dL (228-428); Total Protein 7.6 g/dL (6.5-8.0); Unsaturated Iron Binding 308 ug/dL
[2025-06-06 14:16] LABS: Ferritin 105 ng/mL (20-250)
--- OUTSIDE RECORDS SUMMARY | 2025-06-06 15:16 | XMS_ITS | Clinical Summary ---
Author Organization [address] [place] [address] Address [address] [place] [address] Phone Care Team Providers Care Farm Management Teacher Name Role Phone Vandana Parker MD Primary Care Provider +1- [phone] Allergies Active Allergy Reactions Criticality Noted Date Comments Atorvastatin High 05/06/2022 Muscle aches Magnesium Oxide 05/06/2022 Pravastatin High 05/06/2022 Muscle aches Qjybpne-Zpq-Fty Reductase Inhibitors 07/13/2024 Medications albuterol HFA (PROAIR [...] 75 mg tabletIndication s:Coronary artery disease involving stockbridge coronary artery of stockbridge heart, unspecified whether angina present,History of non-ST elevation myocardial infarction (NSTEMI) Take 1 tablet (75 mg total) by mouth 1 (one) time each day. 90 tablet 2 11/15/2024 Active ferrous gluconate (FERGON) 324 mg (38 mg iron) tablet Take 1 tablet (324 mg total) by mouth daily. 08/25/2024 Active glipiZIDE (GLUCOTROL) 10 mg tablet Take 1 tablet (10 mg total) by mouth 2 (two) times a day. 03/20/2025 Active insulin lispro (Admelog SoloStar U-100 Insulin) 100 unit/mL injection pen Inject under the skin 3 (three) times a day before meals. 08/03/2024 Active levothyroxine (SYNTHROID, LEVOTHROID) 50 mcg tablet Take 1 tablet (50 mcg total) by mouth 1 (one) time each day before breakfast. Active rosuvastatin (CRESTOR) 10 mg tablet Take 1 tablet (10 mg total) by mouth 1 (one) time each day. 04/15/2025 Active Active Problems Problem Noted Date Diagnosed Date Status post coronary artery bypass graft 025 Assessment & Plan (10/19/2024 6:26 PM EDT): Orders: D-Dimer; Future XR Chest 2 Views; Future Paroxysmal atrial fibrillation ([facility] V24, [facility] V28) 10/19/2024 Overview (04/17/2025): Postop CABG Not on anticoagulation Assessment & Plan (04/17/2025 12:52 PM EDT): Clinically, the patient has not had any recurrence of his atrial fibrillation. Continue symptomatic monitoring. Should he have recurrence, would institute full anticoagulation given his elevated [id number] score Assessment & Plan (10/19/2024 10:26 PM [...] to discuss this further with the covering guard lieutenant as Dr. Wade is on vacation this [...] Overview (06/18/2024): Followed by nephrology and has [facility] ordered Heart failure with mid-range ejection fraction (HFmEF) (CMS/HCC V24, CMS/HCC V28) 06/11/2024 Overview (04/17/2025): - LVEF 40-45% range - Echocardiogram at the time of his OR 07/2024 showed normal LV size with mild [...] most recent echocardiogram completed 01/30/2024 while inpatient revealed an EF of 40 to 45%. [...] as indicated. Coronary artery disease invo lving stockbridge coronary artery of stockbridge heart without angina pectoris 05/06/2022 Overview (04/17/2025): - s/p CABG 07/2024 -Prior stenting including proximal circumflex and mid RCA in 2015, SATURNINO mid LAD 2016 and patent stents on 02/2019 -NSTEMI 07/2024, transferred to where cath showed significant multivessel CAD undergoing 3V CABG with Dr. Santamaria receiving (LAWLER to LAD, SVG to PLV, RA to OM -Brief postoperative atrial fibrillation, discharged on amiodarone prophylaxis, was not started on anticoagulation -Echocardiogram at the time of his OR showed normal LV size with mild concentric [...] will review his case with the covering guard lieutenant out of concern for possible graft failure [...] this; we discussed transfer via ambulance to versus assisting the patient to [facility] ER; I did not feel it was safe for him to be driving out of concern for recurrence of chest pain that may result in injury to himself or someone else. He was agreeable to presenting to [facility] ER for further evaluation; report was [...] Overview (04/17/2025): - prior TIAs followed by [facility] vascular surgery, managed medically - He had a left carotid stent 01/2025 -Right ICA velocity in the 70% range Assessment & Plan (04/17/2025 12:45 PM EDT): The patient's carotid stenosis is closely followed by the vascular team at [facility]. Continue risk factor modification with DAPT [...] continue with recommendations as provided by his brazing machine setter including continuation of antibiotic treatment, prednisone [...] Encounters Date Type Department Care Team Description 04/28/2025 Telephone [facility] - [address] [place] [address] Radu Wade MD 04/25/2025 Telephone [facility] [address] [place] [phone] Radu Wade MD 04/15/2025 10:40 AM EDT Office Visit [facility] [address] [place] [phone] Nathalie Tian NP Hypercholesterolemia (Primary Dx); Coronary artery disease involving stockbridge coronary artery of stockbridge heart without angina pectoris; Heart failure with mid-range ejection fraction (HFmEF) ([facility] V24, [facility] V28); Primary hypertension; Bilateral carotid artery stenosis; Dizziness; Paroxysmal atrial fibrillation ([facility] V24, [facility] V28) from Last 3 Months Surgical History Surgery Date Site/Laterality Comments SPINE SURGERY cervical and lumbar ROTATOR CUFF REPAIR Left KNEE SURGERY Left CORONARY STENT PLACEMENT mid LAD in 2016 and 2 proximal circumflex and mid RCA in 2015 Medical History Medical History Date Comments Hypertension CHF (congestive heart failur e) ([facility] V24, [facility] V28) COPD (chronic obstructive pu lmonary disease) ([facility] V24, [facility] V28) CAD (coronary artery disease) s/ p stenting to mid LAD 2017, proximal circumflex and mid RCA, 2015 PAD (peripheral artery disea se) ([facility] V24) DM (diabetes mellitus) ([facility] V24, [facility] V28) Lymphoma in remission ([facility] V28) CKD (chronic kidney disease) stage 3, GFR 30-59 ml/min ([facility] V24, [facility] V28) Family History Medical History Relation Name Comments Heart disease Father Relation Name Status Comments Father Social History Tobacco Use Types Packs/Day Years Used Date Smoking Tobacco: Former Cigarettes Smokeless Tobacco: Never Tobacco Cessation:Counseling Given: Not Answered Alcohol Use Standard Drinks/Week Comments Never 0 (1 standard drink = 0.6 oz pur e alcohol) Interpersonal Safety Answer Date Record ed Physical Abuse Unrecognized value 07/14/2024 Verbal Abuse Unrecognized value 07/14/2024 Sex and Gender Information Value Date [...] Description 10/14/2025 8:00 AM EDT Ancillary Procedure [facility] - [address] [place] [address] Health Maintenance Due Date Last Done Comments [...] 11:30 AM EDT Coronary artery disease involving stockbridge coronary artery of stockbridge heart, unspecified whether angina present Hypercholesterolemia from Last 3 Months or Most Recently Relevant to Health Maintenance Results * COLONOSCOPY (11/03/2024 9:55 AM EDT) Anatomical Region Laterality Modality Endoscopy us Historical Provider GI~PROCEDURE ORDERABLES F inal Result [...] AM EDT Performed at: 01 - [facility] [address] [id number] Digital Art Director: Amanda Maxwell MD, Phone: [phone] Kenyetta Shi WEAVING INSTRUCTOR LAB BLOOD ORDERABLES Final Result [facility] 1 from Last 3 Months or Most Recently Relevant to Health Maintenance Insurance MEDICARE [facility] Advance Directives * Full Code [...] Agents on File Name Relationship Healthcare Agent [facility] p Communication Heath Bai Son Health Care Agent Nellie Bai Spouse First Alternate Health Care Agent [email or web address] Care Teams Farm Management Teacher Relationship Specialty Start Date End Date Vandana Parker MD [address] [place] [phone] PCP - General Internal Medicine 08/05/17
--- OUTSIDE RECORDS SUMMARY | 2025-06-06 15:16 | XMS_ITS | Encounter Summary ---
Author Organization [facility] Address [address] [place] [address] Care Team Providers Care Piledriver Carpenter Name Role Phone Vandana Parker MD Primary Care Provider +1- [phone] Encounter Details Date Type Department Care Team (Late st Contact Info) Description 08/10/2024 Lab Requisition [facility] - Main Lab [address] [place] [address] Teja Bello MD [address] [place] [phone] Encounter for other general examination Social History [...] 10/14/2025 8:00 AM EDT Ancillary Procedure [facility] [address] [phone] documented as of this encounter Procedures Procedure Name Priority Date/Time Associated Diagnosis Comments COMPLETE BLOOD COUNT Routine 08/10/2024 6:24 AM EST Encounter for other general examination COMPREHENSIVE METABOLIC PANEL Routine 08/10/2024 6:24 AM EST Encounter for other general examination documented in this encounter Results * (ABNORMAL) Complete blood count (08/10/2024 6:24 AM EST) [facility] WBC 8.9 4.8 - 10.8 /[facility] LAB HEMETOLOGY METHOD 08/10/2024 11:19 AM EST [facility] RBC 2.90(L) 4.50 - 5.50 M/mcL LAB HEMETOLOGY METHOD 08/10/2024 11:19 AM [facility] Hemoglobin 8.7(L) 13.5 - 17.5 g/dL LAB HEMETOLOGY METHOD 08/10/2024 11:19 AM [facility] Hematocrit 27.5(L) 42.0 - 54.0 % LAB HEMETOLOGY METHOD 08/10/2024 11:19 AM [facility] MCV 93.9 79.0 - 98.0 FL LAB HEMETOLOGY METHOD 08/10/2024 11:19 AM [facility] MCH 29.7 27.0 - 32.0 pcg LAB HEMETOLOGY METHOD 08/10/2024 11:19 AM [facility] MCHC 31.6(L) 32.0 - 37.0 g/dL LAB HEMETOLOGY METHOD 08/10/2024 11:19 AM [facility] RDW 14.6 11.0 - 15.0 % LAB HEMETOLOGY METHOD 08/10/2024 11:19 AM [facility] Platelets 550(H) 130 - 400 K/mcL LAB HEMETOLOGY METHOD 08/10/2024 11:19 AM [facility] MPV 9.3 7.0 - 11.0 FL LAB HEMETOLOGY METHOD 08/10/2024 11:19 AM [facility] NRBC 0.0 <1.0 % LAB HEMETOLOGY METHOD 08/10/2024 11:19 AM [facility] NRBC Absolute 0.00 <0.10 K/mcL LAB HEMETOLOGY METHOD 08/10/2024 11:19 AM [facility] Blood Venous blood specimen / Unknown Venipuncture / Unknown 08/10/2024 6:24 AM EST 08/10/2024 10:00 AM EST us Teja Bello MD LAB BLOOD ORDERABLES Final Res ult [facility] [address] [place] [address], [place] [phone] * (ABNORMAL) Comprehensive metabolic panel (08/10/2024 6:24 AM EST) Sodium 138 133 - 145 mmol/L LAB CHEMISTRY METHOD 08/10/2024 12:14 PM [facility] Potassium 4.6 3.5 - 5.5 mmol/L LAB CHEMISTRY METHOD 08/10/2024 12:14 PM [facility] Chloride 105 96 - 110 mmol/L LAB CHEMISTRY METHOD 08/10/2024 12:14 PM [facility] CO2 26 21 - 32 mmol/L LAB CHEMISTRY METHOD 08/10/2024 12:14 PM [facility] Anion Gap 7 3 - 11 LAB CHEMISTRY METHOD 08/10/2024 12:14 PM [facility] Glucose 128(H) 70 - 100 mg/dL LAB CHEMISTRY METHOD 08/10/2024 12:14 PM [facility] BUN 29(H) 5 - 25 mg/dL LAB CHEMISTRY METHOD 08/10/2024 12:14 PM [facility] Creatinine 1.77(H) 0.70 - 1.30 mg/dL LAB CHEMISTRY METHOD 08/10/2024 12:14 PM [facility] eGFR 40(L) >=60 mL/min/1. 73m2 LAB CHEMISTRY METHOD 08/10/2024 12:14 PM [facility] Comment:Calculation based on the Chronic Kidney Disease Epidemiology Collaboration (CKD-EPI) equation refit without adjustment for race. BUN/Creatinine Ratio 16.4 LAB CHEMISTRY METHOD 08/10/2024 12:14 PM [facility] Calcium 8.7 8.5 - 10.5 mg/dL LAB CHEMISTRY METHOD 08/10/2024 12:14 PM [facility] AST (SGOT) 36 10 - 42 unit/L LAB CHEMISTRY METHOD 08/10/2024 12:14 PM [facility] ALT (SGPT) 59 10 - 60 unit/L LAB CHEMISTRY METHOD 08/10/2024 12:14 PM [facility] Alkaline Phosphatase 111 42 - 121 unit/L LAB CHEMISTRY METHOD 08/10/2024 12:14 PM [facility] Total Protein 5.9(L) 6.0 - 8.0 g/dL LAB CHEMISTRY METHOD 08/10/2024 12:14 PM [facility] Albumin 2.6(L) 3.2 - 5.0 g/dL LAB CHEMISTRY METHOD 08/10/2024 12:14 PM [facility] Total Bilirubin 0.3 0.0 - 1.4 mg/dL LAB CHEMISTRY METHOD 08/10/2024 12:14 PM [facility] Blood Venous blood specimen / Unknown Venipuncture / Unknown 08/10/2024 6:24 AM EST 08/10/2024 10:00 AM EST us Teja Bello MD LAB BLOOD ORDERABLES Final Res ult [facility] [address] [place] [address], documented in this encounter Visit Diagnoses Diagnosis Encounter for other general examination documented in this encounter Care Teams Piledriver Carpenter Relationship Specialty Start Date End Date Vandana Parker MD [address] [place] [address] PCP - General Internal Medicine 08/05/17 documented as of this encounter
--- OUTSIDE RECORDS SUMMARY | 2025-06-06 15:16 | XMS_ITS | Encounter Summary ---
Author Organization [facility] Address [address] [place] [address] Care Team Providers Care Associate Professor Of Forestry Name Role Phone Vandana Parker MD Primary Care Provider +1- [phone] Encounter Details Date Type Department Care Team (Late st Contact Info) Description 08/04/2024 Lab Requisition [facility] - Main Lab [address] [place] [address] Teja Bello MD [address] [place] [address] Encounter for other general examination Social History [...] Description 10/14/2025 8:00 AM EDT Ancillary Procedure [facility] [address] [facility] [address] [place] [address] documented as of this encounter [...] CBC auto differential (08/04/2024 6:26 AM EST) [facility] WBC 11.8(H) 4.8 - 10.8 K/mcL LAB HEMETOLOGY METHOD 08/04/2024 9:56 AM [facility] RBC 3.00(L) 4.50 - 5.50 M/mcL LAB HEMETOLOGY METHOD 08/04/2024 9:56 AM [facility] Hemoglobin 8.7(L) 13.5 - 17.5 g/dL LAB HEMETOLOGY METHOD 08/04/2024 9:56 AM [facility] Hematocrit 28.9(L) 42.0 - 54.0 % LAB HEMETOLOGY METHOD 08/04/2024 9:56 AM [facility] MCV 97.6 79.0 - 98.0 FL LAB HEMETOLOGY METHOD 08/04/2024 9:56 AM [facility] MCH 29.4 27.0 - 32.0 pcg LAB HEMETOLOGY METHOD 08/04/2024 9:56 AM [facility] MCHC 30.1(L) 32.0 - 37.0 g/dL LAB HEMETOLOGY METHOD 08/04/2024 9:56 AM [facility] RDW 15.1(H) 11.0 - 15.0 % LAB HEMETOLOGY METHOD 08/04/2024 9:56 AM [facility] Platelets 489(H) 130 - 400 K/mcL LAB HEMETOLOGY METHOD 08/04/2024 9:56 AM [facility] MPV 9.8 7.0 - 11.0 FL LAB HEMETOLOGY METHOD 08/04/2024 9:56 AM [facility] NRBC 0.0 <1.0 % LAB HEMETOLOGY METHOD 08/04/2024 9:56 AM [facility] NRBC Absolute 0.00 <0.10 K/mcL LAB HEMETOLOGY METHOD 08/04/2024 9:56 AM [facility] Neutrophils Relative 76.0 % LAB HEMETOLOGY METHOD 08/04/2024 9:56 AM [facility] Lymphocytes Relative 12.8 % LAB HEMETOLOGY METHOD 08/04/2024 9:56 AM [facility] Monocytes Relative 5.6 % LAB HEMETOLOGY METHOD 08/04/2024 9:56 AM [facility] Eosinophils Relative 4.1 % LAB HEMETOLOGY METHOD 08/04/2024 9:56 AM [facility] Basophils Relative 0.3 % LAB HEMETOLOGY METHOD 08/04/2024 9:56 AM [facility] Immature Granulocytes Relative 1.2 % LAB HEMETOLOGY METHOD 08/04/2024 9:56 AM [facility] Neutrophils Absolute 9.00(H) 1.50 - 7.00 K/mcL LAB HEMETOLOGY METHOD 08/04/2024 9:56 AM [facility] Lymphocytes Absolute 1.51 1.00 - 5.00 K/mcL LAB HEMETOLOGY METHOD 08/04/2024 9:56 AM [facility] Monocytes Absolute 0.66 0.20 - 1.00 K/mcL LAB HEMETOLOGY METHOD 08/04/2024 9:56 AM [facility] Eosinophils Absolute 0.48 0.00 - 0.50 K/mcL LAB HEMETOLOGY METHOD 08/04/2024 9:56 AM [facility] Basophils Absolute 0.04 0.00 - 0.20 K/mcL LAB HEMETOLOGY METHOD 08/04/2024 9:56 AM [facility] Immature Granulocytes Absolute 0.14(H) 0.00 - 0.03 K/mcL LAB HEMETOLOGY METHOD 08/04/2024 9:56 AM [facility] Blood Venous blood specimen / Unknown Venipuncture / Unknown 08/04/2024 6:26 AM EST 08/04/2024 8:35 AM EST Teja Bello MD LAB BLOOD ORDERABLES Final Res ult Performing Organization Address [facility]/ZIP Co de Phone Number [facility] [address] [place] [address], [place] [phone] * (ABNORMAL) Magnesium (08/04/2024 6:26 AM EST) Magnesium 1.8(L) 1.9 - 2.6 mg/dL LAB CHEMISTRY METHOD 08/04/2024 10:55 AM [facility] Blood Venous blood specimen / Unknown Venipuncture / Unknown 08/04/2024 6:26 AM EST 08/04/2024 8:35 AM EST Teja Bello MD LAB BLOOD ORDERABLES Final Res ult Performing Organization Address City/[facility]/ZIP Co de Phone Number [facility] [address] [place] [address], [place] [phone] * (ABNORMAL) Comprehensive metabolic panel (08/04/2024 6:26 AM EST) Sodium 139 133 - 145 mmol/L LAB CHEMISTRY METHOD 08/04/2024 10:06 AM [facility] Potassium 4.1 3.5 - 5.5 mmol/L LAB CHEMISTRY METHOD 08/04/2024 10:06 AM [facility] Chloride 105 96 - 110 mmol/L LAB CHEMISTRY METHOD 08/04/2024 10:06 AM [facility] CO2 27 21 - 32 mmol/L LAB CHEMISTRY METHOD 08/04/2024 10:06 AM [facility] Anion Gap 7 3 - 11 LAB CHEMISTRY METHOD 08/04/2024 10:06 AM [facility] Glucose 225(H) 70 - 100 mg/dL LAB CHEMISTRY METHOD 08/04/2024 10:06 AM [facility] BUN 35(H) 5 - 25 mg/dL LAB CHEMISTRY METHOD 08/04/2024 10:06 AM [facility] Creatinine 1.75(H) 0.70 - 1.30 mg/dL LAB CHEMISTRY METHOD 08/04/2024 10:06 AM [facility] eGFR 40(L) >=60 mL/min/1. 73m2 LAB CHEMISTRY METHOD 08/04/2024 10:06 AM [facility] Comment:Calculation based on the Chronic Kidney Disease Epidemiology Collaboration (CKD-EPI) equation refit without adjustment for race. BUN/Creatinine Ratio 20.0 LAB CHEMISTRY METHOD 08/04/2024 10:06 AM [facility] Calcium 8.3(L) 8.5 - 10.5 mg/dL LAB CHEMISTRY METHOD 08/04/2024 10:06 AM [facility] AST (SGOT) 47(H) 10 - 42 unit/L LAB CHEMISTRY METHOD 08/04/2024 10:06 AM [facility] ALT (SGPT) 79(H) 10 - 60 unit/L LAB CHEMISTRY METHOD 08/04/2024 10:06 AM [facility] Alkaline Phosphatase 139(H) 42 - 121 unit/L LAB CHEMISTRY METHOD 08/04/2024 10:06 AM [facility] Comment:Results verified by repeat testing Total Protein 6.2 6.0 - 8.0 g/dL LAB CHEMISTRY METHOD 08/04/2024 10:06 AM [facility] Albumin 2.7(L) 3.2 - 5.0 g/dL LAB CHEMISTRY METHOD 08/04/2024 10:06 AM [facility] Total Bilirubin 0.5 0.0 - 1.4 mg/dL LAB CHEMISTRY METHOD 08/04/2024 10:06 AM EST [facility] Blood Venous blood specimen / Unknown Venipuncture / Unknown 08/04/2024 6:26 AM EST 08/04/2024 8:35 AM EST us Teja Bello MD LAB BLOOD ORDERABLES Final Res ult [facility] [address] [place] [address], documented in this encounter Visit Diagnoses Diagnosis Encounter for other general examination documented in this encounter Care Teams Associate Professor Of Forestry Relationship Specialty Start Date End Date Vandana Parker MD [address] [place] [address] PCP - General Internal Medicine 08/05/17 documented as of this encounter
== END 2025-06-06 12:02 | disposition home or self-care (01) ==
LOC: HO.10HDL 12:01
PROVIDERS: Visit Provider Internal Medicine
DX: E11.65 Type 2 diabetes mellitus with hyperglycemia (principal); E03.9 Hypothyroidism, unspecified; D50.9 Iron deficiency anemia, unspecified; I50.9 Heart failure, unspecified; E83.42 Hypomagnesemia
CPT/HCPCS: 36415; 80053; 82728; 83036; 83540; 83735; 84443; 85025; 99212

== ENCOUNTER 2025-06-12 07:28 | Outpatient (REF) | payer MEDICARE, SELFPAY ==
--- NOTE | ~2025-06-12 | MR_ITS ---
CLINICAL HISTORY: R55 - Syncope and collapse --- Additional Notes or Special Instructions: recurrent syncope, vision changes r o posterior circulation cva cannot get MR Brain without gadolinium Comparison: None provided Findings: There is a small lacunar infarct in the left caudate body. No intra-axial mass or hemorrhage. No midline shift. No hydrocephalus. Vascular flow voids are intact. Orbital contents are unremarkable. The sinuses and mastoid air cells are clear. No focal bone lesion. IMPRESSION: No acute abnormalities noted. This document has been electronically signed by: Marcel Hernández MD on 06/12/2025 10:27:37
--- OUTSIDE RECORDS SUMMARY | 2025-06-12 07:31 | XMS_ITS | Clinical Summary ---
Author Organization [facility] Address [address] [place] [address] Care Team Providers Care Film Sound Engineer Name Role Phone Vandana Parker MD Primary Care Provider +1- [phone] Allergies No known active allergies Medications Medication [...] Advance Directives For more information, please contact: [phone] Documents on File Type Date Recorded Patient Manpower Development Specialist Manager Expl anation Advance Directive and Living Will 11/15/2016 9:42 AM Care Teams Film Sound Engineer Relationship Specialty Start Date End Date Vandana Parker MD [address] [place] [address] PCP - General Internal Medicine 08/05/17
--- OUTSIDE RECORDS SUMMARY | 2025-06-12 07:31 | XMS_ITS | Clinical Summary ---
Author Organization [facility] Address [address] [facility] [address] [place] [address] Phone Care Team Providers Care Commercial Loan Processor Name Role Phone Vandana Parker MD Primary Care Provider + Allergies Active Allergy Reactions Criticality Noted Date Comments Atorvastatin Other (See Comments) High 05/06/2022 Muscle aches Magnesium Unknown Medium 05/21/2017 Magnesium Oxide Vomiting 05/06/2022 vomitting/diarrhea Morphine Unknown 11/08/2014 Gualiyo-Doy-Zhd Reductase Inhibitors Other (See Comments) High 04/26/2019 [...] topic Medical Devices Not on file Insurance [employer] MEDEX SUPPLEMENT MEDICARE PART A & B [employer] MEDEX SUPPLEMENT MEDICARE PART A & B [employer] MEDEX SUPPLEMENT MEDICARE PART A & B MEDICARE PART A & B [place] [employer] MEDEX SUPPLEMENT MEDICARE PART A & B [employer] [facility] Address: [facility] [id number] [place] [address] MEDICARE PART A & B Care Teams Commercial Loan Processor Relationship Specialty Start Date End Date Vandana Parker MD PCP - General Internal Medicine 08/30/24 Additional Source Comments The information contained in this document represents components of the legal health record. It is not the complete legal health record.[facility]
--- OUTSIDE RECORDS SUMMARY | 2025-06-12 07:32 | XMS_ITS | Data Portability ---
Author Organization [facility] [place] Address [address] [place] [address] Care Team Providers Care Associate Quality Engineer Name Role Phone PETRA GILBERT Primary Care [...] physical examination, tests/diagnostic imaging, and treatment plan [email or web address] Not available 02/10/2025 17:10:48 02/24/2025 02/24/2025 HPI: 74-year-old [id number] t man presenting with right shoulder pain [...] degrees. The knee is stable within that fstrm-da-aokuij to AP and ML stress. The alignment of the knee is varus. Muscle strength is normal. Pedal pulses are palpable. Hip examination, including flexion and internal rotation, was negative in that groin pain was not produced. Radiographs of the right knee from February 2025 demonstrate degenerative joint disease with joint space narrowing, osteophyte formation, and subchondral sclerosis. There is sqwf-tr-tflc articulation. Assessment/Plan : The patient is an [...] with right total knee arthroplasty using the Gilliam total knee replacement system. However, it is [...] right total knee replacement, robotic assisted, at [place] [facility]. We will wait for confirmation by the [...] a written explanation of this service today. [email or web address] Not available 05/17/2025 16:08:34 Plan of Treatment Reminders Order Date Submit Date Provider Last Modified By Organization Details Last Modified Time Details Appointments POST-OP 2025 02:45P Reji CARTER PA-C Not available Not available Not available Lab None recorde d. Referral None recorde d. Procedures None recorde d. Surgeries total knee arthrop lasty (SURG) 2024 025 Not available 06/06/2025 13:33:06 Imaging XR, wrist, 3 or more view 2024 025 [email or web address] [facility] [place] [facility], [address], [place], [address], 03/09/2025 16:15:50 XR, ankle, 3 or more view 2024 025 [email or web address] [facility] [place] [facility], [address], [place], [address], 03/03/2025 19:18:42 XR, ankle, 3 or more view 2024 025 [email or web address] [facility] [place] [facility], [address], [place], [address], 02/10/2025 16:45:09 XR, foot, 2 view 2024 025 [email or web address] [facility] [place] [facility], [address], [place], [address], 02/10/2025 16:45:09 XR, knee, 3 view 2024 025 [email or web address] [facility], [address], [place], [address], 02/10/2025 16:45:09 [place], knee, w/o contras t - Rule out lateral tibial plateau nondisp laced fractur e status post 2024 025 [email or web address] Not available 02/15/2025 08:07:06 XR, shoulde r, 2 or more view 2024 025 [email or web address] [facility], [address], [place], [address], 02/10/2025 16:45:09 XR, wrist, 3 or more view 2024 025 [email or web address] [facility], [address], [place], [address], 02/10/2025 16:45:09 Medication Orders lidocai ne (PF) 10 mg/mL (1 %) injecti on solutio n 2024 025 [email or web address] Not available 02/25/2025 14:56:00 Marcain e (PF) 0.5 % (5 mg/mL) injecti on solutio n 2024 025 Not available 02/25/2025 14:56:00 [email or web address] nolone acetoni de 40 mg/mL suspens ion for injecti on 2024 025 [email or web address] Not available 02/25/2025 14:56:00 Patient TargetsNo targets recorded. Patient Instructions Encounter Date Encounter Id Patient Instructions Last Modified By Organization Details Last Modified Time 02/10/2025 [id number] X-rays of the ri ght shoulder were [...] possibly indicating a nondisplaced distal radius fracture. [email or web address] Not available 02/10/2025 17:10:45 02/24/2025 [id number] Imaging: X-ray RIGHT shoulder, independent interpretation of AP and Axillary views by me show: located glenohumeral joint with severe glenohumeral arthritis, bone on bone, osteophytes, sclerosis, and cysts. The glenoid has Walch A2 wear pattern without significant posterior subluxation. [email or web address] Not available 02/24/2025 17:18:38 03/03/2025 [id number] 3 views of the r ight ankle obtained weightbearing on 03/03/25 demonstrate no acute osseous abnormalites. There is increased talar declination and collapse in Meary's line thorugh the NC joints. There is slight valgus tilt of the talus. [email or web address] Not available 03/06/2025 12:47:20 03/09/2025 [id number] views of the r ight wrist [...] contr ast No observ ation record ed. [email or web address] [facility] [address] [facility] [address], [place], [address], 02/15/2025 08:41:17 02/15/2002/14/2025 [place], knee, w/o contr ast No observ ation record ed. [email or web address] [facility] [address], [place], [address], 02/15/2025 08:41:18 Result Notes None recorded. Problems Name Problem SNOMED Code Status Onset Date Resolution Date Notes Provider Name and Address Organization Details Recorded Time Injury of right knee 75665980751 530617 Active 2018 Right knee injury Not Available [facility] 23:22:34 Arthritis of right knee joint 00574092008 48945 Active 2018 Arthritis of knee, right Not Available [facility] 5 23:22:35 Osteoarth ritis of right knee joint 48737642704 9100 Active 2024 Fracisco Johnson MD [address], [place], [address] , [place] [facility] [place] 5 15:49:35 Arthritis of knee 366329648 Active 2024 Fracisco Johnson MD [address], [place], [address] , [place] [facility] [place], [facility] 5 16:04:25 Osteoarth ritis of right glenohume ral joint 27660128585 73734 Active 2024 Juan Ramon Mejia MD [address], [place], [address] , [place] [facility] [place] 5 17:18:48 Arthritis of right wrist 59100244095 81333 Active 2024 Staci Gonzalez MD [address], [place], [address] , [place] [facility] [place], [facility] 5 14:47:38 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 Procedures Surgical History Date Name Laterality Status Provider Name and Address Organization Details Recorded Time 02/25/20 25 AJR Shoulder GH Inj completed Juan Ramon Mejia MD [address], [place], [address], [place] [facility] [place] 02/24/2025 17:19:02 04/26/20 24 VIANNEY Knee Injection completed [address], [place], [address], [place] [facility] [place] 04/26/2024 15:25:50 arthroplasty of knee completed Renetta Miguel [place] [facility] [place] 04/26/2024 13:59:20 Shoulder Surgery completed [facility] [place] [facility] [place] 04/26/2024 13:59:37 procedure on heart completed [facility] [place] [facility] [place] 04/26/2024 13:59:52 discectomy of spine completed [facility] [place] 04/26/2024 14:00:13 Imaging Results None recorded. [...] Available No t Available FreeStyle Honey 2 [place] DX: E11.9 USE FOUR TIMES PER DAY [...] Updated DateTime 02/10/2025 187.96 cm 27 kg/m2 [address]7420.[address] [facility] [place] 02/10/2025 16:22:15 Date Recorded Body height Provider Name an d Address Organization Details Last Updated DateTime 03/09/2025 187.[address] [place] [facility] [place] 03/09/2025 14:31:04 Date Recorded Body height Body mass index (BMI) Body weight Provider Name and Address Organization Details Last Updated DateTime 05/17/2025 187.96 cm 27 kg/m2 98327.4 g [facility] 05/17/2025 15:43:45 Social History Question Answer Notes LastModified by [facility] ion Details LastModified Time Tobacco Smoking Status Former Smoker Renetta Miguel null, [place] - [facility] [place] 04/26/2024 13:57:48 How Much Tobacco Do You Smoke? 1 PPD Information not available 04/26/2024 Sex: Unknown Functional Status Question Answer Note LastModified by [employer] ion Details LastModified Time Do you use any illicit or recreational drugs? No Information not available 04/26/2024 What is your level of alcohol consumption? None Information not available 04/26/2024 Mental Status None recorded. Family History Nothing Reported. Medical History Condition Response Coronary Artery Disease Y Gout N Hyperthyroidism N MRSA N Blood Transfusion Y Emphysema N COPD Y Depression N Hypothyroidism Y Pacemaker N Vascular Disease Y Gastrointestinal Disease Y Anxiety Disorder N Autoimmune disease N Arthritis Y Cancer Y Stroke Y High Cholesterol Y Neurologic Disorder N Liver Disease N Organ Transplant N Arrhythmia Y Rheumatoid Arthritis N Fibromyalgia N Kidney Disease Y Allergies/Hayfever Y Adverse Reaction to Anesthesia N Thyroid Problems N Anemia Y Brain Injury N Heart Attack (GA) Y Osteopenia N Diabetes Y Bleeding Disorder [...] ICD10 Code Diagnosis IMO Codes Diagnosis Note [id number] DORA DEE PA-C [facility] [address] [place] [address] 04/26/2024 13:00:53 04/26/2024 15:36:50 Pain of right knee region 1595950288 32053 M25.561 98854932 Osteoarthr itis of right knee joint 3353134264 57745 M17.11 [id number] Fracisco Johnson MD [address] [address] 12/07/2024 14:49:08 12/07/2024 16:00:49 Pain of right knee region 8973733719 27946 M25.561 14202664 Osteoarthr itis of right knee joint 1509062217 35791 M17.11 2207053 Arthritis of knee 791803 002 M13.869 [id number] LAUREANO BADILLO PA-C [facility] [address] [place] [address] 02/10/2025 15:22:27 02/10/2025 16:45:09 Pain of right shoulder region 8796061270 M25.511 22876344 Pain of ri ght knee region 5119415398 50680 M25.561 55222531 Ankle pain 985870027 M25 .571 44952794 Pain of right wrist 3169 473155 31557 M25.531 966066 [id number] Juan Ramon Mejia MD [address] [address] 02/24/2025 14:53:11 02/24/2025 16:24:12 Osteoarthritis of right glenohumeral joint 6803882194 214296 M19.011 [id number] Jo Ann Preciado MD [address] [address] 03/03/2025 14:42:03 03/03/2025 15:40:40 Ankle pain 758354564 M25.571 [id number] [facility] [address] [facility] [address] [place] [address] 03/09/2025 14:24:07 03/09/2025 14:45:11 Pain of right wrist 3952107883 54441 M25.531 954844 Arthritis of right wrist 3093757280 570567 M19.031 143744 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 5526924448 620629 M18.11 [id number] MD ANGELIQUE Lov[place] [address] [facility] [address] [place] [address] 05/17/2025 15:31:03 05/17/2025 16:06:41 Osteoarthritis of right knee joint 7738705553 67890 M17.11 0065561 Arthritis of knee 824584 002 M13.869 Health Concerns Section Related Observation LastModified by Organization Detai ls LastModified Time None Recorded Concern Status LastModified by Organization Details LastModified Time None Recorded Advance Directives Directive None Recorded Payers Insurance Date Sequence Insurance Name Policy Number Policy Elizondo Covered Member ID Elizondo Member ID Guarantor Name 05/17/2025 NORIDIAN - SPECIALITY CLAIMS (MEDICARE DME REGION A) Jose L Goins [id number] Jose L Goins 05/14/2025 1 [place]ICARE [place] Jose L Goins [id number] Jose L Goins 05/23/2025 2 [place] [id number] Jose L Goins [id number] Jose L Goins Notes Date Note [...] LAUREANO BADILLO PA-C [address], [place], [address], [place] [facility] [place] 02/10/2025 17:11:03 03/03/2025 text/html Date of [...] Ann Preciado MD [address], [place], [address], [place] [facility] [place] 03/06/2025 12:56:39 03/09/2025 text/html ROS as noted in the HPI This is a 74-year-old bayg-uoox-dalywlqf male who presents with right wrist pain [...] Staci Gonzalez MD [address], [place], [address], [place] [facility] [place] 03/09/2025 14:49:22
--- OUTSIDE RECORDS SUMMARY | 2025-06-12 07:32 | XMS_ITS | Encounter Summary ---
Author Organization [facility] Address [address] [place] [address] Care Team Providers Care Steam Blocker Name Role Phone Vandana Parker MD Primary Care Provider +1- [phone] Reason for Referral * Imaging (Routine) - Closed Specialty Diagnoses / Procedures Referred By Contac t Referred To Contact Diagnostic Radiology Procedures US Duplex Carotid Bilateral Complete Jimi Glynn MD [address] [place] [address] [place] [address] Phone: tel: fax: Referral ID Status Reason Start Date Expiration Date Visits Re quested Visits Authorized [id number] Closed 05/06/2024 05/06/2025 1 1 Encounter Details Date Type Department Care Team (Late st Contact Info) Description 05/06/2024 Scanned Document [facility] [address] [facility] [address] [facility] [place] [address] Jimi Glynn MD [facility] [place] [address] Social History Tobacco Use Types [...] on filedocumented in this encounter Care Teams Steam Blocker Relationship Specialty Start Date End Date Vandana Parker MD [address] [address] PCP - General Internal Medicine 03/29/19 documented as of this encounter
--- OUTSIDE RECORDS SUMMARY | 2025-06-12 07:32 | XMS_ITS | Clinical Summary ---
Author Organization [address] [place] [address] Address [address] [place] [address] Phone Care Team Providers Care Charge Accounts Audit Clerk Name Role Phone Vandana Parker MD Primary Care Provider +1- [phone] Allergies Active Allergy Reactions Criticality Noted Date Comments Atorvastatin High 05/06/2022 Muscle aches Magnesium Oxide 05/06/2022 Pravastatin High 05/06/2022 Muscle aches Easduuo-Dyb-Vzx Reductase Inhibitors 07/13/2024 Medications albuterol HFA (PROAIR [...] 75 mg tabletIndication s:Coronary artery disease involving akiak coronary artery of akiak heart, unspecified whether angina present,History of non-ST [...] Chest 2 Views; Future Paroxysmal atrial fibrillation ([facility] V24, [facility] V28) 10/19/2024 Overview (04/17/2025): Postop CABG Not on anticoagulation Assessment & Plan (04/17/2025 12:52 PM EDT): Clinically, the patient has not had any recurrence of his atrial fibrillation. Continue symptomatic monitoring. Should he have recurrence, would institute full anticoagulation given his elevated [id number] score Assessment & Plan (10/19/2024 10:26 PM [...] to discuss this further with the covering rubber compounder supervisor as Dr. Wade is on vacation this [...] Overview (06/18/2024): Followed by nephrology and has [facility] ordered Heart failure with mid-range ejection fraction (HFmEF) (CMS/HCC V24, CMS/HCC V28) 06/11/2024 Overview (04/17/2025): - LVEF 40-45% range - Echocardiogram at the time of his MO 07/2024 showed normal LV size with mild [...] most recent echocardiogram completed 01/30/2024 while inpatient [facility] revealed an EF of 40 to [...] as indicated. Coronary artery disease invo lving akiak coronary artery of akiak heart without angina pectoris 05/06/2022 Overview (04/17/2025): - s/p CABG 07/2024 -Prior stenting including proximal circumflex and mid RCA in 2015, SATURNINO mid LAD 2016 and patent stents on 02/2019 -NSTEMI 07/2024, transferred to [facility] where cath showed significant multivessel CAD undergoing 3V CABG with Dr. Santamaria receiving (LAWLER to LAD, SVG to PLV, RA to OM -Brief postoperative atrial fibrillation, discharged on amiodarone prophylaxis, was not started on anticoagulation -Echocardiogram at the time of his MO showed normal LV size with mild concentric [...] will review his case with the covering rubber compounder supervisor out of concern for possible graft failure [...] this; we discussed transfer via ambulance to [facility] versus assisting the patient to [facility] ER; I did not feel it was safe for him to be driving out of concern for recurrence of chest pain that may result in injury to himself or someone else. He was agreeable to presenting to [facility] ER for further evaluation; report was [...] Overview (04/17/2025): - prior TIAs followed by [facility] vascular surgery, managed medically - He had a left carotid stent 01/2025 -Right ICA velocity in the 70% range Assessment & Plan (04/17/2025 12:45 PM EDT): The patient's carotid stenosis is closely followed by the vascular team at [facility]. Continue risk factor modification with DAPT and [...] continue with recommendations as provided by his food concession manager including continuation of antibiotic treatment, prednisone taper, [...] [facility] [address] [place] [address] Radu Wade MD 04/25/2025 Telephone [facility] [address] [place] [phone] Radu Wade MD 04/15/2025 10:40 AM EDT Office Visit [facility] [address] [place] [phone] Nathalie Tian NP Hypercholesterolemia (Primary Dx); Coronary artery disease involving akiak coronary artery of akiak heart without angina pectoris; Heart failure with mid-range ejection fraction (HFmEF) ([facility] V24, [facility] V28); Primary hypertension; Bilateral carotid artery stenosis; Dizziness; Paroxysmal atrial fibrillation ([facility] V24, [facility] V28) from Last 3 Months Surgical History Surgery Date Site/Laterality Comments SPINE SURGERY cervical and lumbar ROTATOR CUFF REPAIR Left KNEE SURGERY Left CORONARY STENT PLACEMENT mid LAD in 2016 and 2 proximal circumflex and mid RCA in 2015 Medical History Medical History Date Comments Hypertension CHF (congestive heart failur e) ([facility] V24, [facility] V28) COPD (chronic obstructive pu lmonary disease) ([facility] V24, [facility] V28) CAD (coronary artery disease) s/ p stenting to mid LAD 2017, proximal circumflex and mid RCA, 2015 PAD (peripheral artery disea se) ([facility] V24) DM (diabetes mellitus) ([facility] V24, [facility] V28) Lymphoma in remission ([facility] V28) CKD (chronic kidney disease) stage 3, GFR 30-59 ml/min ([facility] V24, [facility] V28) Family History Medical History Relation Name [...] [facility] [address] [place] [address] Health Maintenance Due Date Last Done Comments [...] 11:30 AM EDT Coronary artery disease involving akiak coronary artery of akiak heart, unspecified whether angina present Hypercholesterolemia from [...] EDT Performed at: 01 - [facility] [address] [id number] Project Geologist: Amanda Maxwell MD, Phone: [phone] Kenyetta Shi FORMING TUBE SELECTOR LAB BLOOD ORDERABLES Final Result [facility] 1 from Last 3 Months or Most Recently Relevant to Health Maintenance Insurance MEDICARE [facility] Advance Directives * Full Code - Default [...] Agents on File Name Relationship Healthcare Agent [facility] p Communication Heath Bai Son Health Care Agent Nellie Bai Spouse First Alternate Health Care Agent [email or web address] Care Teams Charge Accounts Audit Clerk Relationship Specialty Start Date End Date Vandana Parker MD [address] [place] [id number] PCP - General Internal Medicine 08/05/17
--- OUTSIDE RECORDS SUMMARY | 2025-06-12 07:33 | XMS_ITS | Clinical Summary ---
Author Organization [facility] Address [address] [place] [address] Care Team Providers Care Filament Welder Name Role Phone Vandana Parker MD Primary Care Provider +1- [phone] Allergies Active Allergy Reactions Criticality Noted Date [...] topic Insurance MEDICARE PART A & B [facility] Care Teams Filament Welder Relationship Specialty Start Date End Date Vandana Parker MD [address] [place] [address] PCP - General Internal Medicine 05/21/17
--- OUTSIDE RECORDS SUMMARY | 2025-06-12 07:33 | XMS_ITS | Encounter Summary ---
Author Organization [facility] Address [address] [place] [phone] Care Team Providers Care Education Associate Name Role Phone Vandana Parker MD Primary Care Provider +1- [phone] Encounter Details Date Type Department Care Team (Late st Contact Info) Description 06/22/2019 Scanned Document [facility] [place] [address] [facility] [address] [place], [place] [id number] Jimi Glynn MD [address] [place] [phone] Social History Tobacco Use Types Packs/Day Years [...] on filedocumented in this encounter Care Teams Education Associate Relationship Specialty Start Date End Date Vandana Parker MD [address] [address] PCP - General Internal Medicine 03/29/19 documented as of this encounter
--- OUTSIDE RECORDS SUMMARY | 2025-06-12 07:33 | XMS_ITS | Encounter Summary ---
Author Organization [facility] Address [address] [place] [phone] Care Team Providers Care Access Clerk Name Role Phone Vandana Parker MD Primary Care Provider +1- [phone] Encounter Details Date Type Department Care Team (Late st Contact Info) Description 05/26/2020 Scanned Document [facility] [address] [place] [address] [place] [address] Jimi Glynn MD [address] [place] [phone] Social History Tobacco Use Types Packs/Day Years [...] on filedocumented in this encounter Care Teams Access Clerk Relationship Specialty Start Date End Date Vandana Parker MD [address] [address] PCP - General Internal Medicine 03/29/19 documented as of this encounter
--- OUTSIDE RECORDS SUMMARY | 2025-06-12 07:33 | XMS_ITS | Encounter Summary ---
Author Organization [facility] Address [address] [place] [address] Care Team Providers Care Sand Cutter Operator Name Role Phone Vandana Parker MD Primary Care Provider +1- [phone] Encounter Details Date Type Department Care Team (Late st Contact Info) Description 08/10/2024 Lab Requisition [facility] - Main Lab [address] [place] [address] Teja Bello MD [address] [place] [address] Encounter for other general examination Social History [...] Description 10/14/2025 8:00 AM EDT Ancillary Procedure [facility] [address] [phone] documented as of this encounter Procedures Procedure Name Priority Date/Time Associated Diagnosis Comments COMPLETE BLOOD COUNT Routine 08/10/2024 6:24 AM EST Encounter for other general examination COMPREHENSIVE METABOLIC PANEL Routine 08/10/2024 6:24 AM EST Encounter for other general examination documented in this encounter Results * (ABNORMAL) Complete blood count (08/10/2024 6:24 AM EST) [facility] WBC 8.9 4.8 - 10.8 /[facility] LAB HEMETOLOGY METHOD 08/10/2024 11:19 AM EST [facility] RBC 2.90(L) 4.50 - 5.50 M/mcL LAB HEMETOLOGY METHOD 08/10/2024 11:19 AM [facility] LAB Hemoglobin 8.7(L) 13.5 - 17.5 g/dL LAB HEMETOLOGY METHOD 08/10/2024 11:19 AM [facility] LAB Hematocrit 27.5(L) 42.0 - 54.0 % LAB HEMETOLOGY METHOD 08/10/2024 11:19 AM [facility] LAB MCV 93.9 79.0 - 98.0 FL LAB HEMETOLOGY METHOD 08/10/2024 11:19 AM [facility] LAB MCH 29.7 27.0 - 32.0 pcg LAB HEMETOLOGY METHOD 08/10/2024 11:19 AM [facility] LAB MCHC 31.6(L) 32.0 - 37.0 g/dL LAB HEMETOLOGY METHOD 08/10/2024 11:19 AM [facility] LAB RDW 14.6 11.0 - 15.0 % LAB HEMETOLOGY METHOD 08/10/2024 11:19 AM [facility] LAB Platelets 550(H) 130 - 400 K/mcL LAB HEMETOLOGY METHOD 08/10/2024 11:19 AM [facility] LAB MPV 9.3 7.0 - 11.0 FL LAB HEMETOLOGY METHOD 08/10/2024 11:19 AM [facility] LAB NRBC 0.0 <1.0 % LAB HEMETOLOGY METHOD 08/10/2024 11:19 AM [facility] LAB NRBC Absolute 0.00 <0.10 K/mcL LAB HEMETOLOGY METHOD 08/10/2024 11:19 AM [facility] LAB Blood Venous blood specimen / Unknown Venipuncture / Unknown 08/10/2024 6:24 AM EST 08/10/2024 10:00 AM EST us Teja Bello MD LAB BLOOD ORDERABLES Final Res ult [facility] [address] [place] [address], [place] [phone] * (ABNORMAL) Comprehensive metabolic panel (08/10/2024 6:24 AM EST) Sodium 138 133 - 145 mmol/L LAB CHEMISTRY METHOD 08/10/2024 12:14 PM [facility] LAB Potassium 4.6 3.5 - 5.5 mmol/L LAB CHEMISTRY METHOD 08/10/2024 12:14 PM [facility] LAB Chloride 105 96 - 110 mmol/L LAB CHEMISTRY METHOD 08/10/2024 12:14 PM [facility] LAB CO2 26 21 - 32 mmol/L LAB CHEMISTRY METHOD 08/10/2024 12:14 PM [facility] LAB Anion Gap 7 3 - 11 LAB CHEMISTRY METHOD 08/10/2024 12:14 PM [facility] LAB Glucose 128(H) 70 - 100 mg/dL LAB CHEMISTRY METHOD 08/10/2024 12:14 PM [facility] LAB BUN 29(H) 5 - 25 mg/dL LAB CHEMISTRY METHOD 08/10/2024 12:14 PM [facility] LAB Creatinine 1.77(H) 0.70 - 1.30 mg/dL LAB CHEMISTRY METHOD 08/10/2024 12:14 PM [facility] LAB eGFR 40(L) >=60 mL/min/1. 73m2 LAB CHEMISTRY METHOD 08/10/2024 12:14 PM [facility] LAB Comment:Calculation based on the Chronic Kidney Disease Epidemiology Collaboration (CKD-EPI) equation refit without adjustment for race. BUN/Creatinine Ratio 16.4 LAB CHEMISTRY METHOD 08/10/2024 12:14 PM [facility] LAB Calcium 8.7 8.5 - 10.5 mg/dL LAB CHEMISTRY METHOD 08/10/2024 12:14 PM [facility] LAB AST (SGOT) 36 10 - 42 unit/L LAB CHEMISTRY METHOD 08/10/2024 12:14 PM [facility] LAB ALT (SGPT) 59 10 - 60 unit/L LAB CHEMISTRY METHOD 08/10/2024 12:14 PM [facility] LAB Alkaline Phosphatase 111 42 - 121 unit/L LAB CHEMISTRY METHOD 08/10/2024 12:14 PM [facility] LAB Total Protein 5.9(L) 6.0 - 8.0 g/dL LAB CHEMISTRY METHOD 08/10/2024 12:14 PM [facility] LAB Albumin 2.6(L) 3.2 - 5.0 g/dL LAB CHEMISTRY METHOD 08/10/2024 12:14 PM [facility] LAB Total Bilirubin 0.3 0.0 - 1.4 mg/dL LAB CHEMISTRY METHOD 08/10/2024 12:14 PM [facility] LAB Blood Venous blood specimen / Unknown Venipuncture / Unknown 08/10/2024 6:24 AM EST 08/10/2024 10:00 AM EST us Teja Bello MD LAB BLOOD ORDERABLES Final Res ult [facility] [address] [place] [address], documented in this encounter Visit Diagnoses Diagnosis Encounter for other general examination documented in this encounter Care Teams Sand Cutter Operator Relationship Specialty Start Date End Date Vandana Parker MD [address] [place] [address] PCP - General Internal Medicine 08/05/17 documented as of this encounter
--- OUTSIDE RECORDS SUMMARY | 2025-06-12 07:33 | XMS_ITS | Encounter Summary ---
Author Organization [facility] Address [address] [place] [address] Care Team Providers Care Plant Guard Name Role Phone Vandana Parker MD Primary Care Provider +1- [phone] Encounter Details Date Type Department Care Team (Late st Contact Info) Description 08/04/2024 Lab Requisition [facility] - Main Lab [address] [place] [address] Teja Bello MD [address] [place] [address] Encounter for other general examination Social History [...] Description 10/14/2025 8:00 AM EDT Ancillary Procedure [facility] [address] [facility] [address] [place] [address] documented as of this encounter [...] CBC auto differential (08/04/2024 6:26 AM EST) [facility] WBC 11.8(H) 4.8 - 10.8 K/mcL LAB HEMETOLOGY METHOD 08/04/2024 9:56 AM [facility] LAB RBC 3.00(L) 4.50 - 5.50 M/mcL LAB HEMETOLOGY METHOD 08/04/2024 9:56 AM [facility] LAB Hemoglobin 8.7(L) 13.5 - 17.5 g/dL LAB HEMETOLOGY METHOD 08/04/2024 9:56 AM [facility] LAB Hematocrit 28.9(L) 42.0 - 54.0 % LAB HEMETOLOGY METHOD 08/04/2024 9:56 AM [facility] LAB MCV 97.6 79.0 - 98.0 FL LAB HEMETOLOGY METHOD 08/04/2024 9:56 AM [facility] LAB MCH 29.4 27.0 - 32.0 pcg LAB HEMETOLOGY METHOD 08/04/2024 9:56 AM [facility] LAB MCHC 30.1(L) 32.0 - 37.0 g/dL LAB HEMETOLOGY METHOD 08/04/2024 9:56 AM [facility] LAB RDW 15.1(H) 11.0 - 15.0 % LAB HEMETOLOGY METHOD 08/04/2024 9:56 AM [facility] LAB Platelets 489(H) 130 - 400 K/mcL LAB HEMETOLOGY METHOD 08/04/2024 9:56 AM [facility] LAB MPV 9.8 7.0 - 11.0 FL LAB HEMETOLOGY METHOD 08/04/2024 9:56 AM [facility] LAB NRBC 0.0 <1.0 % LAB HEMETOLOGY METHOD 08/04/2024 9:56 AM [facility] LAB NRBC Absolute 0.00 <0.10 K/mcL LAB HEMETOLOGY METHOD 08/04/2024 9:56 AM [facility] LAB Neutrophils Relative 76.0 % LAB HEMETOLOGY METHOD 08/04/2024 9:56 AM [facility] LAB Lymphocytes Relative 12.8 % LAB HEMETOLOGY METHOD 08/04/2024 9:56 AM [facility] LAB Monocytes Relative 5.6 % LAB HEMETOLOGY METHOD 08/04/2024 9:56 AM [facility] LAB Eosinophils Relative 4.1 % LAB HEMETOLOGY METHOD 08/04/2024 9:56 AM [facility] Basophils Relative 0.3 % LAB HEMETOLOGY METHOD 08/04/2024 9:56 AM [facility] LAB Immature Granulocytes Relative 1.2 % LAB HEMETOLOGY METHOD 08/04/2024 9:56 AM [facility] LAB Neutrophils Absolute 9.00(H) 1.50 - 7.00 K/mcL LAB HEMETOLOGY METHOD 08/04/2024 9:56 AM [facility] LAB Lymphocytes Absolute 1.51 1.00 - 5.00 K/mcL LAB HEMETOLOGY METHOD 08/04/2024 9:56 AM [facility] LAB Monocytes Absolute 0.66 0.20 - 1.00 K/mcL LAB HEMETOLOGY METHOD 08/04/2024 9:56 AM [facility] LAB Eosinophils Absolute 0.48 0.00 - 0.50 K/mcL LAB HEMETOLOGY METHOD 08/04/2024 9:56 AM [facility] LAB Basophils Absolute 0.04 0.00 - 0.20 K/mcL LAB HEMETOLOGY METHOD 08/04/2024 9:56 AM [facility] LAB Immature Granulocytes Absolute 0.14(H) 0.00 - 0.03 K/mcL LAB HEMETOLOGY METHOD 08/04/2024 9:56 AM [facility] LAB Blood Venous blood specimen / Unknown Venipuncture / Unknown 08/04/2024 6:26 AM EST 08/04/2024 8:35 AM EST Teja Bello MD LAB BLOOD ORDERABLES Final Res ult Performing Organization Address [facility]/ZIP Co de Phone Number [facility] [address] [place] [address], [place] [phone] * (ABNORMAL) Magnesium (08/04/2024 6:26 AM EST) Magnesium 1.8(L) 1.9 - 2.6 mg/dL LAB CHEMISTRY METHOD 08/04/2024 10:55 AM [facility] Blood Venous blood specimen / Unknown Venipuncture / Unknown 08/04/2024 6:26 AM EST 08/04/2024 8:35 AM EST Teja Bello MD LAB BLOOD ORDERABLES Final Res ult Performing Organization Address City/[facility]/ZIP Co de Phone Number [facility] [address] [place] [address], [place] [phone] * (ABNORMAL) Comprehensive metabolic panel (08/04/2024 6:26 AM EST) Sodium 139 133 - 145 mmol/L LAB CHEMISTRY METHOD 08/04/2024 10:06 AM [facility] Potassium 4.1 3.5 - 5.5 mmol/L LAB CHEMISTRY METHOD 08/04/2024 10:06 AM [facility] Chloride 105 96 - 110 mmol/L LAB CHEMISTRY METHOD 08/04/2024 10:06 AM [facility] CO2 27 21 - 32 mmol/L LAB CHEMISTRY METHOD 08/04/2024 10:06 AM [facility] LAB Anion Gap 7 3 - 11 LAB CHEMISTRY METHOD 08/04/2024 10:06 AM [facility] Glucose 225(H) 70 - 100 mg/dL LAB CHEMISTRY METHOD 08/04/2024 10:06 AM [facility] BUN 35(H) 5 - 25 mg/dL LAB CHEMISTRY METHOD 08/04/2024 10:06 AM [facility] Creatinine 1.75(H) 0.70 - 1.30 mg/dL LAB CHEMISTRY METHOD 08/04/2024 10:06 AM [facility] LAB eGFR 40(L) >=60 mL/min/1. 73m2 LAB CHEMISTRY METHOD 08/04/2024 10:06 AM [facility] LAB Comment:Calculation based on the Chronic Kidney Disease Epidemiology Collaboration (CKD-EPI) equation refit without adjustment for race. BUN/Creatinine Ratio 20.0 LAB CHEMISTRY METHOD 08/04/2024 10:06 AM [facility] Calcium 8.3(L) 8.5 - 10.5 mg/dL LAB CHEMISTRY METHOD 08/04/2024 10:06 AM [facility] AST (SGOT) 47(H) 10 - 42 unit/L LAB CHEMISTRY METHOD 08/04/2024 10:06 AM [facility] ALT (SGPT) 79(H) 10 - 60 unit/L LAB CHEMISTRY METHOD 08/04/2024 10:06 AM [facility] Alkaline Phosphatase 139(H) 42 - 121 unit/L LAB CHEMISTRY METHOD 08/04/2024 10:06 AM [facility] LAB Comment:Results verified by repeat testing Total Protein 6.2 6.0 - 8.0 g/dL LAB CHEMISTRY METHOD 08/04/2024 10:06 AM [facility] Albumin 2.7(L) 3.2 - 5.0 g/dL LAB CHEMISTRY METHOD 08/04/2024 10:06 AM [facility] Total Bilirubin 0.5 0.0 - 1.4 mg/dL LAB CHEMISTRY METHOD 08/04/2024 10:06 AM EST [facility] Blood Venous blood specimen / Unknown Venipuncture / Unknown 08/04/2024 6:26 AM EST 08/04/2024 8:35 AM EST us Teja Bello MD LAB BLOOD ORDERABLES Final Res ult [facility] [address] [place] [address], documented in this encounter Visit Diagnoses Diagnosis Encounter for other general examination documented in this encounter Care Teams Plant Guard Relationship Specialty Start Date End Date Vandana Parker MD [address] [place] [address] PCP - General Internal Medicine 08/05/17 documented as of this encounter
--- OUTSIDE RECORDS SUMMARY | 2025-06-12 07:33 | XMS_ITS | Clinical Summary ---
Author Organization [facility] Address [address] [address] Phone Care Team Providers Care Pressroom Worker Name Role Phone Vandana Parker MD Primary Care Provider +1- [phone] Allergies Active Allergy Reactions Criticality Noted Date [...] Office Visit [facility] [address] [address] Santiago Quinn MD Stage 3a chronic kidney disease (HCC) (Primary Dx); Peripheral arterial occlusive disease (HCC); Non-Hodgkin's lymphoma (clinical) (HCC); Hyperkalemia; Hypercalcemia; Essential hypertension; Diabetes mellitus, not otherwise specified (HCC); Congestive heart failure, not otherwise specified (HCC); Carotid artery stenosis <Unspecified side> 03/28/2025 Documentation Only [facility] [address] [place] [address] [address] [place] [phone] Santiago Quinn MD 03/20/2025 Orders Only [facility] [address] [place] [address] [address] [place] [phone] Santiago Quinn MD Stage 3a chronic kidney [...] Office Visit [facility] [address] [phone] Santiago Quinn MD [address] [address] Health Maintenance Due Date Last [...] Creatinine, Ur 148.9 Not Estab. mg/dL [facility] Protein, Ur 35.2 Not Estab. mg/dL [facility] Urine Protein/Creati nine Ratio 236(H) 0 - 200 mg/g creat [facility] 03/14/2025 1:54 PM EDT 03/14/2025 us Santiago Quinn MD LAB URINE ORDERABLES Final Re sult [facility] [address] [place] [address] * Vitamin D 25 Hydroxy (03/14/2025 1:54 PM EDT) Vitamin D, 25-OH, Total 31.1 30.0 - 100.0 ng/mL [facility] Comment: Vitamin D deficiency has been defined by the [place] of Medicine and an Endocrine Society practice guideline as a level of serum 25-OH vitamin D less than 20 ng/mL (1,2). The Endocrine Society went on to further define vitamin D insufficiency as a level between 21 and 29 ng/mL (2). 1. IOM ([place] of Medicine). 2010. Dietary reference intakes for calcium and D. [place]: The National Academies Press. 2. Vicenta MF, Roney PANIAGUA, Concepción TSE, et al. Evaluation, treatment, and prevention of vitamin D deficiency: an Endocrine Society clinical practice guideline. JCEM. 2010; 96(7):1911-30. 03/14/2025 1:54 PM EDT 03/14/2025 us Santiago Quinn MD LAB BLOOD ORDERABLES Final Re sult [facility] [address] [place] [address] * (ABNORMAL) CBC and Differential (03/14/2025 1:54 PM EDT) WBC 9.0 3.4 - 10.8 x10E3/uL [facility] RBC 3.58(L) 4.14 - 5.80 x10E6/uL [facility] Hemoglobin 11.0(L) 13.0 - 17.7 g/dL [facility] Hematocrit 34.0(L) 37.5 - 51.0 % [facility] MCV 95 79 - 97 fL [facility] MCH 30.7 26.6 - 33.0 pg [facility] MCHC 32.4 31.5 - 35.7 g/dL [facility] RDW 13.9 11.6 - 15.4 % [facility] Platelets 221 150 - 450 x10E3/uL [facility] Neutrophils Relative 67 Not Estab. % [facility] Lymphocytes Relative 23 Not Estab. % [facility] Monocytes 6 Not Estab. % [facility] Eosinophils Relative 3 Not Estab. % [facility] Basophils Relative 1 Not Estab. % [facility] Neutrophils Absolute 6.1 1.4 - 7.0 x10E3/uL [facility] Lymphocytes Absolute 2.1 0.7 - 3.1 x10E3/uL [facility] Monocytes Absolute 0.5 0.1 - 0.9 x10E3/uL [facility] Eosinophils Absolute 0.2 0.0 - 0.4 x10E3/uL [facility] Basophils Absolute 0.1 0.0 - 0.2 x10E3/uL [facility] Immature Granulocytes 0 Not Estab. % [facility] Immature Grans (Absolute) 0.0 0.0 - 0.1 x10E3/uL [facility] 03/14/2025 1:54 PM EDT 03/14/2025 Santiago Quinn MD LAB BLOOD ORDERABLES Final Re sult [facility] [address] [place] [address] * Uric Acid (03/14/2025 1:54 PM EDT) Uric Acid 4.5 3.8 - 8.4 mg/dL [facility] Comment:Therapeutic target f or gout patients: <6.0 03/14/2025 1:54 PM EDT 03/14/2025 Santiago Quinn MD LAB BLOOD ORDERABLES [facility] [address] [place] [address] * Phosphorus (03/14/2025 1:54 PM EDT) Phosphorus 3.3 2.8 - 4.1 mg/dL [facility] 03/14/2025 1:54 PM EDT 03/14/2025 us Santiago Quinn MD LAB BLOOD ORDERABLES Final Re sult Performing Organization Address [facility]/ZIP Co de Phone Number [facility] [address] [place] [address] * PTH, Intact (03/14/2025 1:54 PM EDT) PTH 19 15 - 65 pg/mL [facility] 03/14/2025 1:54 PM EDT 03/14/2025 Santiago Quinn MD LAB BLOOD ORDERABLES Final Re sult Performing Organization Address [facility] Co de Phone Number [facility] [address] [place] [address] * (ABNORMAL) Magnesium (03/14/2025 1:54 PM EDT) Pathologist [facility] Magnesium 1.4(L) 1.6 - 2.3 mg/dL [facility] 03/14/2025 1:54 PM EDT 03/14/2025 Santiago Quinn MD LAB BLOOD ORDERABLES Final Re sult Performing Organization Address [facility] Co de Phone Number [facility] [address] [place] [address] * (ABNORMAL) Comprehensive Metabolic Panel (03/14/2025 1:54 PM EDT) Glucose 303(H) 70 - 99 mg/dL [facility] BUN 42(H) 8 - 27 mg/dL [facility] Creatinine 1.74(H) 0.76 - 1.27 mg/dL [facility] eGFR CKD-EPI CR 2020 40(L) >59 mL/min/1.7 3 [facility] BUN/Creatinine Ratio 24 10 - 24 [facility] Sodium 141 134 - 144 mmol/L [facility] Potassium 5.2 3.5 - 5.2 mmol/L [facility] Chloride 103 96 - 106 mmol/L [facility] Bicarbonate (CO2) 18(L) 20 - 29 mmol/L [facility] Calcium 9.5 8.6 - 10.2 mg/dL [facility] Total Protein 6.6 6.0 - 8.5 g/dL [facility] Albumin 4.1 3.8 - 4.8 g/dL [facility] Globulin 2.5 1.5 - 4.5 g/dL [facility] Total Bilirubin 0.3 0.0 - 1.2 mg/dL [facility] Alkaline Phosphatase 57 44 - 121 IU/L [facility] AST (SGOT) 32 0 - 40 IU/L [facility] ALT (SGPT) 28 0 - 44 IU/L [facility] 03/14/2025 1:54 PM EDT 03/14/2025 us Santiago Quinn MD LAB BLOOD ORDERABLES Final Re sult [facility] [address] [place] [address] * (ABNORMAL) Blood Panel (12/25/2018 12:00 AM [...] % RTAMA 12/25/2018 us [facility] [id number] LICITED RESULTS Final Result RTAMA from Last 3 Months or Most Recently Relevant to Health Maintenance Insurance [facility] Medicare Medicare [facility] Care Teams Pressroom Worker Relationship Specialty Start Date End Date Vandana Parker MD [address] [place], [place] PCP - General 08/14/20
--- OUTSIDE RECORDS SUMMARY | 2025-06-12 07:33 | XMS_ITS | Encounter Summary ---
Author Organization [facility] Address [address] [place] [phone] Care Team Providers Care Shingle Cutter Name Role Phone Vandana Parker MD Primary Care Provider +1- [phone] Reason for Visit * Reason Onset Date Comments Ultrasound 04/20/2024 Encounter Details Date Type Department Care Team ([facility] st Contact Info) Description 04/20/2024 Telephone [facility] [address] [facility] [address] [facility] [place] [address] Jimi Glynn MD [address] [place] [address] Ultrasound Social History Tobacco Use [...] Zhang - 04/20/2024 10:15 AM EDT Called [facility] and spoke to radiology scheduling. They stated that they have not received's CUS order as of yet. They asked if it can be re-faxed to [phone]. Please advise documented in this encounter Plan of Treatment Not on file documented as of this encounter Visit Diagnoses Not on filedocumented in this encounter Care Teams Shingle Cutter Relationship Specialty Start Date End Date Vandana Parker MD [address] [phone] PCP - General Internal Medicine 03/29/19 documented as of this encounter
--- OUTSIDE RECORDS SUMMARY | 2025-06-12 07:33 | XMS_ITS | Encounter Summary ---
Author Organization [facility] Address [address] [place] [phone] Care Team Providers Care Sales Data Analyst Name Role Phone Vandana Parker MD Primary Care Provider [phone]- [phone] Encounter Details Date Type Department Care Team (Late st Contact Info) Description 05/26/2020 Scanned Document [facility] [address] [place] [address] [place] [address] Jimi Glynn MD [address] [place] [phone] Social History Tobacco Use Types Packs/Day Years [...] filedocumented in this encounter Care Teams Sales Data Analyst Relationship Specialty Start Date End Date Vandana Parker MD [address] [phone] PCP - General Internal Medicine 03/29/19 documented as of this encounter
== END 2025-06-12 07:29 | disposition home or self-care (01) ==
LOC: HO.MRI 07:28
PROVIDERS: Visit Provider Internal Medicine
DX: R55 Syncope and collapse (principal)
CPT/HCPCS: 70551

== ENCOUNTER 2025-07-11 11:16 | Outpatient (AMB) | payer MEDICARE, SELFPAY ==
--- NOTE | 2025-07-11 11:17 | A.OFFPC_ITS ---
Vital Signs 07/11/25 11:19 Height 5 ft 11.75 in Weight 220 lb BMI 30.0 BP 98/50 L Blood Pressure Location Lt brachial Position Sitting Respiration 16 Pulse 78 Pulse Source Pulse Oximeter Temp 96.9 F Temp Source Temporal Artery Scan Pulse Oximetry (%) 92 Oxygen Delivery Method Room Air Intake Visit Reasons: Follow Up Syncope Trial Examiner Required: No Accompanied by: Self / Same As Patient Allergies atorvastatin Allergy (Severe, Verified 07/11/25 12:59) Muscle Aches magnesium Allergy (Severe, Verified 07/11/25 12:59) Rash pravastatin Allergy (Severe, Verified 07/11/25 12:59) Muscle Aches Medication List - Last Reconciled 07/11/25 by Vandana Parker MD acetaminophen (Tylenol) 650 mg PO .QHS PRN albuterol sulfate 90 mcg/actuation 2 inhalations inhalation Q6H PRN 30 days aspirin 81 mg PO DAILY blood sugar diagnostic (Defywire Ultra Test strips) As directed blood-glucose sensor (Cord Projectyle Honey 2 Plus Sensor device) As directed clopidogrel 75 mg PO DAILY diclofenac sodium 1% 2 grams topical QID PRN flash glucose scanning reader (BCB MedicalStyle Honey 2 Toughkenamon) As directed glipizide ER 10 mg PO BID insulin glargine (Basaglar KwikPen U-100 Insulin) 24 units subcut QPM insulin lispro (Humalog KwikPen (U-100) Insulin) 1 sliding scale dose subcut USEASDIRECTD ipratropium-albuterol 0.5 mg-3 mg(2.5 mg base)/3 mL 3 mL inhalation BID PRN lancets (SlideBatchuch UltraSoft 2 Lancet) As directed levothyroxine (Synthroid) 50 mcg PO DAILY lidocaine 5% 1 appl topical QID PRN lovastatin 10 mg PO DAILY metoprolol tartrate 12.5 mg PO BID multivitamin 1 tab PO DAILY pen needle, diabetic (Ultra-Fine Pen Needle) As directed sertraline 50 mg PO DAILY umeclidinium-vilanterol 62.5-25 mcg/actuation (Anoro Ellipta) 1 inh inhalation DAILY PRN Tobacco use date assessed: 06/06/25 Fall risk assessment: 2 + Falls in past year Last assessed Fall Risk: 07/11/25 Dental Screening Dental Screen Date: 06/06/25 HPI HPI Comments History of Present Illness Details The patient is a 74 year old male presenting for a follow-up visit to address recurrent falls, syncope, memory changes, and management of chronic conditions. Syncope and Falls: The patient reports no recent near-passing out spells but has experienced three or four falls in the last three to four weeks. A recent fall occurred on Friday while bending over to sit, causing him to lose his balance and hit his head and shoulder on a wall. His oxygen saturation was also noted to be 88% one morning. 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 An EEG is scheduled for next week to evaluate for seizure activity. Memory Impairment: The patient reports that his memory has not been as sharp as it used to be and he is noticing the change more. The MRI showed lacunar infarct. His reports observing him with a head rocking motion, particularly when he is sitting. She has videotaped this and shared it with their son. Type 2 Diabetes Mellitus: The patient has a continuous glucose monitor and takes insulin. His fasting blood sugars fluctuate, with a recent high of 256 mg/dL and a low of 79 mg/dL. He reports taking 22 units of Basaglar at night, with a morning fasting glucose of 157 mg/dL on one occasion. He experienced a postprandial spike to 335 mg/dL after having coffee with three packets of sweetener and a water roll. The patient is inconsistent with his sliding scale insulin, taking it in the morning and at suppertime, but often skipping the midday dose if his blood sugar is around 150 mg/dL. He also skips breakfast and sometimes lunch. His most recent A1c was 9%. Hiatal Hernia and Dysphagia: The patient experienced shortness of breath while eating and swallowing problems. A barium swallow performed on April 25 revealed a small hiatal hernia, with no significant esophageal narrowing. Arthritis of Knee: The patient has arthritis in his knee and is scheduled for knee replacement surgery with Dr. Lenz at [facility], though it has been postponed before due to carotid surgery. Neck Pain: He reports new onset of a burning sensation down left side of his neck, from just above the ear, which lasts for 5-10 minutes before resolving. He also notes stiffness and difficulty moving his head on the same side. He denies any throbbing sensation. He had a history of neck pain during a previous hospitalization. A prior cervical spine CT showed minor anterolisthesis without significant degeneration or herniation. COPD- patient discontinued his inhaler Social History: - Nutrition: The patient skips breakfast and sometimes lunch. - Home situation: He lives with his who is his primary caregiver. [facility] Medical History (Updated 07/11/25 @ 12:06 by Vandana Parker MD) Left shoulder pain Hypokalemia Lacunar infarction Memory change Primary hypertension Syncope Hypomagnesemia Hypothyroidism (acquired) Type 2 diabetes mellitus with hyperglycemia Iron deficiency anemia COPD (chronic obstructive pulmonary disease) History of non-Hodgkin's lymphoma History of TIA (transient ischemic attack) Diabetes mellitus type 2, insulin dependent Hyperlipidemia Hypertension CAD (coronary artery disease) Pulmonary nodule GERD (gastroesophageal reflux disease) Chronic restrictive lung disease Dyspnea Pneumonitis Surgical History (Updated 06/06/25 @ 16:11 by Vandana Parker MD) Hx of CABG History of cardiac cath History of shoulder surgery History of total left knee replacement History of lumbar surgery History of cervical spinal surgery History of appendectomy Social History Housing: House Patient Tobacco Use Status: Former Tobacco user Years Smoked: 30 years e-Cigarette/Vaping Use: Never Used service: No Current occupational status: retired Questionnaire AUDIT C Alcohol Use Questionnaire (AUDIT-C) 1. How often do you have a drink containing alcohol?: Never 3. How often do you have six or more drinks on one occasion?: Never Total Score: 0 Review of Systems Narrative Review of Systems General: fatigue. Card/Pulm: Denies any chest pain or shortness of breath. Physical exam (Primary Care) Vital Signs: Last Vital Signs Temp 96.9 F 07/11/25 11:19 Pulse 78 07/11/25 11:19 Resp 16 07/11/25 11:19 BP 98/50 L 07/11/25 11:19 Pulse Ox 92 07/11/25 11:19 Oxygen Delivery Method Room Air 07/11/25 11:19 BMI result Body Mass Index 30.0 Tobacco/Smoking Status: Tobacco use Status Tobacco use date assessed 06/06/25 07/11/25 11:26 Patient Tobacco Use Status Former Tobacco user 07/11/25 11:26 e-Cigarette/Vaping Use Never Used 07/11/25 11:26 Narrative Physical Exam Gen: NAD Neck: carotid bruits R > L Chest: CTABL Card: normal s1, s2, soft murmur across precordium Abd: SNTND, +BS Coding Level of Care Code Est Pt Level 4 (07573) Complex visit Add On G2211 Diagnoses Primary hypertension I10 Type 2 diabetes mellitus with hyperglycemia, with long-term current use of insulin E11.65; Z79.4 Diabetes mellitus watermaster insulin use: with intermediate use Hypomagnesemia E83.42 Memory change R41.3 Syncope, unspecified syncope type R55 Syncope type: unspecified Assessment & Plan Assessment & Plan (1) Primary hypertension: Code(s): I10 - Essential (primary) hypertension Category: Medical (2) Type 2 diabetes mellitus with hyperglycemia: Code(s): E11.65 - Type 2 diabetes mellitus with hyperglycemia Category: Medical Qualifiers: Diabetes mellitus intermediate insulin use: with intermediate use Qualified Code(s): E11.65 - Type 2 diabetes mellitus with hyperglycemia; Z79.4 - manager terminal (current) use of insulin (3) Hypomagnesemia: Code(s): E83.42 - Hypomagnesemia Category: Medical (4) Memory change: Code(s): R41.3 - Other amnesia Category: Medical (5) Syncope: Code(s): R55 - Syncope and collapse Category: Medical Qualifiers: Syncope type: unspecified Qualified Code(s): R55 - Syncope and collapse Plan Assessment and Plan Hypertension-blood pressure fluctuates to systolic in the 90s. Due for follow up with cardiology. Patient has frequent episodes of syncope and falls. Pending appointment to get 24-hour blood pressure monitor to evaluate blood pressure findings. Recurring syncopal episodes-has pending EEG. Osteoarthritis off knees-discussed with patient delaying surgery until neurological exam is complete. Diabetes mellitus stat 2- continue insulin, encouraged patient to have consistent meal intake. Also encouraged incorporating glucerna in his diet. CAD- follow up with cardiology Hypermagnesemia-recheck magnesium, in the past patient was unable to tolerate magnesium oxide supplementation. COPD- follow up with supervisory aide re inhaler use Carotid stenosis- established with [facility] vascular Memory impairment- neurology referral Plan See assessment and plan section above, follow up in 2 months Discussion Notes Patient Instructions -get shoulder xray - get labs Orders: Orders Basic Metabolic Panel Today Vandana Parker MD E83.42 - Hypomagnesemia, E87.6 - Hypokalemia Magnesium Today Vnadana Parker MD E83.42 - Hypomagnesemia, E87.6 - Hypokalemia XR shoulder LT min 2V Today Vandana Parker MD M25.512 - Pain in left shoulder Referrals Neurology Referral Vandana Parker MD I63.81 - Other cerebral infarction due to occlusion or stenosis of small artery, R41.3 - Other amnesia Medications: New mupirocin 2% (Centany) 1 appl topical BID 22 grams 3RF Vandana Parker MD [GLUCERNA] 1 bottle PO QID 120 multiple units 6RF Vandana Parker MD E11.65 - Type 2 diabetes mellitus with hyperglycemia, Z79.4 - shelter (current) use of insulin Changed From Anoro Ellipta 62.5-25 mcg/actuation (umeclidinium-vilanterol) 1 inh inhalation DAILY 60 ea 11RF NS J44.89 - Other specified chronic obstructive pulmonary disease To umeclidinium-vilanterol 62.5-25 mcg/actuation (Anoro Ellipta) 1 inh inhalation DAILY PRN J44.89 - Other specified chronic obstructive pulmonary disease Federico Ortiz MD From diclofenac sodium 1% apply to single elbow, wrist or hand; for hand includes palm/fingers/back of hand 2 grams topical QID 100 grams 6RF shoulder pain To diclofenac sodium 1% apply to single elbow, wrist or hand; for hand includes palm/fingers/back of hand 2 grams topical QID PRN Vandana Parker MD From ipratropium-albuterol 0.5 mg-3 mg(2.5 mg base)/3 mL 3 mL inhalation BID 30 days 180 mL 11RF J44.9 - Chronic obstructive pulmonary disease, unspecified To ipratropium-albuterol 0.5 mg-3 mg(2.5 mg base)/3 mL 3 mL inhalation BID PRN J44.9 - Chronic obstructive pulmonary disease, unspecified Federico Ortiz MD
[2025-07-11 11:19] VITALS: BP 98/50; PULSE 78; RESP 16; TEMP 36.1; O2SAT 92
== END 2025-07-11 12:12 | disposition home or self-care (01) ==
LOC: HO.HMCHD 11:16
PROVIDERS: PCP Internal Medicine; Visit Provider Internal Medicine
DX: I10 Essential (primary) hypertension (principal); E11.65 Type 2 diabetes mellitus with hyperglycemia; Z79.4 Long term (current) use of insulin; E83.42 Hypomagnesemia; R41.3 Other amnesia; R55 Syncope and collapse

== ENCOUNTER 2025-07-11 11:16 | Outpatient (REF) | payer MEDICARE, SELFPAY ==
--- NOTE | ~2025-07-11 | XR_ITS ---
EXAMINATION: XR SHOULDER, LEFT CLINICAL INFORMATION: M25.512 - Pain in left shoulder COMPARISON: None. TECHNIQUE: Three views of the left shoulder. FINDINGS: Normal bone mineralization. No fracture, dislocation, or suspicious bone lesion. Normal alignment. There has been prior subacromial decompression, and there are surgical anchors within the greater tuberosity of the humeral head from prior rotator cuff repair. The glenohumeral joint demonstrates moderate to severe degenerative arthrosis, with superior subluxation and complete loss of subacromial space. There is pseudoarticulation of the humeral head with the acromion, indicating full thickness rotator cuff tear. The AC joint demonstrates postop resection. There is a type II acromion. There is mild undersurface spurring of the distal aspect. Remainder of the soft tissue and bony structures appear normal. XR/XR shoulder LT min 2V IMPRESSION: 1. There has been prior rotator cuff repair with subacromial decompression. 2. There is pseudoarticulation of the humeral head upon the acromion, with complete loss of the subacromial space, indicating full thickness rotator cuff tearing. 3. There is moderate to severe osteoarthrosis of the glenohumeral joint. Electronically signed by: Stevie Terry MD 07/11/2025 12:51 PM EST
--- OUTSIDE RECORDS SUMMARY | 2025-07-11 20:31 | XMS_ITS | Patient Health Record ---
Author Organization [facility] Address [address] [place] [address] Care Team Providers Care Custodian Blood Bank Name Role Phone VLADIMIR SANTANA, PETRA Primary Care Provider SIDNEY Robins Unavailable [phone] Allergies Allergen (clinical drug ingredient) Drug/Non Drug Allergy documented on EMR Reaction Allergy Type Onset Date Status Magnesium Unknown Drug Allergy Active pravastatin Pravastatin stomach upset Drug Allergy Active Reason For Referral No Information Medications Medication SIG (Take, Route, Frequency, Duration) Notes Start Date End Date Status Multivitamin 1 TAB ORALLY ONCE DAILY NAME ONLY Conversion from Multum Review and pick correct strength-formulati on from [employer] options. If intended option is not shown, discontinue and re-order from Quick Search. Active Sertraline HCl 50 MG Tablet 1 tab(s) orally once a day Active Aspirin 81 MG TABLET 1 TAB(S) ORALLY ONCE A DAY NAME ONLY Conversion from [employer] Review and pick correct strength-formulati on from [employer] options. If intended option is not shown, discontinue and re-order from Quick Search. Active Trulicity 0.75 MG/0.5ML Solution Pen-injector 0.75 mg subcutaneously once a week; Duration: 30 Active BD ULTRA- FINE PEN MILLA 4MM, 5/32 - TO INJECT INUSLIN QID; Duration: 90 days Active ONE TOUCH ULTRA TEST STRIPS DX E11.42 ON INSULIN ULTRABLUE TWICE PER DAY *Please review for potential replacement for e-prescription and drug interaction check* Active ONE TOUCH ULTRA 2 GLUCOMETER TO TEST BLOOD GLUCOSE DX E11.43 BID *Please review for potential replacement for e-prescription and drug interaction check* 05/19/2019 Active Metoprolol Tartrate 50 MG Tablet 1 tab(s) orally 2 times a day Active Clopidogrel Bisulfate 75 MG Tablet 1 tab(s) orally once a day Active Basaglar KwikPen 100 UNIT/ML Solution Pen-injector 20 units or as directed subcutaneously once daily; Duration: 90 Active glipiZIDE ER 10 MG Tablet Extended Release 24 Hour 1 tab(s) orally twice a day; Duration: 90 day(s) Active metFORMIN HCl 500 MG Tablet 2 tab(s) orally 2 times a day; Duration: 90 day(s) Active GLUCAGON EMERGENCY KIT DIRECTED BY INJECTION PRN SEVER HYPOGLYCEMIA *Please review for potential replacement for e-prescription and drug interaction check* Active ONE TOUCH DELICA LANCETS DX E 11.42, ON INSUILN TWICE PER DAY *Please review for potential replacement for e-prescription and drug interaction check* Active Social History Tobacco Use: Social History Observation Description Date Details (start date - stop date) Former Smoker NA - NA Social History Tobacco Use: Social Info Question Answer Notes Smoking Are you a: former smoker Additional Details Category Social Info Options Details General 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[employer], 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 asbestos exposure: yes via work, man y years ago Past year's travels: none alcohol use: yes only at weddings drug use: no Hobbies/Exercise habits: Gof, Ba bysitting Grandsons, Sporting Events ; Walking Coffee/Tea/Soda: yes Coffee: 2 cups per day ; Tea: none ; Soda: none Marital Status experience no Living with Pets Dogs X2 ; Bird smokers in household no former smok er - quit 1998 Problems Problem Type SNOMED Code ICD Code Onset Dates Problem Status W/U Status Risk Notes Problem Long-term current use of insulin (864843534) 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 (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) use of insulin (Z79.4) Active confirmed Problem Polyneuropathy due to type 2 diabetes mellitus (502910014) Uncontrolled type 2 diabetes mellitus with peripheral neuropathy (E11.42) Active confirmed Problem Diabetic autonomic neuropathy due to type 2 diabetes mellitus (275152805) Type 2 diabetes mellitus with peripheral neuropathy (E11.43) Active confirmed Plan Of Treatment No Information Insurance Providers Payer Name Payer Address Payer Phone Subscriber Number Group Number Insured Name Patient Relationship to Insured Coverage Start Date Coverage End Date [employer]ICARE [employer] [address] [place] [address] [phone] [id number] RAMAKRISHNA BAI Self - patient is the insured SAMIR [employer] [address] [place], [place] [id number] RAMAKRISHNA BAI Self - patient is the insured Medical (General) History Medical History History ICD Code anemia COPD Non-Hodgkins Lymphoma - 2005 - s/p chemo therapy ([facility]) - circulation problems? Type 2 diabetes - dx ~ 1992 headaches hypertension CAD - s/p AK, PTCA & stent x 3 - Dr. Melissa JACOBO - Dr. Sommers CKD - [facility] Loss sight of Right eye Surgical History Surgery Date(Month/Year) Right Leg Laser Vein Surgery 01/2020 PTCA/stent 01/2017 Stent placement x 2 - [facility] 03/2016 L Knee Replacement 2013 L Knee Replacement 1998 Cervical Disc 1997 Cervical Disc 1988 Lumbar Disc 1987 L Rotator Cuff 2004 Hospitalization History Reason Date(Month/Year) PTCA/stent 01/2017 as above [facility] - Non-Hodgkins Lymphoma (X 10-12 day s) 05/2005 heart attack - [facility] 03/2016 [facility] - dehydration/possible kidney failur e and stroke ruled out 02/2017
--- OUTSIDE RECORDS SUMMARY | 2025-07-11 20:31 | XMS_ITS | Clinical Summary ---
Author Organization [facility] Prior to 01/01/25 Address [address] [place] [address] Care Team Providers Care Angle Bender Name Role Phone Vandana Parker MD Primary Care Provider [phone]- [phone] Allergies No known active allergies Medications Medication [...] Advance Directives For more information, please contact: [phone] Documents on File Type Date Recorded Patient Rn Placement Expl anation Advance Directive and Living Will 11/15/2016 9:42 AM Care Teams Angle Bender Relationship Specialty Start Date End Date Vandana Parker MD [address] [place] [address] PCP - General Internal Medicine 08/05/17
--- OUTSIDE RECORDS SUMMARY | 2025-07-11 20:31 | XMS_ITS | Clinical Summary ---
Author Organization [facility] Address [address] [place] [address] Phone Care Team Providers Care House Supervisor Name Role Phone Vandana Parker MD Primary Care Provider + Allergies Active Allergy Reactions Criticality Noted Date Comments Atorvastatin Other (See Comments) High 05/06/2022 Muscle aches Magnesium Unknown Medium 05/21/2017 Magnesium Oxide Vomiting 05/06/2022 vomitting/diarrhea Morphine Unknown 11/08/2014 Piukhbq-Mrr-Pfz Reductase Inhibitors Other (See Comments) High 04/26/2019 [...] topic Medical Devices Not on file Insurance [employer] MEDEX SUPPLEMENT MEDICARE PART A & B [employer] MEDEX SUPPLEMENT MEDICARE PART A & B [employer] MEDEX SUPPLEMENT MEDICARE PART A & B MEDICARE PART A & B [place] MEDEX SUPPLEMENT MEDICARE PART A & B [employer] MEDEX SUPPLEMENT [facility] Address: [facility] [id number] [place] [address] MEDICARE PART A & B Care Teams House Supervisor Relationship Specialty Start Date End Date Vandana Parker MD PCP - General Internal Medicine 08/30/24 Additional Source Comments The information contained in this document represents components of the legal health record. It is not the complete legal health record.[facility]
--- OUTSIDE RECORDS SUMMARY | 2025-07-11 20:31 | XMS_ITS | Clinical Summary ---
Author Organization [facility] Address [address] [place] [address] Care Team Providers Care Shopping Centre Manager Name Role Phone Vandana Parker MD Primary Care Provider +1- [phone] Allergies Active Allergy Reactions Criticality Noted Date [...] topic Insurance MEDICARE PART A & B [facility] Care Teams Shopping Centre Manager Relationship Specialty Start Date End Date Vandana Parker MD [address] [place] [address] PCP - General Internal Medicine 05/21/17
--- OUTSIDE RECORDS SUMMARY | 2025-07-11 20:31 | XMS_ITS | Encounter Summary ---
Author Organization [facility] and [facility] Address [address] [place] [address] Care Team Providers Care Air Intelligence Specialist Name Role Phone Vandana Parker MD Primary Care Provider +1- [phone] Reason for Visit * Reason Onset Date Comments Ultrasound 04/20/2024 Encounter Details Date Type Department Care Team ([facility] st Contact Info) Description 04/20/2024 Telephone [facility] [address] [facility] [address] [facility] [place] [address] Jimi Glynn MD [address] [place] [address] Ultrasound Social History Tobacco Use [...] Zhang - 04/20/2024 10:15 AM EDT Called [facility] and spoke to radiology scheduling. They stated that they have not received's CUS order as of yet. They asked if it can be re-faxed to [phone]. Please advise documented in this encounter Plan of Treatment Not on file documented as of this encounter Visit Diagnoses Not on filedocumented in this encounter Care Teams Air Intelligence Specialist Relationship Specialty Start Date End Date Vandana Parker MD [address] [address] PCP - General Internal Medicine 03/29/19 documented as of this encounter
--- OUTSIDE RECORDS SUMMARY | 2025-07-11 20:31 | XMS_ITS | Continuity of Care Document ---
Author Organization [place] [facility] [place] [facility] Address [address] [facility] [address] [place] [address] Care Team Providers Care Marketing Mgr Name Role Phone PETRA GILBERT Primary Care Provider Unavaila ble PETRA GILBERT Referring Provider Unavailable Assessment Encounter Date Assessment Date Assessment LastModified by Organization Details LastModified Time 05/17/2025 05/17/2025 HPI : Trudy chapa is [...] degrees. The knee is stable within that akfco-hk-uxhvco to AP and ML stress. The alignment of the knee is varus. Muscle strength is normal. Pedal pulses are palpable. Hip examination, including flexion and internal rotation, was negative in that groin pain was not produced. Radiographs of the right knee from February 2025 demonstrate degenerative joint disease with joint space narrowing, osteophyte formation, and subchondral sclerosis. There is card-ne-fwlh articulation. Assessment/Plan : The patient is an [...] with right total knee arthroplasty using the Hemlock total knee replacement system. However, it is [...] right total knee replacement, robotic assisted, at [facility]. We will wait for confirmation by the [...] Organization Details Last Modified Time Details Appointments [id number] TIMETBD by Facility 2025 10:00A M Fracisco Johnson MD Not available Not available Not available POST-OP 2025 02:45P M ESTHELA CARTER PA-C Not available Not available Not available Lab None recorded. Referral None recorded. Procedures None recorded. Surgeries total knee arthropla sty (SURG) 2024 026 [email or web address] [facility] [address] [place] [address], [address], 07/05/2025 15:42:55 Imaging None recorded. Medication Orders None recorded. Patient TargetsNo targets recorded. Patient InstructionsNo instructions recorded. Reason for Referral None Reported. Problems Name Problem SNOMED Code Status Onset Date Resolution Date Notes Provider Name and Address Organization Details Recorded Time Injury of right knee 80803576729 640093 Active 2018 Right knee injury Not Available [facility] 5 23:22:34 Arthritis of right knee joint 44702237362 60842 Active 2018 Arthritis of knee, right Not Available [facility] 5 23:22:35 Osteoarth ritis of right knee joint 47863290733 9100 Active [address], [place], [address] , [place] [facility] 5 15:49:35 Arthritis of knee 279432723 Active [address], [place], [address] , [place] [facility] 16:04:25 Osteoarth ritis of right glenohume ral joint 45786340080 48449 Active 2024 Juan Ramon Mejia MD [address], [place], [address] , [place] [facility], P 17:18:48 Arthritis of right wrist 86345861160 Active 2024 Staci Gonzalez MD [address], [place], [address] , [place] [facility], P 14:47:38 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 Procedures Surgical History Date Name Laterality Status Provider Name and Address Organization Details Recorded Time 02/25/20 25 AJR Shoulder GH Inj completed Juan Ramon Mejia MD [address], [place], [address], [place] [facility] 02/24/2025 17:19:02 04/26/20 24 VIANNEY Knee Injection completed DORA DEE PA-C [address], [place], [address], [place] [facility] 04/26/2024 15:25:50 [facility] 04/26/2024 13:59:20 Shoulder Surgery [facility] 04/26/2024 13:59:37 procedure on heart [facility] 04/26/2024 13:59:52 discectomy of spine [facility] 04/26/2024 14:00:13 Imaging Results None recorded. Procedure Notes None recorded. Medical Equipment None Reported. Allergies Allergen ID Allergen Name Allergen Category Reaction Reaction Severity Criticality Documentation Date Start Date Code Code System Note Provider Name and Address Organization Details Recorded Time 445673 pravastat in medicatio n Not available Not available Not available 06/27/2025 20640 RxNorm Not Available emmie - External Data Service - prod 5 15:02:04 282304 magnesium oxide medicatio n Not available Not available Not available 06/27/2025 6582 RxNorm Not Available emmie - External Data Service - prod 5 15:02:04 146174 atorvasta tin medicatio n Not available Not available Not available 06/27/2025 30061 RxNorm Not Available emmie - External Data Service - prod 5 15:02:04 086343 atorvasta tin calcium medicatio n Not available Not available Not available 06/27/20252021 18314 RxNorm Muscl e aches Not Available emmie - External Data Service - prod 5 15:02:20 132138 Product containin g 3-hydroxy -3-methyl glutaryl- coenzyme A reductase inhibitor (product) medicatio n Not available Not available Not available 06/27/20252023 24909 009 SNOMED Not Available emmie - External Data Service - prod 5 15:03:16 293740 magnesium medicatio n Not available Not available [facility] 06/27/20252016 6574 RxNorm unrec ogniz ed react ion (text : Radha billingsley/Fermin tient and Famil y Unabl e to Defin e, code: 61273 5006) (from exter nal sourc e) Not Available emmie [employer] External Data Service - prod 5 15:03:48 170554 morphine medicatio n Not available Not available Not available 06/27/20252014 7052 RxNorm unrec ogniz ed react ion (text : Radha billingsley, code: 20372 5006) (from exter nal sourc e) Not Available emmie [employer] External Data Service - prod 5 15:04:03 Medications Name Sig Start Date Stop Date [...] Available No t Available FreeStyle Honey 2 [place] DX: E11.9 USE FOUR TIMES PER DAY [...] Updated DateTime 05/17/2025 187.96 cm 27 kg/m2 01527.4 g Ekta Parker [facility] 05/17/2025 15:43:45 Social History Question Answer Notes LastModified by Organizat ion Details LastModified Time Tobacco Smoking Status Former Smoker Renetta vasquez, [place] [facility] 04/26/2024 13:57:48 How Much Tobacco Do You Smoke? 1 PPD Information not available 04/26/2024 Sex: Unknown Functional Status Question Answer Note LastModified by Organizat ion Details LastModified Time Do you use any illicit or recreational drugs? No Information not available 04/26/2024 What is your level of alcohol consumption? None Information not available 04/26/2024 Mental Status None recorded. Family History Nothing Reported. Medical History Condition Response Coronary Artery Disease Y Gout N Hyperthyroidism N MRSA N Blood Transfusion Y Emphysema N Depression N COPD Y Hypothyroidism Y Pacemaker N Vascular Disease Y Gastrointestinal Disease Y Anxiety Disorder N Autoimmune disease N Arthritis Y Cancer Y Stroke Y High Cholesterol Y Neurologic Disorder N Liver Disease N Organ Transplant N Rheumatoid Arthritis N Arrhythmia Y Fibromyalgia N Kidney Disease Y Allergies/Hayfever Y Adverse Reaction to Anesthesia N Thyroid Problems N Anemia Y Brain Injury N Heart Attack (NH) Y Osteopenia N Diabetes Y Bleeding Disorder [...] ICD10 Code Diagnosis IMO Codes Diagnosis Note [id number] Fracisco Johnson MD [address] [address] 05/17/2025 15:31:03 05/17/2025 16:06:41 Osteoarthritis of right knee joint 0823862976 99877 M17.11 4707626 Arthritis of knee 129856 002 M13.869 Health Concerns Section Related Observation LastModified by Organization Detai ls LastModified Time None Recorded Concern Status LastModified by Organization Details LastModified Time None Recorded Payers Encounter Date Sequence Insurance Name Policy Number Policy Elizondo Covered Member ID Elizondo Member ID Guarantor Name 05/17/2025 1 [place] Jose L Goins [id number] Jose L Goins 05/17/2025 2 [place] [id number] Jose L Goins [id number] Jose L Goins
--- OUTSIDE RECORDS SUMMARY | 2025-07-11 20:31 | XMS_ITS | Clinical Summary ---
Author Organization [address] Address [address] [place] [address] Phone Care Team Providers Care Cement Mason Helper Name Role Phone Vandana Parker MD Primary Care Provider +1- [phone] Allergies Active Allergy Reactions Criticality Noted Date Comments Atorvastatin Other (See Comments) Medium 05/06/2022 Muscle aches Magnesium Unknown Medium 05/21/2017 Magnesium Oxide Vomiting 05/06/2022 vomitting/diarrhea Pravastatin Other (See Comments) Medium 05/06/2022 Muscle aches Oaxmapt-Oir-Bbq Reductase Inhibitors Other (See Comments) Medium 04/26/2019 [...] age to complete this topic Insurance MEDICARE [facility] MEDICARE [facility] MEDICARE [facility] Member Subscriber Plan / Payer (Ef fective 2014-Present) Name:Jose L Goins Relation to Subscriber:Self Name:Jose L Goins Payer ID:[id number] (NAIC) Type:Not on file Address: [address] [place] [id number] Care Teams Cement Mason Helper Relationship Specialty Start Date End Date Vandana Parker MD [address] [phone] PCP - General Internal Medicine 03/29/19
--- OUTSIDE RECORDS SUMMARY | 2025-07-11 20:31 | XMS_ITS | Encounter Summary ---
Author Organization [facility] Address [address] [place] [address] Care Team Providers Care Fountain Waitress/Waiter Name Role Phone Vandana Parker MD Primary Care Provider +1- [phone] Reason for Referral * Imaging (Routine) - Closed Specialty Diagnoses / Procedures Referred By Contac t Referred To Contact Diagnostic Radiology Procedures US Duplex Carotid Bilateral Complete Jimi Glynn MD [address] [place] [address] [place] [address] Phone: tel: fax: Referral ID Status Reason Start Date Expiration Date Visits Re quested Visits Authorized [id number] Closed 05/06/2024 05/06/2025 1 1 Encounter Details Date Type Department Care Team (Late st Contact Info) Description 05/06/2024 Scanned Document [facility] [address] [facility] [address] [facility] [place] [address] Jimi Glynn MD [facility] [address] Social History Tobacco Use Types [...] on filedocumented in this encounter Care Teams Fountain Waitress/Waiter Relationship Specialty Start Date End Date Vandana Parker MD [address] [address] PCP - General Internal Medicine 03/29/19 documented as of this encounter
--- OUTSIDE RECORDS SUMMARY | 2025-07-11 20:35 | XMS_ITS | Encounter Summary ---
Author Organization [facility] Address [address] [place] [address] Care Team Providers Care Strike Off Machine Operator Name Role Phone Vandana Parker MD Primary Care Provider +1- [phone] Encounter Details Date Type Department Care Team (Late st Contact Info) Description 05/26/2020 Scanned Document [facility] at [address] [place] [address] [place] [address] Jimi Glynn MD [address] [place] [phone] Social History Tobacco Use Types Packs/Day Years [...] on filedocumented in this encounter Care Teams Strike Off Machine Operator Relationship Specialty Start Date End Date Vandana Parker MD [address] [address] PCP - General Internal Medicine 03/29/19 documented as of this encounter
--- OUTSIDE RECORDS SUMMARY | 2025-07-11 20:35 | XMS_ITS | Encounter Summary ---
Author Organization [facility] and [facility] Address [address] [place] [phone] Care Team Providers Care Rotary Dump Operator Name Role Phone Vandana Parker MD Primary Care Provider +1- [phone] Encounter Details Date Type Department Care Team (Late st Contact Info) Description 05/26/2020 Scanned Document [facility] [address] [place] [address] [place] [address] Jimi Glynn MD [address] [place] [phone] Social History Tobacco Use Types Packs/Day Years [...] on filedocumented in this encounter Care Teams Rotary Dump Operator Relationship Specialty Start Date End Date Vandana Parker MD [address] [address] PCP - General Internal Medicine 03/29/19 documented as of this encounter
--- OUTSIDE RECORDS SUMMARY | 2025-07-11 20:35 | XMS_ITS | Data Portability ---
Author Organization [place] [facility] [place] Address [address] [place] [address] Care Team Providers Care Le[employer] Senior Specialist Name Role Phone PETRA GILBERT Primary Care [...] physical examination, tests/diagnostic imaging, and treatment plan [email or web address] Not available 02/10/2025 17:10:48 02/24/2025 02/24/2025 HPI: 74-year-old arno-eduw-kjazdlw t man presenting with right shoulder pain [...] degrees. The knee is stable within that kfjav-vm-ohlehl to AP and ML stress. The alignment of the knee is varus. Muscle strength is normal. Pedal pulses are palpable. Hip examination, including flexion and internal rotation, was negative in that groin pain was not produced. Radiographs of the right knee from February 2025 demonstrate degenerative joint disease with joint space narrowing, osteophyte formation, and subchondral sclerosis. There is brsw-sa-fmwl articulation. Assessment/Plan : The patient is an [...] with right total knee arthroplasty using the [place] total knee replacement system. However, it is [...] right total knee replacement, robotic assisted, at [facility]. We will wait for confirmation by the [...] Organization Details Last Modified Time Details Appointments SURGERY 120 TIMETBD by Facilit y 2025 10:00A M Fracisco Johnson MD Not available Not available Not available POST-OP 2025 02:45P M ESTHELA CARTER PA-C Not available Not available Not available Lab None recorde d. Referral None recorde d. Procedures None recorde d. Surgeries total knee arthrop lasty (SURG) 2024 026 [email or web address] [facility] [place], [address], [place], [address], 07/05/2025 15:42:55 Imaging XR, wrist, 3 or more view 2024 025 [email or web address] [facility], [address], [place], [address], 03/09/2025 16:15:50 XR, ankle, 3 or more view 2024 025 [email or web address] [facility], [address], [place], [address], 03/03/2025 19:18:42 XR, ankle, 3 or more view 2024 025 [facility], [address], [place], [address], 02/10/2025 16:45:09 XR, foot, 2 view 2024 025 [facility], [address], [place], [address], 02/10/2025 16:45:09 XR, knee, 3 view 2024 025 [email or web address] [facility], [address], [place], [address], 02/10/2025 16:45:09 CT, knee, w/o contras t - Rule out lateral tibial plateau nondisp laced fractur e status post 2024 025 [email or web address] Not available 02/15/2025 08:07:06 XR, shoulde r, 2 or more view 2024 025 [email or web address] [facility], [address], [place], [address], 02/10/2025 16:45:09 XR, wrist, 3 or more view 2024 025 [facility], [address], [place], [address], 02/10/2025 16:45:09 Medication Orders lidocai ne (PF) 10 mg/mL (1 %) injecti on solutio n 2024 025 [email or web address] Not available 02/25/2025 14:56:00 Marcain e (PF) 0.5 % (5 mg/mL) injecti on solutio n 2024 025 [email or web address] Not available 02/25/2025 14:56:00 triamci nolone acetoni de 40 mg/mL suspens ion for injecti on 2024 025 Not available 02/25/2025 14:56:00 Patient TargetsNo targets recorded. Patient Instructions Encounter Date Encounter Id Patient Instructions Last Modified By Organization Details Last Modified Time 02/10/2025 [id number] X-rays of the ri ght shoulder were [...] possibly indicating a nondisplaced distal radius fracture. [email or web address] Not available 02/10/2025 17:10:45 02/24/2025 [id number] Imaging: X-ray RIGHT shoulder, independent interpretation of AP and Axillary views by me show: located glenohumeral joint with severe glenohumeral arthritis, bone on bone, osteophytes, sclerosis, and cysts. The glenoid has Walch A2 wear pattern without significant posterior subluxation. [email or web address] Not available 02/24/2025 17:18:38 03/03/2025 154336 3 views of the r ight ankle obtained weightbearing on 03/03/25 demonstrate no acute osseous abnormalites. There is increased talar declination and collapse in Meary's line thorugh the NC joints. There is slight valgus tilt of the talus. [email or web address] Not available 03/06/2025 12:47:20 03/09/2025 [id number] 3 views of the r ight wrist [...] contr ast No observ ation record ed. [email or web address] [facility] [address], [place], [address], 02/15/2025 08:41:17 02/15/2002/14/2025 CT, knee, w/o contr ast No observ ation record ed. [email or web address] [facility] [address] [place] [address], [place], [address], 02/15/2025 08:41:18 Result Notes None recorded. Problems Name Problem SNOMED Code Status Onset Date Resolution Date Notes Provider Name and Address Organization Details Recorded Time Injury of right knee 04095193311 089999 Active 2018 Right knee injury Not Available [facility] 5 23:22:34 Arthritis of right knee joint 00420154860 21075 Active 2018 Arthritis of knee, right Not Available [facility] 5 23:22:35 Osteoarth ritis of right knee joint 78345297962 9100 Active 2024 Fracisco Johnson MD [address], [place], [address] , [place] [facility] 5 15:49:35 Arthritis of knee 114373518 Active 2024 Fracisco Johnson MD [address], [place], [address] , [place] [facility] 5 16:04:25 Osteoarth ritis of right glenohume ral joint 64624995448 08752 Active 2024 Juan Ramon Mejia MD [address], [place], [address] , [place] [facility] 5 17:18:48 Arthritis of right wrist 96056507962 Active [address], [place], [address] , [place] [facility] 5 14:47:38 Arthritis of first carpometa carpal joint of right hand 83608155593 Active [address], [place], [address] , [place] [facility] 5 14:47:42 Problem Notes None recorded. Procedures Surgical History Date Name Laterality Status Provider Name and Address Organization Details Recorded Time 02/25/20 25 AJR Shoulder GH Inj completed Juan Ramon Mejia MD [address], [place], [address], [place] [facility] 02/24/2025 17:19:02 04/26/20 24 VIANNEY Knee Injection completed DORA DEE PA-C [address], [place], [address], [place] [facility] 04/26/2024 15:25:50 arthroplasty of knee completed Renetta [facility] [place] [facility] 04/26/2024 13:59:[address] [facility] 04/26/2024 13:59:37 procedure on heart completed [facility] [place] [facility] 04/26/2024 13:59:52 discectomy of spine completed [facility] 04/26/2024 14:00:13 Imaging Results None recorded. Procedure Notes None recorded. Medical Equipment None Reported. Allergies Allergen ID Allergen Name Allergen Category Reaction Reaction Severity Criticality Documentation Date Start Date Code Code System Note Provider Name and Address Organization Details Recorded Time 345498 pravastat in medicatio n Not available Not available Not available 06/27/2025 62487 RxNorm Not Available [employer] - prod 5 15:02:04 293535 magnesium oxide medicatio n Not available Not available Not available 06/27/2025 6582 RxNorm Not Available [employer] - prod 5 15:02:04 019164 atorvasta tin medicatio n Not available Not available Not available 06/27/2025 02338 RxNorm Not Available [employer] - prod 5 15:02:04 486541 atorvasta tin calcium medicatio n Not available Not available Not available 06/27/20252021 77787 RxNorm Muscl e aches Not Available [employer] - prod 5 15:02:20 532341 Product containin g 3-hydroxy -3-methyl glutaryl- coenzyme A reductase inhibitor (product) medicatio n Not available Not available Not available 06/27/20252023 96771 009 SNOMED Not Available [employer] - prod 5 15:03:16 364578 magnesium medicatio n Not available Not available [facility] 06/27/20252016 6574 RxNorm unrec ogniz ed react ion (text : Radha billingsley/Fermin tient and Famil y Unabl e to Defin e, code: 14348 5006) [facility] Not Available [employer] - [employer] - prod 5 15:03:48 989299 morphine medicatio n Not available Not available Not available 06/27/20252014 7052 RxNorm unrec ogniz ed react ion (text : Radha billingsley, code: 59394 5006) (from [facility] e) Not Available [employer] - [employer] - prod 5 15:04:03 [...] Not Available Not Available Not Avai lable Triprental.comTouch Ultra Test strips USE THREE TIMES A [...] 2023 active Not Available Not Available Not Avclari labkelly Basaglar KwikPen U-100 Insulin 100 unit/mL (3 [...] Available No t Available FreeStyle Honey 2 [place] DX: E11.9 USE FOUR TIMES PER DAY [...] Updated DateTime 02/10/2025 187.96 cm 27 kg/m2 21453.4 g Garry Ness [place] [facility] 02/10/2025 16:22:15 Date Recorded Body height Provider Name an d Address Organization Details Last Updated DateTime 03/09/2025 187.[address] [facility] 03/09/2025 14:31:04 Date Recorded Body height Body mass index (BMI) Body weight Provider Name and Address Organization Details Last Updated DateTime 05/17/2025 187.96 cm 27 kg/m2 83320.4 g Ekta Parker [place] - [facility] 05/17/2025 15:43:45 Social History Question Answer Notes LastModified by Mir VrachaizNormal ion Details LastModified Time Tobacco Smoking Status Former Smoker Renetta Miguel null, [place] - [facility] 04/26/2024 13:57:48 How Much Tobacco Do [...] Blood Transfusion Y Emphysema N Hypothyroidism Y COPD Y Depression N Pacemaker N Vascular Disease Y Gastrointestinal Disease Y Anxiety Disorder N Autoimmune disease N Arthritis Y Cancer Y Stroke Y High Cholesterol Y Neurologic Disorder N Liver Disease N Organ Transplant N Arrhythmia Y Rheumatoid Arthritis N Fibromyalgia N Kidney Disease Y Allergies/Hayfever Y Adverse Reaction to Anesthesia N Thyroid Problems N Anemia Y Brain Injury N Heart Attack (ND) Y Osteopenia N Diabetes Y Bleeding Disorder N Seizures/Epilepsy N AIDS/HIV N Congestive Heart Failure (CHF) Y Asthma N Amputation N Reflux/GERD Y Sleep Apnea Y Aneurysm N Hepatitis N Heart Disease N Pulmonary Embolism N Hypertension Y Osteoporosis N Past Encounters Encounter ID Performer Location Encounter Start Date Encounter Closed Date Diagnosis/Indication Diagnosis SNOMED-CT Code Diagnosis ICD10 Code Diagnosis IMO Codes Diagnosis Note [id number] DORA DEE PA-C [facility] [address] [place] [address] 9 04/26/2024 13:00:53 04/26/2024 15:36:50 Pain of right knee region 8417283575 76029 M25.561 28421132 Osteoarthr itis of right knee joint 9308301934 58473 M17.11 [id number] Fracisco Johnson MD [place] [address] 9 12/07/2024 14:49:08 12/07/2024 16:00:49 Pain of right knee region 4475233415 53428 M25.561 59457464 Osteoarthr itis of right knee joint 0384689454 79473 M17.11 3586900 Arthritis of knee 579699 002 M13.869 [id number] LAUREANO BADILLO PA-C [facility] [address] [place], [place] [address] 02/10/2025 15:22:27 02/10/2025 16:45:09 Pain of right shoulder region 8439521561 M25.511 67429027 Pain of ri ght knee region 3307446342 15620 M25.561 00895408 Ankle pain 415451362 M25 .571 83634005 Pain of right wrist 3169 799477 73711 M25.531 [id number] Juan Ramon Mejia MD [place] [address] 02/24/2025 14:53:11 02/24/2025 16:24:12 Osteoarthritis of right glenohumeral joint 1824341703 203368 M19.011 [id number] MD MITZY Frances[address] [address] 03/03/2025 14:42:03 03/03/2025 15:40:40 Ankle pain 294485062 M25.571 [id number] Staci Gonzalez MD [address] [address] 03/09/2025 14:24:07 03/09/2025 14:45:11 Pain of right wrist 1408042882 32868 M25.531 211685 Arthritis of right wrist 5530690904 174566 M19.031 815180 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 0218309922 701529 M18.11 [id number] Fracisco Johnson MD [address] [address] 05/17/2025 15:31:03 05/17/2025 16:06:41 Osteoarthritis of right knee joint 7065910062 85033 M17.11 3193028 Arthritis of knee 484093 002 M13.869 Health Concerns Section Related Observation LastModified by Organization Detai ls LastModified Time None Recorded Concern Status LastModified by Organization Details LastModified Time None Recorded Advance Directives Directive None Recorded Payers Insurance Date Sequence Insurance Name Policy Number Policy Elizondo Covered Member ID Elizondo Member ID Guarantor Name 05/17/2025 NORIDIAN - SPECIALITY CLAIMS ([place]IC[place] [facility] [place] Jose L Goins [id number] Jose L Goins 05/14/2025 1 MEDICARE [place]: [place] Jose L Goins [id number] Jose L Goins 05/23/2025 2 [place] [id number] Jose L Goins [id number] Jose L Goins Notes Date Note [...] LAUREANO BADILLO PA-C [address], [place], [address], [place] [facility] 02/10/2025 17:11:03 03/03/2025 text/html Date of [...] Ann Preciado MD [address], [place], [address], [place] [facility] 03/06/2025 12:56:39 03/09/2025 text/html ROS as noted in the HPI This is a 74-year-old gmem-mhqg-rtmsxwss male who presents with right wrist pain [...] Staci Gonzalez MD [address], [place], [address], [place] [facility] 03/09/2025 14:49:22
== END 2025-07-11 11:17 | disposition home or self-care (01) ==
LOC: HO.XRAY 11:16
PROVIDERS: PCP Internal Medicine; Visit Provider Internal Medicine
DX: J41.8 Mixed simple and mucopurulent chronic bronchitis (principal); J44.89 Other specified chronic obstructive pulmonary disease; R06.09 Other forms of dyspnea; J98.4 Other disorders of lung; J47.9 Bronchiectasis, uncomplicated; R91.1 Solitary pulmonary nodule; K21.00 Gastro-esophageal reflux disease with esophagitis, without bleeding; J18.9 Pneumonia, unspecified organism; I11.0 Hypertensive heart disease with heart failure; I50.9 Heart failure, unspecified; R55 Syncope and collapse; E11.65 Type 2 diabetes mellitus with hyperglycemia; E83.42 Hypomagnesemia; R41.3 Other amnesia; I25.10 Atherosclerotic heart disease of native coronary artery without angina pectoris; M25.512 Pain in left shoulder; E87.6 Hypokalemia; Z79.4 Long term (current) use of insulin
CPT/HCPCS: 36415; 73030; 80048; 83735; 99212

== ENCOUNTER → 2025-07-11 12:27 | Outpatient (BNV) | payer MEDICARE, SELFPAY | PROVIDERS: PCP Internal Medicine; Visit Provider Radiology Diagnostic Radiology | DX: M19.012 Primary osteoarthritis, left shoulder (principal); M75.122 Complete rotator cuff tear or rupture of left shoulder, not specified as traumatic | CPT/HCPCS: 73030 ==

== ENCOUNTER 2025-07-11 12:50 | Outpatient (AMB) | payer MEDICARE, SELFPAY ==
[2025-07-11 12:56] VITALS: BP 126/60; PULSE 73; O2SAT 96
--- NOTE | 2025-07-11 12:56 | A.OFFVIS_ITS ---
Vital Signs 07/11/25 12:56 Height 5 ft 11.75 in BMI Reason not done Patient refused/unable BP 126/60 Blood Pressure Location Lt brachial Position Sitting Pulse 73 Pulse Source Pulse Oximeter Pulse Oximetry (%) 96 Oxygen Delivery Method Room Air Intake Visit Reasons: COPD Reducer Required: No Accompanied by: Spouse Allergies atorvastatin Allergy (Severe, Verified 07/11/25 12:59) Muscle Aches magnesium Allergy (Severe, Verified 07/11/25 12:59) Rash pravastatin Allergy (Severe, Verified 07/11/25 12:59) Muscle Aches HPI Comments Details: The patient is a 74-year-old gentleman who has been complaining of progressive dyspnea for the last few years. His shortness of breath has gotten significant to the point of significant dyspnea with minimal activity. Moderate severity. He has had a extensive pulmonary evaluation ready. Back in 2018 he did undergo pulmonary function studies demonstrating a mild restrictive ventilatory defect. That was followed by a CT scan of the chest which demonstrated some degree of was a pattern primarily in the upper central areas of his lungs to some degree this could be representing air trapping versus some degree of pneumonitis. 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 He did have a subcentimeter pulmonary nodule in the right hemithorax that has not been followed. Subsequent to that the patient did have repeat pulmonary function studies this year demonstrating again a mild restrictive pattern. No real progression when compared to his PFTs from 3 years back. In the meantime he has tried inhalers including Advair and albuterol. Although he did not see any significant improvement with these medications therefore he stop the. 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 He worked closely with asbestos and other organic and inorganic dust. The beginning of his career he did not use masks or respirator so does it was the norm. As far as exposures in his home he does have parakeets which she has had about 4 years. His is the main take care of the birds. He denies any mold in the house. Has never had any exposure to farm animals or farm work. During the office visit we did go for brief walking oximetry. The patient was able to maintain a pulse ox 95- 96% with activity his heart rate between 90 and 100. The patient was visibly dyspneic. 06/26/2021 the patient is here for a pulmonary follow-up visit. The patient continues to have significant productive cough. The cough is uncomfortable. Moderate severity. He was started on the Trelegy inhaler and did not see any significant improvement. He does have a rescue inhaler that he uses as needed. In meantime he did undergo blood work he did have evidence of significant eosinophilia suggesting a component of allergic type of reaction. His allergy testing was otherwise negative. his hypersensitivity panel also was negative. He has major complaint is of productive cough in a nagging cough. . We talked about considering the use of prednisone to decrease some of the inflammation of the airways. But, the patient is reluctant due to his history of diabetes. Therefore, we can start her on azithromycin she which she bronchitis and also component of bronchiectasis that he had noticed on previous CT scan. 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 In addition to that the patient did have subcentimeter pulmonary nodules. In view of the patient's persistent symptoms will request a CT scan of the chest to further address the restrictive lung disease in the history of pneumonitis and interstitial lung disease. 12/06/2021 the patient is here for pulmonary follow-up visit. He is complaining of increasing dyspnea on exertion. Moderate severity even with typical activities of daily living. He did try the azithromycin 3 times a week treating the evidence of bronchitis and bronchiectasis but without any significant improvement. Recently he did undergo an echocardiogram demonstrating a decrease in his ejection fraction. His brain atretic peptide was significantly elevated. Patient also has worsening lower extremity edema. Explained to the patient that is likely multifactorial. He definitely has a component of volume overload status and likely some congestive heart failure. 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 Will go ahead and start him on some diuretics to see if we can improve his respiratory status. In the meantime he also has bronchiectasis. Will provide him with nebulized therapy in addition to followed by chest physical therapy in order to improve his in bronchopulmonary hygiene. Will follow-up in 6-8 weeks. 03/05/2024 the patient is here for a pulmonary follow-up visit. Recently he was hospitalized at [facility]. He developed worsening shortness of breath. He was admitted to the hospital. There he was found to have elevated cardiac enzymes suggesting demand ischemia. He was evaluated by Cardiology and placed on cardioprotective medications. During hospitalization he did have a CTA. They ruled out PE. Although he did have some areas of mosaic pattern suggesting airways disease. Could also be component of pneumonitis. Can not rule out congestive heart failure. The patient did develop worsening renal failure while in the hospital after the dye. He does have chronic disease. Although he did have the elevated cardiac enzymes felt to be secondary to his pulmonary issue and therefore opted on not pursuing a cardiac catheterization in view of his worsening renal function. The patient seems to be doing better now. We will maximize his respiratory therapy. Also request additional blood work to reassess the possibility of pneumonitis. On previous imaging studies the patient did have a component of bronchiectasis. will request a flutter valve for CPT in order for him to clear his mucus better. Will also optimize his respiratory therapy at this time. Will have him return in couple months and will assess his response to therapy. If he has any worsening symptoms he will call the office prior to that. 06/09/2024 the patient is here for hospital follow-up visit. Since we last spoke the patient was seen by his primary care doctor was having. He had blood work including elevated brain atretic peptide. He was recommended to go to the ER. He had done an x-ray on June 07 which was fairly clear. I did personally review the images. It was a PA without any evidence of any airspace disease. Subsequently he went to [facility]. He had a repeat chest x-ray. It was an AP film and at that point demonstrated a slight hazy opacity in the left basilar area. He did also have some crackles in that area. The patient was given a course of antibiotics to treat for pneumonia. Clinically the patient is feeling better. During the visit we did taken for a walking oximetry the patient did desaturate down to 88% with activity. He was visibly dyspneic. In part this is likely multifactorial with his heart failure his COPD. The patient will benefit from oxygen supplementation. He does have issues with his walking therefore portable oxygen concentrator will be more effective as it is easier to carry and better portability outside of the home. I will request a POC from the local [employer] company. The patient should also use the oxygen at nighttime. Can also try to do an overnight oximetry to see if he benefits from the oxygen nocturnally. In the meantime he will continue with his respiratory medicine. Also continue with diuresis as tolerated. Will start him on low-dose prednisone taper to help decrease the airway inflammation and hopefully allow him to recover faster. She needs to make sure to follow his sugars closely. At some point when he returns will do a follow-up chest x-ray to make sure that his left lower lobe opacities clear. 09/27/2024 the patient is here for sick visit. Apparently he developed RSV worsening respiratory symptoms. He has been coughing more. Some chest congestion. Difficult to expectorate. Moderate severity. He had a chest x-ray back in 08/28/2023 which I personally reviewed demonstrating no airspace disease. 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 There was a question of diminished breath sounds and pleural effusion. He was sent over to Pulmonary. Currently he is still complaining of the cough. Also has other complaints such as weakness and low blood pressure specially when standing up. He has been concerned about that. He has been upset about the cough. On exam he does not have any wheezing which is reassuring. He already completed a course of steroids. He also completed a course of doxycycline. He does have some rhonchi in the bases. We did give him a treatment with levo albuterol which did help and he did cough up some secretions but we were able to get a sputum cup for culture. I did give him another cup that he can take with him for the culture. Will go ahead and start him on Augmentin since he finished doxycycline and he is going to work on deep breathing exercises. I did request an Acapella valve for him and he will use the nebulizer twice a day. He will go for chest x-ray today to see if there is any evidence of any airspace disease or effusions. 01/03/2025 the patient is here for a pulmonary follow-up visit. Overall he is feeling better. He is no longer using the oxygen. He does check his oxygen levels. He has not been able to use the Trelegy since he has not been covered. He does get shortness of breath with activity [id number] severity. And also has a cough at times. I do believe that he should be on a maintenance inhalers specially he is going to need surgery soon. Will go ahead and place him on Anoro in order to provide him with bronchodilation but minimize the risk of infection. The patient did have a CT scan of the chest which I personally reviewed with him. No evidence of any active disease. Although he does have some debris in the esophagus. On further questioning the patient has been having some difficulty swallowing. Therefore will request a barium swallow at this time. I did give him some ideas as far as swallowing techniques. 07/11/2025 the patient is here for pulmonary follow-up visit. Overall the patient is doing well from a respiratory status. He is biggest issue is falls. He was evaluated at [facility] and had multiple imaging studies there. I have to review the results. In the meantime he is following closely with Neurology. He is scheduled for an EEG. He has MRI of the brain was stable. Respiratory smith the patient is doing okay. I did send the Anoro during the last visit with the patient has not started it as of yet. He will continue to use his rescue inhaler as needed. No imaging studies at this time will go ahead and review the imaging studies he already had at [facility]. Patient will return in 6-8 months if he has any issues he can always call for further recommendations. [facility] Medical History (Updated 07/11/25 @ 12:06 by Vandana Parker MD) Left shoulder pain Hypokalemia Lacunar infarction Memory change Primary hypertension Syncope Hypomagnesemia Hypothyroidism (acquired) Type 2 diabetes mellitus with hyperglycemia Iron deficiency anemia COPD (chronic obstructive pulmonary disease) History of non-Hodgkin's lymphoma History of TIA (transient ischemic attack) Diabetes mellitus type 2, insulin dependent Hyperlipidemia Hypertension CAD (coronary artery disease) Pulmonary nodule GERD (gastroesophageal reflux disease) Chronic restrictive lung disease Dyspnea Pneumonitis Surgical History (Updated 06/06/25 @ 16:11 by Vandana Parker MD) Hx of CABG History of cardiac cath History of shoulder surgery History of total left knee replacement History of lumbar surgery History of cervical spinal surgery History of appendectomy Social History Housing: House Patient Tobacco Use Status: Former Tobacco user Years Smoked: 30 years e-Cigarette/Vaping Use: Never Used service: No Current occupational status: retired Review of Systems Const Reports frequent falls and Denies night sweats ENT Denies change in voice, Denies lip swelling, Denies mouth pain, Reports nasal congestion, Reports nasal discharge and Denies tongue swelling Card Denies chest pain, Denies palpitations and Reports dyspnea on exertion Resp Reports chest congestion, Reports cough and Reports dyspnea on exertion GI Denies abdominal pain Musc Denies no additional complaints, Reports abnormal gait and Reports muscle weakness Skin/Breast Reports wounds Neuro Denies Neuro-related abnormal movements, Reports abnormal gait and Reports frequent falls Psych Denies no additional complaints Endo Denies palpitations Robert/Lymph Denies easy bleeding and Denies lymphadenopathy Aller/Immun Denies lip swelling and Denies tongue swelling Physical Exam Vital Signs: Last Vital Signs Pulse 73 07/11/25 12:56 BP 126/60 07/11/25 12:56 Pulse Ox 96 07/11/25 12:56 Oxygen Delivery Method Room Air 07/11/25 12:56 Const General: alert Neck Neck: Yes normal visual inspection, Yes full ROM and Yes no lymphadenopathy Chest Chest palpation & inspection: normal inspection of the chest Resp Effort & Inspection: normal respiratory effort Auscultation: diminished lung sounds Cardio Rate: regular rate Rhythm: regular rhythm Heart sounds: S1 normal heart sound present and S2 normal heart sound present GI Palpation (GI): Soft to palpation and nontender Auscultation: normal bowel sounds Skin General skin exam: rashes and/or lesions noted Assessment & Plan Assessment & Plan (1) Dyspnea: Code(s): R06.00 - Dyspnea, unspecified Category: Medical Qualifiers: Dyspnea type: dyspnea on exertion Qualified Code(s): R06.09 - Other forms of dyspnea (2) Chronic restrictive lung disease: Code(s): J98.4 - Other disorders of lung Category: Medical (3) GERD (gastroesophageal reflux disease): Code(s): K21.9 - Gastro-esophageal reflux disease without esophagitis Category: Medical Qualifiers: Esophagitis bleeding: without hemorrhage Esophagitis presence: with esophagitis Qualified Code(s): K21.00 - Gastro-esophageal reflux disease with esophagitis, without bleeding (4) Pulmonary nodule: Comment: 0.3 cm Code(s): R91.1 - Solitary pulmonary nodule Category: Medical (5) Bronchiectasis: Code(s): J47.9 - Bronchiectasis, uncomplicated Category: Medical Qualifiers: Bronchiectasis type: uncomplicated Qualified Code(s): J47.9 - Bronchiectasis, uncomplicated (6) COPD (chronic obstructive pulmonary disease): Code(s): J44.9 - Chronic obstructive pulmonary disease, unspecified Category: Medical Qualifiers: COPD type: chronic bronchitis Chronic bronchitis type: mixed simple and mucopurulent Qualified Code(s): J41.8 - Mixed simple and mucopurulent chronic bronchitis (7) Pneumonitis: Code(s): J18.9 - Pneumonia, unspecified organism Category: Medical (8) CHF (congestive heart failure): Code(s): I50.9 - Heart failure, unspecified Category: Medical Qualifiers: Heart failure chronicity: unspecified Heart failure type: unspecified Qualified Code(s): I50.9 - Heart failure, unspecified Plan consider starting Anoro KARINE as needed Nebulizer therapy, Duoneb BID as needed CPT with acapella valve Continue Reflux diet POC for now. F/U 6-8 months Coding Level of Care Code Complex visit Add On G2211 Diagnoses Dyspnea on exertion R06.09 Dyspnea type: dyspnea on exertion Chronic restrictive lung disease J98.4 Gastroesophageal reflux disease with esophagitis without hemorrhage K21.00 Esophagitis bleeding: without hemorrhage Esophagitis presence: with esophagitis Pulmonary nodule R91.1 Bronchiectasis without complication J47.9 Bronchiectasis type: uncomplicated Mixed simple and mucopurulent chronic bronchitis J41.8 COPD type: chronic bronchitis Chronic bronchitis type: mixed simple and mucopurulent Pneumonitis J18.9 Congestive heart failure, unspecified HF chronicity, unspecified heart failure type I50.9 Heart failure chronicity: unspecified Heart failure type: unspecified Time Spent (min) 17
== END 2025-07-11 13:17 | disposition home or self-care (01) ==
LOC: HO.HPS 12:51
PROVIDERS: Visit Provider Hospitalist
DX: R06.09 Other forms of dyspnea (principal); J98.4 Other disorders of lung; K21.00 Gastro-esophageal reflux disease with esophagitis, without bleeding; R91.1 Solitary pulmonary nodule; J47.9 Bronchiectasis, uncomplicated; J41.8 Mixed simple and mucopurulent chronic bronchitis; J18.9 Pneumonia, unspecified organism; I50.9 Heart failure, unspecified
CPT/HCPCS: 99214; G2211

== ENCOUNTER 2025-07-18 13:31 | Outpatient (REF) | payer MEDICARE, SELFPAY ==
--- NOTE | 2025-07-18 14:06 | EEG_ITS ---
History: The patient reports recent near-passing out spells but has experienced three or four falls in the last three to four weeks. A recent fall occurred about 3 weeks ago while bending over to sit, causing him to lose his balance and hit his head and shoulder on a wall. His oxygen saturation was also noted to be 88% one morning. - H/O Memory Impairment, Diabetes, Left shoulder pain, Hypokalemia, Lacunar infarction, Memory change, Primary hypertension, Syncope, Hypomagnesemia, Hypothyroidism (acquired), Iron deficiency anemia, COPD, History of non-Hodgkin's lymphoma, History of TIA, Hyperlipidemia, Hypertension, CAD, Pulmonary nodule, GERD, Chronic restrictive lung disease, Dyspnea, Pneumonitis Medication: Metylenol, albuterol, asa,, anoro ellipta, sertraline, muti-vit, metoprolol tartrate, lovastatin, levothyroxine, insulin, clopidogreldication: Technical Description Photic Stimulation: completed Hyperventilation: omitted Behavioral State: awake and brief periods of sleep State of Consciousness: awake and light sleep Skull Defect: no Sedation: no Handedness: left Duration: 33 mins 55 secs 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 Patient is reported awake and asleep during the tracing. Background EEG rhythm is low to medium amplitude mixed theta beta with no obvious asymmetry or paroxysmal tendency. Photic stimulation does not produce any significant driving. Hyperventilation is not performed. Cardiac lead does not reveal any significant abnormality. No sharp wave spikes or paroxysmal tendency or asymmetry noted. Impression: No significant abnormality noted on this EEG. MTDD
--- OUTSIDE RECORDS SUMMARY | 2025-07-18 19:41 | XMS_ITS | Clinical Summary ---
Author Organization [address] [place] [address] Address [address] [place] [address] Phone Care Team Providers Care Ecologist Technician Name Role Phone Vandana Parker MD Primary Care Provider +1- [phone] Allergies Active Allergy Reactions Criticality Noted Date Comments Atorvastatin High 05/06/2022 Muscle aches Magnesium Oxide 05/06/2022 Pravastatin High 05/06/2022 Muscle aches Aaberhs-Oah-Frg Reductase Inhibitors 07/13/2024 Medications albuterol HFA (PROAIR [...] 75 mg tabletIndication s:Coronary artery disease involving yuhaaviatam coronary artery of yuhaaviatam heart, unspecified whether angina present,History of non-ST [...] Chest 2 Views; Future Paroxysmal atrial fibrillation 10/19/2024 Overview (04/17/2025): Postop CABG Not on anticoagulation Assessment & Plan (04/17/2025 12:52 PM EDT): Clinically, the patient has not had any recurrence of his atrial fibrillation. Continue symptomatic monitoring. Should he have recurrence, would institute full anticoagulation given his elevated [id number] score Assessment & Plan (10/19/2024 10:26 PM [...] to discuss this further with the covering lineman as Dr. Wade is on vacation this [...] Overview (06/18/2024): Followed by nephrology and has [facility] ordered Heart failure with mid-range ejection fraction ( HFmEF) 06/11/2024 Overview (04/17/2025): - LVEF 40-45% range - Echocardiogram at the time of his CA 07/2024 showed normal LV size with mild [...] most recent echocardiogram completed 01/30/2024 while inpatient [facility] revealed an EF of 40 to [...] mg) by mouth daily thereafter. Unstable angina 02/17/2024 Assessment & Plan (07/14/2024 [...] as indicated. Coronary artery disease invo lving yuhaaviatam coronary artery of yuhaaviatam heart without angina pectoris 05/06/2022 Overview (04/17/2025): - s/p CABG 07/2024 -Prior stenting including proximal circumflex and mid RCA in 2015, SATURNINO mid LAD 2016 and patent stents on 02/2019 -NSTEMI 07/2024, transferred to [facility] where cath showed significant multivessel CAD undergoing 3V CABG with Dr. Santamaria receiving (LAWLER to LAD, SVG to PLV, RA to OM -Brief postoperative atrial fibrillation, discharged on amiodarone prophylaxis, was not started on anticoagulation -Echocardiogram at the time of his CA showed normal LV size with mild concentric [...] will review his case with the covering lineman out of concern for possible graft failure [...] the proximal circumflex and mid RCA in 2016. Most recent cardiac catheterization was in 02/2019 [...] this; we discussed transfer via ambulance to [facility] versus assisting the patient to [facility] ER; I did not feel it was safe for him to be driving out of concern for recurrence of chest pain that may result in injury to himself or someone else. He was agreeable to presenting to [facility] ER for further evaluation; report was [...] Overview (04/17/2025): - prior TIAs followed by [facility] vascular surgery, managed medically - He had a left carotid stent 01/2025 -Right ICA velocity in the 70% range Assessment & Plan (04/17/2025 12:45 PM EDT): The patient's carotid stenosis is closely followed by the vascular team at [facility]. Continue risk factor modification with DAPT and statin. Assessment & Plan (06/11/2024 3:48 PM EST): The patient continues to follow with vascular surgery as recommended. Claudication of both lower extremities 2 MOE (dyspnea on exertion) 05/06/2022 Assessment & [...] continue with recommendations as provided by his survey coordinator including continuation of antibiotic treatment, prednisone taper, [...] Encounters Date Type Department Care Team Description 07/12/[address] [facility] Pre-Admission Testing [address] [place] [address] Nell Ponce RN 06/29/2025 Telephone Periop Testing - [place] [address] [place] [phone] Fracisco Johnson MD 06/28/2025 Telephone Periop Testing - [place] [address] [place] [phone] Physician, No Pcp 06/22/2025 Telephone [facility] Cardiology [facility] [address] [place] [address] Carrie Morales MA 04/28/2025 Telephone [facility] Cardiology [facility] [address] [place] [address] Radu Wade MD 04/25/2025 Telephone [facility] Cardiology [facility] [address] [place] [address] Radu Wade MD from Last 3 Months Surgical History Surgery Date Site/Laterality Comments SPINE SURGERY cervical and lumbar ROTATOR CUFF REPAIR Left KNEE SURGERY Left CORONARY STENT PLACEMENT mid LAD in 2016 and 2 proximal circumflex and mid RCA in 2015 Medical History Medical History Date Comments Hypertension CHF (congestive heart failur e) ([facility] V24, [facility] V28) COPD (chronic obstructive pu lmonary disease) ([facility] V24, [facility] V28) CAD (coronary artery disease) s/ p stenting to mid LAD 2016, proximal circumflex and mid RCA, 2015 PAD (peripheral artery disea se) ([facility] V24) DM (diabetes mellitus) ([facility] V24, [facility] V28) Lymphoma in remission ([facility] V28) CKD (chronic kidney disease) stage 3, GFR 30-59 ml/min ([facility] [employer] V24, [facility] [employer] V28) Family History Medical History Relation Name [...] PM EST Sexual Orientation Not on file Last Filed [...] Care Team (Late st Contact Info) Description 07/20/2025 12:40 PM EST Consult [facility] [address] [facility] [address] [place] [address] Nathalie Tian NP [address] [place] [address] [address] [place] [address] [place] [address] 10/14/2025 8:00 AM EDT Ancillary Procedure [facility] Card[facility] [address] [place] [address] Health Maintenance Due Date Last Done Comments COVID-19 Vaccine (#1) 1954 Diabetes: Annual Foot Exam 1959 Diabetes: Annual Retina Eye Exam 1959 Zoster Vaccines (1 of 2) 1968 Falls Risk Assessment 07/06/2022 Hepatitis C Screening 07/06/2022 Medicare Annual Wellness Visit 07/06/2022 Social Influencers of Health Screening 07/06/2022 RSV Immunization Adult Patients (1 - 1-dose 75+ series) 2024 Depression Screening 08/04/2024 Diabetes: Annual Urine Albumin-Creatinine Ratio (uACR) 08/25/2024 Diabetes: Blood Sugar Control Test (HGBA1C) 08/25/2024 Influenza Vaccine (#1) 2025 Diabetes: Annual GFR (Glomerular Filtration Rate) 03/14/2026 03/14/2025, 03/14/2025, 10/20/2024, Additional history exists Hypertension/CHF/CAD Annual BMP Blood Test 03/14/2026 03/14/2025, 03/14/2025, 10/20/2024, Additional history exists DTaP,Tdap,and Td Vaccines (2 - Td or Tdap) 11/18/2027 11/17/2017 Cholesterol Screening (Lipid Panel) 10/20/2029 10/20/2024 Colorectal Cancer Screening: FIT-DNA (Cologuard) Discontinued 09/17/2023, 09/17/2023 Pneumococcal Vaccine: 50+ Years Completed 03/05/2024, 12/12/2022, 04/28/2019, Additional history exists Colorectal Cancer Screening: Colonoscopy Discontinued 11/03/2024 HIB Vaccines Aged Out No longer eligi [...] 11:30 AM EDT Coronary artery disease involving yuhaaviatam coronary artery of yuhaaviatam heart, unspecified whether angina present Hypercholesterolemia from [...] 4:06 AM EDT Performed at: 01 - [facility] [id number] Senior Quality Manager: Amanda Maxwell MD, Phone: [phone] Kenyetta Shi NP LAB BLOOD ORDERABLES Final Result [facility] 1 * (ABNORMAL) Basic metabolic panel (10/20/2024 11:30 AM EDT) Glucose 325(H) 70 - 99 mg/dL [facility] 1 Blood Urea Nitrogen (BUN) 32(H) 8 - 27 mg/dL [facility] 1 Creatinine 1.96(H) 0.76 - 1.27 mg/dL [facility] 1 eGFR 35(L) >59 mL/min/1.7 3 [facility] 1 BUN/Creatinine Ratio 16 10 - 24 [facility] 1 Sodium 137 134 - 144 mmol/L [facility] 1 Potassium 5.2 3.5 - 5.2 mmol/L [facility] 1 Chloride 97 96 - 106 mmol/L [facility] 1 Carbon Dioxide 18(L) 20 - 29 mmol/L [facility] 1 Calcium 10.2 8.6 - 10.2 mg/dL [facility] 1 Blood Venous blood specimen / Unknown 10/20/2024 11:30 AM EDT 10/20/2024 Narrative [facility] 1 - 10/21/2024 4:06 AM EDT Performed at: 01 - [facility] [address] [id number] Senior Quality Manager: Amanda Maxwell MD, Phone: [phone] Kenyetta Shi DIRECTOR SALES SUPPORT LAB BLOOD ORDERABLES Final Result [facility] 1 from Last 3 Months or Most Recently Relevant to Health Maintenance Insurance MEDICARE [facility] Advance Directives * Full Code - Default [...] Relationship Healthcare Agent Relationshi p Communication Heath Bai Son Health Care Agent Nellie Bai Spouse First Alternate Health Care Agent [email or web address] Care Teams Ecologist Technician Relationship Specialty Start Date End Date Vandana Parker MD [address] [place] [address] PCP - General Internal Medicine 08/05/17
--- OUTSIDE RECORDS SUMMARY | 2025-07-18 19:41 | XMS_ITS | Patient Health Record ---
Author Organization [facility] Address [address] [place] [address] Care Team Providers Care Vocational Education Professional Name Role Phone VLADIMIR SANTANA, PETRA Primary Care Provider SIDNEY Robins Unavailable [phone] Allergies Allergen (clinical drug ingredient) Drug/Non Drug [...] Review and pick correct strength-formulati on from Materialise options. If intended option is not shown, discontinue and re-order from Quick Search. Active Sertraline HCl 50 MG Tablet 1 tab(s) orally once a day Active Aspirin 81 MG TABLET 1 TAB(S) ORALLY ONCE A DAY NAME ONLY Conversion from Multum Review and pick correct strength-formulati on from Materialise options. 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 (124033140) Type 2 diabetes mellitus with peripheral neuropathy (E11.43) Active confirmed Plan Of Treatment No Information Insurance Providers Payer Name Payer Address Payer Phone Subscriber Number Group Number Insured Name Patient Relationship to Insured Coverage Start Date Coverage End Date MEDICARE [employer] [address] [place] [address] [phone] [id number] RAMAKRISHNA BAI Self - patient is the insured SAMIR [employer] [address] [place], [place] [id number] RAMAKRISHNA BAI Self - patient is the insured Medical (General) History Medical History History ICD Code anemia COPD Non-Hodgkins Lymphoma - 2005 - s/p chemo therapy ([facility]) - circulation problems? Type 2 diabetes - dx ~ 1992 headaches hypertension CAD - s/p FL, PTCA & stent x 3 - Dr. eMlissa JACOBO - Dr. Sommers [facility] Right eye Surgical History Surgery Date(Month/Year) Right Leg Laser Vein Surgery 01/2020 PTCA/stent 01/2017 Stent placement x 2 - [facility] 03/2016 L Knee Replacement 2013 L Knee Replacement 1998 Cervical Disc 1997 Cervical Disc 1988 Lumbar Disc 1987 L Rotator Cuff 2004 Hospitalization History Reason Date(Month/Year) PTCA/stent 01/2017 as above [facility] - Non-Hodgkins Lymphoma (X 10-12 day s) 05/2005 heart attack - [facility] 03/2016 [facility] - dehydration/possible kidney failur e and stroke ruled out 02/2017
--- OUTSIDE RECORDS SUMMARY | 2025-07-18 19:41 | XMS_ITS | Clinical Summary ---
Author Organization [employer] [facility] Prior to 01/01/25 Address [address] [place] [address] Care Team Providers Care Parole Hearing Officer Name Role Phone Vandana Parker MD Primary Care Provider +1- [phone] Allergies No known active allergies Medications Medication [...] Advance Directives For more information, please contact: [phone] Documents on File Type Date Recorded Patient Chief Lifestyle Officer Expl anation Advance Directive and Living Will 11/15/2016 9:42 AM Care Teams Parole Hearing Officer Relationship Specialty Start Date End Date Vandana Parker MD [address] [place] [address] PCP - General Internal Medicine 08/05/17
--- OUTSIDE RECORDS SUMMARY | 2025-07-18 19:41 | XMS_ITS | Encounter Summary ---
Author Organization [facility] Address [address] [place] [address] Care Team Providers Care Assurance Manager Name Role Phone Vandana Parker MD Primary Care Provider +1- [phone] Reason for Referral * Imaging (Routine) - Closed Specialty Diagnoses / Procedures Referred By Contac t Referred To Contact Diagnostic Radiology Procedures US Duplex Carotid Bilateral Complete Jimi Glynn MD [address] [place] [address] [place] [address] Phone: tel: fax: Referral ID Status Reason Start Date Expiration Date Visits Re quested Visits Authorized [id number] Closed 05/06/2024 05/06/2025 1 1 Encounter Details Date Type Department Care Team (Late st Contact Info) Description 05/06/2024 Scanned Document [facility] [address] [facility] [address] [facility] [place] [address] Jimi Glynn MD [facility] [place] [address] Social History Tobacco Use Types [...] on filedocumented in this encounter Care Teams Assurance Manager Relationship Specialty Start Date End Date Vandana Parker MD [address] [address] PCP - General Internal Medicine 03/29/19 documented as of this encounter
--- OUTSIDE RECORDS SUMMARY | 2025-07-18 19:41 | XMS_ITS | Clinical Summary ---
Author Organization [facility] Address [address] [facility] [address] [place] [address] Phone Care Team Providers Care Transmission Systems Operator Name Role Phone Vandana Parker MD Primary Care Provider + Allergies Active Allergy Reactions Criticality Noted Date Comments Atorvastatin Other (See Comments) High 05/06/2022 Muscle aches Magnesium Unknown Medium 05/21/2017 Magnesium Oxide Vomiting 05/06/2022 vomitting/diarrhea Morphine Unknown 11/08/2014 Avzgxct-Fql-Kai Reductase Inhibitors Other (See Comments) High 04/26/2019 [...] topic Medical Devices Not on file Insurance [employer] MEDEX SUPPLEMENT MEDICARE PART A & B [employer] MEDEX SUPPLEMENT MEDICARE PART A & B [employer] MEDEX SUPPLEMENT MEDICARE PART A & B MEDICARE PART A & B ARISTES CROSS MEDEX SUPPLEMENT MEDICARE PART A & B BLUE [employer] MEDEX SUPPLEMENT MEDICARE PART A & B Care Teams Transmission Systems Operator Relationship Specialty Start Date End Date Vandana Parker MD PCP - General Internal Medicine 08/30/24 Additional Source Comments The information contained in this document represents components of the legal health record. It is not the complete legal health record.[facility]
--- OUTSIDE RECORDS SUMMARY | 2025-07-18 19:42 | XMS_ITS | Continuity of Care Document ---
Author Organization [place] [facility] [place] Address [address] [facility] [address] [place] [address] Care Team Providers Care Plum Packer Name Role Phone PETRA GILBERT Primary Care [...] degrees. The knee is stable within that xjukd-hy-sdjxph to AP and ML stress. The alignment of the knee is varus. Muscle strength is normal. Pedal pulses are palpable. Hip examination, including flexion and internal rotation, was negative in that groin pain was not produced. Radiographs of the right knee from February 2025 demonstrate degenerative joint disease with joint space narrowing, osteophyte formation, and subchondral sclerosis. There is fmrw-jr-mhdx articulation. Assessment/Plan : The patient is an [...] with right total knee arthroplasty using the Taylor total knee replacement system. However, it is [...] right total knee replacement, robotic assisted, at [facility]. We will wait for confirmation by the [...] recorded. Procedures None recorded. Surgeries total knee arthroplast y (SURG) 2024 025 [email or web address] [id number] [facility], [address] [place] [address], [address], 5 09:49:47 Imaging None recorded. Medication Orders None recorded. Patient TargetsNo targets recorded. Patient InstructionsNo instructions recorded. Reason for Referral None Reported. Problems Name Problem SNOMED Code Status Onset Date Resolution Date Notes Provider Name and Address Organization Details Recorded Time Injury of right knee 55333879716 065656 Active 2018 Right knee injury Not Available [facility] 5 23:22:34 Arthritis of right knee joint 33387949286 83310 Active 2018 Arthritis of knee, right Not Available [facility] 5 23:22:35 Osteoarth ritis of right knee joint 88038433455 9100 Active [address], [place], [address] , [place] [facility] 5 15:49:35 Arthritis of knee 772709094 Active [address], [place], [address] , [place] - [facility] 5 16:04:25 Osteoarth ritis of right glenohume ral joint 33328846001 62266 Active [address], [place], [address] , [place] - [facility], P 17:18:48 Arthritis of right wrist 22450169143 Active 2024 Staci Gonzalez MD [address], [place], [address] , [place] - [facility] 5 14:47:38 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 Procedures Surgical History Date Name Laterality Status Provider Name and Address Organization Details Recorded Time 02/25/20 25 AJR Shoulder GH Inj completed Juan Ramon Mejia MD [address], [place], [address], [place] - [facility] 02/24/2025 17:19:02 04/26/20 24 VIANNEY Knee Injection completed DORA DEE PA-C [address], [place], [address], [place] - [facility] 04/26/2024 15:25:50 arthroplasty of knee completed [facility] [place] [facility] [place] 04/26/2024 13:59:20 Shoulder Surgery completed [facility] [place] [facility] 04/26/2024 13:59:37 procedure on heart completed [facility] [place] [facility] 04/26/2024 13:59:52 discectomy of spine completed [facility] [place] [facility] 04/26/2024 14:00:13 Imaging Results None recorded. Procedure Notes None recorded. Medical Equipment None Reported. Allergies Allergen ID Allergen Name Allergen Category Reaction Reaction Severity Criticality Documentation Date Start Date Code Code System Note Provider Name and Address Organization Details Recorded Time 387796 pravastat in medicatio n Not available Not available Not available 06/27/2025 15681 RxNorm Not Available [facility]mie - External Data Service - prod 5 15:02:04 830230 magnesium oxide medicatio n Not available Not available Not available 06/27/2025 6582 RxNorm Not Available [facility]mie - External Data Service - prod 5 15:02:04 193089 atorvasta tin medicatio n Not available Not available Not available 06/27/2025 43645 RxNorm Not Available emmie - External Data Service - [facility] 5 15:02:04 186324 atorvasta tin calcium medicatio n Not available Not available Not available 06/27/20252021 91106 RxNorm Muscl e aches Not Available emmie - External Data Service - [facility] 5 15:02:20 822574 Product containin g 3-hydroxy -3-methyl glutaryl- coenzyme A reductase inhibitor (product) medicatio n Not available Not available Not available 06/27/20252023 18347 009 SNOMED Not Available emmie - External Data Service - [facility] 5 15:03:16 663973 magnesium medicatio n Not available Not available [facility] 06/27/20252016 6574 RxNorm unrec ogniz ed react ion (text : Unkno wn/Fermin ortiz and Famil y Unabl e to Defin e, code: 69278 5006) (from exter nal sourc e) Not Available [facility] - External Data Service - prod 5 15:03:48 999845 morphine medicatio n Not available Not available Not available 06/27/20252014 7052 RxNorm unrec ogniz ed react ion (text : Radha billingsley, code: 15957 5006) (from exter nal sourc e) Not Available emmie - External Data [...] Not Available Not Available Not Avai lable IQzoneTouch Ultra Test strips USE THREE TIMES A [...] active Not Available Not Available Not Avai salena Gargaglbi Allen U-100 Insulin 100 unit/mL (3 mL) subcutaneou [...] Available No t Available FreeStyle Honey 2 Oscar DX: E11.9 USE FOUR TIMES PER DAY [...] Updated DateTime 05/17/2025 187.96 cm 27 kg/m2 96727.4 g Ekta Parker [place] - [facility] 05/17/2025 15:43:45 Social History Question Answer Notes LastModified by Alphion Details LastModified Time Tobacco Smoking Status Former Smoker Renetta vasquez, [place] - [facility] 04/26/2024 13:57:48 How Much Tobacco Do You Smoke? 1 PPD alivia Information not available 04/26/2024 Sex: Unknown Functional Status Question Answer Note LastModified by Organizat ion Details LastModified Time Do you use any illicit or recreational drugs? No Information not available 04/26/2024 What is your level of alcohol consumption? None Information not available 04/26/2024 Mental Status None recorded. Family History Nothing Reported. Medical History Condition Response Coronary Artery Disease Y Gout N Hyperthyroidism N Blood Transfusion Y MRSA N Emphysema N COPD Y Depression N Hypothyroidism [...] Anemia Y Brain Injury N Heart Attack ([place]) Y Osteopenia N Diabetes Y Bleeding Disorder [...] ICD10 Code Diagnosis IMO Codes Diagnosis Note [id number] Fracisco Johnson MD [address] [address] 05/17/2025 15:31:03 05/17/2025 16:06:41 Osteoarthritis of right knee joint 8861055312 79777 M17.11 4762346 Arthritis of knee 872250 002 M13.869 Health Concerns Section Related Observation LastModified by Organization Detai ls LastModified Time None Recorded Concern Status LastModified by Organization Details LastModified Time None Recorded Payers Encounter Date Sequence Insurance Name Policy Number Policy Elizondo Covered Member ID Elizondo Member ID Guarantor Name 05/17/2025 1 [place] Jose L Goins [id number] Jose L Goins 05/17/2025 2 [place] [id number] Jose L Goins [id number] Jose L Goins
--- OUTSIDE RECORDS SUMMARY | 2025-07-18 19:42 | XMS_ITS | Encounter Summary ---
Author Organization [facility] Address [address] [place] [address] Care Team Providers Care Materials Handling Coordinator Name Role Phone Vandana Parker MD Primary Care Provider +1- [phone] Encounter Details Date Type Department Care Team (Late st Contact Info) Description 06/22/2019 Scanned Document [facility] [place] [address] [facility] [address] [place], [place] [id number] Jimi Glynn MD [address] [place] [address] Social History Tobacco Use Types Packs/Day Years [...] on filedocumented in this encounter Care Teams Materials Handling Coordinator Relationship Specialty Start Date End Date Vandana Parker MD [address] [address] PCP - General Internal Medicine 03/29/19 documented as of this encounter
--- OUTSIDE RECORDS SUMMARY | 2025-07-18 19:42 | XMS_ITS | Encounter Summary ---
Author Organization [facility] and [facility] Address [address] [place] [address] Care Team Providers Care Tool And Machine Maintainer Name Role Phone Vandana Parker MD Primary Care Provider +1- [phone] Reason for Visit * Reason Onset Date Comments Ultrasound 04/20/2024 Encounter Details Date Type Department Care Team ([facility] st Contact Info) Description 04/20/2024 Telephone [facility] [address] [facility] [address] [facility] [place] [address] Jimi Glnyn MD [address] [place] [address] Ultrasound Social History Tobacco Use [...] Zhang - 04/20/2024 10:15 AM EDT Called [facility] and spoke to radiology scheduling. They stated that they have not received's CUS order as of yet. They asked if it can be re-faxed to [phone]. Please advise documented in this encounter Plan of Treatment Not on file documented as of this encounter Visit Diagnoses Not on filedocumented in this encounter Care Teams Tool And Machine Maintainer Relationship Specialty Start Date End Date Vandana Parker MD [address] [address] PCP - General Internal Medicine 03/29/19 documented as of this encounter
--- OUTSIDE RECORDS SUMMARY | 2025-07-18 19:42 | XMS_ITS | Encounter Summary ---
Author Organization [facility] and [facility] Address [address] [place] [address] Care Team Providers Care [facility] Office Supervisor Name Role Phone Vandana Parker MD Primary Care Provider +1- [phone] Encounter Details Date Type Department Care Team (Late st Contact Info) Description 05/26/2020 Scanned Document [facility] at [address] [place] [address] [place] [address] Jimi Glynn MD [address] [place] [phone] Social History Tobacco Use Types Packs/Day Years [...] on filedocumented in this encounter Care Teams [facility] Office Supervisor Relationship Specialty Start Date End Date Vandana Parker MD [address] [address] PCP - General Internal Medicine 03/29/19 documented as of this encounter
--- OUTSIDE RECORDS SUMMARY | 2025-07-18 19:42 | XMS_ITS | Encounter Summary ---
Author Organization [facility] Address [address] [place] [address] Care Team Providers Care Manager Architectural Name Role Phone Vandana Parker MD Primary Care Provider +1- [phone] Encounter Details Date Type Department Care Team (Late st Contact Info) Description 08/04/2024 Lab Requisition [facility] [address] [facility] [address] [place] [address] Teja Bello MD [address] [place] [address] Encounter for other general examination Social History [...] Info) Description 07/20/2025 12:40 PM EST Consult [facility] [address] [facility] [address] [place] [address] Nathalie Tian NP [address] [place] [address] [place] [address] 10/14/2025 8:00 AM EDT Ancillary Procedure [facility] Cardiology [facility] [address] [place] [address] documented as of this encounter Procedures Procedure [...] K/mcL LAB HEMETOLOGY METHOD 08/04/2024 9:56 AM [facility] RBC 3.00(L) 4.50 - 5.50 M/mcL LAB HEMETOLOGY METHOD 08/04/2024 9:56 AM [facility] Hemoglobin 8.7(L) 13.5 - 17.5 g/dL LAB HEMETOLOGY METHOD 08/04/2024 9:56 AM [facility] Hematocrit 28.9(L) 42.0 - 54.0 % LAB HEMETOLOGY METHOD 08/04/2024 9:56 AM [facility] MCV 97.6 79.0 - 98.0 FL LAB HEMETOLOGY METHOD 08/04/2024 9:56 AM [facility] MCH 29.4 27.0 - 32.0 pcg LAB HEMETOLOGY METHOD 08/04/2024 9:56 AM [facility] MCHC 30.1(L) 32.0 - 37.0 g/dL LAB HEMETOLOGY METHOD 08/04/2024 9:56 AM [facility] RDW 15.1(H) 11.0 - 15.0 % LAB HEMETOLOGY METHOD 08/04/2024 9:56 AM [facility] Platelets 489(H) 130 - 400 K/mcL LAB HEMETOLOGY METHOD 08/04/2024 9:56 AM [facility] MPV 9.8 7.0 - 11.0 FL LAB HEMETOLOGY METHOD 08/04/2024 9:56 AM [facility] NRBC 0.0 <1.0 % LAB HEMETOLOGY METHOD 08/04/2024 9:56 AM [facility] NRBC Absolute 0.00 <0.10 K/mcL LAB HEMETOLOGY METHOD 08/04/2024 9:56 AM [facility] Neutrophils Relative 76.0 % LAB HEMETOLOGY METHOD 08/04/2024 9:56 AM [facility] Lymphocytes Relative 12.8 % LAB HEMETOLOGY METHOD 08/04/2024 9:56 AM [facility] Monocytes Relative 5.6 % LAB HEMETOLOGY METHOD 08/04/2024 9:56 AM [facility] Eosinophils Relative 4.1 % LAB HEMETOLOGY METHOD 08/04/2024 9:56 AM [facility] Basophils Relative 0.3 % LAB HEMETOLOGY METHOD 08/04/2024 9:56 AM [facility] Immature Granulocytes Relative 1.2 % LAB HEMETOLOGY METHOD 08/04/2024 9:56 AM [facility] Neutrophils Absolute 9.00(H) 1.50 - 7.00 K/mcL LAB HEMETOLOGY METHOD 08/04/2024 9:56 AM [facility] Lymphocytes Absolute 1.51 1.00 - 5.00 K/mcL LAB HEMETOLOGY METHOD 08/04/2024 9:56 AM [facility] Monocytes Absolute 0.66 0.20 - 1.00 K/mcL LAB HEMETOLOGY METHOD 08/04/2024 9:56 AM [facility] Eosinophils Absolute 0.48 0.00 - 0.50 K/mcL LAB HEMETOLOGY METHOD 08/04/2024 9:56 AM [facility] Basophils Absolute 0.04 0.00 - 0.20 K/mcL LAB HEMETOLOGY METHOD 08/04/2024 9:56 AM EST [facility] Immature Granulocytes Absolute 0.14(H) 0.00 - 0.03 K/mcL LAB HEMETOLOGY METHOD 08/04/2024 9:56 AM EST [facility] Blood Venous blood specimen / Unknown Venipuncture / Unknown 08/04/2024 6:26 AM EST 08/04/2024 8:35 AM EST Teja Bello MD LAB BLOOD ORDERABLES Final Res ult Performing Organization Address City/[facility]/ZIP Co de Phone Number [facility] [address] [place] [address], [place] [phone] * (ABNORMAL) Magnesium (08/04/2024 6:26 AM EST) Magnesium 1.8(L) 1.9 - 2.6 mg/dL LAB CHEMISTRY METHOD 08/04/2024 10:55 AM EST [facility] Blood Venous blood specimen / Unknown Venipuncture / Unknown 08/04/2024 6:26 AM EST 08/04/2024 8:35 AM EST us Teja Bello MD LAB BLOOD ORDERABLES Final Res ult [facility] [address] [place] [address], [place] [phone] * (ABNORMAL) Comprehensive metabolic panel (08/04/2024 6:26 AM EST) Sodium 139 133 - 145 mmol/L LAB CHEMISTRY METHOD 08/04/2024 10:06 AM EST [facility] Potassium 4.1 3.5 - 5.5 mmol/L LAB CHEMISTRY METHOD 08/04/2024 10:06 AM EST [facility] Chloride 105 96 - 110 mmol/L LAB CHEMISTRY METHOD 08/04/2024 10:06 AM [facility] CO2 27 21 - 32 mmol/L LAB CHEMISTRY METHOD 08/04/2024 10:06 AM [facility] Anion Gap 7 3 - 11 LAB CHEMISTRY METHOD 08/04/2024 10:06 AM [facility] Glucose 225(H) 70 - 100 mg/dL LAB CHEMISTRY METHOD 08/04/2024 10:06 AM [facility] BUN 35(H) 5 - 25 mg/dL LAB CHEMISTRY METHOD 08/04/2024 10:06 AM [facility] Creatinine 1.75(H) 0.70 - 1.30 mg/dL LAB CHEMISTRY METHOD 08/04/2024 10:06 AM [facility] eGFR 40(L) >=60 mL/min/1. 73m2 LAB CHEMISTRY METHOD 08/04/2024 10:06 AM [facility] Comment:Calculation based on the Chronic Kidney Disease Epidemiology Collaboration (CKD-EPI) equation refit without adjustment for race. BUN/Creatinine Ratio 20.0 LAB CHEMISTRY METHOD 08/04/2024 10:06 AM [facility] Calcium 8.3(L) 8.5 - 10.5 mg/dL LAB CHEMISTRY METHOD 08/04/2024 10:06 AM [facility] AST (SGOT) 47(H) 10 - 42 unit/L LAB CHEMISTRY METHOD 08/04/2024 10:06 AM [facility] ALT (SGPT) 79(H) 10 - 60 unit/L LAB CHEMISTRY METHOD 08/04/2024 10:06 AM [facility] Alkaline Phosphatase 139(H) 42 - 121 unit/L LAB CHEMISTRY METHOD 08/04/2024 10:06 AM [facility] Comment:Results verified by repeat testing Total Protein 6.2 6.0 - 8.0 g/dL LAB CHEMISTRY METHOD 08/04/2024 10:06 AM [facility] Albumin 2.7(L) 3.2 - 5.0 g/dL LAB CHEMISTRY METHOD 08/04/2024 10:06 AM EST [facility] Total Bilirubin 0.5 0.0 - 1.4 mg/dL LAB CHEMISTRY METHOD 08/04/2024 10:06 AM EST [facility] Blood Venous blood specimen / Unknown Venipuncture / Unknown 08/04/2024 6:26 AM EST 08/04/2024 8:35 AM EST us Teja Bello MD LAB BLOOD ORDERABLES Final Res ult [facility] [address] [place] [address], documented in this encounter Visit Diagnoses Diagnosis Encounter for other general examination documented in this encounter Care Teams Manager Architectural Relationship Specialty Start Date End Date Vandana Parker MD [address] [place] [address] PCP - General Internal Medicine 08/05/17 documented as of this encounter
--- OUTSIDE RECORDS SUMMARY | 2025-07-18 19:42 | XMS_ITS | Clinical Summary ---
Author Organization [facility] Address [address] [place] [address] Care Team Providers Care Radio Program Checker Name Role Phone Vandana Parker MD Primary Care Provider +1- [phone] Allergies Active Allergy Reactions Criticality Noted Date [...] Influenza Vaccine 03/04/2025 COVID-19 Vaccine ( - 2024-2 6 season) 2025 Hepatitis B Vaccines Aged Out No long er eligible based on patient's age to complete this topic Insurance MEDICARE PART A & B [facility] Care Teams Radio Program Checker Relationship Specialty Start Date End Date Vandana Parker MD [address] [place] [address] PCP - General Internal Medicine 05/21/17
--- OUTSIDE RECORDS SUMMARY | 2025-07-18 19:42 | XMS_ITS | Data Portability ---
Author Organization [place] [facility] [place] Address [address] [place] [address] Care Team Providers Care Materials And Corrosion Engineer Name Role Phone PETRA GILBERT Primary [...] physical examination, tests/diagnostic imaging, and treatment plan [email or web address] Not available 02/10/2025 17:10:48 02/24/2025 02/24/2025 HPI: 74-year-old etxo-rswx-awlgtdt t man presenting with right shoulder pain [...] degrees. The knee is stable within that bqadi-bi-htnwpd to AP and ML stress. The alignment of the knee is varus. Muscle strength is normal. Pedal pulses are palpable. Hip examination, including flexion and internal rotation, was negative in that groin pain was not produced. Radiographs of the right knee from February 2025 demonstrate degenerative joint disease with joint space narrowing, osteophyte formation, and subchondral sclerosis. There is dxaq-nf-siug articulation. Assessment/Plan : The patient is an [...] with right total knee arthroplasty using the Roma total knee replacement system. However, it is [...] right total knee replacement, robotic assisted, at [facility]. We will wait for confirmation by the [...] Details Last Modified Time Details Appointments None recorded . Lab None recorded . Referral None recorded . Procedures None recorded . Surgeries total knee arthropl asty (SURG) 2024 025 [email or web address] [facility] [address] [facility], [place], [address], 5 09:49:47 Imaging XR, wrist, 3 or more view 2024 025 [email or web address] [facility], [address], [place], [address], 5 16:15:50 XR, ankle, 3 or more view 2024 025 [email or web address] [facility], [address], [place], [address], 5 19:18:42 XR, ankle, 3 or more view 2024 025 [email or web address] [facility], [address], [place], [address], 5 16:45:09 XR, foot, 2 view 2024 025 [email or web address] [facility], [address], [place], [address], 5 16:45:09 XR, knee, 3 view 2024 025 [email or web address] [facility], [address], [place], [address], 5 16:45:09 CT, knee, w/o contrast - Rule out lateral tibial plateau nondispl aced fracture status post 2024 025 [email or web address] Not available 5 08:07:06 XR, shoulder , 2 or more view 2024 025 [email or web address] [facility], [address], [place], [address], 5 16:45:09 XR, wrist, 3 or more view 2024 025 [email or web address] [facility], [address], [place], [address], 16:45:09 Medication Orders lidocain e (PF) 10 mg/mL (1 %) injectio n solution 2024 025 [email or web address] Not available 14:56:00 Marcaine (PF) 0.5 % (5 mg/mL) injectio n solution 2024 025 [email or web address] Not available 14:56:00 triamcin olone acetonid e 40 mg/mL suspensi on for injectio n 2024 025 [email or web address] Not available 14:56:00 Patient TargetsNo targets recorded. Patient Instructions Encounter Date Encounter Id Patient Instructions Last Modified By Organization Details Last Modified Time 02/10/2025 [id number] X-rays of the ri ght shoulder were [...] possibly indicating a nondisplaced distal radius fracture. [email or web address] Not available 02/10/2025 17:10:45 02/24/2025 [id number] Imaging: X-ray RIGHT shoulder, independent interpretation of AP and Axillary views by me show: located glenohumeral joint with severe glenohumeral arthritis, bone on bone, osteophytes, sclerosis, and cysts. The glenoid has Walch A2 wear pattern without significant posterior subluxation. [email or web address] Not available 02/24/2025 17:18:38 03/03/2025 [id number] 3 views of the r ight ankle obtained weightbearing on 03/03/25 demonstrate no acute osseous abnormalites. There is increased talar declination and collapse in Meary's line thorugh the NC joints. There is slight valgus tilt of the talus. [email or web address] Not available 03/06/2025 12:47:20 03/09/2025 [id number] 3 views of the r ight wrist [...] contr ast No observ ation record ed. [facility] [address] [facility] [address], [place], [address], 02/15/2025 08:41:17 02/15/2002/14/2025 CT, knee, w/o contr ast No observ ation record ed. [email or web address] [address] [place] [address], [place], [address], 02/15/2025 08:41:18 Result Notes None recorded. Problems Name Problem SNOMED Code Status Onset Date Resolution Date Notes Provider Name and Address Organization Details Recorded Time Injury of right knee 50296820856 008641 Active 2018 Right knee injury Not Available [facility] 5 23:22:34 Arthritis of right knee joint 12967299253 60397 Active 2018 Arthritis of knee, right Not Available [facility] 5 23:22:35 Osteoarth ritis of right knee joint 92356860183 9100 Active 2024 Fracisco Johnson MD [address], [place], [address] , [place] [facility] 5 15:49:35 Arthritis of knee 212463630 Active 2024 Fracisco Johnson MD [address], [place], [address] , [place] [facility], [facility] 5 16:04:25 Osteoarth ritis of right glenohume ral joint 57449453222 74886 Active 2024 Juan Ramon Mejia MD [address], [place], [address] , [place] [facility], [facility] 5 17:18:48 Arthritis of right wrist 26124419246 54639 Active [address], [place], [address] , [place] [facility], [facility] 5 14:47:38 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 Procedures Surgical History Date Name Laterality Status Provider Name and Address Organization Details Recorded Time 02/25/20 25 AJR Shoulder GH Inj completed MD [address], [place], [address], [place] [facility] 02/24/2025 17:19:02 04/26/20 24 VIANNEY Knee Injection completed [address], [place], [address], [place] [facility] 04/26/2024 15:25:50 arthroplasty of knee completed Renetta Miguel [place] - [facility] 04/26/2024 13:59:20 Shoulder Surgery [facility] [place] [facility] 04/26/2024 13:59:37 procedure on heart [facility] [place] [facility] 04/26/2024 13:59:52 discectomy of spine completed [facility] [place] [facility] 04/26/2024 14:00:13 Imaging Results None recorded. Procedure Notes None recorded. Medical Equipment None Reported. Allergies Allergen ID Allergen Name Allergen Category Reaction Reaction Severity Criticality Documentation Date Start Date Code Code System Note Provider Name and Address Organization Details Recorded Time 220351 pravastat in medicatio n Not available Not available Not available 06/27/2025 36837 RxNorm Not Available emmie - External Data Service - prod 15:02:04 192505 magnesium oxide medicatio n Not available Not available Not available 06/27/2025 6582 RxNorm Not Available emmie - External Data Service - prod 15:02:04 270711 atorvasta tin medicatio n Not available Not available Not available 06/27/2025 61489 RxNorm Not Available emmie - External Data Service - prod 15:02:04 310256 atorvasta tin calcium medicatio n Not available Not available Not available 06/27/20252021 01996 RxNorm Muscl e aches Not Available emmie - External Data Service - prod 5 15:02:20 899734 Product containin g 3-hydroxy -3-methyl glutaryl- coenzyme A reductase inhibitor (product) medicatio n Not available Not available Not available 06/27/20252023 92982 009 SNOMED Not Available emmie - External Data Service - prod 15:03:16 774487 magnesium medicatio n Not available Not available [facility] 06/27/20252016 6574 RxNorm unrec ogniz ed react ion (text : Unkno wn/Pa tient and Famil y Unabl e to Defin e, code: 04955 5006) (from exter nal sourc e) Not Available emmie - External Data Service - prod 5 15:03:48 820543 morphine medicatio n Not available Not available Not available 06/27/20252014 7052 RxNorm unrec ogniz ed react ion (text : Unkno wn, code: 59459 5006) (from [facility]) Not Available mikado - External Data Service - prod 15:04:03 Medications Name Sig Start Date Stop [...] Not Available Not Available Not Avai lable [employer] Ultra Test strips USE THREE TIMES A [...] Available No t Available Free[employer] Honey 2 Parker DX: E11.9 USE FOUR TIMES PER DAY [...] Updated DateTime 02/10/2025 187.96 cm 27 kg/m2 07190.4 g Garry Ness [place] - [facility] 02/10/2025 16:22:15 Date Recorded Body height Provider Name an d Address Organization Details Last Updated DateTime 03/09/2025 187.[address] [place] - [facility] 03/09/2025 14:31:04 Date Recorded Body height Body mass index (BMI) Body weight Provider Name and Address Organization Details Last Updated DateTime 05/17/2025 187.96 cm 27 kg/m2 69904.4 g Ekta Parker [facility] 05/17/2025 15:43:45 Social History Question Answer Notes LastModified by Organizat ion Details LastModified Time Tobacco Smoking Status Former Smoker Renetta [facility] null, [facility] 04/26/2024 13:57:48 How Much Tobacco Do [...] Blood Transfusion Y MRSA N Emphysema N Depression N COPD Y Hypothyroidism [...] Anemia Y Brain Injury N Heart Attack (PR) Y Osteopenia N Diabetes Y Bleeding Disorder [...] ICD10 Code Diagnosis IMO Codes Diagnosis Note [id number] DORA DEE PA-C [facility] [address] [place] [address] 04/26/2024 13:00:53 04/26/2024 15:36:50 Pain of right knee region 0943753132 27664 M25.561 18641225 Osteoarthr itis of right knee joint 0297525894 70618 M17.11 [id number] Fracisco Johnson MD [address] [address] 12/07/2024 14:49:08 12/07/2024 16:00:49 Pain of right knee region 4057535533 40502 M25.561 01848205 Osteoarthr itis of right knee joint 7810477617 75569 M17.11 8381278 Arthritis of knee 481681 002 M13.869 [id number] LAUREANO BADILLO PA-C [facility] [address] [place] [address] 02/10/2025 15:22:27 02/10/2025 16:45:09 Pain of right shoulder region 8109895325 M25.511 07144575 Pain of ri ght knee region 3721086404 01080 M25.561 39437693 Ankle pain 746498585 M25 .571 00025808 Pain of right wrist 3169 837961 55381 M25.531 [id number] MD MITZY [address] [address] 02/24/2025 14:53:11 02/24/2025 16:24:12 Osteoarthritis of right glenohumeral joint 2249472999 348465 M19.011 [id number] Jo Ann Preciado MD [address] [address] 03/03/2025 14:42:03 03/03/2025 15:40:40 Ankle pain 971067042 M25.571 [id number] 135457 MD [address] [address] [place] [address] 03/09/2025 14:24:07 03/09/2025 14:45:11 Pain of right wrist 5036685573 67898 M25.531 217545 Arthritis of right wrist 6970367820 121200 M19.031 642163 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 3704331803 495709 M18.11 [id number] Fracisco Johnson MD [facility] [address] [facility] [address] [place] [address] 05/17/2025 15:31:03 05/17/2025 16:06:41 Osteoarthritis of right knee joint 9191338010 50758 M17.11 2540762 Arthritis of knee 986714 002 M13.869 Health Concerns Section Related Observation LastModified by Organization Detai ls LastModified Time None Recorded Concern Status LastModified by Organization Details LastModified Time None Recorded Advance Directives Directive None Recorded Payers Insurance Date Sequence Insurance Name Policy Number Policy Elizondo Covered Member ID Elizondo Member ID Guarantor Name 05/17/2025 NORIDIAN - SPECIALITY CLAIMS (MEDICARE DME REGION A) Jose L Goins [id number] Jose L Goins 05/14/2025 1 [place]ICARE [place] Jose L Goins [id number] Jose L Goins 05/23/2025 2 [place] [id number] Jose L Goins [id number] Jose L Goins Notes Date Note [...] in the bilateral feet. He is retired. [address], [place], [address], [facility] 02/10/2025 17:11:03 03/03/2025 text/html Date of [...] in the bilateral feet. He is retired. MD [address], [place], [address], [place] [facility] 03/06/2025 12:56:39 03/09/2025 text/html ROS as noted in the HPI This is a 74-year-old nzkd-isfi-voyraxwn male who presents with right wrist pain [...] on a blood thinner, he takes Plavix. MD [address]kis [address], [place], [address], [place] [facility], [facility] 03/09/2025 14:49:22
--- OUTSIDE RECORDS SUMMARY | 2025-07-18 19:42 | XMS_ITS | Clinical Summary ---
Author Organization [address] Address [address] [place] [phone] Phone Care Team Providers Care Lead Nitrate Processor Name Role Phone Vandana Parker MD Primary Care Provider +1- [phone] Allergies Active Allergy Reactions Criticality Noted Date Comments Atorvastatin Other (See Comments) Medium 05/06/2022 Muscle aches Magnesium Unknown Medium 05/21/2017 Magnesium Oxide Vomiting 05/06/2022 vomitting/diarrhea Pravastatin Other (See Comments) Medium 05/06/2022 Muscle aches Tgvozcx-Dqo-Xpz Reductase Inhibitors Other (See Comments) Medium 04/26/2019 [...] patient's age to complete this topic Insurance * Guarantor: Jose L Goins Account Type Relation to Patient Date of Phone Billing Address Personal/Family Self [address] [place] [address] MEDICARE [facility] * Guarantor: Jose L Goins Account Type Relation to Patient Date of Phone Billing Address Personal/Family Self [address] [place] [address] MEDICARE [facility] * Guarantor: Jose L Goins Account Type Relation to Patient Date of Phone Billing Address Personal/Family Self [address] [place] [address] MEDICARE [facility] Member Subscriber Plan / Payer (Ef fective 2014-Present) Name:Jose L Goins Relation to Subscriber:Self Name:Jose L Goins Payer ID:[id number] (NAIC) Type:Not on file Address: [address] [place] [id number] Care Teams Lead Nitrate Processor Relationship Specialty Start Date End Date Vandana Parker MD [address] [address] PCP - General Internal Medicine 03/29/19
--- OUTSIDE RECORDS SUMMARY | 2025-07-18 19:42 | XMS_ITS | Encounter Summary ---
Author Organization [facility] Address [address] [place] [address] Care Team Providers Care Welder Machine Operator Name Role Phone Vandana Parker MD Primary Care Provider +1- [phone] Encounter Details Date Type Department Care Team (Late st Contact Info) Description 08/10/2024 Lab Requisition [facility] - Main Lab [address] [facility] [place] [address] Teja Bello MD [address] [place] [address] Encounter for other general examination Social History [...] Info) Description 07/20/2025 12:40 PM EST Consult [facility] [address] [facility] [address] [place] [address] Nathalie Tian NP [address] [place] [address] [place] [address] 10/14/2025 8:00 AM EDT Ancillary Procedure [facility] [address] [place] [address] documented as of this encounter Procedures Procedure Name Priority Date/Time Associated Diagnosis Comments COMPLETE BLOOD COUNT Routine 08/10/2024 6:24 AM EST Encounter for other general examination COMPREHENSIVE METABOLIC PANEL Routine 08/10/2024 6:24 AM EST Encounter for other general examination documented in this encounter Results * (ABNORMAL) Complete blood count (08/10/2024 6:24 AM EST) [facility] WBC 8.9 4.8 - 10.8 K/mcL LAB HEMETOLOGY METHOD 08/10/2024 11:19 AM [facility] RBC 2.90(L) 4.50 - 5.50 M/mcL LAB HEMETOLOGY METHOD 08/10/2024 11:19 AM [facility] Hemoglobin 8.7(L) 13.5 - 17.5 g/dL LAB HEMETOLOGY METHOD 08/10/2024 11:19 AM [facility] Hematocrit 27.5(L) 42.0 - 54.0 % LAB HEMETOLOGY METHOD 08/10/2024 11:19 AM [facility] MCV 93.9 79.0 - 98.0 FL LAB HEMETOLOGY METHOD 08/10/2024 11:19 AM [facility] MCH 29.7 27.0 - 32.0 pcg LAB HEMETOLOGY METHOD 08/10/2024 11:19 AM [facility] MCHC 31.6(L) 32.0 - 37.0 g/dL LAB HEMETOLOGY METHOD 08/10/2024 11:19 AM [facility] RDW 14.6 11.0 - 15.0 % LAB HEMETOLOGY METHOD 08/10/2024 11:19 AM [facility] Platelets 550(H) 130 - 400 K/mcL LAB HEMETOLOGY METHOD 08/10/2024 11:19 AM [facility] MPV 9.3 7.0 - 11.0 FL LAB HEMETOLOGY METHOD 08/10/2024 11:19 AM [facility] NRBC 0.0 <1.0 % LAB HEMETOLOGY METHOD 08/10/2024 11:19 AM [facility] NRBC Absolute 0.00 <0.10 K/mcL LAB HEMETOLOGY METHOD 08/10/2024 11:[address] [facility] Blood Venous blood specimen / Unknown Venipuncture / Unknown 08/10/2024 6:24 AM EST 08/10/2024 10:00 AM EST us Teja Bello MD LAB BLOOD ORDERABLES Final Res ult [facility] [address] [place] [address], [place] [phone] * (ABNORMAL) Comprehensive metabolic panel (08/10/2024 6:24 AM EST) Sodium 138 133 - 145 mmol/L LAB CHEMISTRY METHOD 08/10/2024 12:14 PM [facility] Potassium 4.6 3.5 - 5.5 mmol/L LAB CHEMISTRY METHOD 08/10/2024 12:14 PM [facility] Chloride 105 96 - 110 mmol/L LAB CHEMISTRY METHOD 08/10/2024 12:14 PM [facility] CO2 26 21 - 32 mmol/L LAB CHEMISTRY METHOD 08/10/2024 12:14 PM [facility] Anion Gap 7 3 - 11 LAB CHEMISTRY METHOD 08/10/2024 12:14 PM [facility] Glucose 128(H) 70 - 100 mg/dL LAB CHEMISTRY METHOD 08/10/2024 12:14 PM [facility] BUN 29(H) 5 - 25 mg/dL LAB CHEMISTRY METHOD 08/10/2024 12:14 PM [facility] Creatinine 1.77(H) 0.70 - 1.30 mg/dL LAB CHEMISTRY METHOD 08/10/2024 12:14 PM [facility] eGFR 40(L) >=60 mL/min/1. 73m2 LAB CHEMISTRY METHOD 08/10/2024 12:14 PM [facility] Comment:Calculation based on the Chronic Kidney Disease Epidemiology Collaboration (CKD-EPI) equation refit without adjustment for race. BUN/Creatinine Ratio 16.4 LAB CHEMISTRY METHOD 08/10/2024 12:14 PM [facility] Calcium 8.7 8.5 - 10.5 mg/dL LAB CHEMISTRY METHOD 08/10/2024 12:14 PM [facility] AST (SGOT) 36 10 - 42 unit/L LAB CHEMISTRY METHOD 08/10/2024 12:14 PM [facility] ALT (SGPT) 59 10 - 60 unit/L LAB CHEMISTRY METHOD 08/10/2024 12:14 PM [facility] Alkaline Phosphatase 111 42 - 121 unit/L LAB CHEMISTRY METHOD 08/10/2024 12:14 PM [facility] Total Protein 5.9(L) 6.0 - 8.0 g/dL LAB CHEMISTRY METHOD 08/10/2024 12:14 PM [facility] Albumin 2.6(L) 3.2 - 5.0 g/dL LAB CHEMISTRY METHOD 08/10/2024 12:14 PM [facility] Total Bilirubin 0.3 0.0 - 1.4 mg/dL LAB CHEMISTRY METHOD 08/10/2024 12:14 PM [facility] Blood Venous blood specimen / Unknown Venipuncture / Unknown 08/10/2024 6:24 AM EST 08/10/2024 10:00 AM EST us Teja Bello MD LAB BLOOD ORDERABLES Final Res ult [facility] [address] [place] [address], documented in this encounter Visit Diagnoses Diagnosis Encounter for other general examination documented in this encounter Care Teams Welder Machine Operator Relationship Specialty Start Date End Date Vandana Parker MD [address] [place] [id number] PCP - General Internal Medicine 08/05/17 documented as of this encounter
--- OUTSIDE RECORDS SUMMARY | 2025-07-18 19:42 | XMS_ITS | Encounter Summary ---
Author Organization [facility] Address [address] [place] [address] Care Team Providers Care Market Research Executive Name Role Phone Vandana Parker MD Primary Care Provider +1- [phone] Encounter Details Date Type Department Care Team (Late st Contact Info) Description 05/26/2020 Scanned Document [facility] [address] [place] [address] [place] [address] Jimi Glynn MD [address] [place] [phone] Social History Tobacco Use Types Packs/Day Years [...] on filedocumented in this encounter Care Teams Market Research Executive Relationship Specialty Start Date End Date Vandana Parker MD [address] [address] PCP - General Internal Medicine 03/29/19 documented as of this encounter
== END 2025-07-18 13:32 | disposition home or self-care (01) ==
LOC: HO.NEURO 13:31
PROVIDERS: Visit Provider Internal Medicine
DX: R55 Syncope and collapse (principal)
CPT/HCPCS: 95816; 95819

== ENCOUNTER → 2025-07-18 14:06 | Outpatient (BNV) | payer MEDICARE, SELFPAY | PROVIDERS: Visit Provider Psychiatry & Neurology Neurology | DX: R55 Syncope and collapse (principal) | CPT/HCPCS: 95819 ==

== ENCOUNTER 2025-07-19 13:21 | Outpatient (AMB) | payer MEDICARE, SELFPAY ==
--- NOTE | 2025-07-19 13:31 | HO.NEPHOV ---
Vital Signs 07/19/25 13:34 Height 5 ft 11.75 in Weight 219 lb 6 oz BMI 30.0 BP 110/50 L Blood Pressure Location Lt brachial Position Sitting Pulse 83 Pulse Source Pulse Oximeter Pulse Oximetry (%) 95 Oxygen Delivery Method Room Air Intake Visit Reasons: INP: Essential (primary) hypertension Log Marker Required: No Accompanied by: Son Allergies atorvastatin Allergy (Severe, Verified 07/19/25 13:32) Muscle Aches magnesium Allergy (Severe, Verified 07/19/25 13:32) Rash pravastatin Allergy (Severe, Verified 07/19/25 13:32) Muscle Aches HPI Comments Details: I had the pleasure of seeing Jose L in consultation for worsening of renal function and labile hypertension on a backdrop of chronic kidney disease. 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 He has H/O three or four falls in the last three to four weeks. A recent fall occurred while bending over to sit, causing him to lose his balance and hit his head and shoulder on a wall. He intermittently has been having orthostatic symptoms. He had been worked up and even had an EEG to evaluate for seizure activity. His memory has not been as sharp as it used to be and he is noticing the change more. The MRI showed lacunar infarct. His reports observing him with a head rocking motion, particularly when he is sitting. She has videotaped this and shared it with their son. He has a continuous glucose monitor and takes insulin. He is inconsistent with his sliding scale insulin, taking it in the morning and at suppertime, but often skipping the midday dose if his blood sugar is around 150 mg/dL. He also skips breakfast and sometimes lunch. His most recent A1c was 9%. He has neuropathy from the time he had treatment for non Hodgkins lymphoma. He also is thought to have diabetic neuropathy. He has been taking sertaline for his mental health. He follows with his insecticide maker Dr Wade and does not think he has amyloidosis or cardiomyopathy. He is known to have carotid stenosis and [place] [facility] He also has been having unintentional intermittent tremors and his handwriting has become worse. His recent serum creatinine and calcium have gone up. He was accompanied by his son during this visit [facility] Medical History (Updated 07/19/25 @ 20:43 by Glenn Schultz MD) Left shoulder pain Hypokalemia Lacunar infarction Memory change Primary hypertension Syncope Hypomagnesemia Hypothyroidism (acquired) Type 2 diabetes mellitus with hyperglycemia Iron deficiency anemia COPD (chronic obstructive pulmonary disease) History of non-Hodgkin's lymphoma History of TIA (transient ischemic attack) Diabetes mellitus type 2, insulin dependent Hyperlipidemia Hypertension CAD (coronary artery disease) Pulmonary nodule GERD (gastroesophageal reflux disease) Chronic restrictive lung disease Dyspnea Pneumonitis Surgical History Hx of CABG History of cardiac cath History of shoulder surgery History of total left knee replacement History of lumbar surgery History of cervical spinal surgery History of appendectomy Social History Housing: House Patient Tobacco Use Status: Former Tobacco user Years Smoked: 30 years e-Cigarette/Vaping Use: Never Used service: No Current occupational status: retired Review of Systems Const All systems reviewed & are unremarkable except as noted in HPI and below Physical Exam Vital Signs: Last Vital Signs Pulse 83 07/19/25 13:34 BP 110/50 L 07/19/25 13:34 Pulse Ox 95 07/19/25 13:34 Oxygen Delivery Method Room Air 07/19/25 13:34 BMI result Body Mass Index 30.0 Const General: comfortable and no acute distress Orientation/consciousness: patient oriented x3 HEENT Head: Yes normocephalic Mouth: Normal oral and palatal mucosa present Eyes EOM: EOMs intact bilaterally Neck Neck: Yes supple Resp Auscultation: clear to auscultation bilaterally Cardio Jugular venous distension: no JVD Rate: regular rate GI Palpation (GI): Soft to palpation Auscultation: normal bowel sounds General: Yes no CVA tenderness Back/Spine/Pelvis Back: no CVA tenderness Skin General skin exam: no rashes or lesions noted Neuro General: patient oriented x3 and moves all extremities Extrem General: Yes no pedal edema Results Reviewed Nephrology Results: Hgb, (14.0-18.0) 11.7 g/dl L 06/06/25 WBC, (4.8-10.8) 9.6 X10*3/uL 06/06/25 Plt Count, (160-400) 284 X10*3/uL 06/06/25 Sodium, (135-145) 138 mmol/L 07/11/25 Potassium, (3.3-5.1) 5.1 mmol/L 07/11/25 Chloride, (96-108) 102 mmol/L 07/11/25 Carbon Dioxide, (22-29) 30 mmol/L H 07/11/25 BUN, (9-16) 43 mg/dL H 07/11/25 Creatinine, (0.5-1.4) 2.00 mg/dL H 07/11/25 Calcium, (8.4-10.2) 11.8 mg/dL H 07/11/25 Assessment & Plan Assessment & Plan (1) Labile hypertension: Code(s): R09.89 - Other specified symptoms and signs involving the circulatory and respiratory systems Category: Medical (2) CKD stage 3b, GFR 30-44 ml/min: Code(s): N18.32 - Chronic kidney disease, stage 3b Category: Medical (3) Hypercalcemia: Code(s): E83.52 - Hypercalcemia Category: Medical (4) SHONNA (acute kidney injury): Code(s): N17.9 - Acute kidney failure, unspecified Category: Medical Plan Hemodynamic SHONNA likely causing tubular injury from fluctuant blood pressures Has CKD 3 B likely from renovascular disease as well as diabetes; Needs better BS control; Recent hypo's likely from rise in creatinine Needs to R/O multisystem atrophy given Parkinsonian features, falls, gait disturbances,memory issues & dysautonomia Neurology needs to see to R/O parkinsons versus Multisystem atrophy 24 hour BP monitor ordered for today; Doppler of renal vessels ordered to R/O renovascular disease given CKD/vascular disease May be having intracerebral stenosis and needs higher BP. Reduced metoprolol to 12.5 mg bid Could come off sertaline if possible; CKD blood work & hypercalcemia W/U up ordered; 24 hour urine for GFR after next visit If GFR permits and if there is no contraindication , could be initiated on SGLT2 i after reduction of glipizide All these have been discussed in detail with him and son. Answered all questions; F/U given ( time spent reviewing all recent data/ medical records/patient encounter/co ordination of care-60 minutes) Orders: Orders Parathyroid Hormone Intact 1 Month N18.32 - Chronic kidney disease, stage 3b, R09.89 - Other specified symptoms and signs involving the circulatory and respiratory systems Phosphorus 1 Month N18.32 - Chronic kidney disease, stage 3b, R09.89 - Other specified symptoms and signs involving the circulatory and respiratory systems Electrolytes 1 Month N18.32 - Chronic kidney disease, stage 3b, R09.89 - Other specified symptoms and signs involving the circulatory and respiratory systems Protein Creatinine Ratio, Ur 1 Month N18.32 - Chronic kidney disease, stage 3b, R09.89 - Other specified symptoms and signs involving the circulatory and respiratory systems US renal BI 3 Weeks N18.32 - Chronic kidney disease, stage 3b, R09.89 - Other specified symptoms and signs involving the circulatory and respiratory systems Immunofixation Pnl, Serum 3 Weeks N18.32 - Chronic kidney disease, stage 3b, R09.89 - Other specified symptoms and signs involving the circulatory and respiratory systems Parathyroid Hormone Related Pr 3 Weeks E83.52 - Hypercalcemia, N18.32 - Chronic kidney disease, stage 3b, R09.89 - Other specified symptoms and signs involving the circulatory and respiratory systems Vitamin D 1,25 dihydroxy 3 Weeks E83.52 - Hypercalcemia, N18.32 - Chronic kidney disease, stage 3b, R09.89 - Other specified symptoms and signs involving the circulatory and respiratory systems Vitamin D 25-OH Total 3 Weeks E83.52 - Hypercalcemia, N18.32 - Chronic kidney disease, stage 3b, R09.89 - Other specified symptoms and signs involving the circulatory and respiratory systems Immunofixation, Random Urine 3 Weeks E83.52 - Hypercalcemia, N18.32 - Chronic kidney disease, stage 3b, R09.89 - Other specified symptoms and signs involving the circulatory and respiratory systems AMB 24 HR B/P Monitor PLACEMENT Today N18.32 - Chronic kidney disease, stage 3b, R09.89 - Other specified symptoms and signs involving the circulatory and respiratory systems Complete Blood Count Auto Diff 1 Month N18.32 - Chronic kidney disease, stage 3b, R09.89 - Other specified symptoms and signs involving the circulatory and respiratory systems Vitamin D 25-OH Total 1 Month N18.32 - Chronic kidney disease, stage 3b, R09.89 - Other specified symptoms and signs involving the circulatory and respiratory systems Calcium 1 Month N18.32 - Chronic kidney disease, stage 3b, R09.89 - Other specified symptoms and signs involving the circulatory and respiratory systems Blood Urea Nitrogen 1 Month N18.32 - Chronic kidney disease, stage 3b, R09.89 - Other specified symptoms and signs involving the circulatory and respiratory systems Creatinine 1 Month N18.32 - Chronic kidney disease, stage 3b, R09.89 - Other specified symptoms and signs involving the circulatory and respiratory systems US renal doppler 3 Weeks N18.32 - Chronic kidney disease, stage 3b, R09.89 - Other specified symptoms and signs involving the circulatory and respiratory systems Parathyroid Hormone Intact 3 Weeks E83.52 - Hypercalcemia, N18.32 - Chronic kidney disease, stage 3b, R09.89 - Other specified symptoms and signs involving the circulatory and respiratory systems Medications: Changed From metoprolol tartrate 12.5 mg PO BID To metoprolol tartrate 12.5 mg (1/2 x 25 mg) PO BID 90 tabs 4RF 90 days Coding Level of Care Code New Pt Level 5 ([address]) Diagnoses Labile hypertension R09.89 CKD stage 3b, GFR 30-44 ml/min N18.32 Hypercalcemia E83.52 SHONNA (acute kidney injury) N17.9
[2025-07-19 13:34] VITALS: BP 110/50; PULSE 83; O2SAT 95
--- OUTSIDE RECORDS SUMMARY | 2025-07-19 17:24 | XMS_ITS | Encounter Summary ---
Author Organization [facility] Address [address] [place] [address] Care Team Providers Care Goat Farmer Name Role Phone Vandana Parker MD Primary Care Provider +1- [phone] Encounter Details Date Type Department Care Team (Late st Contact Info) Description 06/22/2019 Scanned Document [facility] [place] [address] [facility] [address] [place], [place] [phone] Jimi Glynn MD [address] [place] [phone] Social History Tobacco Use Types Packs/Day Years [...] on filedocumented in this encounter Care Teams Goat Farmer Relationship Specialty Start Date End Date Vandana Parker MD [address] [phone] PCP - General Internal Medicine 03/29/19 documented as of this encounter
--- OUTSIDE RECORDS SUMMARY | 2025-07-19 17:25 | XMS_ITS | Encounter Summary ---
Author Organization [facility] Address [address] [place] [address] Care Team Providers Care Safety Grooving Machine Operator Name Role Phone Vandana Parker MD Primary Care Provider +1- [phone] Reason for Visit * Reason Onset Date Comments Ultrasound 04/20/2024 Encounter Details Date Type Department Care Team ([facility] st Contact Info) Description 04/20/2024 Telephone [facility] [address] [facility] [address] [facility] [place] [address] Jimi Glynn MD [address] [place] [address] Ultrasound Social History Tobacco Use [...] Zhang - 04/20/2024 10:15 AM EDT Called [facility] and spoke to radiology scheduling. They stated that they have not received's CUS order as of yet. They asked if it can be re-faxed to [phone]. Please advise documented in this encounter Plan of Treatment Not on file documented as of this encounter Visit Diagnoses Not on filedocumented in this encounter Care Teams Safety Grooving Machine Operator Relationship Specialty Start Date End Date Vandana Parker MD [address] [phone] PCP - General Internal Medicine 03/29/19 documented as of this encounter
--- OUTSIDE RECORDS SUMMARY | 2025-07-19 17:25 | XMS_ITS | Encounter Summary ---
Author Organization [facility] Address [address] [place] [address] Care Team Providers Care Sales Executive Name Role Phone Vandana Parker MD Primary Care Provider +1- [phone] Reason for Referral * Imaging (Routine) - Closed Specialty Diagnoses / Procedures Referred By Contac t Referred To Contact Diagnostic Radiology Procedures US Duplex Carotid Bilateral Complete Jimi Glynn MD [address] [place] [address] [place] [address] Phone: tel: fax: Referral ID Status Reason Start Date Expiration Date Visits Re quested Visits Authorized [id number] Closed 05/06/2024 05/06/2025 1 1 Encounter Details Date Type Department Care Team (Late st Contact Info) Description 05/06/2024 Scanned Document [facility] [address] [facility] [address] [facility] [place] [address] Jimi Glynn MD [facility] [place] [address] Social History Tobacco Use Types [...] filedocumented in this encounter Care Teams Sales Executive Relationship Specialty Start Date End Date Vandana Parker MD [address] [phone] PCP - General Internal Medicine 03/29/19 documented as of this encounter
--- OUTSIDE RECORDS SUMMARY | 2025-07-19 17:25 | XMS_ITS | Encounter Summary ---
Author Organization [facility] Address [address] [place] [address] Care Team Providers Care Hollow Handle Bench Worker Name Role Phone Vandana Parker MD Primary Care Provider +1- [phone] Encounter Details Date Type Department Care Team (Late st Contact Info) Description 08/04/2024 Lab Requisition [facility] - Main Lab [address] [place] [address] Teja Bello MD [address] [place] [address] Encounter for other general examination Social History [...] Info) Description 07/20/2025 12:40 PM EST Consult [facility] Cardiology [facility] [address] [facility] [address] [place] [address] Nathalie Tian NP [address] [place] [address] [place] [address] 10/14/2025 8:00 AM EDT Ancillary Procedure [facility] Cardiology [facility] [address] [place] [address] documented as of this encounter Procedures Procedure [...] K/mcL LAB HEMETOLOGY METHOD 08/04/2024 9:56 AM [facility] RBC 3.00(L) 4.50 - 5.50 M/mcL LAB HEMETOLOGY METHOD 08/04/2024 9:56 AM [facility] Hemoglobin 8.7(L) 13.5 - 17.5 g/dL LAB HEMETOLOGY METHOD 08/04/2024 9:56 AM [facility] LAB Hematocrit 28.9(L) 42.0 - 54.0 % LAB HEMETOLOGY METHOD 08/04/2024 9:56 AM [facility] LAB MCV 97.6 79.0 - 98.0 FL LAB HEMETOLOGY METHOD 08/04/2024 9:56 AM [facility] LAB MCH 29.4 27.0 - 32.0 pcg LAB HEMETOLOGY METHOD 08/04/2024 9:56 AM [facility] LAB MCHC 30.1(L) 32.0 - 37.0 g/dL LAB HEMETOLOGY METHOD 08/04/2024 9:56 AM [facility] LAB RDW 15.1(H) 11.0 - 15.0 % LAB HEMETOLOGY METHOD 08/04/2024 9:56 AM [facility] LAB Platelets 489(H) 130 - 400 K/mcL LAB HEMETOLOGY METHOD 08/04/2024 9:56 AM [facility] LAB MPV 9.8 7.0 - 11.0 FL LAB HEMETOLOGY METHOD 08/04/2024 9:56 AM [facility] NRBC 0.0 <1.0 % LAB HEMETOLOGY METHOD 08/04/2024 9:56 AM [facility] NRBC Absolute 0.00 <0.10 K/mcL LAB HEMETOLOGY METHOD 08/04/2024 9:56 AM [facility] Neutrophils Relative 76.0 % LAB HEMETOLOGY METHOD 08/04/2024 9:56 AM [facility] Lymphocytes Relative 12.8 % LAB HEMETOLOGY METHOD 08/04/2024 9:56 AM [facility] Monocytes Relative 5.6 % LAB HEMETOLOGY METHOD 08/04/2024 9:56 AM [facility] Eosinophils Relative 4.1 % LAB HEMETOLOGY METHOD 08/04/2024 9:56 AM [facility] Basophils Relative 0.3 % LAB HEMETOLOGY METHOD 08/04/2024 9:56 AM [facility] Immature Granulocytes Relative 1.2 % LAB HEMETOLOGY METHOD 08/04/2024 9:56 AM [facility] Neutrophils Absolute 9.00(H) 1.50 - 7.00 K/mcL LAB HEMETOLOGY METHOD 08/04/2024 9:56 AM [facility] Lymphocytes Absolute 1.51 1.00 - 5.00 K/mcL LAB HEMETOLOGY METHOD 08/04/2024 9:56 AM [facility] Monocytes Absolute 0.66 0.20 - 1.00 K/mcL LAB HEMETOLOGY METHOD 08/04/2024 9:56 AM [facility] Eosinophils Absolute 0.48 0.00 - 0.50 K/mcL LAB HEMETOLOGY METHOD 08/04/2024 9:56 AM [facility] Basophils Absolute 0.04 0.00 - 0.20 K/mcL LAB HEMETOLOGY METHOD 08/04/2024 9:56 AM EST [facility] Immature Granulocytes Absolute 0.14(H) 0.00 - 0.03 K/mcL LAB HEMETOLOGY METHOD 08/04/2024 9:56 AM EST [facility] Blood Venous blood specimen / Unknown Venipuncture / Unknown 08/04/2024 6:26 AM EST 08/04/2024 8:35 AM EST Teja Bello MD LAB BLOOD ORDERABLES Final Res ult Performing Organization Address City/[facility]/ZIP Co de Phone Number [facility] [address] [place] [address], [place] [phone] * (ABNORMAL) Magnesium (08/04/2024 6:26 AM EST) Magnesium 1.8(L) 1.9 - 2.6 mg/dL LAB CHEMISTRY METHOD 08/04/2024 10:55 AM EST [facility] Blood Venous blood specimen / Unknown Venipuncture / Unknown 08/04/2024 6:26 AM EST 08/04/2024 8:35 AM EST us Teja Bello MD LAB BLOOD ORDERABLES Final Res ult [facility] [address] [place] [address], [place] [phone] * (ABNORMAL) Comprehensive metabolic panel (08/04/2024 6:26 AM EST) Sodium 139 133 - 145 mmol/L LAB CHEMISTRY METHOD 08/04/2024 10:06 AM EST [facility] Potassium 4.1 3.5 - 5.5 mmol/L LAB CHEMISTRY METHOD 08/04/2024 10:06 AM EST [facility] Chloride 105 96 - 110 mmol/L LAB CHEMISTRY METHOD 08/04/2024 10:06 AM [facility] CO2 27 21 - 32 mmol/L LAB CHEMISTRY METHOD 08/04/2024 10:06 AM [facility] Anion Gap 7 3 - 11 LAB CHEMISTRY METHOD 08/04/2024 10:06 AM [facility] Glucose 225(H) 70 - 100 mg/dL LAB CHEMISTRY METHOD 08/04/2024 10:06 AM [facility] BUN 35(H) 5 - 25 mg/dL LAB CHEMISTRY METHOD 08/04/2024 10:06 AM [facility] Creatinine 1.75(H) 0.70 - 1.30 mg/dL LAB CHEMISTRY METHOD 08/04/2024 10:06 AM [facility] eGFR 40(L) >=60 mL/min/1. 73m2 LAB CHEMISTRY METHOD 08/04/2024 10:06 AM [facility] Comment:Calculation based on the Chronic Kidney Disease Epidemiology Collaboration (CKD-EPI) equation refit without adjustment for race. BUN/Creatinine Ratio 20.0 LAB CHEMISTRY METHOD 08/04/2024 10:06 AM [facility] Calcium 8.3(L) 8.5 - 10.5 mg/dL LAB CHEMISTRY METHOD 08/04/2024 10:06 AM [facility] AST (SGOT) 47(H) 10 - 42 unit/L LAB CHEMISTRY METHOD 08/04/2024 10:06 AM [facility] ALT (SGPT) 79(H) 10 - 60 unit/L LAB CHEMISTRY METHOD 08/04/2024 10:06 AM [facility] Alkaline Phosphatase 139(H) 42 - 121 unit/L LAB CHEMISTRY METHOD 08/04/2024 10:06 AM [facility] Comment:Results verified by repeat testing Total Protein 6.2 6.0 - 8.0 g/dL LAB CHEMISTRY METHOD 08/04/2024 10:06 AM [facility] Albumin 2.7(L) 3.2 - 5.0 g/dL LAB CHEMISTRY METHOD 08/04/2024 10:06 AM EST [facility] Total Bilirubin 0.5 0.0 - 1.4 mg/dL LAB CHEMISTRY METHOD 08/04/2024 10:06 AM EST [facility] Blood Venous blood specimen / Unknown Venipuncture / Unknown 08/04/2024 6:26 AM EST 08/04/2024 8:35 AM EST us Teja Bello MD LAB BLOOD ORDERABLES Final Res ult [facility] [address] [place] [address], documented in this encounter Visit Diagnoses Diagnosis Encounter for other general examination documented in this encounter Care Teams Hollow Handle Bench Worker Relationship Specialty Start Date End Date Vandana Parker MD [address] [place] [address] PCP - General Internal Medicine 08/05/17 documented as of this encounter
--- OUTSIDE RECORDS SUMMARY | 2025-07-19 17:25 | XMS_ITS | Clinical Summary ---
Author Organization [address] Address [address] [place] [address] Phone Care Team Providers Care Authorization Nurse Name Role Phone Vandana Parker MD Primary Care Provider +1- [phone] Allergies Active Allergy Reactions Criticality Noted Date Comments Atorvastatin Other (See Comments) Medium 05/06/2022 Muscle aches Magnesium Unknown Medium 05/21/2017 Magnesium Oxide Vomiting 05/06/2022 vomitting/diarrhea Pravastatin Other (See Comments) Medium 05/06/2022 Muscle aches Tberyrx-Okn-Wnz Reductase Inhibitors Other (See Comments) Medium 04/26/2019 [...] age to complete this topic Insurance [facility] Member Subscriber Plan / Payer (Ef fective 2014-Present) Name:Jose L Goins Relation to Subscriber:Self Name:Jose L Goins Payer ID:[id number] (NAIC) Type:Not on file Address: [address] [place] [id number] Care Teams Authorization Nurse Relationship Specialty Start Date End Date Vandana Parker MD [address] [address] PCP - General Internal Medicine 03/29/19
--- OUTSIDE RECORDS SUMMARY | 2025-07-19 17:25 | XMS_ITS | Clinical Summary ---
Author Organization [facility] Prior to 01/01/25 Address [address] [place] [address] Care Team Providers Care Sports Team Manager Name Role Phone Vandana Parker MD Primary Care Provider +1- [phone] Allergies No known active allergies Medications Medication [...] Advance Directives For more information, please contact: [phone] Documents on File Type Date Recorded Patient Saddle And Side Wire Stitcher Expl anation Advance Directive and Living Will 11/15/2016 9:42 AM Care Teams Sports Team Manager Relationship Specialty Start Date End Date Vandana Parker MD [address] [place] [address] PCP - General Internal Medicine 08/05/17
--- OUTSIDE RECORDS SUMMARY | 2025-07-19 17:25 | XMS_ITS | Encounter Summary ---
Author Organization [facility] Address [address] [place] [address] Care Team Providers Care Surgical Instrument Mechanic Name Role Phone Vandana Parker MD Primary Care Provider +1- [phone] Encounter Details Date Type Department Care Team (Late st Contact Info) Description 08/10/2024 Lab Requisition [facility] - Main Lab [address] [place] [address] Teja Bello MD [address] [place] [address] Encounter for other general examination Social History [...] Info) Description 07/20/2025 12:40 PM EST Consult [facility] Cardiology [facility] [address] [facility] [address] [place] [address] Nathalie Tian NP [address] [place] [address] [place] [address] 10/14/2025 8:00 AM EDT Ancillary Procedure [facility] Cardiology [facility] [address] [place] [address] documented as of this encounter Procedures Procedure Name Priority Date/Time Associated Diagnosis Comments COMPLETE BLOOD COUNT Routine 08/10/2024 6:24 AM EST Encounter for other general examination COMPREHENSIVE METABOLIC PANEL Routine 08/10/2024 6:24 AM EST Encounter for other general examination documented in this encounter Results * (ABNORMAL) Complete blood count (08/10/2024 6:24 AM EST) [facility] WBC 8.9 4.8 - 10.8 K/mcL LAB HEMETOLOGY METHOD 08/10/2024 11:19 AM [facility] RBC 2.90(L) 4.50 - 5.50 M/mcL LAB HEMETOLOGY METHOD 08/10/2024 11:19 AM [facility] LAB Hemoglobin 8.7(L) 13.5 - 17.5 g/dL LAB HEMETOLOGY METHOD 08/10/2024 11:19 AM [facility] LAB Hematocrit 27.5(L) 42.0 - 54.0 % LAB HEMETOLOGY METHOD 08/10/2024 11:19 AM [facility] LAB MCV 93.9 79.0 - 98.0 FL LAB HEMETOLOGY METHOD 08/10/2024 11:19 AM [facility] LAB MCH 29.7 27.0 - 32.0 pcg LAB HEMETOLOGY METHOD 08/10/2024 11:19 AM [facility] LAB MCHC 31.6(L) 32.0 - 37.0 g/dL LAB HEMETOLOGY METHOD 08/10/2024 11:19 AM [facility] LAB RDW 14.6 11.0 - 15.0 % LAB HEMETOLOGY METHOD 08/10/2024 11:19 AM [facility] LAB Platelets 550(H) 130 - 400 K/mcL LAB HEMETOLOGY METHOD 08/10/2024 11:19 AM [facility] LAB MPV 9.3 7.0 - 11.0 FL LAB HEMETOLOGY METHOD 08/10/2024 11:19 AM [facility] LAB NRBC 0.0 <1.0 % LAB HEMETOLOGY METHOD 08/10/2024 11:19 AM [facility] LAB NRBC Absolute 0.00 <0.10 K/mcL LAB HEMETOLOGY METHOD 08/10/2024 11:19 AM EST [facility] Blood Venous blood specimen / Unknown Venipuncture / Unknown 08/10/2024 6:24 AM EST 08/10/2024 10:00 AM EST us Teja Bello MD LAB BLOOD ORDERABLES Final Res ult [facility] [address] [place] [address], [place] [phone] * (ABNORMAL) Comprehensive metabolic panel (08/10/2024 6:24 AM EST) Sodium 138 133 - 145 mmol/L LAB CHEMISTRY METHOD 08/10/2024 12:14 PM [facility] Potassium 4.6 3.5 - 5.5 mmol/L LAB CHEMISTRY METHOD 08/10/2024 12:14 PM [facility] Chloride 105 96 - 110 mmol/L LAB CHEMISTRY METHOD 08/10/2024 12:14 PM [facility] CO2 26 21 - 32 mmol/L LAB CHEMISTRY METHOD 08/10/2024 12:14 PM [facility] Anion Gap 7 3 - 11 LAB CHEMISTRY METHOD 08/10/2024 12:14 PM [facility] Glucose 128(H) 70 - 100 mg/dL LAB CHEMISTRY METHOD 08/10/2024 12:14 PM [facility] BUN 29(H) 5 - 25 mg/dL LAB CHEMISTRY METHOD 08/10/2024 12:14 PM [facility] Creatinine 1.77(H) 0.70 - 1.30 mg/dL LAB CHEMISTRY METHOD 08/10/2024 12:14 PM [facility] eGFR 40(L) >=60 mL/min/1. 73m2 LAB CHEMISTRY METHOD 08/10/2024 12:14 PM [facility] Comment:Calculation based on the Chronic Kidney Disease Epidemiology Collaboration (CKD-EPI) equation refit without adjustment for race. BUN/Creatinine Ratio 16.4 LAB CHEMISTRY METHOD 08/10/2024 12:14 PM [facility] Calcium 8.7 8.5 - 10.5 mg/dL LAB CHEMISTRY METHOD 08/10/2024 12:14 PM [facility] AST (SGOT) 36 10 - 42 unit/L LAB CHEMISTRY METHOD 08/10/2024 12:14 PM [facility] ALT (SGPT) 59 10 - 60 unit/L LAB CHEMISTRY METHOD 08/10/2024 12:14 PM [facility] Alkaline Phosphatase 111 42 - 121 unit/L LAB CHEMISTRY METHOD 08/10/2024 12:14 PM [facility] Total Protein 5.9(L) 6.0 - 8.0 g/dL LAB CHEMISTRY METHOD 08/10/2024 12:14 PM [facility] Albumin 2.6(L) 3.2 - 5.0 g/dL LAB CHEMISTRY METHOD 08/10/2024 12:14 PM [facility] Total Bilirubin 0.3 0.0 - 1.4 mg/dL LAB CHEMISTRY METHOD 08/10/2024 12:14 PM [facility] Blood Venous blood specimen / Unknown Venipuncture / Unknown 08/10/2024 6:24 AM EST 08/10/2024 10:00 AM EST us Teja Bello MD LAB BLOOD ORDERABLES Final Res ult [facility] [address] [place] [address], documented in this encounter Visit Diagnoses Diagnosis Encounter for other general examination documented in this encounter Care Teams Surgical Instrument Mechanic Relationship Specialty Start Date End Date Vandana Parker MD [address] [place] [id number] PCP - General Internal Medicine 08/05/17 documented as of this encounter
--- OUTSIDE RECORDS SUMMARY | 2025-07-19 17:25 | XMS_ITS | Patient Health Record ---
Author Organization [facility] Address [address] [place] [address] Care Team Providers Care Cow Rider Name Role Phone VLADIMIR SANTANA, PETRA Primary Care Provider SIDNEY Robins Unavailable Allergies Allergen (clinical drug ingredient) Drug/Non Drug [...] Review and pick correct strength-formulati on from Vamosa options. If intended option is not shown, discontinue and re-order from Quick Search. Active Sertraline HCl 50 MG Tablet 1 tab(s) orally once a day Active Aspirin 81 MG TABLET 1 TAB(S) ORALLY ONCE A DAY NAME ONLY Conversion from Multum Review and pick correct strength-formulati on from Vamosa options. 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 via work, man y [...] Notes Problem Long-term current use of insulin (339499049) terminal operations manager (current) use of insulin (Z79.4) Active confirmed Problem Polyneuropathy due to type 2 diabetes mellitus (306930382) Uncontrolled type 2 diabetes mellitus with peripheral neuropathy (E11.42) Active confirmed Problem Diabetic autonomic neuropathy due to type 2 diabetes mellitus (468843017) Type 2 diabetes mellitus with peripheral neuropathy (E11.43) Active confirmed Plan Of Treatment No Information Insurance Providers Payer Name Payer Address Payer Phone Subscriber Number Group Number Insured Name Patient Relationship to Insured Coverage Start Date Coverage End Date [employer]ICARE [employer] [address] [place] [address] [id number] BAIRAMAKRISHNA Rodríguez Self - patient is the insured SAMIR DAWSON [employer] [address] [place], [place] [id number] RAMAKRISHNA BAI Self - patient is the insured Medical (General) History Medical History History ICD Code anemia COPD Non-Hodgkins Lymphoma - 2005 - s/p chemo therapy ([facility]) - circulation problems? Type 2 diabetes - dx ~ 1992 headaches hypertension CAD - s/p LA, PTCA & stent x 3 - Dr. Melissa lui GERD - Dr. Sommers CKD - [facility] Loss sight of Right eye Surgical History Surgery Date(Month/Year) Right Leg Laser Vein Surgery 01/2020 PTCA/stent 01/2017 Stent placement x 2 - [facility] 03/2016 L Knee Replacement 2013 L Rotator Cuff 2005 L Knee Replacement 1998 Cervical Disc 1997 Cervical Disc 1988 Lumbar Disc 1987 Hospitalization History Reason Date(Month/Year) PTCA/stent 01/2017 as above [facility] - Non-Hodgkins Lymphoma (X 10-12 day s) 05/2005 heart attack - [facility] 03/2016 [facility] - dehydration/possible kidney failur e and stroke ruled out 02/2017
--- OUTSIDE RECORDS SUMMARY | 2025-07-19 17:25 | XMS_ITS | Clinical Summary ---
Author Organization [facility] Address [address] [facility] [address] [place] [phone] Phone Care Team Providers Care National Park Tour Guide Name Role Phone Vandana Parker MD Primary Care Provider + Allergies Active Allergy Reactions Criticality Noted Date Comments Atorvastatin Other (See Comments) High 05/06/2022 Muscle aches Magnesium Unknown Medium 05/21/2017 Magnesium Oxide Vomiting 05/06/2022 vomitting/diarrhea Morphine Unknown 11/08/2014 Qleerky-Dge-Hwv Reductase Inhibitors Other (See Comments) High 04/26/2019 [...] topic Medical Devices Not on file Insurance [employer] MEDEX SUPPLEMENT MEDICARE PART A & B [employer] SU[employer] MEDICARE PART A & B [employer] MED[employer] SUPPLEMENT MEDICARE PART A & B MEDICARE PART A & B [employer] MEDEX SUPPLEMENT MEDICARE PART A & B [facility] Address: [facility] [id number] [place] [address] MEDICARE PART A & B Care Teams National Park Tour Guide Relationship Specialty Start Date End Date Vandana Parker MD PCP - General Internal Medicine 08/30/24 Additional Source Comments The information contained in this document represents components of the legal health record. It is not the complete legal health record.[facility]
--- OUTSIDE RECORDS SUMMARY | 2025-07-19 17:25 | XMS_ITS | Clinical Summary ---
Author Organization [facility] Address [address] [place] [address] Care Team Providers Care Automobile Appraiser Name Role Phone Vandana Parker MD Primary Care Provider +1- [phone] Allergies Active Allergy Reactions Criticality Noted Date [...] topic Insurance MEDICARE PART A & B [facility] Care Teams Automobile Appraiser Relationship Specialty Start Date End Date Vandana Parker MD [address] [place] [address] PCP - General Internal Medicine 05/21/17
--- OUTSIDE RECORDS SUMMARY | 2025-07-19 17:25 | XMS_ITS | Encounter Summary ---
Author Organization [facility] Address [address] [place] [address] Care Team Providers Care Sap Bpc Developer Name Role Phone Vandana Parker MD Primary Care Provider +1- [phone] Encounter Details Date Type Department Care Team (Late st Contact Info) Description 05/26/2020 Scanned Document [facility] [address] [place] [address] [place] [address] Jimi Glynn MD [address] [place] [phone] Social History Tobacco Use Types Packs/Day Years [...] on filedocumented in this encounter Care Teams Sap Bpc Developer Relationship Specialty Start Date End Date Vandana Parker MD [address] [address] PCP - General Internal Medicine 03/29/19 documented as of this encounter
--- OUTSIDE RECORDS SUMMARY | 2025-07-19 17:25 | XMS_ITS | Clinical Summary ---
Author Organization [address] [place] [address] Address [address] [place] [address] Phone Care Team Providers Care Watchmaker Apprentice Name Role Phone Vandana Parker MD Primary Care Provider +1- [phone] Allergies Active Allergy Reactions Criticality Noted Date Comments Atorvastatin High 05/06/2022 Muscle aches Magnesium Oxide 05/06/2022 Pravastatin High 05/06/2022 Muscle aches Rcjtbcg-Ggp-Ocw Reductase Inhibitors 07/13/2024 Medications albuterol HFA (PROAIR [...] 75 mg tabletIndication s:Coronary artery disease involving allakaket coronary artery of [place]akaket heart, unspecified whether angina present,History of non-ST [...] would institute full anticoagulation given his elevated [id number] score Assessment & Plan (10/19/2024 10:26 PM [...] to discuss this further with the covering sales consultant as Dr. Wade is on vacation this [...] Overview (06/18/2024): Followed by nephrology and has [facility] ordered Heart failure with mid-range ejection fraction ( HFmEF) 06/11/2024 Overview (04/17/2025): - LVEF 40-45% range - Echocardiogram at the time of his AL 07/2024 showed normal LV size with mild [...] most recent echocardiogram completed 01/30/2024 while inpatient [facility] revealed an EF of 40 to [...] as indicated. Coronary artery disease invo lving allakaket coronary artery of allakaket heart without angina pectoris 05/06/2022 Overview (04/17/2025): - s/p CABG 07/2024 -Prior stenting including proximal circumflex and mid RCA in 2015, SATURNINO mid LAD 2016 and patent stents on 02/2019 -NSTEMI 07/2024, transferred to [facility] where cath showed significant multivessel CAD undergoing 3V CABG with Dr. Santamaria receiving (LAWLER to LAD, SVG to PLV, RA to OM -Brief postoperative atrial fibrillation, discharged on amiodarone prophylaxis, was not started on anticoagulation -Echocardiogram at the time of his AL showed normal LV size with mild concentric [...] will review his case with the covering sales consultant out of concern for possible graft failure [...] this; we discussed transfer via ambulance to [facility] versus assisting the patient to [place] [...] Overview (04/17/2025): - prior TIAs followed by [facility] vascular surgery, managed medically - He had a left carotid stent 01/2025 -Right ICA velocity in the 70% range Assessment & Plan (04/17/2025 12:45 PM EDT): The patient's carotid stenosis is closely followed by the vascular team at [facility] [place]. Continue risk factor modification with DAPT and [...] continue with recommendations as provided by his senior manager quality assurance including continuation of antibiotic treatment, prednisone taper, [...] Type Department Care Team Description 07/12/2025 Telephone [facility] Pre-Admission Testing [address] [place] [address] Nell Ponce RN 06/29/2025 Telephone Periop Testing - [place] [address] [place] [phone] Fracisco Johnson MD 06/28/2025 Telephone Periop Testing - [place] [address] [place] [phone] Physician, No Pcp 06/22/2025 Telephone [facility] Card[facility] [address] [place] [address] Carrie Morales MA 04/28/2025 Telephone [facility] Card[facility] [address] [place] [phone] Radu Wade MD 04/25/2025 Telephone [facility] Cardiology [facility] [address] [place] [phone] Radu Wade MD from Last 3 Months Surgical History Surgery Date Site/Laterality Comments SPINE SURGERY cervical and lumbar ROTATOR CUFF REPAIR Left KNEE SURGERY Left CORONARY STENT PLACEMENT mid LAD in 2016 and 2 proximal circumflex and mid RCA in 2015 Medical History Medical History Date Comments Hypertension CHF (congestive heart failur e) ([facility] V24, [facility] V28) COPD (chronic obstructive pu lmonary disease) ([facility] V24, [facility] V28) CAD (coronary artery disease) s/ p stenting to mid LAD 2016, proximal circumflex and mid RCA, 2015 PAD (peripheral artery disea se) ([facility] V24) DM (diabetes mellitus) ([facility] V24, [facility] V28) Lymphoma in remission ([facility] V28) CKD (chronic kidney disease) stage 3, GFR 30-59 ml/min ([facility] V24, [facility] V28) Family History Medical History Relation Name [...] Info) Description 07/20/2025 12:40 PM EST Consult [facility] Card[facility] [address] [facility] [address] [place] [address] Nathalie Tian NP [address] [place] [address] [address] [place] [address] 10/14/2025 8:00 AM EDT Ancillary Procedure [facility] Cardiology [facility] [address] [place] [address] Health Maintenance Due Date Last Done Comments [...] 11:30 AM EDT Coronary artery disease involving [place]akaket coronary artery of [place]akaket heart, unspecified whether angina present Hypercholesterolemia from [...] 4:06 AM EDT Performed at: 01 - [facility] [id number] Motel Clerk: Amanda Maxwell MD, Phone: [phone] Kenyetta Shi NP LAB BLOOD ORDERABLES Final [...] AM EDT Performed at: 01 - [facility] [address] [id number] Motel Clerk: Amanda Maxwell MD, Phone: [phone] Kenyetta Shi CIGARETTE PAPER TESTER LAB BLOOD ORDERABLES Final Result [facility] 1 from Last 3 Months or Most Recently Relevant to Health Maintenance Insurance MEDICARE Member Subscriber Plan / Payer (Ef fective 2014-Present) Name:RAMAKRISHNA BAI Member ID:[id number] Relation to Subscriber:Self Name:Ramakrishna Bai Subscriber ID:[id number] Payer ID:Not on file Group ID:Not on file Type:Medicare Address: [address] [address] [facility] Advance Directives * Full Code [...] Bai Spouse First Alternate Health Care Agent [email or web address] Care Teams Watchmaker Apprentice Relationship Specialty Start Date End Date Vandana Parker MD [address] [place] [address] PCP - General Internal Medicine 08/05/17
--- OUTSIDE RECORDS SUMMARY | 2025-07-19 17:25 | XMS_ITS | Encounter Summary ---
Author Organization [facility] Address [address] [place] [address] Care Team Providers Care Work Study Student Name Role Phone Vandana Parker MD Primary Care Provider +1- [phone] Encounter Details Date Type Department Care Team (Late st Contact Info) Description 05/26/2020 Scanned Document [facility] [address] [place] [address] [place] [address] Jimi Glynn MD [address] [place] [phone] Social History Tobacco Use Types Packs/Day Years [...] on filedocumented in this encounter Care Teams Work Study Student Relationship Specialty Start Date End Date Vandana Parker MD [address] [address] PCP - General Internal Medicine 03/29/19 documented as of this encounter
== END 2025-07-19 14:43 | disposition home or self-care (01) ==
LOC: HO.HKAS 13:21
PROVIDERS: PCP Internal Medicine; Referring Provider Internal Medicine; Visit Provider Internal Medicine Nephrology
DX: R09.89 Other specified symptoms and signs involving the circulatory and respiratory systems (principal); N18.32 Chronic kidney disease, stage 3b; E83.52 Hypercalcemia; N17.9 Acute kidney failure, unspecified
CPT/HCPCS: 99205

== ENCOUNTER → 2025-07-19 13:21 | Outpatient (BNVA) | payer MEDICARE, SELFPAY | PROVIDERS: PCP Internal Medicine; Referring Provider Internal Medicine; Visit Provider Internal Medicine Nephrology | DX: N18.32 Chronic kidney disease, stage 3b (principal); E83.52 Hypercalcemia; N17.9 Acute kidney failure, unspecified; R09.89 Other specified symptoms and signs involving the circulatory and respiratory systems | CPT/HCPCS: 99202 ==

== ENCOUNTER → 2025-07-20 14:22 | Outpatient (BNVA) | payer MEDICARE, SELFPAY | PROVIDERS: PCP Internal Medicine; Visit Provider Internal Medicine Nephrology | DX: N18.32 Chronic kidney disease, stage 3b (principal); R09.89 Other specified symptoms and signs involving the circulatory and respiratory systems | CPT/HCPCS: 93786; 93788 ==

== ENCOUNTER 2025-08-03 13:54 | Outpatient (AMB) | payer MEDICARE, SELFPAY ==
[2025-08-03 13:57] VITALS: BP 120/54; PULSE 51; O2SAT 82; BMI 29.8
--- NOTE | 2025-08-03 13:57 | HO.NEPHOV_ITS ---
Vital Signs 08/03/25 13:57 Height 5 ft 11.75 in Weight 218 lb BMI 29.8 BP 120/54 L Blood Pressure Location Lt brachial Position Sitting Pulse 51 Pulse Source Pulse Oximeter Pulse Oximetry (%) 82 L Oxygen Delivery Method Room Air Intake Visit Reasons: BP Concerns Entry Level Sales Associate Required: No Accompanied by: Son Allergies atorvastatin Allergy (Severe, Verified 08/03/25 14:00) Muscle Aches magnesium Allergy (Severe, Verified 08/03/25 14:00) Rash pravastatin Allergy (Severe, Verified 08/03/25 14:00) Muscle Aches HPI Comments Details: I had the pleasure of seeing Jose L in follow up for recent worsening of renal function and labile hypertension on a backdrop of chronic kidney disease. 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 He continues to feel dizzy when he gets up. He had been worked up and even had an EEG to evaluate for seizure activity. His memory has not been as sharp as it used to be and he is noticing the change more. The MRI showed lacunar infarct. His reports observing him with a head rocking motion, particularly when he is sitting. She has videotaped this and shared it with their son. His BP has been dropping more so in the afternoons. He has a continuous glucose monitor and takes insulin. He is inconsistent with his sliding scale insulin, taking it in the morning and at suppertime, but often skipping the midday dose if his blood sugar is around 150 mg/dL. He also skips breakfast and sometimes lunch. His most recent A1c was 9%. He has neuropathy from the time he had treatment for non Hodgkins lymphoma. He also is thought to have diabetic neuropathy. He has been taking sertaline for his mental health. He follows with his senior nuclear medicine technologist Dr Wade and does not think he has amyloidosis or cardiomyopathy. He had Holter monitor and 24 hour BPM which did not explain his symptoms. He is known to have carotid stenosis and follows with vascular surgeon in [facility]. He has not seen a neurologist yet(waiting) He also has been having unintentional intermittent tremors and his handwriting has become worse. His recent serum creatinine and calcium have gone up. He was accompanied by his son during this visit [facility] Medical History (Updated 08/04/25 @ 15:03 by Glenn Schultz MD) Rotator cuff tear Bilateral shoulder pain Tremors of nervous system Left shoulder pain Hypokalemia Lacunar infarction Memory change Primary hypertension Syncope Hypomagnesemia Hypothyroidism (acquired) Type 2 diabetes mellitus with hyperglycemia Iron deficiency anemia COPD (chronic obstructive pulmonary disease) History of non-Hodgkin's lymphoma History of TIA (transient ischemic attack) Diabetes mellitus type 2, insulin dependent Hyperlipidemia Hypertension CAD (coronary artery disease) Pulmonary nodule GERD (gastroesophageal reflux disease) Chronic restrictive lung disease Dyspnea Pneumonitis Surgical History Hx of CABG History of cardiac cath History of shoulder surgery History of total left knee replacement History of lumbar surgery History of cervical spinal surgery History of appendectomy Social History Housing: House Patient Tobacco Use Status: Former Tobacco user Years Smoked: 30 years e-Cigarette/Vaping Use: Never Used service: No Current occupational status: retired Review of Systems Const All systems reviewed & are unremarkable except as noted in HPI and below Physical Exam Vital Signs: Last Vital Signs Pulse 51 08/03/25 13:57 BP 120/54 L 08/03/25 13:57 Pulse Ox 82 L 08/03/25 13:57 Oxygen Delivery Method Room Air 08/03/25 13:57 BMI result Body Mass Index 29.8 Const General: comfortable and no acute distress Orientation/consciousness: patient oriented x3 HEENT Head: Yes normocephalic Mouth: Normal oral and palatal mucosa present Eyes EOM: EOMs intact bilaterally Neck Neck: Yes supple Resp Auscultation: clear to auscultation bilaterally Cardio Jugular venous distension: no JVD Rate: regular rate GI Palpation (GI): Soft to palpation Auscultation: normal bowel sounds General: Yes no CVA tenderness Back/Spine/Pelvis Back: no CVA tenderness Skin General skin exam: no rashes or lesions noted Neuro General: patient oriented x3 and moves all extremities Extrem General: Yes no pedal edema Results Reviewed Nephrology Results: Sodium, (135-145) 138 mmol/L 07/11/25 Potassium, (3.3-5.1) 5.1 mmol/L 07/11/25 Chloride, (96-108) 102 mmol/L 07/11/25 Carbon Dioxide, (22-29) 30 mmol/L H 07/11/25 BUN, (9-16) 43 mg/dL H 07/11/25 Creatinine, (0.5-1.4) 2.00 mg/dL H 07/11/25 Calcium, (8.4-10.2) 11.8 mg/dL H 07/11/25 Assessment & Plan Assessment & Plan (1) CKD stage 3b, GFR 30-44 ml/min: Code(s): N18.32 - Chronic kidney disease, stage 3b Category: Medical (2) SHONNA (acute kidney injury): Code(s): N17.9 - Acute kidney failure, unspecified Category: Medical (3) Labile hypertension: Code(s): R09.89 - Other specified symptoms and signs involving the circulatory and respiratory systems Category: Medical (4) Orthostasis: Code(s): I95.1 - Orthostatic hypotension Category: Medical Plan H/O hemodynamic SHONNA likely causing tubular injury from fluctuant blood pressures Has CKD 3 B likely from renovascular disease as well as diabetes; Needs better BS control; Recent hypo's likely from rise in creatinine Needs to R/O multisystem atrophy given Parkinsonian features, falls, gait disturbances,memory issues & dysautonomia Neurology needs to see to R/O parkinsons versus Multisystem atrophy(? needs Droxidopa) 24 hour BP monitor reviewed- NO significant low BP recorded; Doppler of renal vessels ordered to R/O renovascular disease given CKD/vascular disease May be having intracerebral stenosis and needs higher BP. C/W metoprolol 12.5 mg bid; Started Midodrine 2.5 mg in the afternoon Needs to come off sertaline if possible; CKD blood work & hypercalcemia W/U up as ordered; 24 hour urine for GFR after next visit If GFR permits and if there is no contraindication , could be initiated on SGLT2 i after reduction of glipizide All these have been discussed in detail with him and son. Answered all questions; F/U given Medications: New midodrine Take it at noon time 2.5 mg PO DAILY 30 tabs 1RF Coding Level of Care Code Est Pt Level 4 (44491) Diagnoses CKD stage 3b, GFR 30-44 ml/min N18.32 SHONNA (acute kidney injury) N17.9 Labile hypertension R09.89 Orthostasis I95.1
--- OUTSIDE RECORDS SUMMARY | 2025-08-03 15:11 | XMS_ITS | Clinical Summary ---
Author Organization [facility] Prior to 01/01/25 Address [address] [place] [address] Care Team Providers Care Nuclear Criticality Safety Engineer Name Role Phone Vandana Parker MD Primary Care Provider +1- [phone] Allergies No known active allergies Medications Medication [...] Tdap / Td (1 - Tdap) 1968 Shingrix-Zoster Vaccine (1 of 2) 1999 Fall [...] Advance Directives For more information, please contact: [phone] Documents on File Type Date Recorded Patient Architectural Design Professor Expl anation Advance Directive and Living Will 11/15/2016 9:42 AM Care Teams Nuclear Criticality Safety Engineer Relationship Specialty Start Date End Date Vandana Parker MD [address] [place] [address] PCP - General Internal Medicine 08/05/17
--- OUTSIDE RECORDS SUMMARY | 2025-08-03 15:11 | XMS_ITS | Encounter Summary ---
Author Organization [facility] Address [address] [place] [address] Care Team Providers Care Grapple Crew Leader Name Role Phone Vandana Parker MD Primary Care Provider +1- [phone] Reason for Visit * Reason Onset Date Comments office notes 07/22/2025 Encounter Details Date Type Department Care Team (Late st Contact Info) Description 07/22/2025 Telephone [facility] [address] [facility] [address] [place] [address] Carrie Morales MA Social History Tobacco Use Types Packs/Day Years [...] documented in this encounter Progress Notes * Nathalie Tian NP - 07/29/2025 4:44 PM EST Thank you. This looks to be preliminary and not with the MD's final read. By my review, Bps reasonable on current therapy. Will be interested to see what renal thinks, though. Thank you!! * Carrie Morales MA - 07/25/2025 8:24 AM EST BP monitor report received and will be sent to Nathalie's inbaet * Carrie Morales MA - 07/22/2025 1:30 PM EST I have faxed Nathalie's office note to Dr. Glenn Ledezma office [phone]. I have also requested BP monitor report documented in this encounter Plan of Treatment Upcoming Encounters Date Type Department Care Team (Late st Contact Info) Description 10/14/2025 8:00 AM EDT Ancillary Procedure [facility] - [address] [place] [address] documented as of this encounter Visit Diagnoses Not on filedocumented in this encounter Care Teams Grapple Crew Leader Relationship Specialty Start Date End Date Vandana Parker MD [address] [place] [address] PCP - General Internal Medicine 08/05/17 documented as of this encounter
--- OUTSIDE RECORDS SUMMARY | 2025-08-03 15:11 | XMS_ITS | Clinical Summary ---
Author Organization [facility] Address [address] [facility] [address] [place] [address] Phone Care Team Providers Care Lead Pharmacy Technician Name Role Phone Vandana Parker MD Primary Care Provider + Allergies Active Allergy Reactions Criticality Noted Date Comments Atorvastatin Other (See Comments) High 05/06/2022 Muscle aches Magnesium Unknown Medium 05/21/2017 Magnesium Oxide Vomiting 05/06/2022 vomitting/diarrhea Morphine Unknown 11/08/2014 Mxmmlut-Lbd-Wsa Reductase Inhibitors Other (See Comments) High 04/26/2019 [...] tablet Take 5 mg by mouth. 07/14/20 Active sertraline (ZOLOFT) 50 MG tablet Take [...] TOBACCO SCREENING 1962 HEPATITIS C SCREENING 1967 ZOSTER VACCINES (1 of 2) 1999 RSV VACCINE (1 - 1-dose 75+ series) 2024 INFLUENZA VACCINE (#1) 2025 COVID-19 VACCINE ( - 2024-2 6 season) 2025 PNEUMOCOCCAL VACCINES (50+ years) Completed 03/05/2024, 12/12/2022 [...] topic Medical Devices Not on file Insurance [employer] SUPPLEMENT MEDICARE PART A & B [employer] SUPPLEMENT MEDICARE PART A & B [employer] SUPPLEMENT MEDICARE PART A & B [employer] MEDEX SUPPLEMENT MEDICARE PART A & B [employer] SUPPLEMENT MEDICARE PART A & B [employer] SUPPLEMENT MEDICARE PART A & B Care Teams Lead Pharmacy Technician Relationship Specialty Start Date End Date Vandana Parker MD PCP - General Internal Medicine 08/30/24 Additional Source Comments The information contained in this document represents components of the legal health record. It is not the complete legal health record.[facility]
--- OUTSIDE RECORDS SUMMARY | 2025-08-03 15:11 | XMS_ITS | Patient Health Record ---
Author Organization [facility] Address [address] [place] [address] Care Team Providers Care Fire Alarm Inspector Name Role Phone VLADIMIR SANTANA, PETRA Primary Care Provider [place] Unavailable [phone] Allergies Allergen (clinical drug ingredient) Drug/Non Drug [...] Review and pick correct strength-formulati on from Deskwanted options. If intended option is not shown, discontinue and re-order from Quick Search. Active Sertraline HCl 50 MG Tablet 1 tab(s) orally once a day Active Aspirin 81 MG TABLET 1 TAB(S) ORALLY ONCE A DAY NAME ONLY Conversion from Multum Review and pick correct strength-formulati on from [employer]kwanted options. 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: yes via work, man y [...] Notes Problem Long-term current use of insulin (486206367) long term (current) use of insulin (Z79.4) Active confirmed Problem Polyneuropathy due to type 2 diabetes mellitus (171862477) Uncontrolled type 2 diabetes mellitus with peripheral neuropathy (E11.42) Active confirmed Problem Diabetic autonomic neuropathy due to type 2 diabetes mellitus (491325741) Type 2 diabetes mellitus with peripheral neuropathy (E11.43) Active confirmed Plan Of Treatment No Information Insurance Providers Payer Name Payer Address Payer Phone Subscriber Number Group Number Insured Name Patient Relationship to Insured Coverage Start Date Coverage End Date MEDICARE [employer] [address] [place] [address] [phone] [id number] BAIRAMAKRISHNA Rodríguez Self - patient is the insured SAMIR DAWSON [employer] [address] [place], [place] [id number] RAMAKRISHNA BAI Self - patient is the insured Medical (General) History Medical History History ICD Code anemia COPD Non-Hodgkins Lymphoma - 2005 - s/p chemo therapy ([facility]) - circulation problems? Type 2 diabetes - dx ~ 1992 headaches hypertension CAD - s/p SC, PTCA & stent x 3 - Dr. Melissa lui GERD - Dr. Sommers CKD - [facility] Loss sight of Right eye Surgical History Surgery Date(Month/Year) Right Leg Laser Vein Surgery 01/2020 PTCA/stent 01/2017 Stent placement x 2 - [facility] 03/2016 L Knee Replacement 2013 L Rotator Cuff 2005 L Knee Replacement 1998 Cervical Disc 1997 Cervical Disc 1988 Lumbar Disc 1987 Hospitalization History Reason Date(Month/Year) PTCA/stent 01/2017 as above [facility] - Non-Hodgkins Lymphoma (X 10-12 day s) 05/2005 heart attack - [facility] 03/2016 [facility] - dehydration/possible kidney failur e and stroke ruled out 02/2017
--- OUTSIDE RECORDS SUMMARY | 2025-08-03 15:11 | XMS_ITS | Clinical Summary ---
Author Organization [address] [place] [address] Address [address] [place] [address] Phone Care Team Providers Care Heel Nail Rasper Name Role Phone Vandana Parker MD Primary Care Provider +1- [phone] Allergies Active Allergy Reactions Criticality Noted Date Comments Atorvastatin High 05/06/2022 Muscle aches Magnesium Oxide 05/06/2022 Pravastatin High 05/06/2022 Muscle aches Lpynzyi-Gam-Znf Reductase Inhibitors 07/13/2024 Medications albuterol HFA (PROAIR [...] Use when walking a long way Active ferrous gluconate (FERGON) 324 mg (38 [...] 1 (one) time each day. 5 Active metoprolol tartrate (LOPRESSOR) 25 mg tablet Take 0.5 tablets (12.5 mg total) by mouth 2 (two) times a day. 5 Active metoprolol tartrate (LOPRESSOR) 25 mg tablet Take 0.5 tablets (12.5 mg total) by mouth 1 (one) time each day. 07/20/20 Discontinu ed(Reorder ) clopidogreL (PLAVIX) 75 mg tabletIndication s:Coronary artery disease involving [place] coronary artery of [place] heart, unspecified whether angina present,History of non-ST elevation myocardial infarction (NSTEMI) Take 1 tablet (75 mg total) by mouth 1 (one) time each day. 90 tablet 2 5 07/20/20 25 Discontinu ed(Therapy completed) Active Problems Problem Noted Date Diagnosed Date Orthostatic hypotension 07/20/2025 Assessment & Plan (07/20/2025 1:55 PM EST): The patient has had increasing episodes of dizziness. Some episodes occur shortly after standing up, others occur after he has been walking for a little while. When taken together, he likely has significant orthostatic hypotension. This is likely driven by a combination of his vascular disease, longstanding widely fluctuating diabetes, renal disease, and dehydration. This is often quite challenging to treat. He is undergoing a 24-hour blood pressure monitor by his temporary staff accountant. We will wait for those results. His metoprolol has already been down titrated. Unfortunately, his renal dysfunction does make ARB somewhat challenging, which typically would be beneficial to mitigate both his hypertension as well as his myopathy. Will need to discuss this with nephrology following his blood pressure monitor. He also seems to be quite dehydrated. His goal noncaffeinated intake of fluid (i.e. water) should be at least 48 ounces daily. His LVEF is not depressed enough that he would need to restrict his fluid. I have given the patient recommendations for hydration goals throughout the day. His family will need to help him with this. I have also have given him a prescription for compression stockings which will help as well. Again, this is likely a complex intersection of multiple medical issues leading to his current hypotensive episodes Status post coronary artery bypass graft 025 [...] would institute full anticoagulation given his elevated [id number] score Assessment & Plan (10/19/2024 10:26 PM [...] to discuss this further with the covering plastic maker as Dr. Ahn is on vacation this week. As such, [...] Overview (06/18/2024): Followed by nephrology and has [facility] Heart failure with mid-range ejection fraction ( HFmEF) 06/11/2024 Overview (04/17/2025): - LVEF 40-45% range - Echocardiogram at the time of his [place] 07/2024 showed normal LV size with mild concentric LVH, LVEF 46%, mild diastolic dysfunction, normal RV size and function, normal biatrial, trace MR and AI. Assessment & Plan (07/20/2025 1:52 PM EST): The patient's LVEF is stable in the 40% range based on his most recent echocardiogram in April at [facility].. His GDMT is limited by his renal disease and hyperkalemia. His beta-fernanda has been reduced given his propensity towards hypotension. Unfortunately, this is a complicated situation with multiple intersecting medical issues. Await his 24-hour blood pressure monitor from his temporary staff accountant to determine next steps. Assessment & Plan (04/17/2025 12:51 PM EDT): [...] most recent echocardiogram completed 01/30/2024 while inpatient [facility] revealed an EF of 40 to 45%. At the time I am writing this note, his labs ordered during this visit have resulted showing a continued elevation in his BNP as well as a creatinine of 2.01. As such, I have discussed this further with Dr. Ahn and the patient will be started on [...] as indicated. Coronary artery disease invo lving [place]qasuk coronary artery of [place] heart without angina pectoris 05/06/2022 Overview (04/17/2025): - s/p CABG 07/2024 -Prior stenting including proximal circumflex and mid RCA in 2015, SATURNINO mid LAD 2016 and patent stents on 02/2019 -NSTEMI 07/2024, transferred to [facility] where cath showed significant multivessel CAD undergoing 3V CABG with Dr. Santamaria receiving (LALWER to LAD, SVG to PLV, RA to OM -Brief postoperative atrial fibrillation, discharged on amiodarone prophylaxis, was not started on anticoagulation -Echocardiogram at the time of his [place] showed normal LV size with mild concentric LVH, LVEF 46%, mild diastolic dysfunction, normal RV size and function, normal biatrial, trace MR and AI. Assessment & Plan (07/20/2025 1:47 PM EST): Thankfully, he is not having any concerning anginal sounding discomfort. His beta-fernanda has been reduced by his temporary staff accountant given his fluctuations in his blood pressure. He is 12 months past his CABG, therefore, okay to discontinue his clopidogrel. Continue his aspirin and statin at current doses. He is due for an updated lipid panel, which we did not discuss today Assessment & Plan (04/17/2025 12:43 PM EDT): [...] will review his case with the covering plastic maker out of concern for possible graft failure [...] this; we discussed transfer via ambulance to [facility] versus assisting the patient to [facility] ER; I did not feel it was safe for him to be driving out of concern for recurrence of chest pain that may result in injury to himself or someone else. He was agreeable to presenting to [facility] ER for further evaluation; report was called [...] Overview (04/17/2025): - prior TIAs followed by [facility], managed medically - He had a left carotid stent 01/2025 -Right ICA velocity in the 70% range Assessment & Plan (07/20/2025 1:47 PM EST): He now tells me that he is due for right sided intervention. This certainly will play a role in determining the timing of his orthopedic procedures Assessment & Plan (04/17/2025 12:45 PM EDT): The patient's carotid stenosis is closely followed by the vascular team at [facility]. Continue risk factor modification with DAPT [...] continue with recommendations as provided by his instructional developer including continuation of antibiotic treatment, prednisone taper, [...] PCSK9 inhibitors cost prohibitive Assessment & Plan (07/20/2025 1:53 PM EST): LDL has been elevated. He seems to be tolerating his current dose of rosuvastatin. Update his lipids at his convenience. We did not discuss this during his visit today, and can discuss at subsequent visits. Continue statin Assessment & Plan (04/17/2025 12:54 PM EDT): [...] follow-up visit. Hypertension 05/06/2022 Assessment & Plan (07/20/2025 1:51 PM EST): Patient has wide fluctuations in his blood pressure including episodes of hypertension and now orthostatic hypotension (see below) Assessment & Plan (04/17/2025 12:49 PM EDT): [...] Encounters Date Type Department Care Team Description 07/22/2025 Telephone [facility] [address] [facility] [address] [place] [phone] Carrie Morales MA 07/20/2025 12:40 PM EST Consult [facility] [address] [place] [phone] Nathalie Tian NP Paroxysmal atrial fibrillation (CMS/HCC V24, CMS/HCC V28) (Primary Dx); Coronary artery disease involving [place] coronary artery of [place] heart without angina pectoris; Bilateral carotid artery stenosis; Primary hypertension; Heart failure with mid-range ejection fraction (HFmEF) (CMS/HCC V24, CMS/HCC V28); Hypercholesterolemia; Orthostatic hypotension 07/12/2025 Telephone [facility] Pre-Admission Testing [address] [place] [address] Nell Ponce RN 06/29/2025 Telephone [facility] [address] [place] [address] Fracisco Johnson MD 06/28/2025 Telephone [facility]iop Testing - [facility] [address] [place] [address] Physician, No Pcp 06/22/2025 Telephone [facility] [address] [place] [address] Carrie Morales MA from Last 3 Months Surgical History Surgery Date Site/Laterality Comments SPINE SURGERY cervical and lumbar ROTATOR CUFF REPAIR Left KNEE SURGERY Left CORONARY STENT PLACEMENT mid LAD in 2017 and 2 proximal circumflex and mid RCA in 2015 Medical History Medical History Date Comments Hypertension CHF (congestive heart failur e) [place] [place], [facility] V28) COPD (chronic obstructive pu lmonary disease) ([facility] [place], [facility] V28) CAD (coronary artery disease) s/ p stenting to mid LAD 2017, proximal circumflex and mid RCA, 2016 PAD (peripheral artery disea se) ([facility] V24) DM (diabetes mellitus) ([facility] V24, [facility] V28) Lymphoma in remission ([facility] [place]28) CKD (chronic kidney disease) stage 3, GFR 30-59 ml/min ([facility] [place]24, [facility] V28) Family History Medical History Relation Name [...] Sign Reading Time Taken Comments Blood Pressure 124/60 07/20/2025 12:56 PM EST Pulse 71 07/20/2025 12:46 PM EST Temperature 36.2 C (97.2 F) 07/14/2024 8:29 PM EST Respiratory Rate 18 07/14/2024 8:29 PM EST Oxygen Saturation 98% 07/20/2025 12:46 PM EST Inhaled Oxygen Concentration - - Weight 98.5 kg (217 lb 3.2 oz) 07/20/2025 12:46 PM EST Height 188 cm (6' 2 ) 07/20/2025 12:46 PM EST Body Mass Index 27.89 07/20/2025 12:46 PM EST Plan of Treatment Upcoming Encounters Date Type Department Care Team (Late st Contact Info) Description 10/14/2025 8:00 AM EDT Ancillary Procedure [facility] [address] [place] [address] Health Maintenance Due Date Last [...] Procedure Name Priority Date/Time Associated Diagnosis Comments ECG 12-LEAD Routine 07/20/2025 1:58 PM EST Paroxysmal atrial fibrillation (CMS/HCC V24, CMS/HCC V28) COLONOSCOPY Routine 11/03/2024 9:55 AM EDT BASIC METABOLIC PANEL Routine 10/20/2024 11:30 AM EDT Primary hypertension Palpitations Dizziness LIPID PANEL Routine 10/20/2024 11:30 AM EDT Coronary artery disease involving [place] coronary artery of [place] heart, unspecified whether angina present Hypercholesterolemia from Last 3 Months or Most Recently Relevant to Health Maintenance Results * ECG 12 lead (07/20/2025 1:58 PM EST) Ventricular Rate ECG 71 BPM GEMUSE Atrial Rate 71 BPM GEMUSE P-R Interval 248 ms GEMUSE QRS Duration 110 ms GEMUSE Q-T Interval 402 ms GEMUSE QTc 436 ms GEMUSE P Wave [place] 67 degrees GEMUSE R [place] -39 degrees GEMUSE T [place] 15 degrees GEMUSE ECG Interpretation Sinus rhythm with 1st degree A-V block Left axis deviation Inferior infarct (cited on or before 01-MAR-2005) Anterolatera l infarct (cited on or before 13-JUL-2024) Abnormal ECG unchanged 10/2024 Confirmed by Celine AHN, SAMANTHA ([id number]) on 07/26/2025 1:47:31 PM GEMUSE 07/20/2025 12:5 5 PM EST 07/26/2025 1:47 PM EST Nathalie Tian MAINSPRING FABRICATION SUPERVISOR ECG ORDERABLES Edited Result - Final GEMUSE * COLONOSCOPY (11/03/2024 9:55 AM EDT) Anatomical [...] 4:06 AM EDT Performed at: 01 - [facility] [id number] Residential Designer: Amanda Maxwell MD, Phone: [phone] Kenyetta Shi MAINSPRING FABRICATION SUPERVISOR LAB BLOOD ORDERABLES Final Result [facility] 1 [...] AM EDT Performed at: 01 - [facility] [address] [id number] Residential Designer: Amanda Maxwell MD, Phone: [phone] Kenyetta Shi NP LAB BLOOD ORDERABLES Final Result [facility] 1 from Last 3 Months or Most Recently Relevant to Health Maintenance Insurance MEDICARE [facility] Advance Directives * Full Code - [...] Bai Spouse First Alternate Health Care Agent [email or web address] Care Teams Heel Nail Rasper Relationship Specialty Start Date End Date Vandana Parker MD [address] [place] [address] PCP - General Internal Medicine 08/05/17
--- OUTSIDE RECORDS SUMMARY | 2025-08-03 15:12 | XMS_ITS | Encounter Summary ---
Author Organization [facility] Address [address] [place] [address] Care Team Providers Care Auctioneer Art Name Role Phone Vandana Parker MD Primary Care Provider +1- [phone] Encounter Details Date Type Department Care Team (Late st Contact Info) Description 06/22/2019 Scanned Document [facility] [place] [address] [facility] [address] [place], [place] [id number] Jimi Glynn MD [address] [place] [address] Social History Tobacco Use Types Packs/Day Years [...] on filedocumented in this encounter Care Teams Auctioneer Art Relationship Specialty Start Date End Date Vandana Parker MD [address] [address] PCP - General Internal Medicine 03/29/19 documented as of this encounter
--- OUTSIDE RECORDS SUMMARY | 2025-08-03 15:12 | XMS_ITS | Clinical Summary ---
Author Organization [address] Address [address] [place] [phone] Phone Care Team Providers Care Licensed Certified Orthotist Name Role Phone Vandana Parker MD Primary Care Provider +1- [phone] Allergies Active Allergy Reactions Criticality Noted Date Comments Atorvastatin Other (See Comments) Medium 05/06/2022 Muscle aches Magnesium Unknown Medium 05/21/2017 Magnesium Oxide Vomiting 05/06/2022 vomitting/diarrhea Pravastatin Other (See Comments) Medium 05/06/2022 Muscle aches Huejslq-Hge-Tkk Reductase Inhibitors Other (See Comments) Medium 04/26/2019 [...] C screening 1967 Lipid disorder screening 1989 Diabetes screening 1994 Shingles vaccine (Shingrix) (1 of 2 - Shingrix (RZV) 2 Dose Standard Series) 1999 RSV Immunization (1 - 1-dose 75+ series) 2024 Influenza vaccine 03/04/2025 Covid-19 vaccine series (2024- season) 2025 Tetanus adult (Td q 10,TDAP once) 11/18/2027 11/17/2017 Pneumococcal Vaccine (50+ years) Completed 12/12/2022, 04/28/2019, 11/17/2017 Colon cancer screening, Colonoscopy Discontinued Meningococcal B Vaccine Aged Out No l onger eligible based on patient's age to complete this topic Meningococcal Vaccine Aged Out No kylah binta eligible based on patient's age to complete this topic Insurance MEDICARE [facility] MEDICARE [facility] MEDICARE [facility] Care Teams Licensed Certified Orthotist Relationship Specialty Start Date End Date Vandana Parker MD [facility] [address] [address] PCP - General Internal Medicine 03/29/19
--- OUTSIDE RECORDS SUMMARY | 2025-08-03 15:12 | XMS_ITS | Clinical Summary ---
Author Organization [facility] Address [address] [address] Phone Care Team Providers Care Director Of Food And Nutrition Services Name Role Phone Vandana Parker MD Primary Care Provider +1- [phone] Allergies Active Allergy Reactions Criticality Noted Date [...] Years Used Date Smoking Tobacco: Former Cigarettes 0 Q uit: 2001 Tobacco Cessation:Counseling Given: Not [...] [facility] [address] [address] Santiago Quinn MD [address] [address] Health Maintenance Due Date Last Done Comments Diabetes: Hemoglobin A1C 09/03/2020 12/25/2018 Diabetes: Ophthalmology [...] % RTAMA 12/25/2018 us Rtama Conversion LAB [id number] LICITED RESULTS Final Result RTAMA from Last 3 Months or Most Recently Relevant to Health Maintenance Insurance [facility] Medicare Medicare [facility] Care Teams Director Of Food And Nutrition Services Relationship Specialty Start Date End Date Vandana Parker MD [address] [place], [place] PCP - General 08/14/20
--- OUTSIDE RECORDS SUMMARY | 2025-08-03 15:12 | XMS_ITS | Clinical Summary ---
Author Organization [facility] Address [address] [place] [address] Care Team Providers Care Inkjet Operator Name Role Phone Vandana Parker MD Primary Care Provider +1- [phone] Allergies Active Allergy Reactions Criticality Noted Date [...] 1949 DTaP/Tdap/Td Vaccines (1 - Tdap) 1968 Pneumococcal Vaccines 50+ (1 of 1 - [...] topic Insurance MEDICARE PART A & B [facility] Care Teams Inkjet Operator Relationship Specialty Start Date End Date Vandana Parker MD [address] [place] [address] PCP - General Internal Medicine 05/21/17
--- OUTSIDE RECORDS SUMMARY | 2025-08-03 15:12 | XMS_ITS | Encounter Summary ---
Author Organization [facility] Address [address] [place] [address] Care Team Providers Care Medical Pathologist Name Role Phone Vandana Parker MD Primary Care Provider +1- [phone] Encounter Details Date Type Department Care Team (Late st Contact Info) Description 08/04/2024 Lab Requisition [facility] - Main Lab [address] [place] [address] Teja Bello MD [address] [place] [phone] Encounter for other general examination Social History [...] Description 10/14/2025 8:00 AM EDT Ancillary Procedure [facility] [address] [facility] [address] [place] [address] documented as of this encounter [...] CBC auto differential (08/04/2024 6:26 AM EST) [facility] WBC 11.8(H) 4.8 - 10.8 K/mcL LAB [...] % LAB HEMETOLOGY METHOD 08/04/2024 9:56 AM [facility] Monocytes Relative 5.6 % LAB HEMETOLOGY METHOD 08/04/2024 9:56 AM [facility] Eosinophils Relative 4.1 % LAB HEMETOLOGY METHOD 08/04/2024 9:56 AM [facility] Basophils Relative 0.3 % LAB HEMETOLOGY METHOD 08/04/2024 9:56 AM [facility] Immature Granulocytes Relative 1.2 % LAB HEMETOLOGY METHOD 08/04/2024 9:56 AM [facility] Neutrophils Absolute 9.00(H) 1.50 - 7.00 K/mcL LAB HEMETOLOGY METHOD 08/04/2024 9:56 AM [facility] Lymphocytes Absolute 1.51 1.00 - 5.00 K/mcL LAB HEMETOLOGY METHOD 08/04/2024 9:56 AM [facility] Monocytes Absolute 0.66 0.20 - [...] ORDERABLES Final Res ult Performing Organization Address [facility]/ZIP Co de Phone Number [facility] [address] [place] [address], [place] [phone] * (ABNORMAL) Magnesium (08/04/2024 6:26 AM EST) Magnesium 1.8(L) 1.9 - 2.6 mg/dL LAB CHEMISTRY METHOD 08/04/2024 10:55 AM [facility] Blood Venous blood specimen / Unknown Venipuncture / Unknown 08/04/2024 6:26 AM EST 08/04/2024 8:35 AM EST Teja Bello MD LAB BLOOD ORDERABLES Final Res ult Performing Organization Address City/[facility]/ZIP Co de Phone Number [facility] [address] [place] [address], [place] [phone] * (ABNORMAL) Comprehensive metabolic panel (08/04/2024 6:26 AM EST) Sodium 139 133 - 145 mmol/L LAB CHEMISTRY METHOD 08/04/2024 10:06 AM [facility] Potassium 4.1 3.5 - 5.5 mmol/L LAB CHEMISTRY METHOD 08/04/2024 10:06 AM [facility] Chloride 105 96 - 110 mmol/L LAB CHEMISTRY METHOD 08/04/2024 10:06 AM [facility] CO2 27 21 - 32 mmol/L LAB CHEMISTRY METHOD 08/04/2024 10:06 AM [facility] Anion Gap 7 3 - 11 LAB CHEMISTRY METHOD 08/04/2024 10:06 AM [facility] Glucose 225(H) 70 - 100 mg/dL LAB CHEMISTRY METHOD 08/04/2024 10:06 AM [facility] BUN 35(H) 5 - 25 mg/dL LAB CHEMISTRY METHOD 08/04/2024 10:06 AM [facility] Creatinine 1.75(H) 0.70 - 1.30 mg/dL LAB CHEMISTRY METHOD 08/04/2024 10:06 AM [facility] eGFR 40(L) >=60 mL/min/1. 73m2 LAB CHEMISTRY METHOD 08/04/2024 10:06 AM [facility] Comment:Calculation based on the Chronic Kidney Disease Epidemiology Collaboration (CKD-EPI) equation refit without adjustment for race. BUN/Creatinine Ratio 20.0 LAB CHEMISTRY METHOD 08/04/2024 10:06 AM [facility] Calcium 8.3(L) 8.5 - 10.5 mg/dL LAB CHEMISTRY METHOD 08/04/2024 10:06 AM [facility] AST (SGOT) 47(H) 10 - 42 unit/L LAB CHEMISTRY METHOD 08/04/2024 10:06 AM [facility] ALT (SGPT) 79(H) 10 - 60 unit/L LAB CHEMISTRY METHOD 08/04/2024 10:06 AM [facility] Alkaline Phosphatase 139(H) 42 - 121 unit/L LAB CHEMISTRY METHOD 08/04/2024 10:06 AM [facility] Comment:Results verified by repeat testing Total Protein 6.2 6.0 - 8.0 g/dL LAB CHEMISTRY METHOD 08/04/2024 10:06 AM [facility] Albumin 2.7(L) 3.2 - 5.0 g/dL LAB CHEMISTRY METHOD 08/04/2024 10:06 AM [facility] Total Bilirubin 0.5 0.0 - 1.4 mg/dL LAB CHEMISTRY METHOD 08/04/2024 10:06 AM EST [facility] Blood Venous blood specimen / Unknown Venipuncture / Unknown 08/04/2024 6:26 AM EST 08/04/2024 8:35 AM EST us Teja Bello MD LAB BLOOD ORDERABLES Final Res ult [facility] [address] [place] [address], documented in this encounter Visit Diagnoses Diagnosis Encounter for other general examination documented in this encounter Care Teams Medical Pathologist Relationship Specialty Start Date End Date Vandana Parker MD [address] [place] [address] PCP - General Internal Medicine 08/05/17 documented as of this encounter
--- OUTSIDE RECORDS SUMMARY | 2025-08-03 15:12 | XMS_ITS | Encounter Summary ---
Author Organization [facility] Address [address] [place] [address] Care Team Providers Care Stockfeed Miller Name Role Phone Vandana Parker MD Primary Care Provider +1- [phone] Encounter Details Date Type Department Care Team (Late st Contact Info) Description 05/26/2020 Scanned Document [facility] [address] [place] [address] [place] [address] Jimi Glynn MD [address] [place] [phone] Social History Tobacco Use Types Packs/Day Years [...] on filedocumented in this encounter Care Teams Stockfeed Miller Relationship Specialty Start Date End Date Vandana Parker MD [address] [address] PCP - General Internal Medicine 03/29/19 documented as of this encounter
--- OUTSIDE RECORDS SUMMARY | 2025-08-03 15:12 | XMS_ITS | Encounter Summary ---
Author Organization [facility] and [facility] Address [address] [place] [address] Care Team Providers Care Dray Truck Driver Name Role Phone Vandana Parker MD Primary Care Provider +1- [phone] Reason for Referral * Imaging (Routine) - Closed Specialty Diagnoses / Procedures Referred By Contac t Referred To Contact Diagnostic Radiology Procedures US Duplex Carotid Bilateral Complete Jimi Glynn MD [address] [place] [address] [place] [address] Phone: tel: fax: Referral ID Status Reason Start Date Expiration Date Visits Re quested Visits Authorized [id number] Closed 05/06/2024 05/06/2025 1 1 Encounter Details Date Type Department Care Team (Late st Contact Info) Description 05/06/2024 Scanned Document [facility] [address] [facility] [address] [facility] [place] [address] Jimi Glynn MD [facility] [address] Social History Tobacco Use Types [...] on filedocumented in this encounter Care Teams Dray Truck Driver Relationship Specialty Start Date End Date Vandana Parker MD [address] [address] PCP - General Internal Medicine 03/29/19 documented as of this encounter
--- OUTSIDE RECORDS SUMMARY | 2025-08-03 15:12 | XMS_ITS | Continuity of Care Document ---
Author Organization [place] [facility] [place] Address [address] [facility] [address] [place] [address] Care Team Providers Care Steel Engraver Name Role Phone PETRA GILBERT Primary Care [...] degrees. The knee is stable within that ozxzk-cy-nqpnos to AP and ML stress. The alignment of the knee is varus. Muscle strength is normal. Pedal pulses are palpable. Hip examination, including flexion and internal rotation, was negative in that groin pain was not produced. Radiographs of the right knee from February 2025 demonstrate degenerative joint disease with joint space narrowing, osteophyte formation, and subchondral sclerosis. There is ymox-dj-fqwv articulation. Assessment/Plan : The patient is an [...] with right total knee arthroplasty using the [place] total knee replacement system. However, it is [...] replacement, robotic assisted, at [facility]. We will wait for confirmation by the [...] total knee arthroplast y (SURG) 2024 025 [email or web address] [facility] [address] [place] [address], [address], 5 09:49:47 Imaging None recorded. Medication Orders None recorded. Patient TargetsNo targets recorded. Patient InstructionsNo instructions recorded. Reason for Referral None Reported. Problems Name Problem SNOMED Code Status Onset Date Resolution Date Notes Provider Name and Address Organization Details Recorded Time Injury of right knee 34013314738 940033 Active 2018 Right knee injury Not Available [facility] 5 23:22:34 Arthritis of right knee joint 47484508630 03585 Active 2018 Arthritis of knee, right Not Available [facility] 5 23:22:35 Osteoarth ritis of right knee joint 12731054095 9100 Active [address], [place], [address] , [place] [facility] 5 15:49:35 Arthritis of knee 772744557 Active [address], [place], [address] , [place] [facility] 5 16:04:25 Osteoarth ritis of right glenohume ral joint 74122948555 77928 Active [address], [place], [address] , [place] [facility], [facility] 17:18:48 Arthritis of right wrist 99795938186 Active 2024 Staci Gonzalez MD [address], [place], [address] , [place] [facility] 5 14:47:38 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 Procedures Surgical History Date Name Laterality Status Provider Name and Address Organization Details Recorded Time 02/25/20 25 AJR Shoulder GH Inj completed Juan Ramon Mejia MD [address], [place], [address], [place] [facility] 02/24/2025 17:19:02 04/26/20 24 VIANNEY Knee Injection completed DORA DEE PA-C [address], [place], [address], [place] [facility] 04/26/2024 15:25:50 arthroplasty of knee completed [facility] [place] [facility] 04/26/2024 13:59:[address] [facility] [place] [facility] 04/26/2024 13:59:37 procedure on heart completed [facility] [place] [facility] 04/26/2024 13:59:52 discectomy of spine completed [facility] [place] [facility] 04/26/2024 14:00:13 Imaging Results None recorded. Procedure Notes None recorded. Medical Equipment None Reported. Allergies Allergen ID Allergen Name Allergen Category Reaction Reaction Severity Criticality Documentation Date Start Date Code Code System Note Provider Name and Address Organization Details Recorded Time 121725 pravastat in medicatio n Not available Not available Not available 06/27/2025 66298 RxNorm Not Available emmie - External Data Service - prod 5 15:02:04 429155 magnesium oxide medicatio n Not available Not available Not available 06/27/2025 6582 RxNorm Not Available emmie - External Data Service - prod 5 15:02:04 750376 atorvasta tin medicatio n Not available Not available Not available 06/27/2025 91568 RxNorm Not Available emmie - External Data Service - [facility] 5 15:02:04 741696 atorvasta tin calcium medicatio n Not available Not available Not available 06/27/20252021 88929 RxNorm Muscl e aches Not Available emmie - External Data Service - [facility] 5 15:02:20 409903 Product containin g 3-hydroxy -3-methyl glutaryl- coenzyme A reductase inhibitor (product) medicatio n Not available Not available Not available 06/27/20252023 54145 009 SNOMED Not Available emmie - External Data Service - [facility] 5 15:03:16 615205 magnesium medicatio n Not available Not available [facility] 06/27/20252016 6574 RxNorm unrec ogniz ed react ion (text : Unkno wn/Fermin ortiz and Famil y Unabl e to Defin e, code: 77371 5006) (from exter nal sourc e) Not Available emmie - External Data Service - prod 5 15:03:48 284266 morphine medicatio n Not available Not available Not available 06/27/20252014 7052 RxNorm unrec ogniz ed react ion (text : Radha billingsley, code: 36047 5006) (from exter nal sourc e) Not [...] Not Available Not Available Not Avai lable Novint TechnologiesTouch Ultra Test strips USE THREE TIMES A [...] Available No t Available FreeStyle Honey 2 Scenic DX: E11.9 USE FOUR TIMES PER DAY [...] Updated DateTime 05/17/2025 187.96 cm 27 kg/m2 55138.4 g Ekta Parker [place] [facility] 05/17/2025 15:43:45 Social History Question Answer Notes LastModified by TrillTip Details LastModified Time Tobacco Smoking Status Former Smoker Renetta vasquez, [place] - [facility] 04/26/2024 13:57:48 How Much Tobacco Do [...] Anemia Y Brain Injury N Heart Attack ([place]) Y Osteopenia N Diabetes Y Bleeding Disorder [...] ICD10 Code Diagnosis IMO Codes Diagnosis Note [id number] Fracisco Johnson MD [address] [address] 05/17/2025 15:31:03 05/17/2025 16:06:41 Osteoarthritis of right knee joint 8654792859 92378 M17.11 5979263 Arthritis of knee 780069 002 M13.869 Health Concerns Section Related Observation LastModified by Organization Detai ls LastModified Time None Recorded Concern Status LastModified by Organization Details LastModified Time None Recorded Payers Encounter Date Sequence Insurance Name Policy Number Policy Elizondo Covered Member ID Elizondo Member ID Guarantor Name 05/17/2025 1 [place] Jose L Goins [id number] Jose L Goins 05/17/2025 2 [place] [id number] Jose L Goins [id number] Jose L Goins
--- OUTSIDE RECORDS SUMMARY | 2025-08-03 15:12 | XMS_ITS | Data Portability ---
Author Organization [place] [facility] [place] Address [address] [place] [address] Care Team Providers Care Wrist Liner Name Role Phone PETRA GILBERT Primary Care [...] physical examination, tests/diagnostic imaging, and treatment plan [email or web address] Not available 02/10/2025 17:10:48 02/24/2025 02/24/2025 HPI: 74-year-old avml-vqbs-imujrum t man presenting with right shoulder pain [...] degrees. The knee is stable within that upvzk-ji-haeeng to AP and ML stress. The alignment of the knee is varus. Muscle strength is normal. Pedal pulses are palpable. Hip examination, including flexion and internal rotation, was negative in that groin pain was not produced. Radiographs of the right knee from February 2025 demonstrate degenerative joint disease with joint space narrowing, osteophyte formation, and subchondral sclerosis. There is wppv-bv-rmmm articulation. Assessment/Plan : The patient is an [...] with right total knee arthroplasty using the [place] total knee replacement system. However, it is [...] replacement, robotic assisted, at [facility]. We will wait for confirmation by the [...] total knee arthropl asty (SURG) 2024 025 [facility], [address] [facility], [place], [address], 5 09:49:47 Imaging XR, wrist, 3 or more view 2024 025 [email or web address] [facility], [address], [place], [address], 5 16:15:50 XR, ankle, 3 or more view 2024 025 [email or web address] [facility], [address], [address], [place], [address], 5 19:18:42 XR, ankle, 3 or more view 2024 025 [email or web address] [facility], [address], [address], [place], [address], 5 16:45:09 XR, foot, 2 view 2024 025 [email or web address] [facility], [address], [address], [place], [address], 5 16:45:09 XR, knee, 3 view 2024 025 [email or web address] [facility], [address], [address], [place], [address], 5 16:45:09 [place], knee, w/o contrast - Rule out lateral tibial plateau nondispl aced fracture status post 2024 025 [email or web address] Not available 5 08:07:06 XR, shoulder , 2 or more view 2024 025 [email or web address] [facility], [address], [address], [place], [address], 5 16:45:09 XR, wrist, 3 or more view 2024 025 [email or web address] [facility], [address], [address], [place], [address], 16:45:09 Medication Orders lidocain e (PF) 10 mg/mL (1 %) injectio n solution 2024 025 [email or web address] Not available 14:56:00 Marcaine (PF) 0.5 % (5 mg/mL) injectio n solution 2024 025 [email or web address] Not available 14:56:00 triamcin olone acetonid e 40 mg/mL suspensi on for injectio n 2024 025 [email or web address] Not available 14:56:00 Patient TargetsNo targets recorded. Patient Instructions Encounter Date Encounter Id Patient Instructions Last Modified By Organization Details Last Modified Time 02/10/2025 [id number] X-rays of the ri ght shoulder were [...] possibly indicating a nondisplaced distal radius fracture. Not available 02/10/2025 17:10:45 02/24/2025 [id number] Imaging: X-ray RIGHT shoulder, independent interpretation of AP and Axillary views by me show: located glenohumeral joint with severe glenohumeral arthritis, bone on bone, osteophytes, sclerosis, and cysts. The glenoid has Walch A2 wear pattern without significant posterior subluxation. [email or web address] Not available 02/24/2025 17:18:38 03/03/2025 [id number] 3 views of the r ight ankle obtained weightbearing on 03/03/25 demonstrate no acute osseous abnormalites. There is increased talar declination and collapse in Meary's line thorugh the NC joints. There is slight valgus tilt of the talus. [email or web address] Not available 03/06/2025 12:47:20 03/09/2025 [id number] 3 views of the r ight wrist [...] contr ast No observ ation record ed. [email or web address] [facility] [address] [facility] [address], [place], [address], 02/15/2025 08:41:17 02/15/2002/14/2025 CT, knee, w/o contr ast No observ ation record ed. [email or web address] [facility] [address] [place] [address], [place], [address], 02/15/2025 08:41:18 Result Notes None recorded. Problems Name Problem SNOMED Code Status Onset Date Resolution Date Notes Provider Name and Address Organization Details Recorded Time Injury of right knee 01412520058 018085 Active 2018 Right knee injury Not [facility] 5 23:22:34 Arthritis of right knee joint 25205631787 62225 Active 2018 Arthritis of knee, right Not Available [facility] 5 23:22:35 Osteoarth ritis of right knee joint 53014211056 9100 Active 2024 Fracisco Johnson MD [address], [place], [address] , [place] [facility] 5 15:49:35 Arthritis of knee 635281205 Active 2024 Fracisco Johnson MD [address], [place], [address] , [place] [facility] 5 16:04:25 Osteoarth ritis of right glenohume ral joint 74221733758 83644 Active 2024 Juan Ramon Mejia MD [address], [place], [address] , [place] [facility] 5 17:18:48 Arthritis of right wrist 62013065263 73817 Active [address], [place], [address] , [place] [facility] 5 14:47:38 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 Procedures Surgical History Date Name Laterality Status Provider Name and Address Organization Details Recorded Time 02/25/20 25 AJR Shoulder GH Inj completed MD [address], [place], [address], [place] [facility] 02/24/2025 17:19:02 04/26/20 24 VIANNEY Knee Injection completed [address], [place], [address], [place] [facility] 04/26/2024 15:25:50 arthroplasty of knee completed Renetta Miguel [place] - [facility] 04/26/2024 13:59:20 Shoulder Surgery completed [facility] [place] [facility] 04/26/2024 13:59:37 procedure on heart [facility] [place] [facility] 04/26/2024 13:59:52 discectomy of spine completed [facility] [place] [facility] 04/26/2024 14:00:13 Imaging Results None recorded. Procedure Notes None recorded. Medical Equipment None Reported. Allergies Allergen ID Allergen Name Allergen Category Reaction Reaction Severity Criticality Documentation Date Start Date Code Code System Note Provider Name and Address Organization Details Recorded Time 560082 pravastat in medicatio n Not available Not available Not available 06/27/2025 02345 RxNorm Not Available emmie - External Data Service - prod 15:02:04 845929 magnesium oxide medicatio n Not available Not available Not available 06/27/2025 6582 RxNorm Not Available emmie - External Data Service - prod 15:02:04 015614 atorvasta tin medicatio n Not available Not available Not available 06/27/2025 01016 RxNorm Not Available emmie - External Data Service - prod 15:02:04 153109 atorvasta tin calcium medicatio n Not available Not available Not available 06/27/20252021 06164 RxNorm Muscl e aches Not Available emmie - External Data Service - prod 5 15:02:20 011370 Product containin g 3-hydroxy -3-methyl glutaryl- coenzyme A reductase inhibitor (product) medicatio n Not available Not available Not available 06/27/20252023 17709 009 SNOMED Not Available emmie - External Data Service - prod 15:03:16 418081 magnesium medicatio n Not available Not available [facility] 06/27/20252016 6574 RxNorm unrec ogniz ed react ion (text : Unkno wn/Pa tient and Famil y Unabl e to Defin e, code: 23052 5006) (from exter nal sourc e) Not Available emmie - External Data Service - prod 5 15:03:48 308190 morphine medicatio n Not available Not available Not available 06/27/20252014 7052 RxNorm unrec ogniz ed react ion (text : Unkno wn, code: 59788 5006) (from [facility]) Not Available [place] - External Data Service - prod 15:04:03 [...] Not Available Not Available Not Avai lable [employer] Ultra Test strips USE THREE TIMES A [...] Available No t Available FreeStyle Honey 2 Eminence DX: E11.9 USE FOUR TIMES PER DAY [...] Updated DateTime 02/10/2025 187.96 cm 27 kg/m2 94011.4 g Garry Ness [place] - [facility] 02/10/2025 16:22:15 Date Recorded Body height Provider Name an d Address Organization Details Last Updated DateTime 03/09/2025 187.[address] - [facility] 03/09/2025 14:31:04 Date Recorded Body height Body mass index (BMI) Body weight Provider Name and Address Organization Details Last Updated DateTime 05/17/2025 187.96 cm 27 kg/m2 82310.4 g Ekta Parker [facility] 05/17/2025 15:43:45 Social History Question Answer Notes LastModified by Organizat ion Details LastModified Time Tobacco Smoking Status Former Smoker Renetta Petershudson null, [facility] 04/26/2024 13:57:48 How Much Tobacco Do [...] Anemia Y Brain Injury N Heart Attack ([place]) Y Osteopenia N Diabetes Y Bleeding Disorder [...] ICD10 Code Diagnosis IMO Codes Diagnosis Note [id number] DORA DEE PA-C [facility] [address] [place] [address] 04/26/2024 13:00:53 04/26/2024 15:36:50 Pain of right knee region 9146024947 98254 M25.561 51445503 Osteoarthr itis of right knee joint 6457756701 26154 M17.11 90346750 [id number] Fracisco Johnson MD [address] [address] 12/07/2024 14:49:08 12/07/2024 16:00:49 Pain of right knee region 5779258621 18097 M25.561 47184574 Osteoarthr itis of right knee joint 0189204699 40071 M17.11 8505088 Arthritis of knee 607222 002 M13.869 059882 LAUREANO BADILLO PA-C [facility] [address] [place] [address] 02/10/2025 15:22:27 02/10/2025 16:45:09 Pain of right shoulder region 4028248211 M25.511 94566360 Pain of ri ght knee region 5949506596 14677 M25.561 35856019 Ankle pain 568158320 M25 .571 29384234 Pain of right wrist 3169 762006 70766 M25.531 717917 671433 MD MITZY [address] [address] 02/24/2025 14:53:11 02/24/2025 16:24:12 Osteoarthritis of right glenohumeral joint 6468282622 088886 M19.011 10222468 [id number] Jo Ann Preciado MD [address] [address] 03/03/2025 14:42:03 03/03/2025 15:40:40 Ankle pain 573338689 M25.571 [id number] 377380 MD [address] [address] [place] [address] 03/09/2025 14:24:07 03/09/2025 14:45:11 Pain of right wrist 4129009505 98762 M25.531 852339 Arthritis of right wrist 3608933002 880279 M19.031 140341 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 0621606699 702786 M18.11 93128423 [id number] Fracisco Johnson MD [facility] [address] [facility] [address] [place] [address] 05/17/2025 15:31:03 05/17/2025 16:06:41 Osteoarthritis of right knee joint 5544505385 03989 M17.11 9940433 Arthritis of knee 571224 002 M13.869 Health Concerns Section Related Observation LastModified by Organization Detai ls LastModified Time None Recorded Concern Status LastModified by Organization Details LastModified Time None Recorded Advance Directives Directive None Recorded Payers Insurance Date Sequence Insurance Name Policy Number Policy Elizondo Covered Member ID Elizondo Member ID Guarantor Name 05/17/2025 NORIDIAN - SPECIALITY CLAIMS (MEDICARE DME REGION A) Jose L Goins [id number] Jose L Goins 05/14/2025 1 MEDICARE B-[place]: NGS Jose L Goins [id number] Jose L Goins 05/23/2025 2 [place] [id number] Jose L Goins [id number] Jose L Goins Notes Date Note [...] He is retired. [address], [place], [address], [facility] - [facility] 02/10/2025 17:11:03 03/03/2025 text/html Date of [...] is retired. MD [address], [place], [address], [place] - [facility] 03/06/2025 12:56:39 03/09/2025 text/html ROS as noted in the HPI This is a 74-year-old kzba-euve-jslrmyxw male who presents with right wrist pain [...] takes Plavix. MD [address], [place], [address], [place] - [facility] 03/09/2025 14:49:22
--- OUTSIDE RECORDS SUMMARY | 2025-08-03 15:12 | XMS_ITS | Encounter Summary ---
Author Organization [facility] Address [address] [place] [address] Care Team Providers Care Auto Bumper Straightener Name Role Phone Vandana Parker MD Primary Care Provider +1- [phone] Encounter Details Date Type Department Care Team (Late st Contact Info) Description 05/26/2020 Scanned Document [facility] [address] [place] [address] [place] [address] Jimi Glynn MD [address] [place] [phone] Social History Tobacco Use Types Packs/Day Years [...] on filedocumented in this encounter Care Teams Auto Bumper Straightener Relationship Specialty Start Date End Date Vandana Parker MD [address] [address] PCP - General Internal Medicine 03/29/19 documented as of this encounter
--- OUTSIDE RECORDS SUMMARY | 2025-08-03 15:12 | XMS_ITS | Encounter Summary ---
Author Organization [facility] Address [address] [place] [address] Care Team Providers Care Medical Library Assistant Name Role Phone Vandana Parker MD Primary Care Provider +1- [phone] Encounter Details Date Type Department Care Team (Late st Contact Info) Description 08/10/2024 Lab Requisition [facility] [address] [place] [address] Teja Bello MD [address] [place] [address] Encounter for other general examination Social History [...] 10/14/2025 8:00 AM EDT Ancillary Procedure [facility] [address] [address] documented as of this encounter Procedures Procedure Name Priority Date/Time Associated Diagnosis Comments COMPLETE BLOOD COUNT Routine 08/10/2024 6:24 AM EST Encounter for other general examination COMPREHENSIVE METABOLIC PANEL Routine 08/10/2024 6:24 AM EST Encounter for other general examination documented in this encounter Results * (ABNORMAL) Complete blood count (08/10/2024 6:24 AM EST) [facility] WBC 8.9 4.8 - 10.8 /[facility] LAB HEMETOLOGY METHOD 08/10/2024 11:19 AM EST [facility] RBC 2.90(L) 4.50 - 5.50 M/mcL LAB HEMETOLOGY METHOD 08/10/2024 11:19 AM [facility] Hemoglobin 8.7(L) 13.5 - 17.5 g/dL LAB HEMETOLOGY METHOD 08/10/2024 11:19 AM [facility] Hematocrit 27.5(L) 42.0 - 54.0 % LAB HEMETOLOGY METHOD 08/10/2024 11:19 AM [facility] MCV 93.9 79.0 - 98.0 FL LAB HEMETOLOGY METHOD 08/10/2024 11:19 AM [facility] MCH 29.7 27.0 - 32.0 pcg LAB HEMETOLOGY METHOD 08/10/2024 11:19 AM [facility] MCHC 31.6(L) 32.0 - 37.0 g/dL LAB HEMETOLOGY METHOD 08/10/2024 11:19 AM [facility] RDW 14.6 11.0 - 15.0 % LAB HEMETOLOGY METHOD 08/10/2024 11:19 AM [facility] Platelets 550(H) 130 - 400 K/mcL LAB HEMETOLOGY METHOD 08/10/2024 11:19 AM [facility] MPV 9.3 7.0 - 11.0 FL LAB HEMETOLOGY METHOD 08/10/2024 11:19 AM [facility] NRBC 0.0 <1.0 % LAB HEMETOLOGY METHOD 08/10/2024 11:19 AM [facility] NRBC Absolute 0.00 <0.10 K/mcL LAB HEMETOLOGY METHOD 08/10/2024 11:19 AM [facility] Blood Venous blood specimen / Unknown Venipuncture / Unknown 08/10/2024 6:24 AM EST 08/10/2024 10:00 AM EST us Teja Bello MD LAB BLOOD ORDERABLES Final Res ult [facility] [address] [place] [address], [place] [phone] * (ABNORMAL) Comprehensive metabolic panel (08/10/2024 6:24 AM EST) Sodium 138 133 - 145 mmol/L LAB CHEMISTRY METHOD 08/10/2024 12:14 PM [facility] Potassium 4.6 3.5 - 5.5 mmol/L LAB CHEMISTRY METHOD 08/10/2024 12:14 PM [facility] Chloride 105 96 - 110 mmol/L LAB CHEMISTRY METHOD 08/10/2024 12:14 PM [facility] CO2 26 21 - 32 mmol/L LAB CHEMISTRY METHOD 08/10/2024 12:14 PM [facility] Anion Gap 7 3 - 11 LAB CHEMISTRY METHOD 08/10/2024 12:14 PM [facility] Glucose 128(H) 70 - 100 mg/dL LAB CHEMISTRY METHOD 08/10/2024 12:14 PM [facility] BUN 29(H) 5 - 25 mg/dL LAB CHEMISTRY METHOD 08/10/2024 12:14 PM [facility] Creatinine 1.77(H) 0.70 - 1.30 mg/dL LAB CHEMISTRY METHOD 08/10/2024 12:14 PM [facility] eGFR 40(L) >=60 mL/min/1. 73m2 LAB CHEMISTRY METHOD 08/10/2024 12:14 PM [facility] Comment:Calculation based on the Chronic Kidney Disease Epidemiology Collaboration (CKD-EPI) equation refit without adjustment for race. BUN/Creatinine Ratio 16.4 LAB CHEMISTRY METHOD 08/10/2024 12:14 PM [facility] Calcium 8.7 8.5 - 10.5 mg/dL LAB CHEMISTRY METHOD 08/10/2024 12:14 PM [facility] AST (SGOT) 36 10 - 42 unit/L LAB CHEMISTRY METHOD 08/10/2024 12:14 PM [facility] ALT (SGPT) 59 10 - 60 unit/L LAB CHEMISTRY METHOD 08/10/2024 12:14 PM [facility] Alkaline Phosphatase 111 42 - 121 unit/L LAB CHEMISTRY METHOD 08/10/2024 12:14 PM [facility] Total Protein 5.9(L) 6.0 - 8.0 g/dL LAB CHEMISTRY METHOD 08/10/2024 12:14 PM [facility] Albumin 2.6(L) 3.2 - 5.0 g/dL LAB CHEMISTRY METHOD 08/10/2024 12:14 PM [facility] Total Bilirubin 0.3 0.0 - 1.4 mg/dL LAB CHEMISTRY METHOD 08/10/2024 12:14 PM [facility] Blood Venous blood specimen / Unknown Venipuncture / Unknown 08/10/2024 6:24 AM EST 08/10/2024 10:00 AM EST us Teja Bello MD LAB BLOOD ORDERABLES Final Res ult [facility] [address] [place] [address], documented in this encounter Visit Diagnoses Diagnosis Encounter for other general examination documented in this encounter Care Teams Medical Library Assistant Relationship Specialty Start Date End Date Vandana Parker MD [address] [place] [address] PCP - General Internal Medicine 08/05/17 documented as of this encounter
--- OUTSIDE RECORDS SUMMARY | 2025-08-03 15:12 | XMS_ITS | Encounter Summary ---
Author Organization [facility] Address [address] [place] [phone] Care Team Providers Care Assistant Mechanic Name Role Phone Vandana Parker MD Primary Care Provider +1- [phone] Reason for Visit * Reason Onset Date Comments Ultrasound 04/20/2024 Encounter Details Date Type Department Care Team ([facility] st Contact Info) Description 04/20/2024 Telephone [facility] [address] [facility] [address] [facility] [place] [address] Jimi Glynn MD [address] [place] [address] Ultrasound Social History Tobacco Use [...] Zhang - 04/20/2024 10:15 AM EDT Called [facility] and spoke to radiology scheduling. They stated that they have not received's CUS order as of yet. They asked if it can be re-faxed to [phone]. Please advise documented in this encounter Plan of Treatment Not on file documented as of this encounter Visit Diagnoses Not on filedocumented in this encounter Care Teams Assistant Mechanic Relationship Specialty Start Date End Date Vandana Parker MD [address] [address] PCP - General Internal Medicine 03/29/19 documented as of this encounter
== END 2025-08-03 14:47 | disposition home or self-care (01) ==
LOC: HO.HKA 13:54
PROVIDERS: PCP Internal Medicine; Visit Provider Internal Medicine Nephrology
DX: N18.32 Chronic kidney disease, stage 3b (principal); N17.9 Acute kidney failure, unspecified; R09.89 Other specified symptoms and signs involving the circulatory and respiratory systems; I95.1 Orthostatic hypotension
CPT/HCPCS: 99214

== ENCOUNTER → 2025-08-03 13:54 | Outpatient (BNVA) | payer MEDICARE, SELFPAY | PROVIDERS: PCP Internal Medicine; Visit Provider Internal Medicine Nephrology | DX: I12.9 Hypertensive chronic kidney disease with stage 1 through stage 4 chronic kidney disease, or unspecified chronic kidney disease (principal); E11.22 Type 2 diabetes mellitus with diabetic chronic kidney disease; E11.65 Type 2 diabetes mellitus with hyperglycemia; N18.32 Chronic kidney disease, stage 3b; Z87.891 Personal history of nicotine dependence; Z79.4 Long term (current) use of insulin; N17.9 Acute kidney failure, unspecified; R09.89 Other specified symptoms and signs involving the circulatory and respiratory systems; I95.1 Orthostatic hypotension | CPT/HCPCS: 99212 ==